=== PATIENT | female | born 1955 | race Caucasian/White ===

== ENCOUNTER → 2016-07-02 | Outpatient (CLI) | payer MEDICARE ==
--- NOTE | 2016-07-02 10:31 | USB ---
Reason for exam: clinical finding. Indicated problem(s): pain in the left breast. Physical Findings: Nurse Summary: left reast tender during exam (nurse vanita). US Breast LT Left breast ultrasound including all four quadrants, the retroareolar region and axilla demonstrates a 0.4 x 0.5 x 0.2cm oval, hypoechoic lesion at 4 o'clock, benign lymph node and a 1.1 x 0.7 x 0.4cm oval, mixed lesion at 7 o'clock, vague tissue versus true lesion. These results were verbally communicated with the patient and result sheet given to the patient on 07/02/16. ASSESSMENT: Probably benign, BI-RAD 3 RECOMMENDATION: Ultrasound of the left breast in 6 months. Manage on a clinical basis with regard to patient symptoms.
== END | disposition home or self-care (01) ==
LOC: RADUSWWP 08:00
PROVIDERS: ATTEND Internal Medicine Geriatric Medicine
DX: N64.9 Disorder of breast, unspecified (principal)

== ENCOUNTER 2016-11-26 12:19 | Emergency (ER) | payer MEDICARE ==
[2016-11-26 12:57] VITALS: RESP 18
[2016-11-26] MEDS ORDERED: DICYCLOMINE 10 MG/ML 2 ML AMP IM STA (13:59)
[2016-11-26] MEDS ORDERED: ONDANSETRON 4 MG/2 ML VIAL IVP STA (13:59)
--- NOTE | 2016-11-26 14:01 | ED ---
Abdominal Pain HPI - General Chief Complaint: Abdominal Pain Stated Complaint: Abd Pain Time Seen by Provider: 11/26/16 13:52 Source: patient, RN notes reviewed Mode of arrival: ambulatory Limitations: no limitations - History of Present Illness Initial Comments: 61-year-old female presents to the emergency department with a chief complaint of crampy abdominal pain. Patient states that this pain started over the last 2 weeks. Patient states every time she eats she becomes very bloated and uncomfortable. Patient states she has nausea without vomiting. Patient states that she did take some Pepto-Bismol to help with her discomfort and now she has black stool. Patient states that she was concerned because her pain does not seem to be improving so she thought that she should be evaluated.Patient denies any recent fever, chills, shortness of breath, chest pain, back pain, numbness or tingling, dysuria or hematuria, constipation or diarrhea, headaches or visual changes, or any other current symptoms. - Related Data Home Medications Medication Instructions Recorded Confirmed Albuterol Nebulized [Ventolin 2.5 mg INHALATION RT-DAILY PRN 02/26/15 11/26/16 Nebulized] Albuterol Sulfate [Proair Hfa] 2 puff INHALATION RT-DAILY PRN 02/26/15 11/26/16 Cholecalciferol [Vitamin D3] 400 unit PO DAILY 02/26/15 11/26/16 Ipratropium/Albuterol Sulfate 2 puff INHALATION RT-QID PRN 02/26/15 11/26/16 [Combivent Respimat Inhaler] Lisinopril-Hctz 10-12.5 mg 1 tab PO DAILY 02/26/15 11/26/16 [Zestoretic 10-12.5] Metoprolol Succinate [Toprol XL] 100 mg PO DAILY 02/26/15 11/26/16 Simvastatin [Zocor] 40 mg PO DAILY 02/26/15 11/26/16 Aspirin [Adult Low Dose Aspirin EC] 81 mg PO DAILY 05/14/16 11/26/16 Gabapentin [Neurontin] 300 mg PO BID 11/26/16 11/26/16 Previous Rx's Medication Instructions Recorded Clopidogrel [Plavix] 75 mg PO DAILY #30 tab 03/01/15 Allergies Allergy/AdvReac Type Severity Reaction Status Date / Time influenza virus vaccine, Allergy hives Verified 11/26/16 15:23 specific [influenza virus vacc,specific] Review of Systems ROS Statement: Those systems with pertinent positive or pertinent negative responses have been documented in the HPI. ROS Other: All systems not noted in ROS Statement are negative. Past Medical History Past Medical History: Asthma, Chest Pain / Angina, COPD, Deep Vein Thrombosis ( DVT), Hyperlipidemia, Hypertension, Vascular Disorder Additional Past Medical History / Comment(s): hx blood clot in left arm, hx migraines, PVD History of Any Multi-Drug Resistant Organisms: None Reported Past Surgical History: Heart Catheterization Additional Past Surgical History / Comment(s): stent to lt external iliac, blood clot removed from left arm, surgery to fix "tear in aorta", surgery for "abdominal adhesions", 06-11-16 LT ILIAC PTBA/STENT Past Anesthesia/Blood Transfusion Reactions: No Reported Reaction Additional Past Anesthesia/Blood Transfusion Reaction / Comment(s): claustrophobia Past Psychological History: No Psychological Hx Reported Smoking Status: Current every day smoker Past Alcohol Use History: Occasional Additional Past Alcohol Use History / Comment(s): started smoking at age 16, states trying to quit, down FROM 1PPD to 1/2 ppd-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 Eye: Pupils are equal, round and reactive to light, extra-ocular movements are intact; there is normal conjunctiva bilaterally. No signs of icterus. Ears, nose, mouth and throat: There are moist mucous membranes. Neck: The neck is supple, there is no tenderness. Cardiovascular: There is a regular rate and rhythm. No murmur, rub or gallop is appreciated. Respiratory: Lungs are clear to auscultation, respirations are non-labored, breath sounds are equal. No wheezes, stridor, rales, or rhonchi. Gastrointestinal: Soft, distended, left-sided tenderness of the abdomen without masses or organomegaly noted. There is no rebound or guarding present. No CVA tenderness. Bowel sounds are unremarkable. Back: There is no tenderness to palpation in the midline. There is no obvious deformity. No rashes noted. Musculoskeletal: Normal ROM, no tenderness, There is no pedal edema. There is no calf tenderness or swelling. Sensation intact. Pulses equal bilaterally 2+. Neurological: CN II-XII intact, There are no obvious motor or sensory deficits. Coordination appears grossly intact. Speech is normal. Skin: Skin is warm and dry and no rashes or lesions are noted. Psychiatric: Cooperative, appropriate mood & affect, normal judgment. Limitations: no limitations Course Vital Signs 11/26/16 12:53 Temperature 98.7 F Pulse Rate 96 Respiratory 18 Rate Blood Pressure 115/77 O2 Sat by Pulse 97 Oximetry Medical Decision Making - Medical Decision Making 61-year-old female presents emergency Department chief complaint of abdominal pain.this patient is feeling much better with the medication. At this time we did inform patient CT results we discussed lab results. This tenderness. Acute finding for the patient's abdominal pain. Patient's tenderness has resolved. This time we did discuss close follow-up with the doctor we discussed return parameters all patient's questions. She states she understood and she is given the plan. She will be discharged. - Lab Data Result diagrams: 11/26/16 14:23 11/26/16 14:23 Lab Results 11/26/16 11/26/16 11/26/16 Range/Units 14:23 14:23 14:23 WBC 6.3 (3.8-10.6) k/uL RBC 4.12 (3.80-5.40) m/uL Hgb 14.7 (11.4-16.0) gm/dL Hct 42.4 (34.0-46.0) % MCV 102.9 H (80.0-100.0) fL MCH 35.6 H (25.0-35.0) pg MCHC 34.6 (31.0-37.0) g/dL RDW 13.7 (11.5-15.5) % Plt Count 228 (150-450) k/uL Neutrophils % 63 % Lymphocytes % 28 % Monocytes % 5 % Eosinophils % 2 % Basophils % 1 % Neutrophils # 3.9 (1.3-7.7) k/uL Lymphocytes # 1.8 (1.0-4.8) k/uL Monocytes # 0.3 (0-1.0) k/uL Eosinophils # 0.1 (0-0.7) k/uL Basophils # 0.0 (0-0.2) k/uL Macrocytosis Slight Sodium 136 L (137-145) mmol/L Potassium 3.6 (3.5-5.1) mmol/L Chloride 103 (98-107) mmol/L Carbon Dioxide 22 (22-30) mmol/L Anion Gap 11 mmol/L BUN 15 (7-17) mg/dL Creatinine 0.78 (0.52-1.04) mg/dL Est GFR (MDRD) Af Amer >60 (>60 ml/min/1.73 sqM) Est GFR (MDRD) Non-Af >60 (>60 ml/min/1.73 sqM) Glucose 109 H (74-99) mg/dL Calcium 9.9 (8.4-10.2) mg/dL Total Bilirubin 0.6 (0.2-1.3) mg/dL AST 32 (14-36) U/L ALT 24 (9-52) U/L Alkaline Phosphatase 85 (38-126) U/L Total Protein 7.4 (6.3-8.2) g/dL Albumin 4.5 (3.5-5.0) g/dL Amylase 46 (30-110) U/L Lipase 136 (23-300) U/L Urine Color Urine Appearance (Clear) Urine pH (5.0-8.0) Urine Protein (Negative) Urine Glucose (UA) (Negative) Urine Ketones (Negative) Urine Blood (Negative) Urine Nitrite (Negative) Urine Bilirubin (Negative) Urine Urobilinogen (<2.0) mg/dL Ur Leukocyte Esterase (Negative) Stool Occult Blood Negative (Negative) 11/26/16 Range/Units 15:51 WBC (3.8-10.6) k/uL RBC (3.80-5.40) m/uL Hgb (11.4-16.0) gm/dL Hct (34.0-46.0) % MCV (80.0-100.0) fL MCH (25.0-35.0) pg MCHC (31.0-37.0) g/dL RDW (11.5-15.5) % Plt Count (150-450) k/uL Neutrophils % % Lymphocytes % % Monocytes % % Eosinophils % % Basophils % % Neutrophils # (1.3-7.7) k/uL Lymphocytes # (1.0-4.8) k/uL Monocytes # (0-1.0) k/uL Eosinophils # (0-0.7) k/uL Basophils # (0-0.2) k/uL Macrocytosis Sodium (137-145) mmol/L Potassium (3.5-5.1) mmol/L Chloride (98-107) mmol/L Carbon Dioxide (22-30) mmol/L Anion Gap mmol/L BUN (7-17) mg/dL Creatinine (0.52-1.04) mg/dL Est GFR (MDRD) Af Amer (>60 ml/min/1.73 sqM) Est GFR (MDRD) Non-Af (>60 ml/min/1.73 sqM) Glucose (74-99) mg/dL Calcium (8.4-10.2) mg/dL Total Bilirubin (0.2-1.3) mg/dL AST (14-36) U/L ALT (9-52) U/L Alkaline Phosphatase (38-126) U/L Total Protein (6.3-8.2) g/dL Albumin (3.5-5.0) g/dL Amylase (30-110) U/L Lipase (23-300) U/L Urine Color Light Yellow Urine Appearance Clear (Clear) Urine pH 6.0 (5.0-8.0) Urine Protein Trace H (Negative) Urine Glucose (UA) Negative (Negative) Urine Ketones Negative (Negative) Urine Blood Negative (Negative) Urine Nitrite Negative (Negative) Urine Bilirubin Negative (Negative) Urine Urobilinogen <2.0 (<2.0) mg/dL Ur Leukocyte Esterase Negative (Negative) Stool Occult Blood (Negative) - Radiology Data Radiology results: report reviewed, image reviewed Disposition Clinical Impression: Abdominal pain Disposition: HOME SELF-CARE Condition: Stable Instructions: Abdominal Pain (ED) Additional Instructions: Please use medication as discussed. Please follow up with family doctor if symptoms have not improved over the next two days. Please return to the emergency room if your symptoms increase or worsen or for any other concerns. Referrals: David Varghese MD [Primary Care Provider] - 1-2 days Time of Disposition: 16:02
[2016-11-26] MEDS ORDERED: RX INFO: IV CONTRAST WAS GIVEN 1 EACH MISC MISCELLANE PRN (14:21)
[2016-11-26 14:48] LABS: Basophils % (A) 1 %; CH 36.2; CHCM 35.4; Eosinophils # (A) 0.1 k/uL (0-0.7); Eosinophils % (A) 2 %; HCT 42.4 % (34.0-46.0); HDW 2.37; HGB 14.7 gm/dL (11.4-16.0); Luc # (Auto) 0.13; Luc % (Auto) 2; Lymphocytes # (A) 1.8 k/uL (1.0-4.8); Lymphocytes % (A) 28 %; MCH 35.6 pg (25.0-35.0); MCHC 34.6 g/dL (31.0-37.0); MCV 102.9 fL (80.0-100.0); Macrocytosis Slight; Mean Platelet Volume 7.1; Monocytes # (A) 0.3 k/uL (0-1.0); Monocytes % (A) 5 %; Neutrophils # (A) 3.9 k/uL (1.3-7.7); Neutrophils % (A) 63 %; RBC 4.12 m/uL (3.80-5.40); RDW 13.7 % (11.5-15.5); WBC 6.3 k/uL (3.8-10.6); WBC (Perox) 6.25
[2016-11-26 14:57] LABS: ALT 24 U/L (9-52); AST 32 U/L (14-36); Alkaline Phosphatase 85 U/L (38-126); Amylase 46 U/L (30-110); Anion Gap 11 mmol/L; Blood Urea Nitrogen 15 mg/dL (7-17); Calcium 9.9 mg/dL (8.4-10.2); Carbon Dioxide 22 mmol/L (22-30); Chloride 103 mmol/L (98-107); Glucose 109 mg/dL (74-99); Non-African American GFR(MDRD) >60 (>60 ml/min/1.73 sqM); Potassium 3.6 mmol/L (3.5-5.1); Sodium 136 mmol/L (137-145); Total Bilirubin 0.6 mg/dL (0.2-1.3); Total Protein 7.4 g/dL (6.3-8.2)
--- NOTE | 2016-11-26 15:17 | CT ---
EXAMINATION TYPE: CT abdomen pelvis w con DATE OF EXAM: 11/26/2016 COMPARISON: NONE INDICATION: Abdominal pain, mainly left lower quadrant DLP: 1363 mGycm, Automated exposure control for dose reduction was used. CONTRAST: 100 mL of Omnipaque 300. Study performed without Oral Contrast TECHNIQUE: Axial images were obtained from above the diaphragm to the pubic rami in the axial plane a t 5 mm thick sections. Reconstructed images are reviewed on the computer in the coronal plane. FINDINGS: Limited CT sections are obtained the lung bases. The lung bases are clear. CT ABDOMEN: Liver: Normal Spleen: Normal Pancreas: Normal Adrenal glands: The adrenal glands are normal. Gallbladder: Normal Kidneys: No masses are evident. No hydronephrosis is present. No cysts are present. Delayed images were obtained through the kidneys, which remain unremarkable. Aorta: Normal Inferior vena cava: Normal. CT PELVIS: Loops of bowel within the abdomen and pelvis are normal. There are loops of bowel which are incom pletely distended or lack oral contrast limiting their evaluation. Appendix: Normal as visualized. Urinary bladder: Normal. Genitourinary structures: Uterus is unremarkable. Adnexal regions are clear. Minimal physiologic flui d is in the left adnexal region. A 1.3 cm cyst may be on the right ovary. Osseous structures: No suspicious lytic or sclerotic lesions. IMPRESSIONS: 1. Right ovarian cyst. 2. Minimal fluid left adnexal region.
[2016-11-26 15:59] LABS: Appearance,Urine Clear (Clear); Bilirubin,Urine Negative (Negative); Glucose,Urine (UA) Negative (Negative); Ketones,Urine Negative (Negative); Leukocyte Esterase,Urine Negative (Negative); Nitrite,Urine Negative (Negative); Protein,Urine Trace (Negative); UA Billing (MACRO vs. MICRO) CHEM; Urobilinogen,Urine <2.0 mg/dL (<2.0)
[2016-11-26 16:13] LABS: Specific Gravity,Urine >1.050 (1.001-1.035)
[2016-11-26 16:17] VITALS: BP 129/71; PULSE 91; TEMP 97.8
== END 2016-11-26 16:16 | disposition home or self-care (01) ==
LOC: EC 12:19
DX: R10.9 Unspecified abdominal pain (principal); R11.0 Nausea; I10 Essential (primary) hypertension; E78.5 Hyperlipidemia, unspecified; F17.200 Nicotine dependence, unspecified, uncomplicated; Z86.718 Personal history of other venous thrombosis and embolism; Z79.82 Long term (current) use of aspirin; Z79.899 Other long term (current) drug therapy; Z88.7 Allergy status to serum and vaccine
CPT/HCPCS: 36415; 80053; 82150; 83690; 85025; 82272; 81003; 87086; 74177; 99284; 96374; 96372; J0500; J2405; Q9967

== ENCOUNTER → 2017-02-05 | Outpatient (CLI) | payer MEDICARE ==
--- NOTE | 2017-02-05 10:05 | CT ---
EXAMINATION TYPE: CT brain wo con DATE OF EXAM: 02/05/2017 COMPARISON: NONE HISTORY: Headache CT DLP: 1036 mGycm. Automated Exposure Control for Dose Reduction was Utilized. TECHNIQUE: CT scan of the head is performed without contrast. FINDINGS: There is no acute intracranial hemorrhage, mass effect, or midline shift identified. The ventricles and sulci are within normal limits in size. The globes are intact and unremarkable. Ther e is tortuosity of the cavernous portions of the carotid arteries with minimal atheromatous changes. Few areas of hypoattenuation are seen within the right frontal and parietal lobes in the subcortical and periventricular white matter. Moderate mucosal thickening is seen of the left sphenoid sinus. Right bryanna bullosa are noted. Mild mucosal thickening is present within the ethmoid sinus and to a lesser degree into the right frontal sinuses through the frontal recess. Only partially visualized maxillary sinuses appear patent. Mastoi d air cells are well aerated. IMPRESSION: 1. No acute intracranial hemorrhage, mass effect, or midline shift is seen. 2. Few scattered subcortical and periventricular white matter changes, likely on the basis of chronic microangiopathy. 3. Moderate paranasal sinus disease.
== END ==
LOC: RADCTMAIN 09:09
PROVIDERS: ATTEND Internal Medicine Geriatric Medicine
DX: R90.89 Other abnormal findings on diagnostic imaging of central nervous system (principal)
CPT/HCPCS: 70450

== ENCOUNTER → 2017-08-26 | Outpatient (CLI) | payer MEDICARE ==
--- NOTE | 2017-08-26 16:44 | BD ---
EXAMINATION TYPE: MG DEXA axial skeleton. DATE OF EXAM: 08/26/2017 COMPARISON: NONE CLINICAL HISTORY: 62 year-old female age related osteoporosis, screening Height: 64 Weight: 179.9 FRAX RISK QUESTIONS: Alcohol (3 or more units per day): no Family History (Parent hip fracture): no Glucocorticoids (More than 3mos): no (Ex: prednisone, prednisolone, methylprednisolone, dexamethasone, and hydrocortisone). History of Fracture in Adulthood: no Secondary Osteoporosis: 1. Type 1 Diabetes: no 2. Hyperthyroidism: no 3. Menopause before 45: yes 4. Malnutrition: no 5. Chronic liver disease: no Rheumatoid Arthritis: no Current Tobacco Use: yes RISK FACTORS HISTORY OF: Surgery to Spine/Hip(right/left)/Wrist (right/left): no Family History of Osteoporosis: no Active: yes Diet low in dairy products/other sources of calcium: low in dairy/ takes calcium Postmenopausal woman: age 43 Lost more than 2 inches in height since high school: no Frequent falls: no Adrenal Insufficiency: no MEDICATIONS: headache meds, blood pressure, vit d Additional History: EXAM MEASUREMENTS: Bone mineral densitometry was performed using the [employer] System. Bone mineral density as measured about the Lumbar spine is: ----- L1-L4(G/cm2): 1.126 T Score Values are as follows: ----- L2: -0.9 ----- L3: -0.3 ----- L4: -0.7 ----- L1-L4: -0.6 Bone mineral density has: baseline Bone mineral density about the R hip (g/cm2): 0.837 Bone mineral density about the L hip (g/cm2): 0.848 T Score values are as follows: -----R Neck: -1.4 -----L Neck: -1.4 -----R Total: -0.8 -----L Total: -0.3 Bone mineral density has: baseline IMPRESSION: Osteopenia (T Score between -2.5 and -1). There is slightly increased risk of fracture and the patient may be considered for treatment. Re-Screen 2-5 years. NOTE: T-SCORE=SD OF THE YOUNG ADULT MEAN.
--- NOTE | 2017-09-03 09:20 | MM ---
Reason for exam: screening (asymptomatic). Last mammogram was performed 1 year and 3 months ago. History: Patient is postmenopausal and is nulliparous. Family history of breast cancer in maternal aunt at age 63 and breast cancer in paternal aunt at age 70. Physical Findings: A clinical breast exam by your physician is recommended on an annual basis and results should be correlated with mammographic findings. MG 3D Screening Mammo W/Cad Bilateral CC and MLO view(s) were taken. Prior study comparison: May 29, 2016, mammogram. February 17, 2013, mammogram. Focal asymmetry in the upper inner right breast and in the upper inner left breast. This finding is changed when compared with previous exams. ASSESSMENT: Incomplete: need additional imaging evaluation, BI-RAD 0 RECOMMENDATION: Special view mammogram of both breasts. If lesion persists on supplemental views, image directed ultrasound is recommended. [facility] will attempt to contact patient to return for supplemental views and ultrasound if indicated.
== END | disposition home or self-care (01) ==
LOC: RADMAMWWP 12:55
PROVIDERS: ATTEND Internal Medicine Geriatric Medicine
DX: Z12.31 Encounter for screening mammogram for malignant neoplasm of breast (principal); Z13.820 Encounter for screening for osteoporosis; M85.80 Other specified disorders of bone density and structure, unspecified site; M81.0 Age-related osteoporosis without current pathological fracture
CPT/HCPCS: 77063; 77067; 77080

== ENCOUNTER → 2017-10-02 | Outpatient (CLI) | payer MEDICARE ==
--- NOTE | 2017-10-02 14:38 | MM ---
Reason for exam: additional evaluation requested from abnormal screening. Last mammogram was performed 1 month ago. History: Patient is postmenopausal and is nulliparous. Family history of breast cancer in maternal aunt at age 63 and breast cancer in paternal aunt at age 70. Physical Findings: Nurse did not find any significant physical abnormalities on exam. MG 3D Work Up W/Cad DORA Bilateral spot compression CC view(s) were taken. LM view(s) were taken of the left breast. Prior study comparison: August 26, 2017, bilateral MG 3d screening mammo w/cad. May 29, 2016, mammogram. The breast tissue is heterogeneously dense. This may lower the sensitivity of mammography. No distinct lesion persists bilateral breasts. These results were verbally communicated with the patient and result sheet given to the patient on 10/02/17. ASSESSMENT: Benign, BI-RAD 2 RECOMMENDATION: Return to routine screening mammogram schedule for both breasts.
== END | disposition home or self-care (01) ==
LOC: RADMAMWWP 13:51
PROVIDERS: ATTEND Internal Medicine Geriatric Medicine
DX: R92.8 Other abnormal and inconclusive findings on diagnostic imaging of breast (principal)
CPT/HCPCS: 77066; G0279

== ENCOUNTER → 2018-03-23 | Outpatient (CLI) | payer MEDICARE ==
--- NOTE | 2018-03-23 10:13 | XR ---
EXAMINATION TYPE: XR Hip Complete LT DATE OF EXAM: 03/23/2018 COMPARISON: NONE HISTORY: Pain TECHNIQUE: 2 views submitted FINDINGS: There is no evidence of erosive change or acute fracture. Mild concentric narrowing the joint space. Vascular stent is seen overlying the upper pelvis on the left. IMPRESSION: 1. Mild arthropathy.
== END | disposition home or self-care (01) ==
LOC: RADXRMAIN 09:49
PROVIDERS: ATTEND Internal Medicine Geriatric Medicine
DX: M12.852 Other specific arthropathies, not elsewhere classified, left hip (principal)
CPT/HCPCS: 73502

== ENCOUNTER → 2018-08-06 | Outpatient (CLI) | payer MEDICARE ==
--- NOTE | 2018-08-06 14:59 | CT ---
EXAMINATION TYPE: CT angio thor/abd pel aorta DATE OF EXAM: 08/06/2018 COMPARISON: 11/26/2016 HISTORY: Dissection of abdominal aorta. CT DLP: 1765.7 mGycm. Automated Exposure Control for Dose Reduction was Utilized. CONTRAST: CT scan of the thorax, abdomen and pelvis is performed with IV Contrast, patient injected with 80 mL of Isovue 370. FINDINGS: LUNGS: There are a few scattered subtle upper lobe geographic groundglass opacities within the lung a pices such as very subtly seen on series 6 image 12 and 13 centrally. Remainder the lungs are clear w ithout evidence of focal consolidation, pleural effusion or pneumothorax minimal centrilobular emphys ematous changes and biapical pleural parenchymal scarring are noted. The tracheobronchial tree is pat ent. MEDIASTINUM: Surgical clips are seen surrounding the left subclavian and carotid above the thoracic i nlet. On the unenhanced images there is an aortic arch and descending thoracic aortic vascular stent. No intramural hematoma is seen. On the enhanced images there is no evidence of dissection. The nativ e subclavian artery is occluded and there is anastomosis with the left common carotid artery. A verte bral artery is diminutive but appears to be patent in its very limited portions. The descending thora cic aorta measures 3.0 x 3.0 cm at the level of the main pulmonary artery and distally measures 2.2 x 2.1 cm. No dissection is noted. There are no greater than 1 cm hilar or mediastinal lymph nodes. N o pericardial effusion is seen. OTHER: No additional significant abnormality is seen. LIVER/GB: Arterial phase of enhancement limits evaluation of the hepatic parenchyma. No suspicious he patic masses are seen.. No cholelithiasis. PANCREAS: No significant abnormality is seen. SPLEEN: No significant abnormality is seen. ADRENALS: There is mild thickening of the adrenal glands although they maintain a normal adreniform s hape, most commonly related to adrenal gland hyperplasia. KIDNEYS: No nephrolithiasis or hydronephrosis. BOWEL: No dilated large or small bowel. GENITAL ORGANS: Small amount of free fluid is seen posterior to the left ovary in the posterior cul-d e-sac. 1.8 cm probable right ovarian cyst is also noted. LYMPH NODES: No greater than 1cm abdominal or pelvic lymph nodes are appreciated. OSSEOUS STRUCTURES: No significant abnormality is seen. OTHER: The abdominal aorta is of normal course and caliber with moderate calcific atheromatous change s. No dissection is seen. IMPRESSION: 1. 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 No evidence of dissection. 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 2. Vague groundglass apical opacities may relate to pneumonitis of infectious or inflammatory etiolog y. Minimal centrilobular emphysematous changes also seen. 3. Small amount of free fluid is left paraovarian and could relate to a recently ruptured cyst howeve r given this patient's age pelvic ultrasound is recommended to evaluate the ovaries. 4. No evidence of abdominal aortic aneurysm or dissection. Moderate calcific atheromatous plaquing th roughout the abdominal aorta.
== END | disposition home or self-care (01) ==
LOC: RADCTMAIN 12:15
PROVIDERS: ATTEND Internal Medicine Interventional Cardiology
DX: I71.2 Thoracic aortic aneurysm, without rupture (principal); J43.2 Centrilobular emphysema; R91.8 Other nonspecific abnormal finding of lung field; I70.0 Atherosclerosis of aorta; Z88.7 Allergy status to serum and vaccine; Z96.89 Presence of other specified functional implants; Z98.890 Other specified postprocedural states
CPT/HCPCS: 82565; 84520; 71275; 36415; 74174; Q9967

== ENCOUNTER 2018-10-18 16:03 | Emergency (ER) | payer MEDICARE ==
[2018-10-18] MEDS ORDERED: SODIUM CHLORIDE 0.9% 1,000 ML IV STA (16:31)
[2018-10-18] MEDS ORDERED: FAMOTIDINE 20 MG/2 ML VIAL IV STA (16:31)
[2018-10-18] MEDS ORDERED: diphenhydrAMINE 50 MG CAP PO STA (16:31)
[2018-10-18] MEDS ORDERED: methylPREDNISolone SOD SUCCI 125 MG/2 ML VIAL IV STA (16:31)
[2018-10-18] MEDS ORDERED: EPINEPHrine 1 MG/ML 1 ML AMP IM STA (16:31)
--- NOTE | 2018-10-18 16:35 | ED ---
Allergic Reaction HPI - General Chief complaint: Allergic Reaction Stated complaint: Tongue Swelling Time Seen by Provider: 10/18/18 16:23 Source: patient Mode of arrival: ambulatory Limitations: no limitations - History of Present Illness Initial Comments: This 63-year-old white female presents with a complaint of an tongue swelling. This is primarily to the right side of her tongue. She denies any difficulty in breathing or rash. She states that it feels weird to swallow. She denies any previous similar incidents. This occurred approximately 45 minutes prior to arrival. She apparently called her primary care physician and they sent her to the emergency department for further treatment. She denies any new medications or new foods. She is unsure of the inciting incident. No other complaints or modifying factors. She does relate that she has been on lisinopril/hydrochlorothiazide for many years. - Related Data Home Medications Medication Instructions Recorded Confirmed Albuterol Nebulized [Ventolin 2.5 mg INHALATION RT-QID PRN 02/26/15 10/18/18 Nebulized] Albuterol Sulfate [Proair Hfa] 2 puff INHALATION RT-QID PRN 02/26/15 10/18/18 Cholecalciferol [Vitamin D3] 400 unit PO DAILY 02/26/15 10/18/18 Ipratropium/Albuterol Sulfate 1 puff INHALATION RT-QID PRN 02/26/15 10/18/18 [Combivent Respimat Inhaler] Metoprolol Succinate [Toprol XL] 100 mg PO DAILY 02/26/15 10/18/18 Simvastatin [Zocor] 40 mg PO DAILY 02/26/15 10/18/18 Aspirin [Adult Low Dose Aspirin EC] 81 mg PO DAILY 05/14/16 10/18/18 Citalopram Hydrobromide [CeleXA] 40 mg PO DAILY 10/18/18 10/18/18 DULoxetine HCL [Cymbalta] 30 mg PO DAILY 10/18/18 10/18/18 Gabapentin 600 mg PO BID 10/18/18 10/18/18 Lisinopril-Hctz 20-12.5 mg 1 tab PO DAILY 10/18/18 10/18/18 [Zestoretic 20-12.5] Multivitamins, Thera [Multivitamin 1 tab PO DAILY 10/18/18 10/18/18 (formulary)] Pantoprazole Sodium [Protonix] 40 mg PO DAILY 10/18/18 10/18/18 Previous Rx's Medication Instructions Recorded Clopidogrel [Plavix] 75 mg PO DAILY #30 tab 03/01/15 Famotidine [Pepcid] 20 mg PO BID #6 tablet 10/18/18 Hydrochlorothiazide 25 mg PO DAILY #30 tablet 10/18/18 diphenhydrAMINE [Benadryl] 50 mg PO QID PRN #15 capsule 10/18/18 predniSONE 20 mg PO BID #6 tab 10/18/18 Allergies Allergy/AdvReac Type Severity Reaction Status Date / Time influenza virus vaccine, Allergy Rash/Hives Verified 10/18/18 16:35 specific [influenza virus vacc,specific] Review of Systems ROS Statement: Those systems with pertinent positive or pertinent negative responses have been documented in the HPI. ROS Other: All systems not noted in ROS Statement are negative. Past Medical History Past Medical History: Asthma, Chest Pain / Angina, COPD, Deep Vein Thrombosis (DVT), Hyperlipidemia, Hypertension, Vascular Disorder Additional Past Medical History / Comment(s): hx blood clot in left arm, hx migraines, PVD History of Any Multi-Drug Resistant Organisms: None Reported Past Surgical History: Heart Catheterization Additional Past Surgical History / Comment(s): stent to lt external iliac, blood clot removed from left arm, surgery to fix "tear in aorta", surgery for "abdominal adhesions", 06-11-16 LT ILIAC PTBA/STENT Past Anesthesia/Blood Transfusion Reactions: No Reported Reaction Additional Past Anesthesia/Blood Transfusion Reaction / Comment(s): claustrophobia Past Psychological History: No Psychological Hx Reported Smoking Status: Current every day smoker Past Alcohol Use History: Occasional Past Drug Use History: None Reported - Past Family History Father Family Medical History: Cancer, Myocardial Infarction (OR) Additional Family Medical History / Comment(s): SKIN CANCER Mother Family Medical History: Cancer, Deep Vein Thrombosis (DVT) Additional Family Medical History / Comment(s): COLON CANCER TWICE, PAD-STENTS IN LEGS General Exam - General Exam Comments Initial Comments: GENERAL: The patient is well nourished and well hydrated. VITAL SIGNS: Heart rate, blood pressure, respiratory rate reviewed as recorded in nurse's notes. EYES: Pupils are round and reactive. Extraocular movements are intact. No conjunctival / lid redness or swelling. ENT: There is swelling to the tongue with the right side being worse than the left. Airway is patent. Throat is clear. There is no swelling noted in the posterior oropharynx. NECK: Nontender. No swelling or evidence of injury. No subcutaneous emphysema. Trachea is midline. No thyroid mass. HEART: Regular rate and rhythm. Good peripheral pulses. LUNGS/CHEST: Breath sounds clear and equal bilaterally. No rales, rhonchi, or wheezes. No ecchymosis, subcutaneous emphysema, or tenderness. ABDOMEN: Abdomen soft without tenderness. No palpable masses or organomegaly. No peritoneal signs. No abdominal wall swelling or ecchymosis. EXTREMITIES: No extremity tenderness. Normal muscle tone and function. No thoracolumbar tenderness. NEUROLOGIC: Sensation is grossly intact. Cranial nerve exam reveals face is symmetrical, tongue is midline, speech is clear. SKIN: No abrasions or ecchymosis is noted. No induration or masses noted. PSYCHIATRIC: Alert and oriented. Appropriate behavior and judgment. Limitations: no limitations Course Vital Signs 10/18/18 16:04 Temperature 98.1 F Pulse Rate 86 Respiratory 18 Rate Blood Pressure 122/60 O2 Sat by Pulse 98 Oximetry Medical Decision Making - Medical Decision Making The patient was seen and examined. All diagnostics were reviewed. An IV is established patient is given some Benadryl, Solu-Medrol, Pepcid intravenously. She also received some epinephrine intramuscularly. On recheck, she is feeling slightly improved. There is still some mild tongue swelling noted primarily on the right side. The laboratory does not show any acute abnormalities. This felt as though she would benefit from admission to the hospital but she refuses. She states that she has an important meeting in the morning. Risks and benefits of not being admitted are discussed in detail and she still refuses. This felt as though her angioedema likely is related to the lisinopril. She is instructed to avoid lisinopril in the future. She relates that her blood pressure is normally fairly well controlled with this medication. Instead of the lisinopril/hydrochlorothiazide 12.5 mg she'll be changed to hydrochlorothiazide only had 25 mg. She'll be kept on Benadryl, prednisone, and Pepcid for the next several days. Return parameters are discussed. - Lab Data Result diagrams: 10/18/18 16:22 10/18/18 16:22 Lab Results 10/18/18 10/18/18 Range/Units 16:22 16:22 WBC 8.2 (3.8-10.6) k/uL RBC 3.79 L (3.80-5.40) m/uL Hgb 13.3 (11.4-16.0) gm/dL Hct 38.9 (34.0-46.0) % MCV 102.7 H (80.0-100.0) fL MCH 35.3 H (25.0-35.0) pg MCHC 34.3 (31.0-37.0) g/dL RDW 13.2 (11.5-15.5) % Plt Count 321 (150-450) k/uL Neutrophils % 62 % Lymphocytes % 28 % Monocytes % 4 % Eosinophils % 3 % Basophils % 1 % Neutrophils # 5.1 (1.3-7.7) k/uL Lymphocytes # 2.3 (1.0-4.8) k/uL Monocytes # 0.3 (0-1.0) k/uL Eosinophils # 0.3 (0-0.7) k/uL Basophils # 0.1 (0-0.2) k/uL Macrocytosis Slight Sodium 137 (137-145) mmol/L Potassium 4.0 (3.5-5.1) mmol/L Chloride 102 (98-107) mmol/L Carbon Dioxide 26 (22-30) mmol/L Anion Gap 9 mmol/L BUN 15 (7-17) mg/dL Creatinine 0.96 (0.52-1.04) mg/dL Est GFR (CKD-EPI)AfAm 73 (>60 ml/min/1.73 sqM) Est GFR (CKD-EPI)NonAf 64 (>60 ml/min/1.73 sqM) Glucose 110 H (74-99) mg/dL Calcium 10.1 (8.4-10.2) mg/dL Disposition Clinical Impression: 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 Prescriptions: diphenhydrAMINE [Benadryl] 50 mg PO QID PRN #15 capsule PRN Reason: tongue swelling Hydrochlorothiazide 25 mg PO DAILY #30 tablet Famotidine [Pepcid] 20 mg PO BID #6 tablet predniSONE 20 mg PO BID #6 tab Is patient prescribed a controlled substance at d/c from ED?: No Referrals: David Varghese MD [Primary Care Provider] - 1-2 days Time of Disposition: 18:17
[2018-10-18] MEDS ORDERED: diphenhydrAMINE 50 MG/ML 1 ML VIAL IVP STA (17:10)
[2018-10-18 17:19] LABS: Basophils # (A) 0.1 k/uL (0-0.2); Basophils % (A) 1 %; Eosinophils # (A) 0.3 k/uL (0-0.7); Eosinophils % (A) 3 %; HCT 38.9 % (34.0-46.0); HGB 13.3 gm/dL (11.4-16.0); Lymphocytes # (A) 2.3 k/uL (1.0-4.8); Lymphocytes % (A) 28 %; MCH 35.3 pg (25.0-35.0); MCHC 34.3 g/dL (31.0-37.0); MCV 102.7 fL (80.0-100.0); Macrocytosis Slight; Mean Platelet Volume 7.2; Monocytes # (A) 0.3 k/uL (0-1.0); Monocytes % (A) 4 %; Neutrophils # (A) 5.1 k/uL (1.3-7.7); Neutrophils % (A) 62 %; Platelet Count 321 k/uL (150-450); RBC 3.79 m/uL (3.80-5.40); RDW 13.2 % (11.5-15.5); WBC 8.2 k/uL (3.8-10.6)
[2018-10-18 17:29] LABS: Calcium 10.1 mg/dL (8.4-10.2)
[2018-10-18 19:33] VITALS: BP 122/72; PULSE 69; RESP 18; TEMP 98.4
== END 2018-10-18 19:33 | disposition home or self-care (01) ==
LOC: EC 16:03
DX: T78.3XXA Angioneurotic edema, initial encounter (principal); T46.4X5A Adverse effect of angiotensin-converting-enzyme inhibitors, initial encounter; J44.9 Chronic obstructive pulmonary disease, unspecified; E78.5 Hyperlipidemia, unspecified; I10 Essential (primary) hypertension; F17.200 Nicotine dependence, unspecified, uncomplicated; Z86.718 Personal history of other venous thrombosis and embolism; Z79.82 Long term (current) use of aspirin; Z79.899 Other long term (current) drug therapy; Z88.7 Allergy status to serum and vaccine; Z95.818 Presence of other cardiac implants and grafts; Z53.29 Procedure and treatment not carried out because of patient's decision for other reasons
CPT/HCPCS: 36415; 80048; 85025; 99284; 96374; 96375 ×2; 96361 ×2; 96372; J0171; J1200; J2930

== ENCOUNTER 2019-07-19 06:05 | Day surgery (SDC) | payer MEDICARE ==
[2019-07-14 15:14] VITALS: BMI 34.0
[2019-07-19] MEDS ORDERED: ALPRAZolam 0.5 MG TAB PO PRN ×2 (06:14)
[2019-07-19] MEDS ORDERED: NITROGLYCERIN SL TABS 0.4 MG TAB SUBLINGUAL PRN (06:14)
[2019-07-19] MEDS ORDERED: SODIUM CHLORIDE 0.9% 1,000 ML in EMPTY BAG 1 BAG IV ONE (06:14)
[2019-07-19] MEDS ORDERED: ALPRAZolam 0.25 MG TAB PO PRN (06:14)
[2019-07-19] MEDS ORDERED: ASPIRIN 325 MG TAB PO STA (06:14)
[2019-07-19] MEDS ORDERED: ASPIRIN 81 MG ONE (06:35)
[2019-07-19] MEDS ORDERED: SODIUM CHLORIDE 0.9% 1,000 ML IV ONE (06:55)
[2019-07-19 06:58] VITALS: RESP 16; TEMP 98.5
[2019-07-19] MEDS ORDERED: ATORVASTATIN 80 MG TAB PO ONE (07:00)
[2019-07-19] MEDS ORDERED: ASPIRIN 325 MG TAB PO ONE (07:00)
[2019-07-19] MEDS ORDERED: MIDAZOLAM 2 MG/2 ML VIAL IV ONE (08:18)
[2019-07-19] MEDS ORDERED: LIDOCAINE 1% INJ 10MG/ML (20 ML MDV) SQ ONE (08:18)
[2019-07-19] MEDS ORDERED: IOPAMIDOL-370 125ML BTL INJ ONE (08:26)
[2019-07-19] MEDS ORDERED: IOPAMIDOL-250 100ML BTL INTRAARTER ONE (08:33)
[2019-07-19] MEDS ORDERED: RX INFO: IV CONTRAST WAS GIVEN 1 EACH MISC MISCELLANE PRN (08:44)
[2019-07-19] MEDS ORDERED: SODIUM CHLORIDE 0.9% 1,000 ML IV SCH (08:45)
--- NOTE | 2019-07-19 09:25 | CC ---
CARDIAC CATHETERIZATION REPORT DATE OF SERVICE: July 19, 2019 PERFORMING PHYSICIAN: Saurabh Mas MD. PROCEDURE PERFORMED: 1. Selective right and left coronary angiogram. 2. Left heart catheterization. INDICATION: This is a 64-year-old female patient with history of peripheral arterial disease and prior stenting of the left external iliac artery as well as history of smoking as well as hypertension and dyslipidemia was experiencing chest discomfort concerning for angina. Because of that, a heart catheterization was advised. She is known to have coronary artery disease based on previous heart catheterization showing intermediate disease involving the mid LAD. APPROACH: Right common femoral artery. COMPLICATION: None. LEVEL OF SEDATION: Moderate with sedation length of 10 minutes. PROCEDURE DESCRIPTION: After obtaining an informed consent, the patient was brought to the cardiac research lab assistant. The right common femoral artery was cannulated using micropuncture technique, the micropuncture wire passed easily then I placed a 5-Cambodian sheath at the right common femoral artery. After that I did selective right and left coronary angiogram using JR4 and JL4 catheters. Left heart catheterization was performed using the JR4 catheter which crossed the aortic valve then I did pullback across the valve. The procedure was completed without any complication. SELECTIVE CORONARY ANGIOGRAM: 1. The right coronary artery is a large caliber vessel and it is a dominant vessel and appeared to be angiographically normal. In the midportion, it gives rise into acute marginal branch which seems to be normal and distally bifurcates into PDA and PLV branches and both appeared to be angiographically normal. 2. The left main is angiographically normal. It bifurcates into LCX and LAD. 3. The LCX is a large caliber vessel. It is a nondominant vessel. The proximal left circumflex is normal and gives rise into first OM branch which appeared to be normal and bifurcates into 2 separate branches. The circumflex continued after that as a moderate caliber vessel in the AV groove. 4. The Left Anterior Descending Artery: The proximal left anterior descending artery appeared to be angiographically normal. The mid LAD has a lesion appeared to be in the range of 40% to 50% seems to be unchanged compared to before. The LAD distally appeared to be angiographically normal. HEMODYNAMICS: The LVEDP was about 10 mmHg without significant gradient across the aortic valve. CONCLUSION: 1. Intermediate disease involving the mid left anterior descending artery with lesion appeared to be in the range of 40% to 50% and seems to be unchanged compared to prior heart catheterization. 2. Normal left ventricular end-diastolic pressure. POSTPROCEDURE MANAGEMENT: 1. Medical treatment. 2. Aggressive cholesterol control. 3. Follow up with the patient. HILL / ARAMIS: [id number] /
--- NOTE | 2019-07-19 09:32 | IR ---
EXAMINATION TYPE: IR angio abdominal w runoff DATE OF EXAM: 07/19/2019 CLINICAL HISTORY: Left leg pain. TECHNIQUE: Fluoroscopy. COMPARISON: None. FINDINGS: Fluoroscopic guidance was provided during coronary angiogram along with abdominal angiogra m with lower extremity runoff procedure performed by Dr. Mas. A total of 3.1 minutes of fluoroscopi c time was utilized during the procedure 10 cine runs are acquired. Images show catheter angiogram o f the 3 great vessels and the subsequent abdominal angiogram with lower extremity runoff through the right groin approach. Please refer to procedure note as I was not present nor performed procedure. IMPRESSION: As Above.
--- NOTE | 2019-07-19 09:46 | LTR ---
July 19, 2019 Re: Radha Cardozo Dear Dr. Varghese: Ms. Radha Cardozo underwent today a heart catheterization as well as an aortogram with runoff. The heart catheterization revealed intermediate disease involving the mid left anterior descending artery, appeared to be in the range of 50% and seems to be unchanged compared to prior heart catheterization in 2015. Having said that, I would advise aggressive cholesterol control and conservative medical approach at this point. Aortogram with runoff revealed occluded left external iliac artery. I will schedule the patient to undergo a EYELET CUTTER of the left external iliac artery to be done in the next few days. Again thank you for allowing us to participate in her care and please do not hesitate to call if you have any question or concern. Sincerely, MD HILL Lamb / ARAMIS: [id number] /
--- NOTE | 2019-07-19 10:46 | PCN ---
PROCEDURE NOTE DATE OF SERVICE: July 19, 2019. PERFORMING PHYSICIAN: Saurabh Mas MD PROCEDURES PERFORMED: 1. Abdominal aortogram. 2. Bilateral lower extremities run off. INDICATIONS: This is a pleasant 64-year-old female patient with history of peripheral arterial disease and prior stenting of the left external iliac artery who continues to have left leg intermittent claudication. On exam, she does have very diminished left femoral pulse. Because of that, she was brought today to undergo an aortogram with runoff. APPROACH: Right common femoral artery. COMPLICATIONS: None. LEVEL OF SEDATION: Moderate with sedation length of 10 minutes. PROCEDURE DESCRIPTION: Please refer to axis description, was done on heart catheterization report earlier today. I did an abdominal aortogram and bilateral lower extremities runoff using 5-Lithuanian pigtail catheter which was initially placed at the level of the renal arteries. Then it was pulled into above the bifurcation of the aorta to right and left common iliac arteries. The procedure was completed without any complication. SELECTIVE PERIPHERAL ANGIOGRAM: 1. The aorta appeared to have mild disease only. 2. Renal Arteries: The right and left renal arteries were not well opacified. 3. Common Iliac Arteries: Both common iliac arteries appeared to be angiographically normal. 4. Internal Iliac Arteries: Both internal iliac arteries are patent. 5. External Iliac Arteries: The right external iliac artery appeared to be normal and the left external iliac artery appeared to be occluded from the proximal portion and reconstitute above the inguinal ligament on the left side. 6. Common Femoral Arteries: Right and left common femoral arteries appear to be angiographically normal. 7. Profunda: Both profundas are patent. 8. SFA: Both SFAs are patent. 9. Popliteal: Both popliteals are patent. 10.Below the knee, there is three vessel runoff below the knee bilaterally. CONCLUSION: Occluded left external iliac artery. POSTPROCEDURE MANAGEMENT: The patient will be scheduled to undergo a DIRECTOR MBA of the left external iliac artery to be done in antegrade or retrograde technique. MMODL / IJN: [id number] /
[2019-07-19 17:49] VITALS: BP 127/68; PULSE 91
== END 2019-07-19 15:45 | disposition home or self-care (01) ==
LOC: CATHCVL 06:05
PROVIDERS: ATTEND Internal Medicine Interventional Cardiology
DX: I25.10 Atherosclerotic heart disease of native coronary artery without angina pectoris (principal); I70.212 Atherosclerosis of native arteries of extremities with intermittent claudication, left leg; I10 Essential (primary) hypertension; E78.5 Hyperlipidemia, unspecified; F17.210 Nicotine dependence, cigarettes, uncomplicated; Z82.49 Family history of ischemic heart disease and other diseases of the circulatory system; Z95.828 Presence of other vascular implants and grafts; Z79.82 Long term (current) use of aspirin; Z79.899 Other long term (current) drug therapy; Z79.02 Long term (current) use of antithrombotics/antiplatelets; Z88.7 Allergy status to serum and vaccine
CPT/HCPCS: 93458; 75625; 75716; 84132; C1769; C1894; J2250; J2001; Q9966; Q9967

== ENCOUNTER → 2019-11-14 | Outpatient (CLI) | payer MEDICARE ==
[2019-11-14 15:07] LABS: Anisocytosis Slight; HCT 39.6 % (34.0-46.0); HGB 13.2 gm/dL (11.4-16.0); Hypochromasia Slight; MCH 30.7 pg (25.0-35.0); MCHC 33.2 g/dL (31.0-37.0); MCV 92.4 fL (80.0-100.0); Mean Platelet Volume 7.1; Platelet Count 309 k/uL (150-450); RBC 4.29 m/uL (3.80-5.40); RDW 16.5 % (11.5-15.5); WBC 8.8 k/uL (3.8-10.6)
[2019-11-14 15:16] LABS: Potassium 3.2 mmol/L (3.5-5.1)
== END | disposition home or self-care (01) ==
LOC: LABWHC1 14:12
PROVIDERS: ATTEND Internal Medicine Interventional Cardiology
DX: Z01.818 Encounter for other preprocedural examination (principal); U07.1 COVID-19; I70.212 Atherosclerosis of native arteries of extremities with intermittent claudication, left leg
CPT/HCPCS: 80051; 82565; 84520; 85027; 36415; U0003

== ENCOUNTER 2019-11-16 06:10 | Inpatient (IN) | payer MEDICARE ==
[2019-11-15 09:48] VITALS: BMI 34.0
[~2019-11-16 06:10] MED LIST: ALPRAZolam 0.25 MG TAB PO PRN; ASPIRIN 325 MG TAB PO STA; SODIUM CHLORIDE 0.9% 1,000 ML in EMPTY BAG 1 BAG IV ONE; ZOLPIDEM 5 MG TAB PO PRN
[2019-11-16] MEDS ORDERED: ALPRAZolam 0.5 MG TAB ONE (06:39)
[2019-11-16] MEDS ORDERED: MIDAZOLAM 2 MG/2 ML VIAL IVP ONE (07:54)
[2019-11-16] MEDS ORDERED: LIDOCAINE 1% INJ 10MG/ML (20 ML MDV) SQ ONE (07:56)
[2019-11-16] MEDS ORDERED: HEPARIN SODIUM 1,000 UN/ML (10ML VL) IV ONE (08:02)
[2019-11-16] MEDS ORDERED: HYDROmorphone 1 MG/ML 1 ML SYRINGE IVP ONE (08:02)
[2019-11-16] MEDS: HEPARIN SODIUM 1,000 UN/ML (10ML VL) IV ONE ×3 (08:02→08:56)
[2019-11-16] MEDS ORDERED: fentaNYL (PF) 50 MCG/ML 2 ML AMP IV ONE (08:44)
[2019-11-16] MEDS: niCARdipine Syringe (1,000 mcg/10 mL) INTRAARTER ONE ×2 (08:56→09:00)
[2019-11-16] MEDS: NITROGLYCERIN 1000MCG/10ML SYRINGE INTRAARTER ONE ×2 (08:56→09:00)
[2019-11-16] MEDS ORDERED: ALTEPLASE BOLUS 1 MG/1 ML SYRINGE IV STA (09:09)
[2019-11-16] MEDS ORDERED: CLOPIDOGREL 75 MG TAB PO ONE (09:18)
[2019-11-16] MEDS ORDERED: IOPAMIDOL-250 100ML BTL INTRAARTER ONE (09:19)
[2019-11-16] MEDS ORDERED: NITROGLYCERIN SL TABS 0.4 MG TAB SUBLINGUAL PRN (09:25)
[2019-11-16] MEDS ORDERED: CLOTRIMAZOLE 1% CREAM 15 GM TUBE TOPICAL PRN (09:25)
[2019-11-16] MEDS ORDERED: ALBUTEROL NEBULIZED 2.5 MG/3 ML INHALATION PRN (09:25)
[2019-11-16] MEDS ORDERED: SODIUM CHLORIDE 0.9% 1,000 ML in EMPTY BAG 1 BAG IV SCH (09:30)
[2019-11-16] MEDS ORDERED: ALTEPLASE 10 MG in SODIUM CHLORIDE 0.9% 100 ML IA ONE (09:30)
[2019-11-16] MEDS: HEPARIN SOD,PORK IN 0.45% NACL 25,000 UNIT in 0.45% NACL 1 250ML.BAG IV SCH ×2 (09:46→14:00)
[2019-11-16 10:18] LABS: Glucose,Whole Blood 160 mg/dL (75-99)
--- NOTE | 2019-11-16 11:16 | IR ---
EXAMINATION TYPE: IR stent intravas non coronary DATE OF EXAM: 11/16/2019 COMPARISON: NONE HISTORY: Fluoroscopy time. Fluoroscopy was provided to the referring clinician.
[2019-11-16] MEDS: ALTEPLASE 10 MG in SODIUM CHLORIDE 0.9% 100 ML IA SCH (15:42)
--- NOTE | 2019-11-16 15:46 | AN ---
ANGIOGRAPHY REPORT PERCUTANEOUS PERIPHERAL INTERVENTION: DATE OF SERVICE: 11/16/2019 PERFORMING PHYSICIAN: Saurabh Mas MD. PROCEDURE PERFORMED: 1. Left lower extremity angiogram. 2. Intravascular ultrasound IVUS of the left external iliac artery. 3. Successful stenting of the proximal left external iliac artery using 9 x 60 mm self expandable stent with an excellent angiographic results. 4. Successful atherectomy of the distal right external/proximal right femoral artery 5. Successful balloon angioplasty of the distal left external iliac artery using 8 x 60 mm drug-coated balloon with an excellent angiographic results. 6. Successful placement of infusion catheter at the level of the left popliteal. INDICATION: This is a 64-year-old female patient with history of peripheral arterial disease and prior angioplasty of the left external iliac artery, who underwent in the past successful percutaneous recanalizing of the left external iliac artery with stents. She was experiencing left lower extremity intermittent claudication again and left buttock claudication. She underwent an angiogram which revealed the occlusion of the left external iliac artery. She was brought today to undergo an intervention. APPROACH: Right common femoral artery. COMPLICATION: Distal embolization to the artery below the knee on the left side. LEVEL OF SEDATION: Moderate with sedation length of 86 minutes. PROCEDURE DESCRIPTION: After obtaining an informed consent, the patient was brought to the cardiac mill labor supervisor. The right common femoral artery was cannulated using micropuncture technique, the micropuncture wire passed easily, then I placed a 6-Persian 55 cm sheath at the level of the right common femoral artery. Subsequently, anticoagulation was initiated using heparin with continuous ACT monitoring throughout the procedure. In the beginning, the patient was given a total of 6000 units of heparin. Subsequently, additional 2000 given. After that, I did select the right SFA using 0.035 Fair[place] Advantage wire with the backup support of 5-Persian Rim catheter. After that, I did advance my 55 cm 6-Persian sheath over the rim catheter and 0.[address] to the left common iliac artery. 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 I did prove that I was in the true lumen by injecting contrast at the level of the left common femoral artery. Subsequently, I did exchange my 0.035 wire into 0.014 wire using 035 CXI catheter. An intravascular ultrasound IVUS was performed and revealed the diameter of the left external iliac artery distally about 8 mm and proximally about 9 mm. Because of that and because of the measurement by IVUS, I did balloon angioplasty using 6 mm balloon and subsequently I deployed in the proximal left external iliac artery, 9 x 60 mm Everflex self-expandable stent where the stent was positioned under fluoroscopy guidance and deployed under fluoroscopy guidance as well. Postdilatation of the stent was performed using 8 mm balloon. For the distal part of the left external iliac artery, I did balloon angioplasty using 8 mm drug-coated balloon. The following angiogram showed excellent angiographic results and the procedure was completed on the left external iliac segment. The completion angiogram was performed and it did reveal there was no flow below the knee on the left side. I proved that by placing a 035 CXI catheter at the level of the left popliteal and injecting contrast. Because of that, I decided to place an infusion catheter. So I did place an infusion catheter at the level of the left popliteal using 0.35 Fairmount Advantage wire. POSTPROCEDURE: After that, I started infusion of tPA and heparin. The procedure was completed at that point, and the plan is to bring the patient back to have a second look tomorrow. POSTPROCEDURE MANAGEMENT: 1. Dual anti-platelet therapy. 2. Risk factor modifications. 3. Bring the patient for a second look tomorrow. MMODL / IJN: [id number] / [id number]
[2019-11-16] MEDS ORDERED: ACETAMINOPHEN TAB 500 MG TAB PO PRN (19:04)
[2019-11-16] MEDS: HYDROmorphone 0.5 MG/0.5 ML SYRINGE IVP PRN (19:23)
[2019-11-16] MEDS: FLUTICASONE 110 MCG INHALER INHALATION SCH (19:41)
--- NOTE | 2019-11-16 22:31 | P.CONS ---
History of Present Illness - Reason for Consult Consult date: 11/16/19 Medical management Requesting physician: Saurabh Mas - Chief Complaint Severe PAD, COPD, CAD, hypertension and hyperlipidemia - History of Present Illness 64-year-old female with the past medical history of COPD, PAD, hypertension and hyperlipidemia who has been having severe claudication of the left lower extremity with severe abnormal circulation found on testing has been seen vascular in Dr. Mas for the last few month. Patient ended up coming for angiogram and balloon angioplasty of the left external iliac artery procedure was done successfully and apparently before she left the laboratory chemical assistant the stented area was clotted shortly after. Patient developed to have discomfort in the area. Patient was admitted to the hospital started on heparin hydration will be going back to the laboratory chemical assistant tomorrow for possible reattempt of angioplasty again. Apparently patient had history of clotting problem in the past had left upper extremity DVT with no pulmonary embolism. Never been diagnosed officially with coagulopathy and no deep venous thrombosis of the lower extremity or pulmonary embolism. Patient will be study furthermore for coagulopathy in the meanwhile if she has her procedure patient will benefit from Mckenzie on antiplatelet agent along with anticoagulation with product like Eliquis 5 mg twice a day from here on and to reevaluate this at some point. Review of Systems CONSTITUTIONAL: Well-developed no acute respiratory distress. EYES: No icterus sclerae, no conjunctivitis. EARS, NOSE, MOUTH, THROAT, and FACE: No sore throat, lymphadenopathy, carotid bruits or deformity. RESPIRATORY: Positive shortness of breath cough wheezes. CARDIOVASCULAR: Positive PND orthopnea and palpitation. GASTROINTESTINAL: No Abd pain, Nausea or vomiting, no Diarrhea or constipation, No GI Bleed, no distention or masses. GENITOURINARY: Negative for Hematuria or UTI, no kidney stones. INTEGUMENT/BREAST: Slight pain and discomfort in the left leg area post angioplasty. HEMATOLOGIC/LYMPHATIC: Negative for bleed or purpura. MUSCULOSKELTAL: Negative for Myalgia or arthralgia. NEURLOGICAL: No LOC, Sz or syncope, blurred vision dizziness or abnormality.. BEHAVIORAL/PSYCH: Negative. ENDOCRINE: Negative. Past Medical History Past Medical History: Asthma, Chest Pain / Angina, COPD, Deep Vein Thrombosis ( DVT), GERD/Reflux, Hyperlipidemia, Hypertension, Vascular Disorder Additional Past Medical History / Comment(s): hx blood clot in left arm, hx migraines, PVD History of Any Multi-Drug Resistant Organisms: None Reported Past Surgical History: Heart Catheterization Additional Past Surgical History / Comment(s): stent to lt external iliac, blood clot removed from left arm, surgery to fix "tear in aorta", surgery for "abdominal adhesions", 06-11-16 LT ILIAC PTBA/STENT Past Anesthesia/Blood Transfusion Reactions: No Reported Reaction Additional Past Anesthesia/Blood Transfusion Reaction / Comm: claustrophobia Past Psychological History: No Psychological Hx Reported Smoking Status: Current every day smoker Past Alcohol Use History: Occasional Additional Past Alcohol Use History / Comment(s): started smoking at age 16, states trying to quit, little over 1/2 ppd Past Drug Use History: None Reported - Past Family History Father Family Medical History: Cancer, Myocardial Infarction (CO) Additional Family Medical History / Comment(s): SKIN CANCER Mother Family Medical History: Cancer, Deep Vein Thrombosis (DVT) Additional Family Medical History / Comment(s): COLON CANCER TWICE, lung ancer Medications and Allergies Home Medications Medication Instructions Recorded Confirmed Type Cholecalciferol [Vitamin D3] 400 unit PO DAILY 02/26/15 11/16/19 History Metoprolol Succinate [Toprol XL] 100 mg PO DAILY 02/26/15 11/16/19 History Clopidogrel [Plavix] 75 mg PO DAILY #30 tab 03/01/15 11/16/19 Rx Aspirin [Adult Low Dose Aspirin EC] 81 mg PO DAILY 05/14/16 11/16/19 History DULoxetine HCL [Cymbalta] 30 mg PO DAILY 10/18/18 11/16/19 History Hydrochlorothiazide 25 mg PO DAILY #30 tablet 10/18/18 11/16/19 Rx Multivitamins, Thera [Multivitamin 1 tab PO DAILY 10/18/18 11/16/19 History (formulary)] amLODIPine [Norvasc] 5 mg PO DAILY 12/07/18 11/16/19 History Albuterol Sulfate [Ventolin HFA] 1 puff INHALATION Q4-6H PRN 07/14/19 11/15/19 History Atorvastatin [Lipitor] 40 mg PO DAILY 07/14/19 11/16/19 History Beclomethasone Dip 80 Mcg/Puff 1 puff INHALATION BID 07/14/19 11/16/19 History [Qvar 80 mcg] Econazole 1% Cream [Spectazole] 1 applic TOPICAL DAILY PRN 07/14/19 11/15/19 History Nitroglycerin Sl Tabs [Nitrostat] 0.4 mg SUBLINGUAL Q5M PRN 07/14/19 11/15/19 History Pantoprazole [Protonix] 40 mg PO DAILY 07/14/19 11/16/19 History Allergies Allergy/AdvReac Type Severity Reaction Status Date / Time influenza virus vaccine, Allergy Rash/Hives Verified 11/15/19 09:30 specific [influenza virus vacc,specific] lisinopril Allergy Swelling Verified 11/15/19 09:30 Physical Exam Vitals: Vital Signs Temp Pulse Pulse Resp BP Pulse Ox 11/16/19 21:00 89 13 137/66 92 L 11/16/19 20:00 98.5 F 92 14 101/65 93 L 11/16/19 19:00 92 49 H 115/72 94 L 11/16/19 18:00 93 19 121/68 92 L 11/16/19 17:00 89 16 140/61 93 L 11/16/19 16:00 98 F 89 15 130/66 93 L 11/16/19 15:00 90 14 128/67 92 L 11/16/19 14:00 86 12 109/87 92 L 11/16/19 13:45 88 19 109/87 92 L 11/16/19 13:30 90 15 109/87 93 L 11/16/19 13:15 93 15 109/87 94 L 11/16/19 13:00 96 13 113/59 93 L 11/16/19 12:45 87 12 123/65 94 L 11/16/19 12:30 89 11 L 126/65 95 11/16/19 12:15 89 16 128/67 95 11/16/19 12:00 98.2 F 88 10 L 118/62 95 11/16/19 11:45 89 10 L 138/64 94 L 11/16/19 11:30 91 10 L 93/63 94 L 11/16/19 11:15 94 12 98/60 94 L 11/16/19 11:00 92 12 113/70 94 L 11/16/19 10:45 100 11 L 118/87 96 11/16/19 10:30 98 F 96 15 124/73 95 11/16/19 06:40 98.5 F 107 H Intake and Output 11/16/19 11/16/19 11/16/19 06:59 14:59 22:59 Intake Total 50 575 510 Balance 50 575 510 Intake: IV 50 575 510 Alteplase 10 mg In Sodium 50 60 Chloride 0.9% 100 ml @ 1 MG/HR 10 mls/hr IA .Q10H ONE Rx#:[id number] Sodium Chloride 0.9% 1, 375 450 000 ml In Empty Bag 1 bag @ 75 mls/hr IV .[id number] [facility] Rx#:[id number] Other: Voiding Method Bedpan # Voids 300 Weight 85.8 kg 85.8 kg General Appearance: Alert, cooperative, no distress, appears stated age. Neck HEENT: Supple, no lymphadenopathy, no thyroid enlargement, no carotid bruits. Lungs: Decreased breath sound bilaterally with rhonchi positive mild expiratory wheezes. Chest Wall: Decrease expansion with deep inspiration no tenderness and no deformity was found on exam, no costochondral pain or discomfort. Heart: Regular rate and rhythm, S1, S2 normal, no murmur, rub or gallop. Back: Symmetric, no curvature, ROM normal, no CVA tenderness. Abdomen: Soft, non-tender, bowel sounds active all four quadrants, no masses, no organomegaly. Extremities: Left leg and groin area still have the puncture site from the angiogram with slight discomfort from the knee down and decreased pulse in the dorsalis pedis and posterior TB on the left side compared to the right. Pulses: Hardly able to feel any pulses in the left side below the knee. Skin: Skin color, texture, tugor normal, no rashes or lesions. Neurologic: Alert oriented x3 cranial nerves II through XII intact, no motor deficit, no abnormal balance or gait. Results Labs: Abnormal Lab Results - Last 24 Hours (Table) 11/16/19 Range/Units 10:15 POC Glucose (mg/dL) 160 H (75-99) mg/dL Assessment and Plan Assessment: 1 severe PAD of the lower extremity post left external iliac artery angioplasty and stent with restenosis and thrombosis: Patient will continue on heparin drip will be going back to the Food Service Director for attempt angioplasty and stent following the procedure will be on secondary prevention with antiplatelet agent and anticoagulation on the long run. 2 hypertension: Remain on metoprolol succinate 100 mg daily along with amlodipine 5 mg a day. 3 hyperlipidemia: Patient is on atorvastatin 40 mg a day. 4 atherosclerotic heart disease: Remain on metoprolol nitro amlodipine and atorvastatin with no chest pain lately. 5 chronic depression: Remain on the Loxitane 50 mg daily. 6 COPD: Patient remain on Ventolin HFA and can benefit from Pulmicort as well. Currently has been doing Qvar inhaler. 7 severe GERD and increase heartburn: Patient remain on pantoprazole 40 mg daily. 8 possible hypercoagulopathy: Following angioplasty and stent patient will be on double antiplatelet agent along with anticoagulation with Eliquis 5 mg twice a day further management and testing for coagulopathy in the next 3 months and to determine on the longer term anticoagulation. 9 DVT prophylaxis: Remain on heparin for now. 10 GI prophylaxis: Patient is still on pantoprazole. 11 nicotine dependency: Patient is willing to try nicotine patch and maybe Chantix as an outpatient. CODE STATUS: Full code. Dr. Mas thank you much for the consult if I can be any further help to please let me know
[2019-11-17] MEDS: HYDROmorphone 0.5 MG/0.5 ML SYRINGE IVP PRN ×3 (00:21→20:36)
[2019-11-17] MEDS: ALTEPLASE 10 MG in SODIUM CHLORIDE 0.9% 100 ML IA SCH ×2 (02:11→18:49)
[2019-11-17 04:58] LABS: Anisocytosis Slight; Basophils % (A) 1 %; Eosinophils # (A) 0.1 k/uL (0-0.7); Eosinophils % (A) 2 %; HCT 34.8 % (34.0-46.0); HGB 11.4 gm/dL (11.4-16.0); Hypochromasia Moderate; Lymphocytes # (A) 1.1 k/uL (1.0-4.8); Lymphocytes % (A) 20 %; MCH 30.3 pg (25.0-35.0); MCHC 32.8 g/dL (31.0-37.0); MCV 92.2 fL (80.0-100.0); Mean Platelet Volume 7.3; Monocytes # (A) 0.3 k/uL (0-1.0); Monocytes % (A) 5 %; Neutrophils # (A) 3.9 k/uL (1.3-7.7); Neutrophils % (A) 70 %; Platelet Count 231 k/uL (150-450); RBC 3.77 m/uL (3.80-5.40); RDW 16.5 % (11.5-15.5); WBC 5.5 k/uL (3.8-10.6)
[2019-11-17 05:07] LABS: African American GFR (CKD) >90 (>60 ml/min/1.73 sqM); Anion Gap 5 mmol/L; Blood Urea Nitrogen 12 mg/dL (7-17); Calcium 8.9 mg/dL (8.4-10.2); Carbon Dioxide 26 mmol/L (22-30); Chloride 101 mmol/L (98-107); Glucose 113 mg/dL (74-99); Non-African American GFR(CKD) 88 (>60 ml/min/1.73 sqM); Potassium 3.1 mmol/L (3.5-5.1); Sodium 132 mmol/L (137-145)
[2019-11-17] MEDS: POTASSIUM BICARBONATE/CIT AC 20 MEQ TABLET.EFF NG-TUBE SCH ×2 (05:55→06:59)
[2019-11-17] MEDS: amLODIPine 5 MG TAB PO SCH (07:00)
[2019-11-17] MEDS: ATORVASTATIN 40 MG TAB PO SCH (07:00)
[2019-11-17] MEDS: MULTIVITAMINS, THERA 1 EACH TAB PO SCH (07:00)
[2019-11-17] MEDS: ASPIRIN 81 MG PO SCH (07:00)
[2019-11-17] MEDS: PANTOPRAZOLE 40 MG TABLET PO SCH (07:00)
[2019-11-17] MEDS: CHOLECALCIFEROL 400 UNIT TAB PO SCH (07:04)
[2019-11-17] MEDS: DULoxetine HCL 30 MG CAPSULE.DR PO SCH (07:04)
[2019-11-17] MEDS: METOPROLOL SUCCINATE (ER) 100 MG TAB.ER.24H PO SCH (07:06)
[2019-11-17] MEDS: FLUTICASONE 110 MCG INHALER INHALATION SCH ×2 (07:49→19:34)
[2019-11-17] MEDS: SODIUM CHLORIDE 0.9% 1,000 ML IV SCH ×3 (08:50→20:47)
[2019-11-17] MEDS ORDERED: CLOPIDOGREL 75 MG TAB PO SCH (09:00)
--- NOTE | 2019-11-17 09:19 | P.PN ---
Subjective Progress Note Date: 11/17/19 Principal diagnosis: Acute limb ischemia This is a very pleasant 64-year-old female patient with peripheral arterial disease and no one stenting of the left iliac was experiencing recently left lower extremities intermittent claudication. She underwent an angiogram which revealed occlusion of the left external iliac artery. 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 The left lower extremity run off or the completion angiogram was performed after the procedure and that revealed distal embolization to the arteries below the knee on the left side including the anterior tibial, posterior tibial, and peroneal. Subsequently I placed an infusion catheter at the level of the left popliteal and TPA infusion was started throughout the night. The patient was seen today, November 162019. I was able to feel very faint left dorsalis pedis pulse with an excellent Doppler signal in both the dorsalis pedis as well as posterior tibial artery. The foot isn't as warm as the right foot. The patient is completely asymptomatic and denies any foot pain. The color is the same as the right foot as well. The patient is going to undergo a follow-up angiogram later on today. Meanwhile I will keep her on dual antiplatelet therapy. Objective - Vital Signs Vital signs: Vital Signs Temp 98.5 F 11/17/19 04:00 Pulse 94 11/17/19 08:00 Resp 19 11/17/19 08:00 BP 131/67 11/17/19 08:00 Pulse Ox 92 L 11/17/19 08:00 Intake & Output 11/16/19 11/17/19 11/17/19 18:59 06:59 18:59 Intake Total 830 1120 85 Output Total 400 Balance 830 720 85 Weight 85.8 kg 89.1 kg Intake: IV 830 1020 85 Alteplase 10 mg In Sodium 80 120 10 Chloride 0.9% 100 ml @ 1 MG/HR 10 mls/hr IA .Q10H ONE Rx#:[id number] Sodium Chloride 0.9% 1, 600 900 75 000 ml In Empty Bag 1 bag @ 75 mls/hr IV .[id number] [facility] Rx#:[id number] Intake, IV Titration 100 Amount Alteplase 10 mg In Sodium 100 Chloride 0.9% 100 ml @ 1 MG/HR 10 mls/hr IA .Q10H [facility] Rx#:[id number] Output: Urine 400 Other: Voiding Method Bedpan # Voids 300 - Constitutional General appearance: Present: no acute distress - Respiratory Respiratory: bilateral: CTA - Cardiovascular Rhythm: regular Heart sounds: normal: S1, S2 - Labs CBC & Chem 7: 11/17/19 04:19 11/17/19 04:19 Labs: Abnormal Lab Results - Last 24 Hours (Table) 11/16/19 11/17/19 11/17/19 Range/Units 10:15 04:19 04:19 RBC 3.77 L (3.80-5.40) m/uL RDW 16.5 H (11.5-15.5) % Sodium 132 L (137-145) mmol/L Potassium 3.1 L (3.5-5.1) mmol/L Glucose 113 H (74-99) mg/dL POC Glucose (mg/dL) 160 H (75-99) mg/dL Assessment and Plan Assessment: Assessment #1 acute limp ischemia #2 peripheral arterial disease #3 status post a stenting of the left external iliac artery #4 significant history of smoking Plan #1 continue the current medical regimen #2 the patient is going for an angiogram later on today #3 further recommendation to follow that
[2019-11-17] MEDS: MIDAZOLAM 2 MG/2 ML VIAL IV ONE ×2 (09:45→09:52)
[2019-11-17] MEDS ORDERED: IV FLUID CONTINUATION 1,000 ML IV ONE (09:48)
[2019-11-17] MEDS ORDERED: LIDOCAINE 1% INJ 10MG/ML (10 ML MDV) SQ ONE (09:49)
[2019-11-17] MEDS: NITROGLYCERIN 1000MCG/10ML SYRINGE IV ONE ×2 (09:53→10:28)
[2019-11-17] MEDS ORDERED: niCARdipine Syringe (1,000 mcg/10 mL) IV ONE (09:54)
[2019-11-17] MEDS ORDERED: HYDROmorphone 1 MG/ML 1 ML SYRINGE IVP ONE ×2 (09:59→10:41)
[2019-11-17] MEDS: HEPARIN SOD,PORK IN 0.45% NACL 25,000 UNIT in 0.45% NACL 1 250ML.BAG IV SCH (10:31)
[2019-11-17] MEDS: NITROGLYCERIN 1000MCG/10ML SYRINGE INTRAARTER ONE ×3 (10:49→11:13)
[2019-11-17] MEDS: niCARdipine Syringe (1,000 mcg/10 mL) INTRAARTER ONE ×2 (10:49→11:13)
[2019-11-17] MEDS ORDERED: IOPAMIDOL-250 100ML BTL INTRAARTER ONE (11:18)
[2019-11-17] MEDS ORDERED: SODIUM CHLORIDE 0.9% 1,000 ML in EMPTY BAG 1 BAG IV SCH (12:00)
--- NOTE | 2019-11-17 12:10 | PTCA ---
PERCUTANEOUSTRANS CORORONARY ANGIOGRAPHY DATE OF SERVICE: 11/17/2019 PERFORMING PHYSICIAN: Saurabh Mas MD. PROCEDURE PERFORMED: 1. Aspiration thrombectomy from the left posterior tibial and left anterior tibial artery using the Angora catheter with extraction of thrombus. 2. Successful balloon angioplasty of the left posterior tibial and left anterior tibial artery. 3. Selective angiogram of the left posterior tibial and left anterior tibial artery. 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 She was placed on tPA infusion overnight and she was brought today for angiogram and second-look. APPROACH: Right common femoral artery. COMPLICATION: None. LEVEL OF SEDATION: Moderate with sedation length of 89 minutes. PROCEDURE DESCRIPTION: After obtaining an informed consent, the patient was brought to the cardiac medical lab specialist. The long 6-Syrian 70 cm sheath was in the right groin. Initially, I did remove the infusion catheter over a 0.035 stiff Glidewire. After that, I placed a 0.035 CXI catheter over the 0.[address] to the left popliteal. I did selective left [id number] angiogram which revealed occluded anterior tibial artery distally, occluded posterior tibial artery at the proximal portion. Aspiration thrombectomy was performed on both arteries after I wired both of them using 0.014 wire. Subsequently, I did balloon angioplasty. Balloon angioplasty of the left posterior tibial artery was performed using 3.0 mm balloon. The following angiogram showed excellent angiographic results. Balloon angioplasty of the distal left anterior tibial artery was performed initially using 2.5 and then 3.0 mm balloon. The final angiogram showed also excellent angiographic results. The peroneal was subtotally occluded with flow in it and I left it alone. After that, I did exchange my long sheath into short sheath using 0.035 wire. After that, I did selective right common femoral artery angiogram. The procedure was completed without any complication. POSTPROCEDURE MANAGEMENT: 1. Start the patient on anticoagulation with Eliquis. 2. Continue aspirin and stop Plavix. 3. Follow up with the patient. MMODL / IJN: [id number] /
--- NOTE | 2019-11-17 12:46 | P.PN ---
Subjective Progress Note Date: 11/17/19 64-year-old female with the past medical history of COPD, PAD, hypertension and hyperlipidemia who has been having severe claudication of the left lower extremity with severe abnormal circulation found on testing has been seen vascular in Dr. Mas for the last few month. Patient ended up coming for angio gram and balloon angioplasty of the left external iliac artery procedure was done successfully and apparently before she left the director of cath lab the stented area was clotted shortly after. Patient developed to have discomfort in the area. Patient was admitted to the hospital started on heparin hydration will be going back to the director of cath lab tomorrow for possible reattempt of angioplasty again. Apparently patient had history of clotting problem in the past had left upper extremity DVT with no pulmonary embolism. Never been diagnosed officially with coagulopathy and no deep venous thrombosis of the lower extremity or pulmonary embolism. Patient will be study furthermore for coagulopathy in the meanwhile if she has her procedure patient will benefit from Mckenzie on antiplatelet agent along with anticoagulation with product like Eliquis 5 mg twice a day from here on and to reevaluate this at some point. 11/16: Patient is seen today in the intensive care unit. Patient does have a faint left dorsalis pedis pulse. Left foot is slightly cooler than the right. Patient denies having any pain in her foot. No leg pain. She denies having any chest pain or shortness of breath. She is currently on alteplase and heparin drip. Discussed in detail patient's need to stop smoking nicotine patch and Chantix. Patient has been afebrile, heart rate 94, blood pressure 131/67 and pulse ox 92% on 4 L nasal cannula. Repeat blood work reveals WBC 5.5, hemoglobin 11.4, platelet count 231. Fibrinogen level CCCLXX. Sodium 132, potassium 4.1 replaced with repeat level III.8, BUN 12 and creatinine 0.73. Blood sugar 113. Coumadin 19 testing is uncorrected. Objective - Vital Signs Vital signs: Vital Signs Temp 98.5 F 11/17/19 04:00 Pulse 105 H 11/17/19 06:00 Resp 20 11/17/19 06:00 BP 91/65 11/17/19 06:00 Pulse Ox 92 L 11/17/19 06:00 Intake & Output 11/16/19 11/17/19 11/17/19 18:59 06:59 18:59 Intake Total 830 1120 Output Total 400 Balance 830 720 Weight 85.8 kg 89.1 kg Intake: IV 830 1020 Alteplase 10 mg In Sodium 80 120 Chloride 0.9% 100 ml @ 1 MG/HR 10 mls/hr IA .Q10H ONE Rx#:[id number] Sodium Chloride 0.9% 1, 600 900 000 ml In Empty Bag 1 bag @ 75 mls/hr IV [id number] Rx#:[id number] Intake, IV Titration 100 Amount Alteplase 10 mg In Sodium 100 Chloride 0.9% 100 ml @ 1 MG/HR 10 mls/hr IA .Q10H [facility] Rx#:[id number] Output: Urine 400 Other: Voiding Method Bedpan # Voids 300 - Exam Review of Systems CONSTITUTIONAL: Well-developed no acute respiratory distress. Denies fever, denies chills. EYES: No icterus sclerae, no conjunctivitis. EARS, NOSE, MOUTH, THROAT, and FACE: No sore throat, lymphadenopathy, carotid bruits or deformity. RESPIRATORY: Positive shortness of breath cough wheezes. CARDIOVASCULAR: Positive PND orthopnea and palpitation. GASTROINTESTINAL: No Abd pain, Nausea or vomiting, no Diarrhea or constipation, No GI Bleed, no distention or masses. GENITOURINARY: Negative for Hematuria or UTI, no kidney stones. INTEGUMENT/BREAST: Slight pain and discomfort in the left leg area post angioplasty. HEMATOLOGIC/LYMPHATIC: Negative for bleed or purpura. MUSCULOSKELTAL: Negative for Myalgia or arthralgia. NEURLOGICAL: No LOC, Sz or syncope, blurred vision dizziness or abnormality.. BEHAVIORAL/PSYCH: Negative. ENDOCRINE: Negative Physical Examination General Appearance: Alert, cooperative, no distress, appears stated age. Neck HEENT: Supple, no lymphadenopathy, no thyroid enlargement, no carotid bruits. Lungs: Decreased breath sound bilaterally with rhonchi positive mild expiratory wheezes. Chest Wall: Decrease expansion with deep inspiration no tenderness and no deformity was found on exam, no costochondral pain or discomfort. Heart: Regular rate and rhythm, S1, S2 normal, no murmur, rub or gallop. Back: Symmetric, no curvature, ROM normal, no CVA tenderness. Abdomen: Soft, non-tender, bowel sounds active all four quadrants, no masses, no organomegaly. Extremities: Left leg and groin area still have the puncture site from the angiogram with slight discomfort from the knee down and decreased pulse in the dorsalis pedis and posterior tibial on the left side compared to the right. Pulses: Hardly able to feel any pulses in the left side below the knee. Skin: Skin color, texture, tugor normal, no rashes or lesions. Neurologic: Alert oriented x3 cranial nerves II through XII intact, no motor deficit, no abnormal balance or gait. - Labs CBC & Chem 7: 11/17/19 04:19 11/17/19 09:13 Labs: Abnormal Lab Results - Last 24 Hours (Table) 11/16/19 11/17/19 11/17/19 Range/Units 10:15 04:19 04:19 RBC 3.77 L (3.80-5.40) m/uL RDW 16.5 H (11.5-15.5) % Sodium 132 L (137-145) mmol/L Potassium 3.1 L (3.5-5.1) mmol/L Glucose 113 H (74-99) mg/dL POC Glucose (mg/dL) 160 H (75-99) mg/dL Assessment and Plan Plan: 1 severe PAD and acute limb ischemia of the lower extremity post left external iliac artery angioplasty and stent with restenosis and thrombosis: Patient will continue on heparin drip will be going back to the Prop Maker for attempt angioplasty and stent following the procedure will be on secondary prevention with antiplatelet agent and anticoagulation on the long run. She is currently on TPA and heparin drip. Patient to have angiogram later today. 2 hypertension: Remain on metoprolol succinate 100 mg daily along with a mlodipine 5 mg a day. 3 hyperlipidemia: Patient is on atorvastatin 40 mg a day. 4 atherosclerotic heart disease: Remain on metoprolol nitro amlodipine and atorvastatin with no chest pain lately. 5 chronic depression: Remain on the Loxitane 50 mg daily. 6 COPD: Patient remain on Ventolin HFA and can benefit from Pulmicort as well. Currently has been doing Qvar inhaler. 7 severe GERD and increase heartburn: Patient remain on pantoprazole 40 mg daily. 8 possible hypercoagulopathy: Following angioplasty and stent patient will be on double antiplatelet agent along with anticoagulation with Eliquis 5 mg twice a day further management and testing for coagulopathy in the next 3 months and to determine on the longer term anticoagulation. 9 DVT prophylaxis: Remain on heparin for now. 10 GI prophylaxis: Patient is still on pantoprazole. 11 nicotine dependency: Patient is willing to try nicotine patch and maybe Chantix as an outpatient. CODE STATUS: Full code. Dr. Mas thank you much for the consult if I can be any further help to please let me know Discharge plan: Impression and plan of care have been directed as dictated by the signing physician. Rebecca Heart nurse practitioner acting as scribe for signing physician.
[2019-11-17] MEDS: HYDROCHLOROTHIAZIDE 25 MG TAB PO SCH (18:47)
[2019-11-17] MEDS: APIXABAN 2.5 MG TABLET PO SCH (20:35)
[2019-11-18] MEDS: ALTEPLASE 10 MG in SODIUM CHLORIDE 0.9% 100 ML IA SCH (00:37)
[2019-11-18 06:48] LABS: Anisocytosis Slight; Basophils % (A) 0 %; Eosinophils # (A) 0.1 k/uL (0-0.7); Eosinophils % (A) 2 %; HCT 31.9 % (34.0-46.0); HGB 10.1 gm/dL (11.4-16.0); Hypochromasia Slight; Lymphocytes # (A) 1.4 k/uL (1.0-4.8); Lymphocytes % (A) 22 %; MCH 29.4 pg (25.0-35.0); MCHC 31.7 g/dL (31.0-37.0); MCV 92.7 fL (80.0-100.0); Mean Platelet Volume 7.3; Monocytes # (A) 0.4 k/uL (0-1.0); Monocytes % (A) 6 %; Neutrophils # (A) 4.2 k/uL (1.3-7.7); Neutrophils % (A) 67 %; Platelet Count 216 k/uL (150-450); RBC 3.44 m/uL (3.80-5.40); RDW 16.7 % (11.5-15.5); WBC 6.3 k/uL (3.8-10.6)
[2019-11-18] MEDS: PANTOPRAZOLE 40 MG TABLET PO SCH (06:57)
[2019-11-18 07:20] LABS: African American GFR (CKD) >90 (>60 ml/min/1.73 sqM); Anion Gap 3 mmol/L; Blood Urea Nitrogen 9 mg/dL (7-17); Calcium 8.2 mg/dL (8.4-10.2); Carbon Dioxide 26 mmol/L (22-30); Chloride 105 mmol/L (98-107); Glucose 101 mg/dL (74-99); Non-African American GFR(CKD) 82 (>60 ml/min/1.73 sqM); Potassium 3.4 mmol/L (3.5-5.1); Sodium 134 mmol/L (137-145)
[2019-11-18] MEDS: FLUTICASONE 110 MCG INHALER INHALATION SCH (08:14)
[2019-11-18] MEDS: ASPIRIN 81 MG PO SCH (08:22)
[2019-11-18] MEDS: MULTIVITAMINS, THERA 1 EACH TAB PO SCH (08:23)
[2019-11-18] MEDS: APIXABAN 2.5 MG TABLET PO SCH (08:23)
[2019-11-18] MEDS: HYDROCHLOROTHIAZIDE 25 MG TAB PO SCH (08:23)
[2019-11-18] MEDS: amLODIPine 5 MG TAB PO SCH (08:23)
[2019-11-18] MEDS: ATORVASTATIN 40 MG TAB PO SCH (08:23)
[2019-11-18] MEDS: METOPROLOL SUCCINATE (ER) 100 MG TAB.ER.24H PO SCH (08:23)
[2019-11-18] MEDS: DULoxetine HCL 30 MG CAPSULE.DR PO SCH (08:23)
[2019-11-18] MEDS: SODIUM CHLORIDE 0.9% 1,000 ML IV SCH (08:28)
[2019-11-18 08:29] VITALS: RESP 16; TEMP 98.7
--- NOTE | 2019-11-18 09:53 | IR ---
EXAMINATION TYPE: IR captain/airline pilot tibioperoneal branchs DATE OF EXAM: 11/17/2019 CLINICAL HISTORY: Peripheral vascular disease. TECHNIQUE: Fluoroscopy. COMPARISON: None. FINDINGS: Fluoroscopic guidance was provided during left lower extremity angiogram with intravascula r TPA use procedure performed by Dr. Mas. A total of 24.4 minutes of fluoroscopic time was utilized during the procedure and multiple cine runs are acquired. Please refer to procedure note for further details as I was not present nor performed procedure. IMPRESSION: As Above.
[2019-11-18] MEDS ORDERED: POTASSIUM CHLORIDE ER 20 MEQ TAB.ER PO STA (12:05)
--- NOTE | 2019-11-18 12:06 | P.PN ---
Subjective Progress Note Date: 11/18/19 64-year-old female with the past medical history of COPD, PAD, hypertension and hyperlipidemia who has been having severe claudication of the left lower extremity with severe abnormal circulation found on testing has been seen vascular in Dr. Mas for the last few month. Patient ended up coming for angio gram and balloon angioplasty of the left external iliac artery procedure was done successfully and apparently before she left the landscape laborer the stented area was clotted shortly after. Patient developed to have discomfort in the area. Patient was admitted to the hospital started on heparin hydration will be going back to the landscape laborer tomorrow for possible reattempt of angioplasty again. Apparently patient had history of clotting problem in the past had left upper extremity DVT with no pulmonary embolism. Never been diagnosed officially with coagulopathy and no deep venous thrombosis of the lower extremity or pulmonary embolism. Patient will be study furthermore for coagulopathy in the meanwhile if she has her procedure patient will benefit from Mckenzie on antiplatelet agent along with anticoagulation with product like Eliquis 5 mg twice a day from here on and to reevaluate this at some point. 11/16: Patient is seen today in the intensive care unit. Patient does have a faint left dorsalis pedis pulse. Left foot is slightly cooler than the right. Patient denies having any pain in her foot. No leg pain. She denies having any chest pain or shortness of breath. She is currently on alteplase and heparin drip. Discussed in detail patient's need to stop smoking nicotine patch and Chantix. Patient has been afebrile, heart rate 94, blood pressure 131/67 and pulse ox 92% on 4 L nasal cannula. Repeat blood work reveals WBC 5.5, hemoglobin 11.4, platelet count 231. Fibrinogen level CCCLXX. Sodium 132, potassium 4.1 replaced with repeat level III.8, BUN 12 and creatinine 0.73. Blood sugar 113. Coumadin 19 testing is uncorrected. 11/17: Yesterday, patient underwent PTCA with aspiration thrombectomy from the left posterior tibial and left anterior tibial artery, successful balloon angioplasty of the left posterior tibial and left anterior tibial artery. Patient denies any new complaints today. Patient has been afebrile, heart rate 91, blood pressure 115/59, pulse ox 95% on 3 L nasal cannula. Repeat blood work reveals hemoglobin is 10.1, WBC 6.3, potassium 3. form will be replaced, sodium 134, BUN 9 and creatinine 0.77. Blood sugar 101. Objective - Vital Signs Vital signs: Vital Signs Temp 98.7 F 11/18/19 08:00 Pulse 91 11/18/19 08:00 Resp 16 11/18/19 08:00 BP 115/59 11/18/19 08:00 Pulse Ox 95 11/18/19 08:00 Intake & Output 11/17/19 11/18/19 11/18/19 18:59 06:59 18:59 Intake Total 935 Output Total 400 700 Balance 535 -700 Weight 90.1 kg Intake: IV 455 Alteplase 10 mg In Sodium 30 Chloride 0.9% 100 ml @ 1 MG/HR 10 mls/hr IA .Q10H ONE Rx#:[id number] Sodium Chloride 0.9% 1, 225 000 ml In Empty Bag 1 bag @ 75 mls/hr IV .[id number] RENEE Rx#:[id number] Oral 480 Output: Urine 400 700 Other: Voiding Method Bedpan # Voids 1 1 - Exam Review of Systems CONSTITUTIONAL: Well-developed no acute respiratory distress. Denies fever, denies chills. EYES: No icterus sclerae, no conjunctivitis. EARS, NOSE, MOUTH, THROAT, and FACE: No sore throat, lymphadenopathy, carotid bruits or deformity. RESPIRATORY: Positive shortness of breath cough wheezes. CARDIOVASCULAR: Positive PND orthopnea and palpitation. GASTROINTESTINAL: No Abd pain, Nausea or vomiting, no Diarrhea or constipation, No GI Bleed, no distention or masses. GENITOURINARY: Negative for Hematuria or UTI, no kidney stones. INTEGUMENT/BREAST: Slight pain and discomfort in the left leg area post angioplasty. HEMATOLOGIC/LYMPHATIC: Negative for bleed or purpura. MUSCULOSKELTAL: Negative for Myalgia or arthralgia. NEURLOGICAL: No LOC, Sz or syncope, blurred vision dizziness or abnormality.. BEHAVIORAL/PSYCH: Negative. ENDOCRINE: Negative Physical Examination General Appearance: Alert, cooperative, no distress, appears stated age. Neck HEENT: Supple, no lymphadenopathy, no thyroid enlargement, no carotid bruits. Lungs: Decreased breath sound bilaterally with rhonchi positive mild expiratory wheezes. Chest Wall: Decrease expansion with deep inspiration no tenderness and no deformity was found on exam, no costochondral pain or discomfort. Heart: Regular rate and rhythm, S1, S2 normal, no murmur, rub or gallop. Back: Symmetric, no curvature, ROM normal, no CVA tenderness. Abdomen: Soft, non-tender, bowel sounds active all four quadrants, no masses, no organomegaly. Extremities: Left leg and groin area still have the puncture site from the angiogram with slight discomfort from the knee down and decreased pulse in the dorsalis pedis and posterior tibial on the left side compared to the right. Pulses: Hardly able to feel any pulses in the left side below the knee. Skin: Skin color, texture, tugor normal, no rashes or lesions. Neurologic: Alert oriented x3 cranial nerves II through XII intact, no motor deficit, no abnormal balance or gait. - Labs CBC & Chem 7: 11/18/19 05:59 11/18/19 05:59 Labs: Abnormal Lab Results - Last 24 Hours (Table) 11/18/19 11/18/19 Range/Units 05:59 05:59 RBC 3.44 L (3.80-5.40) m/uL Hgb 10.1 L (11.4-16.0) gm/dL Hct 31.9 L (34.0-46.0) % RDW 16.7 H (11.5-15.5) % Sodium 134 L (137-145) mmol/L Potassium 3.4 L (3.5-5.1) mmol/L Glucose 101 H (74-99) mg/dL Calcium 8.2 L (8.4-10.2) mg/dL Assessment and Plan Plan: 1 severe PAD status post stenting of the left iliac artery with procedure complicated by acute limb ischemia secondary to distal embolization, status post aspiration thrombectomy from the left posterior tibial and left anterior tibial artery and successful balloon angioplasty of the left posterior tibial and left anterior tibial artery. Patient is now on eliquis and aspirin, Plavix was discontinued. Patient is off TPN. 2 hypertension: Remain on metoprolol succinate 100 mg daily along with amlodipine 5 mg a day. 3 hyperlipidemia: Patient is on atorvastatin 40 mg a day. 4 atherosclerotic heart disease: Remain on metoprolol nitro amlodipine and atorvastatin with no chest pain lately. 5 recurrent depression: Remain on the Loxitane 50 mg daily. 6 COPD, stable: Patient remain on Ventolin HFA and can benefit from Pulmicort as well. Currently has been doing Qvar inhaler. 7 severe GERD and increase heartburn: Patient remain on pantoprazole 40 mg daily. 8 possible hypercoagulopathy: Following angioplasty and stent patient will be on double antiplatelet agent along with anticoagulation with Eliquis 5 mg twice a day further management and testing for coagulopathy in the next 3 months and to determine on the longer term anticoagulation. 9 DVT prophylaxis: Remain on heparin for now. 10 GI prophylaxis: Patient is still on pantoprazole. 11 nicotine dependency: Patient is willing to try nicotine patch and maybe Chantix as an outpatient. CODE STATUS: Full code. Discharge plan: Home without home care Impression and plan of care have been directed as dictated by the signing physician. Rebecca Heart nurse practitioner acting as scribe for signing physician.
[2019-11-18 12:35] VITALS: BP 125/61; PULSE 72
--- NOTE | 2019-11-18 12:45 | P.PN ---
Subjective Progress Note Date: 11/18/19 Acute limb ischemia This is a very pleasant 64-year-old female patient with peripheral arterial disease and stenting of left iliac who was experiencing left lower extremity intermittent claudication. She underwent an angiogram which revealed occlusion of the left external iliac artery. 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 The left lower extremity runoff angiogram was performed after the procedure and that revealed distal embolization to the arteries below the knee and on the left side including the anterior tibial, posterior tibial, and peroneal. Dr. Sahni placed and infusion catheter at the level of the left popliteal and TPA infusion was initiated and ran throughout the night. Yesterday patient had a faint left dorsalis pedis pulse with an excellent Doppler in both the dorsalis pedis and posterior tibial artery. Both feet were warm. Patient was asymptomatic and denied any foot pain. Patient un derwent a follow-up angiogram yesterday. She also underwent an aspiration thrombectomy from the left posterior tibial and left anterior tibial artery using the next catheter with extraction of this. Successful balloon angioplasty of the left posterior tibial and left anterior tibial artery. Selective angiogram of the left posterior tibial and left anterior tibial. The patient was seen and examined this morning, doing well, she's been up ambulating in her room this morning without any difficulty. Blood pressure 124/60, heart rate in the 70s, 95% on room air. White blood cell count 6.3, hemoglobin 10.1, platelet count 216. Sodium 134, potassium 3.4, BUN 9, creatinine 0.7. Objective - Vital Signs Vital signs: Vital Signs Temp 98.7 F 11/18/19 08:00 Pulse 91 11/18/19 08:00 Resp 16 11/18/19 12:00 BP 115/59 11/18/19 08:00 Pulse Ox 95 11/18/19 08:00 Intake & Output 11/17/19 11/18/19 11/18/19 18:59 06:59 18:59 Intake Total 935 Output Total 400 700 Balance 535 -700 Weight 90.1 kg Intake: IV 455 Alteplase 10 mg In Sodium 30 Chloride 0.9% 100 ml @ 1 MG/HR 10 mls/hr IA .Q10H ONE Rx#:[id number] Sodium Chloride 0.9% 1, 225 000 ml In Empty Bag 1 bag @ 75 mls/hr IV .[id number] RENEE Rx#:[id number] Oral 480 Output: Urine 400 700 Other: Voiding Method Bedpan Bedpan # Voids 1 1 - Exam PHYSICAL EXAMINATION: GENERAL: 64-year-old female in no acute distress at the time of my examination HEENT: Head is atraumatic, normocephalic. Pupils equal, round. Sclera anicteric. Conjunctiva are clear. Mucous membranes of the mouth are moist. Neck is supple. There is no elevated jugular venous pressure. No carotid bruit is heard. HEART EXAMINATION: Heart S1, S2 normal. No murmur or gallop heard. CHEST EXAMINATION: Lungs are clear to auscultation and precussion. No chest wall tenderness is noted on palpation or with deep breathing. ABDOMEN: Soft, nontender. Bowel sounds are heard. No organomegaly noted. EXTREMITIES:[1+ peripheral pulses with no evidence of peripheral edema both feet are warm. NEUROLOGIC [patient is awake, alert and oriented 3 . - Labs CBC & Chem 7: 11/18/19 05:59 11/18/19 05:59 Labs: Abnormal Lab Results - Last 24 Hours (Table) 11/18/19 11/18/19 Range/Units 05:59 05:59 RBC 3.44 L (3.80-5.40) m/uL Hgb 10.1 L (11.4-16.0) gm/dL Hct 31.9 L (34.0-46.0) % RDW 16.7 H (11.5-15.5) % Sodium 134 L (137-145) mmol/L Potassium 3.4 L (3.5-5.1) mmol/L Glucose 101 H (74-99) mg/dL Calcium 8.2 L (8.4-10.2) mg/dL Assessment and Plan Plan: Assessment and Plan: 1 severe PAD status post stenting of the left iliac artery with procedure complicated by acute limb ischemia secondary to distal embolization, status post aspiration thrombectomy from the left posterior tibial and left anterior tibial artery and successful balloon angioplasty of the left posterior tibial and left anterior tibial artery. Patient is now on eliquis and aspirin, Plavix was discontinued. Patient is off TPN. 2 hypertension: 3 hyperlipidemia: 4 atherosclerotic heart disease: 5 recurrent depression: 6 COPD, stable 7 severe GERD 8 possible hypercoagulopathy 9 nicotine dependence Plan From cardiology's perspective patient may be discharged home today. She will be discharged home on 2-1/2 mg of Eliquis one tablet by mouth twice a day along with a baby aspirin, Lipitor 40, no Plavix at this time. Metoprolol 100 mg daily. Follow-up appointment in the office post discharge. DNP note has been reviewed, I agree with a documented findings and plan of care. Patient was seen and examined.
== END 2019-11-18 15:45 | disposition home or self-care (01) | DRG 271 ==
LOC: CATHCVL 06:10 → 2SICU 10:07 → CATHCVL 11:42 → 3SCARD 11-17 11:46
PROVIDERS: ADMIT Internal Medicine Interventional Cardiology; ATTEND Internal Medicine Interventional Cardiology
PROC: B41G1ZZ Fluoroscopy of Left Lower Extremity Arteries using Low Osmolar Contrast (ICD-10-PCS; 2019-11-16 07:30)
PROC: 3E05317 Introduction of Other Thrombolytic into Peripheral Artery, Percutaneous Approach (ICD-10-PCS; 2019-11-16 07:30)
PROC: B44GZZ3 Ultrasonography of Left Lower Extremity Arteries, Intravascular (ICD-10-PCS; 2019-11-16 07:30)
PROC: 047J341 Dilation of Left External Iliac Artery with Drug-eluting Intraluminal Device, using Drug-Coated Balloon, Percutaneous Approach (ICD-10-PCS; 2019-11-16 07:30)
PROC: 04HN33Z Insertion of Infusion Device into Left Popliteal Artery, Percutaneous Approach (ICD-10-PCS; 2019-11-16 07:30)
PROC: 04CS3ZZ Extirpation of Matter from Left Posterior Tibial Artery, Percutaneous Approach (ICD-10-PCS; principal; 2019-11-17 09:30)
PROC: 047Q3ZZ Dilation of Left Anterior Tibial Artery, Percutaneous Approach (ICD-10-PCS; principal; 2019-11-17 09:30)
PROC: 04CQ3ZZ Extirpation of Matter from Left Anterior Tibial Artery, Percutaneous Approach (ICD-10-PCS; principal; 2019-11-17 09:30)
PROC: 047S3ZZ Dilation of Left Posterior Tibial Artery, Percutaneous Approach (ICD-10-PCS; principal; 2019-11-17 09:30)
PROC: B41G1ZZ Fluoroscopy of Left Lower Extremity Arteries using Low Osmolar Contrast (ICD-10-PCS; principal; 2019-11-17 09:30)
DX: I70.212 Atherosclerosis of native arteries of extremities with intermittent claudication, left leg (principal); I70.92 Chronic total occlusion of artery of the extremities; F33.9 Major depressive disorder, recurrent, unspecified; I74.3 Embolism and thrombosis of arteries of the lower extremities; T82.856A Stenosis of peripheral vascular stent, initial encounter; D68.9 Coagulation defect, unspecified; J44.9 Chronic obstructive pulmonary disease, unspecified; E78.5 Hyperlipidemia, unspecified; F17.210 Nicotine dependence, cigarettes, uncomplicated; F40.240 Claustrophobia; I10 Essential (primary) hypertension; I25.10 Atherosclerotic heart disease of native coronary artery without angina pectoris; I99.8 Other disorder of circulatory system; K21.9 Gastro-esophageal reflux disease without esophagitis; G43.909 Migraine, unspecified, not intractable, without status migrainosus; Z79.02 Long term (current) use of antithrombotics/antiplatelets; Z79.82 Long term (current) use of aspirin; Z79.899 Other long term (current) drug therapy; Z88.7 Allergy status to serum and vaccine; Z86.718 Personal history of other venous thrombosis and embolism; Z80.0 Family history of malignant neoplasm of digestive organs; Z80.8 Family history of malignant neoplasm of other organs or systems; Z80.1 Family history of malignant neoplasm of trachea, bronchus and lung; Z82.49 Family history of ischemic heart disease and other diseases of the circulatory system; Y83.8 Other surgical procedures as the cause of abnormal reaction of the patient, or of later complication, without mention of misadventure at the time of the procedure
CPT/HCPCS: 36415; 37211; 37214; 37221; 37228; 37232; 37252; 80048; 80051; 82565; 84132; 84520; 85025; 85027; 85347; 85384; 94640

== ENCOUNTER → 2020-09-21 | Outpatient (CLI) | payer MEDICARE ==
--- NOTE | 2020-09-23 22:29 | CT ---
EXAMINATION TYPE: CT angio abd aorta w/Runoff DATE OF EXAM: 09/21/2020 COMPARISON: 08/06/2018 INDICATION: Lt leg pain, history of stent in Lt leg DLP: 2120 mGycm, Automated exposure control for dose reduction was used. CONTRAST: 125 mL of Isovue 370. Study performed TECHNIQUE: Axial images were obtained from above the diaphragm to the pubic rami in the axial plane a t 5 mm thick sections. Reconstructed images are reviewed on the computer in the coronal plane. FINDINGS: Limited CT sections are obtained the lung bases. The lung bases are clear. CT ABDOMEN: Liver: There is moderate fatty infiltration of the liver. Spleen: Normal Pancreas: Normal Adrenal glands: The adrenal glands are normal. Gallbladder: Normal Kidneys: No masses are evident. No hydronephrosis is present. No cysts are present. Aorta: Vascular calcification is within the aorta. Celiac axis and superior mesenteric arteries appear normal. 2 renal arteries are identified. The righ t renal artery is retrocaval. No aneurysmal dilatation or dissection within the abdominal aorta is ev ident. Common iliac arteries are normal. Internal and external arteries are identified. Stents are p resent on the left. The left external iliac vessel with stenting does not appear to have contrast wit hin it. Retrograde collateral flow into the distal left external iliac vessels may be present. The pr ofunda femoris and common femoral arteries are patent. Caliber on the left is smaller than on the rig ht. Right superficial femoral artery is patent to the popliteal artery. The popliteal artery is patent to the trifurcation vessels. Trifurcation vessels on the right are identified. The peroneal artery appe ars to be occluded near its origin. Anterior and posterior tibial arteries extend to the level of the ankle on the right. Left superficial femoral artery is patent to the popliteal artery. The popliteal artery is patent. The proximal peroneal artery on the left appears occluded. The anterior tibial art mallory on the left extends to the mid leg level. The posterior tibial artery is patent to the level of t he ankle. Inferior vena cava: Normal. CT PELVIS: Loops of bowel within the abdomen and pelvis are normal. The study is performed without oral cont rast. Appendix: Normal as visualized. Urinary bladder: Normal. Genitourinary structures: A 1.7 cm 8 ovarian cyst is likely present. A 2.7 cm left ovarian cyst is pr esent. Uterus is unremarkable. Osseous structures: No suspicious lytic or sclerotic lesions. IMPRESSIONS: 1. External iliac vessels on the left have stenting but appear to be occluded with no contrast flow from the proximal stent to the distal external iliac vessel. Some retrograde flow may be present from collateral flow, not identified during the exam, to a patent common femoral artery. 2. Peroneal arteries are not well-visualized beyond their origins. 3. Left anterior tibial artery is not visualized beyond the mid calf region. 4. Probable bilateral ovarian cysts.
== END | disposition home or self-care (01) ==
LOC: RADCTMAIN 09:56
PROVIDERS: ATTEND Internal Medicine Interventional Cardiology
DX: M79.605 Pain in left leg (principal); Z95.820 Peripheral vascular angioplasty status with implants and grafts; N83.202 Unspecified ovarian cyst, left side
CPT/HCPCS: 75635; Q9967

== ENCOUNTER 2020-10-03 11:48 | Day surgery (SDC) | payer MEDICARE ==
[2020-10-01 11:46] VITALS: BMI 35.5
[~2020-10-03 11:48] MED LIST changes: +ASPIRIN 325 MG TAB PO PRN; -ASPIRIN 325 MG TAB PO STA; -ZOLPIDEM 5 MG TAB PO PRN
[2020-10-03] MEDS ORDERED: SODIUM CHLORIDE 0.9% 1,000 ML IV ONE (12:03)
[2020-10-03 12:24] LABS: Anisocytosis Moderate; Basophils % (A) 1 %; Eosinophils # (A) 0.1 k/uL (0-0.7); Eosinophils % (A) 2 %; HCT 34.9 % (34.0-46.0); HGB 11.1 gm/dL (11.4-16.0); Hypochromasia Marked; Lymphocytes # (A) 1.3 k/uL (1.0-4.8); Lymphocytes % (A) 21 %; MCH 26.1 pg (25.0-35.0); MCHC 31.9 g/dL (31.0-37.0); Mean Platelet Volume 7.2; Microcytosis Slight; Monocytes # (A) 0.3 k/uL (0-1.0); Monocytes % (A) 5 %; Neutrophils # (A) 4.5 k/uL (1.3-7.7); Neutrophils % (A) 70 %; Platelet Count 335 k/uL (150-450); RBC 4.25 m/uL (3.80-5.40); RDW 23.1 % (11.5-15.5); WBC 6.4 k/uL (3.8-10.6)
[2020-10-03 12:37] LABS: Calcium 9.3 mg/dL (8.4-10.2)
[2020-10-03 12:53] LABS: Potassium 4.5 mmol/L (3.5-5.1)
[2020-10-03] MEDS ORDERED: LIDOCAINE 1% INJ 10MG/ML (20 ML MDV) SQ ONE (14:39)
[2020-10-03] MEDS ORDERED: MIDAZOLAM 2 MG/2 ML VIAL IVP ONE (14:40)
[2020-10-03] MEDS: HEPARIN SODIUM 1,000 UN/ML (10ML VL) IV ONE ×2 (14:44→15:06)
[2020-10-03] MEDS ORDERED: fentaNYL (PF) 50 MCG/ML 2 ML AMP IVP ONE (15:10)
[2020-10-03] MEDS ORDERED: HYDROmorphone 1 MG/ML 1 ML SYRINGE IVP ONE (15:20)
[2020-10-03] MEDS ORDERED: IOPAMIDOL-250 100ML BTL INTRAARTER ONE (15:33)
[2020-10-03] MEDS ORDERED: ALBUTEROL NEBULIZED 2.5 MG/3 ML INHALATION PRN (15:43)
[2020-10-03] MEDS ORDERED: SODIUM CHLORIDE 0.9% 1,000 ML in EMPTY BAG 1 BAG IV SCH (15:45)
--- NOTE | 2020-10-03 15:55 | IR ---
EXAMINATION TYPE: IR stent intravas non coronary DATE OF EXAM: 10/03/2020 CLINICAL HISTORY: Peripheral vascular disease. TECHNIQUE: Fluoroscopy. COMPARISON: None. FINDINGS: Fluoroscopic guidance was provided during angiogram with stent angioplasty procedure perfo rmed by Dr. Mas. A total of 9.7 minutes of fluoroscopic time was utilized during the procedure and 65 spot images was acquired. Images acquired show left iliac arterial stent graft. Please refer to pr ocedure note for further details as I was not present nor performed procedure. IMPRESSION: As Above.
[2020-10-03] MEDS ORDERED: HYDROmorphone 0.5 MG/0.5 ML SYRINGE IVP PRN (18:09)
[2020-10-03] MEDS: FLUTICASONE 110 MCG INHALER INHALATION SCH (19:59)
--- NOTE | 2020-10-04 06:11 | AN ---
ANGIOGRAPHY REPORT DATE OF SERVICE: 10/03/2020 PERFORMING PHYSICIAN: Saurabh Mas MD. PROCEDURE PERFORMED: 1. Successful stenting of the left external iliac artery using 8.0 x 56 mm balloon expandable stent and 9 x 6 mm self-expandable stent with an excellent angiographic result and reduction of stenosis from 100% to 0%. 2. Intravascular ultrasound (IVUS) of the left external iliac artery. 3. Balloon angioplasty of the left external iliac artery. 4. Selective left external iliac artery angiogram and right common femoral artery angiogram. INDICATION: Critical limb ischemia in this 65-year-old female patient who is known to have peripheral arterial disease and prior stenting of the left iliac, who underwent recently a CTA which showed occluded left external iliac artery. COMPLICATION: None. LEVEL OF SEDATION: Moderate with sedation length of 46 minutes. PROCEDURE DESCRIPTION: After obtaining informed consent, the patient was brought to the cardiac labor relations analyst. The right common femoral artery was cannulated using micropuncture technique and a micropuncture wire passed easily. Then I placed a 55 cm 6-Portuguese sheath at the right common femoral artery. Anticoagulation was initiated using heparin and the patient was given initially 6000 units of heparin IV and subsequently additional 2000 units of heparin given. After that I did select the left common iliac artery using an 0.035 stiff Glidewire with the backup support of 5-Portuguese RIM catheter. After that I did advance the 6-Portuguese Raabe sheath over the 0.035 stiff Glidewire and RIM catheter to the left common iliac artery. Selective left common iliac artery angiogram was performed and confirmed the occlusion of the left external iliac artery. After that, I crossed the BAND INSTRUMENT MAKER using 0.035 stiff Glidewire. After that I advanced the wire all the way to the left common femoral artery and then after that I advanced the catheter over the wire to the left common iliac artery. I injected contrast through the catheter to prove that I was in the true lumen. After that I changed my 0.035 wire into 14 wire, where I did intravascular ultrasound which revealed a diameter about 9 mm and no evidence of fresh thrombus. Balloon angioplasty was performed using 6 mm balloon. After that I deployed in the distal left external iliac artery, 9 x 60 mm self-expandable stent and in the proximal left external iliac artery an 8 x 59 balloon expandable stent. Both stents were post- dilated using 8 mm balloon with the following angiogram showing excellent angiographic results. After that I did exchange my long sheath into short sheath using 0.035 stiff Glidewire before I did selective right common femoral artery angiogram. The procedure was completed without any complication. POSTPROCEDURE MANAGEMENT: 1. Dual anti-platelet therapy. 2. Risk factor modifications and follow up with the patient. HILL / RASN: [id number] /
[2020-10-04] MEDS ORDERED: ACETAMINOPHEN TAB 325 MG TAB PO PRN (06:35)
[2020-10-04 08:39] LABS: Calcium 8.7 mg/dL (8.4-10.2); Potassium 4.2 mmol/L (3.5-5.1)
[2020-10-04] MEDS: FLUTICASONE 110 MCG INHALER INHALATION SCH (08:59)
[2020-10-04] MEDS ORDERED: hydroCHLOROthiazide 25 MG TAB PO SCH (09:00)
[2020-10-04] MEDS ORDERED: ATORVASTATIN 40 MG TAB PO SCH (09:00)
[2020-10-04] MEDS ORDERED: METOPROLOL SUCCINATE (ER) 100 MG TAB.ER.24H PO SCH (09:00)
[2020-10-04] MEDS ORDERED: DULoxetine HCL 60 MG CAPSULE.DR PO SCH (09:00)
[2020-10-04] MEDS ORDERED: ASPIRIN 81 MG PO SCH (09:00)
[2020-10-04] MEDS ORDERED: FERROUS SULFATE 325 MG TAB PO SCH (09:00)
[2020-10-04] MEDS ORDERED: CHOLECALCIFEROL 10 MCG (400 IU) TABLET PO SCH (09:00)
[2020-10-04] MEDS ORDERED: FUROSEMIDE 20 MG TAB PO SCH (09:00)
[2020-10-04 09:29] LABS: Anisocytosis Moderate; Basophils # (A) 0.1 k/uL (0-0.2); Basophils % (A) 1 %; Eosinophils # (A) 0.1 k/uL (0-0.7); Eosinophils % (A) 1 %; HCT 32.7 % (34.0-46.0); HGB 9.8 gm/dL (11.4-16.0); Hypochromasia Marked; Lymphocytes # (A) 0.9 k/uL (1.0-4.8); Lymphocytes % (A) 15 %; MCH 25.1 pg (25.0-35.0); MCHC 29.9 g/dL (31.0-37.0); MCV 83.9 fL (80.0-100.0); Mean Platelet Volume 7.4; Microcytosis Slight; Monocytes # (A) 0.4 k/uL (0-1.0); Monocytes % (A) 6 %; Neutrophils # (A) 4.5 k/uL (1.3-7.7); Neutrophils % (A) 75 %; Platelet Count 278 k/uL (150-450)
[2020-10-04 11:58] VITALS: BP 149/65; PULSE 91; RESP 18; TEMP 99
--- NOTE | 2020-10-04 13:12 | XR ---
EXAMINATION TYPE: XR chest 2V DATE OF EXAM: 10/04/2020 COMPARISON: 10/13/2014 HISTORY: Shortness of breath TECHNIQUE: Frontal and lateral views of the chest are obtained. FINDINGS: Scattered senescent parenchymal changes noted. Hyperinflation compatible with COPD. No evidence for infiltrate. No evidence for atelectasis. Heart size is stable. Mediastinal structures are stable and grossly unremarkable. Aortic stent noted to be in place. No evidence for hilar prominence. Degenerative changes dorsal spine. IMPRESSION: 1. No evidence for acute pulmonary disease.
--- NOTE | 2020-10-04 13:26 | P.CONS ---
History of Present Illness - Reason for Consult Consult date: 10/04/20 - Chief Complaint Critical limb ischemia right lower extremity - History of Present Illness 65 years old female patient of Dr. Varghese with past medical history of aortic dissection, peripheral artery disease status post left iliac stenting, coronary artery disease, history of smoking, hypertension, hyperlipidemia comes in for angiographically. Patient underwent successful stenting of the left external Iliac artery in the proximal and distal left external iliac artery by Dr. Sahni. Patient drinks around 5 beers a days since the of her in July. She is trying to quit smoking and has come down from 2 packs a day to half a pack a days she has been smoking for 50 years now. Patient did have a temperature of 100.8 with a pulse rate of 104. On evaluation today patient denies any cough, mild shortness of breath, chest pain, diarrhea or change in bowel habits. Patient did have COVID testing done prior to admission was negative. Patient states that she had 4 blankets on her before her temp was checked. Labs are reviewed since as a hemoglobin of 11.1 on decreased to 9.8 on 10/04. Sodium 132 bicarb 21 BUN 11 creatinine 0.8glucose of 114. Review of Systems Constitutional: Denies chills, Denies fever, Denies lethargy, Denies malaise, Denies poor appetite, Denies weakness, Denies weight loss Eyes: denies decreased vision, denies diplopia, denies discharge, denies pain Ears: deny: decreased hearing Ears, nose, mouth and throat: Denies dental pain, Denies headache, Denies nasal discharge, Denies nose pain Cardiovascular: Denies chest pain, Denies decreased exercise tolerance, Denies edema, Denies high blood pressure, Denies irregular heart beat, Denies palpitations, Denies paroxysmal nocturnal dyspnea, Denies rapid heart beat, Denies shortness of breath pain in the side of insertion of catheter Respiratory: Denies congestion, Denies cough, Denies cough with sputum, Denies dyspnea, Denies home oxygen, Denies wheezing Gastrointestinal: Denies abdominal pain, Denies change in bowel habits, Denies coffee ground emesis, Denies early satiety, Denies excessive gas, Denies heartburn, Denies hematemesis, Denies hematochezia, Denies loss of appetite, Denies nausea, Denies vomiting Genitourinary: Denies dysuria, Denies flank pain, Denies kidney stones, Denies menorrhagia, Denies urgency, Denies urinary frequency Musculoskeletal: Denies gait dysfunction, Denies limitation of motion, Denies morning stiffness, Denies muscle cramps Integumentary: Denies rash, Denies wounds, Denies brittle nails, Denies change in hair/nails, Denies darkening of skin Neurological: Denies balance difficulties, Denies change in speech, Denies double vision, Denies gait dysfunction, Denies loss of vision, Denies motor disturbance, Denies numbness, Denies paralysis, Denies paresthesias, Denies seizures Psychiatric: Denies anxiety, Denies depression Endocrine: Denies excessive sweating, Denies excessive thirst, Denies high blood sugars, Denies palpitations Hematologic/Lymphatic: Denies easy bruising, Denies lymphadenopathy Past Medical History Past Medical History: Asthma, Chest Pain / Angina, COPD, Deep Vein Thrombosis (DVT), GERD/Reflux, Hyperlipidemia, Hypertension, Osteoarthritis (OA), Vascular Disorder Additional Past Medical History / Comment(s): hx blood clot in left arm and left hand, hx migraines, PVD, left leg pain History of Any Multi-Drug Resistant Organisms: None Reported Past Surgical History: Heart Catheterization Additional Past Surgical History / Comment(s): stent to lt external iliac, blood clot removed from left arm, surgery to fix "tear in aorta", surgery for "abdominal adhesions", 06-11-16 LT ILIAC PTBA/STENT, PTBA 10/03/2020-Stent x2 Illiac (L). Past Anesthesia/Blood Transfusion Reactions: No Reported Reaction Additional Past Anesthesia/Blood Transfusion Reaction / Comm: claustrophobia Past Psychological History: No Psychological Hx Reported Smoking Status: Current every day smoker Past Alcohol Use History: Daily, Heavy Additional Past Alcohol Use History / Comment(s): started smoking at age 16, states trying to quit, little over 1/2 ppd, drinks 6 beers daily Past Drug Use History: None Reported - Past Family History Father Family Medical History: Cancer, Myocardial Infarction ([place]) Additional Family Medical History / Comment(s): SKIN CANCER Mother Family Medical History: Cancer, Deep Vein Thrombosis (DVT) Additional Family Medical History / Comment(s): COLON CANCER TWICE, lung ancer Medications and Allergies Home Medications Medication Instructions Recorded Confirmed Type Cholecalciferol [Vitamin D3 (10 400 unit PO DAILY 02/26/15 10/03/20 History Mcg = 400 Iu)] Metoprolol Succinate [Toprol XL] 100 mg PO DAILY 02/26/15 10/03/20 History DULoxetine HCL [Cymbalta] 60 mg PO DAILY 10/18/18 10/03/20 History hydroCHLOROthiazide 25 mg PO DAILY #30 tablet 10/18/18 10/03/20 Rx Albuterol Sulfate [Ventolin HFA] 1 puff INHALATION Q4-6H PRN 07/14/19 10/03/20 History Atorvastatin [Lipitor] 40 mg PO DAILY 07/14/19 10/03/20 History Beclomethasone Dip 80 Mcg/Puff 1 puff INHALATION BID 07/14/19 10/03/20 History [Qvar 80 mcg] Pantoprazole [Protonix] 40 mg PO DAILY 07/14/19 10/03/20 History Ferrous Sulfate [Iron (65 MG 325 mg PO DAILY 10/01/20 10/03/20 History Elemental)] Furosemide [Lasix] 20 mg PO DAILY 10/01/20 10/03/20 History Apixaban [Eliquis] 5 mg PO BID #180 tablet 10/04/20 10/03/20 Rx Allergies Allergy/AdvReac Type Severity Reaction Status Date / Time influenza virus vaccine, Allergy Rash/Hives Verified 10/03/20 12:10 specific [influenza virus vacc,specific] lisinopril Allergy Swelling Verified 10/03/20 12:10 Physical Exam Vitals: Vital Signs Temp Pulse Pulse Resp BP BP BP 10/04/20 05:00 100.8 F H 104 H 20 165/77 10/04/20 00:12 98.3 F 95 26 H 154/76 10/03/20 22:00 97.4 F L 92 20 151/77 10/03/20 19:29 91 19 139/72 10/03/20 18:13 76 16 156/62 10/03/20 18:00 81 16 151/69 10/03/20 17:55 83 16 156/71 10/03/20 17:50 84 16 167/65 10/03/20 17:45 86 16 165/77 10/03/20 17:29 76 16 136/63 144/48 10/03/20 16:59 76 16 128/58 140/48 10/03/20 16:29 81 16 136/62 141/49 10/03/20 16:14 83 16 157/78 154/59 10/03/20 15:59 80 16 160/75 158/58 10/03/20 15:44 85 16 161/72 161/57 10/03/20 12:34 99 F 92 16 135/66 Pulse Ox 10/04/20 05:00 93 L 10/04/20 00:12 93 L 10/03/20 22:00 93 L 10/03/20 19:29 92 L 10/03/20 18:13 92 L 10/03/20 18:00 92 L 10/03/20 17:55 93 L 10/03/20 17:50 93 L 10/03/20 17:45 95 10/03/20 17:29 96 10/03/20 16:59 97 10/03/20 16:29 95 10/03/20 16:14 95 10/03/20 15:59 93 L 10/03/20 15:44 95 10/03/20 12:34 94 L Intake and Output 10/03/20 10/04/20 10/04/20 22:59 06:59 14:59 Intake Total 210 Output Total 450 Balance 210 -450 Intake: Oral 210 Output: Urine 450 Other: Voiding Method Bedpan Bedpan Weight 99.5 kg - Constitutional General appearance: cooperative, no acute distress, obese - EENT Eyes: anicteric sclerae, PERRLA, normal appearance ENT: hearing grossly normal - Neck Neck: no lymphadenopathy, normal ROM, no other, no rigidity, no stridor, no thyromegaly - Respiratory Respiratory: bilateral: CTA, negative: diminished, dullness, rales, rhonchi - Cardiovascular Rhythm: regular Heart sounds: normal: S1, S2 Abnormal Heart Sounds: no systolic murmur, no diastolic murmur, no rub, no S3 Gallop, no S4 Gallop, no click, no other - Gastrointestinal General gastrointestinal: normal bowel sounds, soft - Integumentary Integumentary: no rash slight bruising noted at the site of catheter insertion, no hematoma - Neurologic Neurologic: CNII-XII intact - Musculoskeletal Musculoskeletal: gait normal, strength equal bilaterally - Psychiatric Psychiatric: A&O x's 3, appropriate affect Results CBC & Chem 7: 10/04/20 07:19 10/04/20 07:19 Labs: Abnormal Lab Results - Last 24 Hours (Table) 10/03/20 10/03/20 10/04/20 Range/Units 12:10 12:10 07:19 Hgb 11.1 L 9.8 L (11.4-16.0) gm/dL Hct 32.7 L (34.0-46.0) % MCHC 29.9 L (31.0-37.0) g/dL RDW 23.1 H 23.0 H (11.5-15.5) % Lymphocytes # 0.9 L (1.0-4.8) k/uL Sodium 134 L (137-145) mmol/L Carbon Dioxide 21 L (22-30) mmol/L Glucose 128 H (74-99) mg/dL 10/04/20 Range/Units 07:19 Hgb (11.4-16.0) gm/dL Hct (34.0-46.0) % MCHC (31.0-37.0) g/dL RDW (11.5-15.5) % Lymphocytes # (1.0-4.8) k/uL Sodium 132 L (137-145) mmol/L Carbon Dioxide 21 L (22-30) mmol/L Glucose 114 H (74-99) mg/dL Assessment and Plan Plan: #1 peripheral artery disease status post stenting of the left ileocolic artery. Dual antiplatelet recommended. Patient discharged on elliquis #2 Fever likely secondary to atelectasis. No sepsis Chest x-ray negative for any acute pulmonary process. Findings suggestive of COPD. Physical examination was benign #3 coronary artery disease no history of stent placement. Continue metoprolol XL 100 mg by mouth daily #4 hyperlipidemia continue Lipitor at 40 mg daily #5 history of depression continue duloxetine 60 mg daily #6 COPD not in acute exacerbation continue Bactrim at 1 Puff Inhalation Twice a Day #7 Alcohol Abuse Patient Drinks 5 Beers a Day. No Withdrawal Noted. #8 tobacco abuse smokes half pack a day. Is trying to wean off herself. Patient counseled on smoking cessation #9 CODE STATUS full code #10 DVT prophylaxis encourage ambulation ,on elliquis Thank you for the consult. I'll be happy to assist in patient's medical need palpation in the hospital.
--- NOTE | 2020-10-04 20:45 | DS ---
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 She was seen this morning. The right groin is soft and nontender and without any bruises. She does have excellent pulse in the left posterior tibial artery. She is going to be discharged home on a high dose of Eliquis at 5 mg p.o. b.i.d. I will follow up with the patient next week in the office. MMODL / IJN: [id number] /
[2020-10-05] MEDS ORDERED: PANTOPRAZOLE 40 MG TABLET PO SCH (07:30)
== END 2020-10-04 13:37 | disposition home or self-care (01) ==
LOC: CATHCVL 11:48 → 3SCARD 15:23 → CATHCVL 10-04 13:37
PROVIDERS: ATTEND Internal Medicine Interventional Cardiology
DX: I70.222 Atherosclerosis of native arteries of extremities with rest pain, left leg (principal); I10 Essential (primary) hypertension; F17.210 Nicotine dependence, cigarettes, uncomplicated; E78.5 Hyperlipidemia, unspecified; R50.9 Fever, unspecified; I25.10 Atherosclerotic heart disease of native coronary artery without angina pectoris; F10.10 Alcohol abuse, uncomplicated; J44.9 Chronic obstructive pulmonary disease, unspecified; Z95.820 Peripheral vascular angioplasty status with implants and grafts; Z86.718 Personal history of other venous thrombosis and embolism; F32.9 Major depressive disorder, single episode, unspecified; K21.9 Gastro-esophageal reflux disease without esophagitis; M19.90 Unspecified osteoarthritis, unspecified site; Z98.890 Other specified postprocedural states; F40.240 Claustrophobia; Z82.49 Family history of ischemic heart disease and other diseases of the circulatory system; Z80.0 Family history of malignant neoplasm of digestive organs; Z79.01 Long term (current) use of anticoagulants; Z79.899 Other long term (current) drug therapy; Z79.82 Long term (current) use of aspirin; Z88.7 Allergy status to serum and vaccine; Z79.51 Long term (current) use of inhaled steroids; Z88.8 Allergy status to other drugs, medicaments and biological substances
CPT/HCPCS: 94640 ×2; 37221; 85347; 37252; 80048 ×2; 85025 ×2; 87635; 71046; C1769 ×6; C1894 ×3; C1725; C1876 ×2; C1753; J2250; J2001; J3010; J1644; J1170 ×2; Q9966

== ENCOUNTER 2020-11-02 14:38 | Observation (INO) | payer MEDICARE ==
[2020-11-02] MEDS ORDERED: SODIUM CHLORIDE 0.9% 1,000 ML IV STA (16:01)
[2020-11-02] MEDS ORDERED: SODIUM CHLORIDE 0.9% 500 ML 500 ML IV STA (16:01)
--- NOTE | 2020-11-02 16:04 | ED ---
General Adult HPI - General Chief complaint: Weakness Stated complaint: Sent from Time Seen by Provider: 11/02/20 15:53 Source: patient Mode of arrival: ambulatory Limitations: no limitations - History of Present Illness Initial comments: This 65-year-old female presents with a complaint of syncopal episodes. She states that she has had approximately 6 episodes in the last 2 months. She relates that she will be in her recliner when she passes out. She complains of some dizziness and weakness. She has some dizziness with position changes but i t is more exacerbated by standing. She denies any injuries. She states that she was vomiting 4 days ago and now has had some pain in her midepigastric region and left lower chest. She was seen by her primary care physician today and sent to the hospital for admission. She apparently was tachycardic and hypoxic in the office. She relates a recent negative covid test. She denies any leg pain or swelling. No other complaints or modifying factors. - Related Data Home Medications Medication Instructions Recorded Confirmed Cholecalciferol [Vitamin D3 (10 400 unit PO DAILY 02/26/15 11/02/20 Mcg = 400 Iu)] Metoprolol Succinate [Toprol XL] 100 mg PO DAILY 02/26/15 11/02/20 DULoxetine HCL [Cymbalta] 60 mg PO DAILY 10/18/18 11/02/20 Albuterol Sulfate [Ventolin HFA] 2 puff INHALATION RT-Q4H PRN 07/14/19 11/02/20 Pantoprazole [Protonix] 40 mg PO DAILY 07/14/19 11/02/20 Ferrous Sulfate [Iron (65 MG 325 mg PO DAILY 10/01/20 11/02/20 Elemental)] Acetaminophen [Tylenol Extra 1,000 mg PO Q46H PRN 11/02/20 11/02/20 Strength] Aspirin EC [Ecotrin Low Dose] 81 mg PO DAILY 11/02/20 11/02/20 Budesonide/Formoterol Fumarate 2 puff INHALATION RT-BID 11/02/20 11/02/20 [Symbicort 160-4.5 Mcg Inhaler] Nitroglycerin Sl Tabs [Nitrostat] 0.4 mg SUBLINGUAL Q5M PRN 11/02/20 11/02/20 Nystatin 100,000 Unit/ml Susp 5 ml PO QID 11/02/20 11/02/20 [Mycostatin Oral Susp] Rosuvastatin Calcium [Crestor] 40 mg PO DAILY 11/02/20 11/02/20 amLODIPine [Norvasc] 5 mg PO DAILY 11/02/20 11/02/20 buPROPion XL [Wellbutrin Xl] 150 mg PO BID 11/02/20 11/02/20 Previous Rx's Medication Instructions Recorded hydroCHLOROthiazide 25 mg PO DAILY #30 tablet 10/18/18 Apixaban [Eliquis] 5 mg PO BID #180 tablet 10/04/20 Allergies Allergy/AdvReac Type Severity Reaction Status Date / Time influenza virus vaccine, Allergy Rash/Hives Verified 11/02/20 19:07 specific [influenza virus vacc,specific] lisinopril Allergy Swelling Verified 11/02/20 19:07 Review of Systems ROS Statement: Those systems with pertinent positive or pertinent negative responses have been documented in the HPI. ROS Other: All systems not noted in ROS Statement are negative. Past Medical History Past Medical History: Asthma, Chest Pain / Angina, COPD, Deep Vein Thrombosis (DVT), GERD/Reflux, Hyperlipidemia, Hypertension, Osteoarthritis (OA), Vascular Disorder Additional Past Medical History / Comment(s): hx blood clot in left arm and left hand, hx migraines, PVD, left leg pain History of Any Multi-Drug Resistant Organisms: None Reported Past Surgical History: Heart Catheterization Additional Past Surgical History / Comment(s): stent to lt external iliac, bloo d clot removed from left arm, surgery to fix "tear in aorta", surgery for "abdominal adhesions", 06-11-16 LT ILIAC PTBA/STENT, PTBA 10/03/2020-Stent x2 Illiac (L). Past Anesthesia/Blood Transfusion Reactions: No Reported Reaction Additional Past Anesthesia/Blood Transfusion Reaction / Comment(s): claustrophobia Past Psychological History: No Psychological Hx Reported Smoking Status: Current every day smoker Past Alcohol Use History: Daily, Heavy Past Drug Use History: None Reported - Past Family History Father Family Medical History: Cancer, Myocardial Infarction ([place]) Additional Family Medical History / Comment(s): SKIN CANCER Mother Family Medical History: Cancer, Deep Vein Thrombosis (DVT) Additional Family Medical History / Comment(s): COLON CANCER TWICE, lung ancer General Exam - General Exam Comments Initial Comments: GENERAL: The patient is well nourished and well hydrated. VITAL SIGNS: Heart rate, blood pressure, respiratory rate reviewed as recorded in nurse's notes. EYES: Pupils are round and reactive. Extraocular movements are intact. No conjunctival / lid redness or swelling. ENT: No external evidence of injury, swelling, or ecchymosis. Airway is patent. Throat is clear. NECK: Nontender. No swelling or evidence of injury. No subcutaneous emphysema. Trachea is midline. No thyroid mass. HEART: Regular rate and rhythm. Good peripheral pulses. LUNGS/CHEST: Breath sounds clear and equal bilaterally. No rales, rhonchi, or wheezes. Mild tenderness noted to the left lower chest. ABDOMEN: Mild tenderness noted in the midepigastric region. No palpable masses or organomegaly. No peritoneal signs. No abdominal wall swelling or ecchymosis. EXTREMITIES: No extremity tenderness. Normal muscle tone and function. No thoracolumbar tenderness. NEUROLOGIC: Sensation is grossly intact. Cranial nerve exam reveals face is symmetrical, tongue is midline, speech is clear. SKIN: No abrasions or ecchymosis is noted. No induration or masses noted. PSYCHIATRIC: Alert and oriented. Appropriate behavior and judgment. Limitations: no limitations Course Vital Signs 11/02/20 11/02/20 11/02/20 15:38 16:34 19:38 Temperature 98.3 F Pulse Rate 105 H 97 Respiratory 20 18 Rate Blood Pressure 112/61 135/71 Blood Pressure 138/80 [Right Arm Sitting] Blood Pressure 127/74 [Right Arm Standing] Blood Pressure 157/78 [Right Arm Supine] O2 Sat by Pulse 95 88 L Oximetry Medical Decision Making - Medical Decision Making The patient was seen and examined. All diagnostics are reviewed. An EKG was done and this shows a sinus tachycardia at a rate of 109. There is some nonspecific ST-T wave changes noted primarily in the inferolateral leads. The WA intervals 160, QRS duration is 88, and the QTC intervals 503. An IV is established and patient is hydrated. She does receive some pantoprazole, morphine, and Zofran. The laboratory came back showing a low potassium at 2.7. Remainder of labs are essentially unremarkable. The chest x-ray did not show any acute processes. The computed tomography scan of the brain is negative for any acute process. Of note, there was a delay in patient's care through the emergency department 22 her labs are not resulting expeditiously. Case is discussed with Dr. Varghese and he would like patient to be admitted to the hospital. He relates that she was hypoxic and tachycardic in the office. I do not notice any degree of tachycardia in the emergency department but she has been a proximally 94-95% on 2 L per nasal cannula while in the ER. He would like patient to have serial troponins and a neurology and cardiology consult. Patient is agreeable with this plan and is admitted. - Lab Data Result diagrams: 11/02/20 16:12 11/02/20 16:12 Lab Results 11/02/20 11/02/20 11/02/20 Range/Units 16:12 16:12 16:12 WBC 9.6 (3.8-10.6) k/uL RBC 4.53 (3.80-5.40) m/uL Hgb 13.2 D (11.4-16.0) gm/dL Hct 40.1 (34.0-46.0) % MCV 88.5 (80.0-100.0) fL MCH 29.1 (25.0-35.0) pg MCHC 32.9 (31.0-37.0) g/dL RDW 22.4 H (11.5-15.5) % Plt Count 308 (150-450) k/uL MPV 7.3 Neutrophils % 74 % Lymphocytes % 17 % Monocytes % 6 % Eosinophils % 1 % Basophils % 1 % Neutrophils # 7.1 (1.3-7.7) k/uL Lymphocytes # 1.7 (1.0-4.8) k/uL Monocytes # 0.6 (0-1.0) k/uL Eosinophils # 0.1 (0-0.7) k/uL Basophils # 0.1 (0-0.2) k/uL Anisocytosis Moderate Microcytosis Slight PT 10.6 (9.0-12.0) sec INR 1.0 (<1.2) APTT 22.1 (22.0-30.0) sec Sodium (137-145) mmol/L Potassium (3.5-5.1) mmol/L Chloride (98-107) mmol/L Carbon Dioxide (22-30) mmol/L Anion Gap mmol/L BUN (7-17) mg/dL Creatinine (0.52-1.04) mg/dL Est GFR (CKD-EPI)AfAm (>60 ml/min/1.73 sqM) Est GFR (CKD-EPI)NonAf (>60 ml/min/1.73 sqM) Glucose (74-99) mg/dL Calcium (8.4-10.2) mg/dL Phosphorus (2.5-4.5) mg/dL Magnesium (1.6-2.3) mg/dL Total Bilirubin (0.2-1.3) mg/dL AST (14-36) U/L ALT (4-34) U/L Alkaline Phosphatase (38-126) U/L Troponin I (0.000-0.034) ng/mL NT-Pro-B Natriuret Pep pg/mL Total Protein (6.3-8.2) g/dL Albumin (3.5-5.0) g/dL Lipase (23-300) U/L Urine Color Yellow Urine Appearance Cloudy H (Clear) Urine pH 6.5 (5.0-8.0) Ur Specific Hard[place] 1.028 (1.001-1.035) Urine Protein 1+ H (Negative) Urine Glucose (UA) Negative (Negative) Urine Ketones Trace H (Negative) Urine Blood Negative (Negative) Urine Nitrite Negative (Negative) Urine Bilirubin 1+ H (Negative) Urine Urobilinogen 3.0 (<2.0) mg/dL Ur Leukocyte Esterase Negative (Negative) Urine RBC <1 (0-5) /hpf Urine WBC 1 (0-5) /hpf Ur Squamous Epith Cells 15 H (0-4) /hpf Urine Bacteria Few H (None) /hpf Urine Mucus Moderate H (None) /hpf 11/02/20 11/02/20 11/02/20 Range/Units 16:12 16:12 16:12 WBC (3.8-10.6) k/uL RBC (3.80-5.40) m/uL Hgb (11.4-16.0) gm/dL Hct (34.0-46.0) % MCV (80.0-100.0) fL MCH (25.0-35.0) pg MCHC (31.0-37.0) g/dL RDW (11.5-15.5) % Plt Count (150-450) k/uL MPV Neutrophils % % Lymphocytes % % Monocytes % % Eosinophils % % Basophils % % Neutrophils # (1.3-7.7) k/uL Lymphocytes # (1.0-4.8) k/uL Monocytes # (0-1.0) k/uL Eosinophils # (0-0.7) k/uL Basophils # (0-0.2) k/uL Anisocytosis Microcytosis PT (9.0-12.0) sec INR (<1.2) APTT (22.0-30.0) sec Sodium 133 L (137-145) mmol/L Potassium 2.7 L* (3.5-5.1) mmol/L Chloride 90 L (98-107) mmol/L Carbon Dioxide 33 H (22-30) mmol/L Anion Gap 10 mmol/L BUN 17 (7-17) mg/dL Creatinine 0.91 (0.52-1.04) mg/dL Est GFR (CKD-EPI)AfAm 77 (>60 ml/min/1.73 sqM) Est GFR (CKD-EPI)NonAf 67 (>60 ml/min/1.73 sqM) Glucose 140 H (74-99) mg/dL Calcium 10.0 (8.4-10.2) mg/dL Phosphorus 2.6 (2.5-4.5) mg/dL Magnesium 2.1 (1.6-2.3) mg/dL Total Bilirubin 0.6 (0.2-1.3) mg/dL AST 32 (14-36) U/L ALT 14 (4-34) U/L Alkaline Phosphatase 122 (38-126) U/L Troponin I <0.012 (0.000-0.034) ng/mL NT-Pro-B Natriuret Pep 103 pg/mL Total Protein 7.2 (6.3-8.2) g/dL Albumin 4.2 (3.5-5.0) g/dL Lipase (23-300) U/L Urine Color Urine Appearance (Clear) Urine pH (5.0-8.0) Ur Specific [place] (1.001-1.035) Urine Protein (Negative) Urine Glucose (UA) (Negative) Urine Ketones (Negative) Urine Blood (Negative) Urine Nitrite (Negative) Urine Bilirubin (Negative) Urine Urobilinogen (<2.0) mg/dL Ur Leukocyte Esterase (Negative) Urine RBC (0-5) /hpf Urine WBC (0-5) /hpf Ur Squamous Epith Cells (0-4) /hpf Urine Bacteria (None) /hpf Urine Mucus (None) /hpf 11/02/20 Range/Units 16:12 WBC (3.8-10.6) k/uL RBC (3.80-5.40) m/uL Hgb (11.4-16.0) gm/dL Hct (34.0-46.0) % MCV (80.0-100.0) fL MCH (25.0-35.0) pg MCHC (31.0-37.0) g/dL RDW (11.5-15.5) % Plt Count (150-450) k/uL MPV Neutrophils % % Lymphocytes % % Monocytes % % Eosinophils % % Basophils % % Neutrophils # (1.3-7.7) k/uL Lymphocytes # (1.0-4.8) k/uL Monocytes # (0-1.0) k/uL Eosinophils # (0-0.7) k/uL Basophils # (0-0.2) k/uL Anisocytosis Microcytosis PT (9.0-12.0) sec INR (<1.2) APTT (22.0-30.0) sec Sodium (137-145) mmol/L Potassium (3.5-5.1) mmol/L Chloride (98-107) mmol/L Carbon Dioxide (22-30) mmol/L Anion Gap mmol/L BUN (7-17) mg/dL Creatinine (0.52-1.04) mg/dL Est GFR (CKD-EPI)AfAm (>60 ml/min/1.73 sqM) Est GFR (CKD-EPI)NonAf (>60 ml/min/1.73 sqM) Glucose (74-99) mg/dL Calcium (8.4-10.2) mg/dL Phosphorus (2.5-4.5) mg/dL Magnesium (1.6-2.3) mg/dL Total Bilirubin (0.2-1.3) mg/dL AST 29 (14-36) U/L ALT 14 (4-34) U/L Alkaline Phosphatase (38-126) U/L Troponin I (0.000-0.034) ng/mL NT-Pro-B Natriuret Pep pg/mL Total Protein (6.3-8.2) g/dL Albumin (3.5-5.0) g/dL Lipase 148 (23-300) U/L Urine Color Urine Appearance (Clear) Urine pH (5.0-8.0) Ur Specific [place] (1.001-1.035) Urine Protein (Negative) Urine Glucose (UA) (Negative) Urine Ketones (Negative) Urine Blood (Negative) Urine Nitrite (Negative) Urine Bilirubin (Negative) Urine Urobilinogen (<2.0) mg/dL Ur Leukocyte Esterase (Negative) Urine RBC (0-5) /hpf Urine WBC (0-5) /hpf Ur Squamous Epith Cells (0-4) /hpf Urine Bacteria (None) /hpf Urine Mucus (None) /hpf Disposition Clinical Impression: Syncope, Weakness, Dizziness, Nausea and vomiting, Abdominal pain, Chest wall pain, Prolonged QT interval, Hypochloremia, Tachycardia, Hypokalemia, Hypoxia Disposition: [facility] Condition: Fair Is patient prescribed a controlled substance at d/c from ED?: No Referrals: David Varghese MD [Primary Care Provider] - 1-2 days Time of Disposition: 21:32 Decision Date: 11/02/20 Decision Time: 21:32
[2020-11-02] MEDS ORDERED: ONDANSETRON 4 MG/2 ML VIAL IVP STA (16:05)
[2020-11-02] MEDS ORDERED: MORPHINE SULFATE 2 MG/ML SYRINGE IVP STA (16:05)
[2020-11-02] MEDS ORDERED: PANTOPRAZOLE 40 MG/10 ML VIAL IVP STA (16:05)
--- NOTE | 2020-11-02 16:21 | XR ---
EXAMINATION TYPE: XR chest 2V DATE OF EXAM: 11/02/2020 COMPARISON: 10/04/2020 HISTORY: Shortness of breath TECHNIQUE: Frontal and lateral views of the chest are obtained. FINDINGS: Scattered senescent parenchymal changes noted. Hyperinflation compatible with COPD. No evidence for infiltrate. No evidence for atelectasis. Heart size is stable. Mediastinal structures are stable and grossly unremarkable. No evidence for hilar prominence. Degenerative changes dorsal spine. IMPRESSION: 1. No evidence for acute pulmonary disease.
[2020-11-02 16:23] LABS: Anisocytosis Moderate; Basophils # (A) 0.1 k/uL (0-0.2); Basophils % (A) 1 %; Eosinophils # (A) 0.1 k/uL (0-0.7); Eosinophils % (A) 1 %; HCT 40.1 % (34.0-46.0); Lymphocytes # (A) 1.7 k/uL (1.0-4.8); Lymphocytes % (A) 17 %; MCH 29.1 pg (25.0-35.0); MCHC 32.9 g/dL (31.0-37.0); MCV 88.5 fL (80.0-100.0); Mean Platelet Volume 7.3; Microcytosis Slight; Monocytes # (A) 0.6 k/uL (0-1.0); Monocytes % (A) 6 %; Neutrophils # (A) 7.1 k/uL (1.3-7.7); Neutrophils % (A) 74 %; Platelet Count 308 k/uL (150-450); RBC 4.53 m/uL (3.80-5.40); RDW 22.4 % (11.5-15.5); WBC 9.6 k/uL (3.8-10.6)
--- NOTE | 2020-11-02 16:23 | XR ---
EXAMINATION TYPE: XR abdomen 2V DATE OF EXAM: 11/02/2020 COMPARISON: NONE HISTORY: Pain TECHNIQUE: Single supine KUB image of the abdomen is obtained FINDINGS: Small bowel demonstrates no evidence for dilatation or air fluid levels. Gas and fecal material is seen in non-distended colon. No convincing evidence for pneumoperitoneum. No unusual calcifications. The lung bases are clear. The osseous structures are intact. Left common iliac stent noted. IMPRESSION: 1. Overall nonobstructive bowel gas pattern.
--- NOTE | 2020-11-02 16:29 | CT ---
EXAMINATION TYPE: CT brain wo con DATE OF EXAM: 11/02/2020 COMPARISON: 12/07/2018 HISTORY: Weakness and episodes of syncope. CT DLP: 1068.[address] of the brain was performed. The ventricles, basal cisterns and sulci overlying the cerebral convexities demonstrate mild enlargem ent. There is no evidence for intracranial hemorrhage or sulcal effacement. There is decreased attenuation about the periventricular white matter and deep white matter of both c erebral hemispheres, compatible with chronic small vessel ischemia. Differential diagnosis does inclu de demyelination. No mass effects are seen.No midline shift. Osseous calvarium is intact. If symptoms persist consider MRI. IMPRESSION: 1. Age related atrophic and chronic small vessel ischemic change without acute intracranial process s een at this time.
[2020-11-02 16:31] LABS: ALT 14 U/L (4-34); AST 29 U/L (14-36); Lipase 148 U/L (23-300)
[2020-11-02 16:33] LABS: HGB 13.2 gm/dL (11.4-16.0)
[2020-11-02 16:42] LABS: Partial Thromboplastin Time 22.1 sec (22.0-30.0); Prothrombin Time 10.6 sec (9.0-12.0)
[2020-11-02 17:48] LABS: Appearance,Urine Cloudy (Clear); Bacteria,Urine Few /hpf; Bilirubin,Urine 1+ (Negative); Blood,Urine Negative (Negative); Color,Urine Yellow; Glucose,Urine (UA) Negative (Negative); Ketones,Urine Trace (Negative); Leukocyte Esterase,Urine Negative (Negative); Mucus,Urine Moderate /hpf; Nitrite,Urine Negative (Negative); PH, Urine 6.5 (5.0-8.0); Protein,Urine 1+ (Negative); RBC,Urine <1 /hpf (0-5); Specific Gravity,Urine 1.028 (1.001-1.035); Squamous Epithelial Cell,Urine 15 /hpf (0-4); WBC,Urine 1 /hpf (0-5)
[2020-11-02 20:52] LABS: Albumin 4.2 g/dL (3.5-5.0); Magnesium 2.1 mg/dL (1.6-2.3); Phosphorus 2.6 mg/dL (2.5-4.5); Total Bilirubin 0.6 mg/dL (0.2-1.3); Total Protein 7.2 g/dL (6.3-8.2)
[2020-11-02 20:55] LABS: Potassium 2.7 mmol/L (3.5-5.1)
[2020-11-02] MEDS ORDERED: POTASSIUM CHLORIDE 20 MEQ in WATER FOR INJECTION 1 100ML.BAG IVPB STA (21:14)
[2020-11-02] MEDS ORDERED: POTASSIUM CHLORIDE ER 20 MEQ TAB.ER PO STA (21:14)
[2020-11-02] MEDS ORDERED: ACETAMINOPHEN TAB 325 MG TAB PO PRN (21:34)
[2020-11-02] MEDS ORDERED: MORPHINE SULFATE 2 MG/ML SYRINGE IVP PRN (21:34)
[2020-11-02] MEDS ORDERED: ALBUTEROL HFA INHALER INHALATION PRN (21:39)
[2020-11-02] MEDS ORDERED: NITROGLYCERIN SL TABS 0.4 MG TAB SUBLINGUAL PRN (21:39)
[2020-11-02] MEDS ORDERED: ONDANSETRON 4 MG/2 ML VIAL IVP PRN (21:42)
[2020-11-02] MEDS: NYSTATIN 100,000 UNIT/ML SUSP 500,000 UNIT/5 ML CUP PO SCH (23:22)
[2020-11-03] MEDS: NITROGLYCERIN OINT 1 INCH/GM PACKET TOPICAL SCH ×3 (00:16→11:14)
[2020-11-03] MEDS: SYMBICORT 160-4.5 MCG INHALER INHALATION SCH ×2 (07:27→21:07)
[2020-11-03] MEDS: ENOXAPARIN 40 MG/0.4 ML SYRINGE SQ SCH (08:57)
[2020-11-03] MEDS: ATORVASTATIN 80 MG TAB PO SCH (08:57)
[2020-11-03] MEDS: ASPIRIN 325 MG TAB PO SCH (08:57)
[2020-11-03] MEDS: DULoxetine HCL 30 MG CAPSULE.DR PO SCH (08:58)
[2020-11-03] MEDS: NYSTATIN 100,000 UNIT/ML SUSP 500,000 UNIT/5 ML CUP PO SCH ×4 (08:58→19:08)
[2020-11-03] MEDS: hydroCHLOROthiazide 25 MG TAB PO SCH (08:58)
[2020-11-03] MEDS: FERROUS SULFATE 325 MG TAB PO SCH (08:58)
[2020-11-03] MEDS: amLODIPine 5 MG TAB PO SCH (08:58)
[2020-11-03] MEDS: buPROPion XL 150 MG TAB.ER.24H PO SCH ×2 (08:58→19:08)
[2020-11-03] MEDS: PANTOPRAZOLE 40 MG TABLET PO SCH (08:58)
[2020-11-03] MEDS: METOPROLOL SUCCINATE (ER) 100 MG TAB.ER.24H PO SCH (08:59)
[2020-11-03] MEDS: CHOLECALCIFEROL 10 MCG (400 IU) TABLET PO SCH (08:59)
[2020-11-03 10:52] LABS: African American GFR (CKD) 68.9 (60.0-200.0); Anion Gap 9.7 mmol/L (4.00-12.00); Calcium 8.7 mg/dL (8.7-10.3); Carbon Dioxide 29.3 mmol/L (21.6-31.8); Non-African American GFR(CKD) 59.5 (60.0-200.0)
[2020-11-03 10:55] LABS: Chol/HDL Ratio 3.1
[2020-11-03] MEDS ORDERED: IPRATROPIUM-ALBUTEROL 3 ML NEB INHALATION PRN (11:21)
--- NOTE | 2020-11-03 11:31 | P.HPIM ---
History of Present Illness H&P Date: 11/03/20 HISTORY OF PRESENT ILLNESS This is a 65-year-old female patient of Dr. Varghese with past medical history of COPD, PAD, hypertension, hyperlipidemia. Patient has history of severe claudication of the left lower extremity and followed by Dr. Mas status post angiogram and angioplasty of the left external iliac artery followed by clot and on long-term eliquis. Patient gives history of syncopal episodes 4. Yesterday she had a syncopal episode and came into the office. She was tachycardic and hypoxic. She does not follow with the pulmonary doctor. She does have history of smoking and alcohol abuse and trying to cut back on both. Patient presented to [facility] emergency [facility] and found to be afebrile, heart rate 105, blood pressure 112/61, pulse ox 99% followed by 88% on room air. CBC was unremarkable. Sodium 133 and potassium 2.7, chloride 90, CO2 33, BUN 17 and creatinine 0.9. Blood sugar 140. Troponins negative 3 draws. Triglycerides 110, cholesterol 121, VLDL 22, HDL 39. TSH 1.890. Lipase 148. Urinalysis was cloudy, ketones trace, bilirubin 1+, few bacteria. COVID-19 not detected. CAT scan of the brain revealed age-related atrophy and chronic small vessel ischemic change without acute intracranial process. Chest x-ray reveals no acute pulmonary disease. Echocardiogram reveals EF of 55-60% with moderate concentric left hypertrophy, mild tricuspid regurgitation. Patient admitted to the observation unit and consult in place with neurology, cardiology and pulmonary medicine. REVIEW OF SYSTEMS Constitutional: No fever, no chills, no night sweats. No weight change. No weakness, fatigue or lethargy. No daytime sleepiness. EENT: No headache. No blurred vision or double vision, no loss of vision. No loss of Hearing, no ringing in the ears, no dizziness. No nasal drainage or congestion. No epistaxis. No sore throat. Lungs: Reports shortness of breath, cough, no sputum production. No wheezing. Cardiovascular: No chest pain, no lower extremity edema. Reports palpitations. No paroxysmal nocturnal dyspnea. No orthopnea. No lightheadedness or dizziness. Reports 4 syncopal episodes. Abdominal: No abdominal pain. No nausea, vomiting. No diarrhea. No constipation. No bloody or tarry stools.. No loss of appetite. Genitourinary: No dysuria, increased frequency, urgency. No urinary retention. Musculoskeletal: No myalgias. No muscle weakness, no gait dysfunction, no frequent falls. No back pain. No neck pain. Integumentary: No wounds, no lesions. No rash or pruritus. No unusual brui sing. No change in hair or nails. Neurologic: No aphasia. No facial droop. No change in mentation. No head injury. No headache. No paralysis. No paresthesia. Psychiatric: No depression. No anxiety. No mood swings. Endocrine: No abnormal blood sugars. No weight change. No excessive sweating or thirst. No cold intolerance. SOCIAL HISTORY Patient is a smoker of 2 packs per day for 45 years and is cutting back to one half pack per day. She usually drinks 6 beers per day and has cut back to 3 per day. She's been drinking heavy alcohol for 30-40 years. She states she has had no alcohol intake since last week. No marijuana or illicit drug use. Patient is and lives alone. FAMILY HISTORY Mother at age 83 from lung cancer. Father at age 65 from myocardial infarction. Patient has a total of 5 siblings. One has history of heart disease and another with cancer. She does not have contact with her siblings. Patient does not have any children. PHYSICAL EXAMINATION Gen: This is a 65-year-old female. She is resting in bed and appears to be comfortable at rest. No acute distress. HEENT: Head is atraumatic, normocephalic. Pupils equal, round. Sclerae is anicteric. NECK: Supple. No JVD. No lymphadenopathy. No thyromegaly. LUNGS: Decreased breath sounds bilaterally with scattered rhonchi. No intercostal retractions. HEART: Regular rate and rhythm. No murmur. ABDOMEN: Soft. Bowel sounds are present. No masses. No tenderness. EXTREMITIES: No pedal edema. No calf tenderness. Decreased pulses posterior tibial bilaterally more so to the left. NEUROLOGICAL: Patient is awake, alert and oriented x3. Cranial nerves 2 through 12 are grossly intact. ASSESSMENT AND PLAN 1. Syncopal episodes 4 of unclear etiology. Consults with cardiology and nilam rology, orthostatic vital signs, continue cardiac monitoring to rule out arrhythmia. 2. COPD. Continue DuoNeb treatments 4 times daily and as needed, Symbicort twice daily, pulmonary consult. Patient will need OP follow up with pulmonary 3. Severe peripheral vascular disease status post left external iliac artery angioplasty and stent with restenosis and thrombosis, on long-term eliquis, aspi rin 81 mg daily and followed by Dr. Mas. 4. Hypertension. Continue metoprolol 100 mg daily, amlodipine 5 mg daily, hydrochlorothiazide 25 mg daily. 5. Hyperlipidemia. Continue atorvastatin 40 mg daily. 6. Tobacco use and dependence. Nicotine patch. 7. Alcohol abuse. Patient states her last intake was 1 week ago but monitor for DTs. 8. Recurrent depression and generalized anxiety disorder. Continue Wellbutrin 150 mg twice daily, Cymbalta 60 mg daily. 9. Gastroesophageal reflux disease and GI prophylaxis. Continue Protonix. 10. DVT prophylaxis. Eliquis. 11. COVID-19 testing negative. Patient has been hospitalized during a pandemic. Patient will be admitted to the hospital for a minimum of 2 night stay. DISCHARGE PLAN Home. Impression and plan of care have been directed as dictated by the signing physician. Rebecca Heart nurse practitioner acting as scribe for signing physician. Past Medical History Past Medical History: Asthma, Chest Pain / Angina, COPD, Deep Vein Thrombosis (DVT), GERD/Reflux, Hyperlipidemia, Hypertension, Osteoarthritis (OA), Vascular Disorder Additional Past Medical History / Comment(s): hx blood clot in left arm and left hand, hx migraines, PVD, left leg pain History of Any Multi-Drug Resistant Organisms: None Reported Past Surgical History: Heart Catheterization Additional Past Surgical History / Comment(s): stent to lt external iliac, blood clot removed from left arm, surgery to fix "tear in aorta", surgery for "abdominal adhesions", 06-11-16 LT ILIAC PTBA/STENT, PTBA 10/03/2020-Stent x2 Illiac (L). Past Anesthesia/Blood Transfusion Reactions: No Reported Reaction Additional Past Anesthesia/Blood Transfusion Reaction / Comment(s): claustrophobia Past Psychological History: No Psychological Hx Reported Smoking Status: Current every day smoker Past Alcohol Use History: Daily, Heavy Additional Past Alcohol Use History / Comment(s): started smoking at age 16, states trying to quit, little over 1/2 ppd, drinks 6 beers daily Past Drug Use History: None Reported - Past Family History Father Family Medical History: Cancer, Myocardial Infarction ([place]) Additional Family Medical History / Comment(s): SKIN CANCER Mother Family Medical History: Cancer, Deep Vein Thrombosis (DVT) Additional Family Medical History / Comment(s): COLON CANCER TWICE, lung ancer Medications and Allergies Home Medications Medication Instructions Recorded Confirmed Type Cholecalciferol [Vitamin D3 (10 400 unit PO DAILY 02/26/15 11/02/20 History Mcg = 400 Iu)] Metoprolol Succinate [Toprol XL] 100 mg PO DAILY 02/26/15 11/02/20 History DULoxetine HCL [Cymbalta] 60 mg PO DAILY 10/18/18 11/02/20 History hydroCHLOROthiazide 25 mg PO DAILY #30 tablet 10/18/18 11/02/20 Rx Albuterol Sulfate [Ventolin HFA] 2 puff INHALATION RT-Q4H PRN 07/14/19 11/02/20 History Pantoprazole [Protonix] 40 mg PO DAILY 07/14/19 11/02/20 History Ferrous Sulfate [Iron (65 MG 325 mg PO DAILY 10/01/20 11/02/20 History Elemental)] Apixaban [Eliquis] 5 mg PO BID #180 tablet 10/04/20 11/02/20 Rx Acetaminophen [Tylenol Extra 1,000 mg PO Q46H PRN 11/02/20 11/02/20 History Strength] Aspirin EC [Ecotrin Low Dose] 81 mg PO DAILY 11/02/20 11/02/20 History Budesonide/Formoterol Fumarate 2 puff INHALATION RT-BID 11/02/20 11/02/20 History [Symbicort 160-4.5 Mcg Inhaler] Nitroglycerin Sl Tabs [Nitrostat] 0.4 mg SUBLINGUAL Q5M PRN 11/02/20 11/02/20 History Nystatin 100,000 Unit/ml Susp 5 ml PO QID 11/02/20 11/02/20 History [Mycostatin Oral Susp] Rosuvastatin Calcium [Crestor] 40 mg PO DAILY 11/02/20 11/02/20 History amLODIPine [Norvasc] 5 mg PO DAILY 11/02/20 11/02/20 History buPROPion XL [Wellbutrin Xl] 150 mg PO BID 11/02/20 11/02/20 History Allergies Allergy/AdvReac Type Severity Reaction Status Date / Time influenza virus vaccine, Allergy Rash/Hives Verified 11/02/20 19:07 specific [influenza virus vacc,specific] lisinopril Allergy Swelling Verified 11/02/20 19:07 Physical Exam Vitals: Vital Signs Temp Pulse Pulse Resp BP BP BP 11/03/20 07:34 98.2 F 87 18 11/03/20 02:00 18 11/03/20 01:54 98.7 F 94 18 11/02/20 21:55 98.0 F 98 18 127/70 11/02/20 19:38 97 18 135/71 11/02/20 16:34 138/80 127/74 11/02/20 15:38 98.3 F 105 H 20 112/61 BP Pulse Ox 11/03/20 07:34 117/70 92 L 11/03/20 02:00 11/03/20 01:54 133/71 96 11/02/20 21:55 95 11/02/20 19:38 88 L 11/02/20 16:34 157/78 11/02/20 15:38 95 Intake and Output 11/02/20 11/03/20 11/03/20 22:59 06:59 14:59 Other: Voiding Method Toilet # Voids 1 Weight 95.708 kg Results CBC & Chem 7: 11/02/20 16:12 11/03/20 05:00 Labs: Abnormal Lab Results - Last 24 Hours (Table) 11/02/20 11/02/20 11/02/20 Range/Units 16:12 16:12 16:12 RDW 22.4 H (11.5-15.5) % Sodium 133 L (137-145) mmol/L Potassium 2.7 L* (3.5-5.1) mmol/L Chloride 90 L (98-107) mmol/L Carbon Dioxide 33 H (22-30) mmol/L Glucose 140 H (74-99) mg/dL Urine Appearance Cloudy H (Clear) Urine Protein 1+ H (Negative) Urine Ketones Trace H (Negative) Urine Bilirubin 1+ H (Negative) Ur Squamous Epith Cells 15 H (0-4) /hpf Urine Bacteria Few H (None) /hpf Urine Mucus Moderate H (None) /hpf Thrombosis Risk Factor Assmnt - Choose All That Apply Any of the Below Risk Factors Present?: No Other Risk Factors: No Other congenital or acquired thrombophilia - If yes, enter type in comment: No Thrombosis Risk Factor Assessment Level: Very Low Risk
--- NOTE | 2020-11-03 11:51 | P.CNPUL ---
History of Present Illness Consult date: 11/03/20 Requesting physician: David Varghese Reason for consult: dyspnea, COPD, hypoxemia, abnormal CXR/CT Chief complaint: Shortness of breath/COPD. History of present illness: Pulmonary consult dated 11/03/2020. 65-year-old female, who was evaluated for syncopal episodes, passing out, and weakness. This has happened maybe 6 times in the last couple months. She complained of weakness and dizziness. It seems to occur more when she is in certain positions such as standing especially standing suddenly. She denies any trauma to the head. She also has complaints of some vomiting, as noted in the H&P by the primary service. She apparently was seen by the primary care physician and sent to the hospital for further evaluation. We were asked to see the patient because is clear the patient has underlying COPD from 50 years of tobacco use. She currently still smokes. She takes albuterol inhaler, and Symbicort inhaler. She doesn't see a lung doctor at this time. She does have a chronic cough, shortness of breath on exertion, and occasional wheezing. She needs a thorough outpatient evaluation for her COPD, including a 6 minute walk distance, pulmonary function test. CBC is normal. PT INR and PTT are normal. Sodium 138, potassium 3, chlorides 99, CO2 29, anion gap 10, BUN and creatinine were 15 and 1.0. Troponins were negative 3. Chest x-rays consistent with COPD. No active disease. Review of Systems REVIEW OF SYSTEMS: CONSTITUTIONAL: Weakness. NEUROLOGIC: Syncope/near syncope. Dizziness. HEENT: [ Negative.] CARDIAC: [Negative.] PULMONARY: Chronic shortness of breath on exertion. GI: [Negative.] : [Negative.] RHEUMATOLOGIC: [ Negative.] IMMUNOLOGIC: [ Negative.] ENDOCRINE: [Negative. ] DERMATOLOGIC: [Negative.] Past Medical History Past Medical History: Asthma, Chest Pain / Angina, COPD, Deep Vein Thrombosis (DVT), GERD/Reflux, Hyperlipidemia, Hypertension, Osteoarthritis (OA), Vascular Disorder Additional Past Medical History / Comment(s): hx blood clot in left arm and left hand, hx migraines, PVD, left leg pain History of Any Multi-Drug Resistant Organisms: None Reported Past Surgical History: Heart Catheterization Additional Past Surgical History / Comment(s): stent to lt external iliac, blood clot removed from left arm, surgery to fix "tear in aorta", surgery for "abdominal adhesions", 06-11-16 LT ILIAC PTBA/STENT, PTBA 10/03/2020-Stent x2 Illiac (L). Past Anesthesia/Blood Transfusion Reactions: No Reported Reaction Additional Past Anesthesia/Blood Transfusion Reaction / Comment(s): claustrophobia Past Psychological History: No Psychological Hx Reported Smoking Status: Current every day smoker Past Alcohol Use History: Daily, Heavy Additional Past Alcohol Use History / Comment(s): started smoking at age 16, states trying to quit, little over 1/2 ppd, drinks 6 beers daily Past Drug Use History: None Reported - Past Family History Father Family Medical History: Cancer, Myocardial Infarction ([place]) Additional Family Medical History / Comment(s): SKIN CANCER Mother Family Medical History: Cancer, Deep Vein Thrombosis (DVT) Additional Family Medical History / Comment(s): COLON CANCER TWICE, lung ancer Medications and Allergies Home Medications Medication Instructions Recorded Confirmed Type Cholecalciferol [Vitamin D3 (10 400 unit PO DAILY 02/26/15 11/02/20 History Mcg = 400 Iu)] Metoprolol Succinate [Toprol XL] 100 mg PO DAILY 02/26/15 11/02/20 History DULoxetine HCL [Cymbalta] 60 mg PO DAILY 10/18/18 11/02/20 History hydroCHLOROthiazide 25 mg PO DAILY #30 tablet 10/18/18 11/02/20 Rx Albuterol Sulfate [Ventolin HFA] 2 puff INHALATION RT-Q4H PRN 07/14/19 11/02/20 History Pantoprazole [Protonix] 40 mg PO DAILY 07/14/19 11/02/20 History Ferrous Sulfate [Iron (65 MG 325 mg PO DAILY 10/01/20 11/02/20 History Elemental)] Apixaban [Eliquis] 5 mg PO BID #180 tablet 10/04/20 11/02/20 Rx Acetaminophen [Tylenol Extra 1,000 mg PO Q46H PRN 11/02/20 11/02/20 History Strength] Aspirin EC [Ecotrin Low Dose] 81 mg PO DAILY 11/02/20 11/02/20 History Budesonide/Formoterol Fumarate 2 puff INHALATION RT-BID 11/02/20 11/02/20 History [Symbicort 160-4.5 Mcg Inhaler] Nitroglycerin Sl Tabs [Nitrostat] 0.4 mg SUBLINGUAL Q5M PRN 11/02/20 11/02/20 History Nystatin 100,000 Unit/ml Susp 5 ml PO QID 11/02/20 11/02/20 History [Mycostatin Oral Susp] Rosuvastatin Calcium [Crestor] 40 mg PO DAILY 11/02/20 11/02/20 History amLODIPine [Norvasc] 5 mg PO DAILY 11/02/20 11/02/20 History buPROPion XL [Wellbutrin Xl] 150 mg PO BID 11/02/20 11/02/20 History Allergies Allergy/AdvReac Type Severity Reaction Status Date / Time influenza virus vaccine, Allergy Rash/Hives Verified 11/02/20 19:07 specific [influenza virus vacc,specific] lisinopril Allergy Swelling Verified 11/02/20 19:07 Physical Exam Osteopathic Statement: *. No significant issues noted on an osteopathic structural exam other than those noted in the History and Physical/Consult. Vitals: Vital Signs Temp Pulse Pulse Resp BP BP BP 11/03/20 08:00 87 18 11/03/20 07:34 98.2 F 87 18 11/03/20 02:00 18 11/03/20 01:54 98.7 F 94 18 11/02/20 21:55 98.0 F 98 18 127/70 11/02/20 19:38 97 18 135/71 11/02/20 16:34 138/80 127/74 11/02/20 15:38 98.3 F 105 H 20 112/61 BP Pulse Ox 11/03/20 08:00 11/03/20 07:34 117/70 92 L 11/03/20 02:00 11/03/20 01:54 133/71 96 11/02/20 21:55 95 11/02/20 19:38 88 L 11/02/20 16:34 157/78 11/02/20 15:38 95 Intake and Output 11/02/20 11/03/20 11/03/20 22:59 06:59 14:59 Other: Voiding Method Toilet Toilet # Voids 1 Weight 95.708 kg No acute distress, oriented 3. No conversational dyspnea or use of accessory muscles. 2 L saturation 96%. HEENT examination is grossly unremarkable. Neck supple. Full range of motion. No adenopathy thyromegaly or neck vein distention. Cardiovascular examination reveals regular rhythm rate. S1-S2 normal. No S3 or S4. No discernible murmur noted. Heart rate 87 bpm. Lungs reveal mild to moderate bilateral rhonchi and expiratory wheezes. No crackles. Breath sounds equal bilaterally. Abdomen soft bowel sounds are heard. No masses or tenderness. Extremities are intact. No cyanosis clubbing or edema. Skin is without rash or lesion. Neurologic examination is brief but nonfocal. Results - Laboratory Findings CBC and BMP: 11/02/20 16:12 11/03/20 05:00 PT/INR, D-dimer PT 10.6 sec (9.0-12.0) 11/02/20 16:12 INR 1.0 (<1.2) 11/02/20 16:12 Abnormal lab findings: Abnormal Labs 11/02/20 11/02/20 11/02/20 16:12 16:12 16:12 RDW 22.4 H Sodium 133 L Potassium 2.7 L* Chloride 90 L Carbon Dioxide 33 H Est GFR (CKD-EPI)NonAf Glucose 140 H HDL Cholesterol Urine Appearance Cloudy H Urine Protein 1+ H Urine Ketones Trace H Urine Bilirubin 1+ H Ur Squamous Epith Cells 15 H Urine Bacteria Few H Urine Mucus Moderate H 11/03/20 11/03/20 05:00 05:00 RDW Sodium Potassium 3.0 L Chloride Carbon Dioxide Est GFR (CKD-EPI)NonAf 59.5 L Glucose 136 H HDL Cholesterol 39.0 L Urine Appearance Urine Protein Urine Ketones Urine Bilirubin Ur Squamous Epith Cells Urine Bacteria Urine Mucus - Diagnostic Findings Chest x-ray: image reviewed Assessment and Plan Assessment: Probable COPD, based on 50 years of tobacco use, and classic symptoms of COPD such as shortness of breath, chronic cough, and wheezing. The patient will need an outpatient workup including a 6 minute walk distance, and a PFT. Syncope, and dizziness, currently being evaluated by the primary service. History of 50 years of tobacco use with ongoing nicotine addiction. History of peripheral vascular occlusive disease. History of angina. History of DVT. History of gastroesophageal reflux disease. History of hyperlipidemia. History of hypertension. Plan: Plan dated 11/03/2020. The patient's spiritual counselor about the importance of smoking cessation. We change her to albuterol sulfate and ipratropium bromide, 4 times a day and when necessary. He remained on the Symbicort for now. She will need a thorough outpatient evaluation including a complete pulmonary function test, in 6 minute walk distance. She would also probably benefit from a nicotine patch. Additional recommendations and suggestions are forthcoming. Time with Patient: Greater than 30
[2020-11-03] MEDS: POTASSIUM CHLORIDE ER 20 MEQ TAB.ER PO SCH ×2 (12:10→13:28)
[2020-11-03] MEDS: IPRATROPIUM-ALBUTEROL 3 ML NEB INHALATION SCH ×3 (12:23→21:07)
--- NOTE | 2020-11-03 13:20 | P.CRDCN ---
History of Present Illness Consult date: 11/03/20 Requesting physician: David Varghese Reason for Consult (text): syncope, chest pain Chief complaint: syncope History of present illness: This is a pleasant 65-year-old female patient who follows with Dr. Sahni in the office. She has a history of multiple peripheral interventions, COPD, smoking, prior heart catheterization in July 2019 which showed a 40-50% lesion in the mid LAD, she somewhat of a poor historian. She was at her primary care physician's office and was noted to be tachycardic and hypoxic and was recommended to go to the emergency department. She apparently been having sy ncopal episodes at home it sounds like she is been passing out while in her chair. Apparently over the records it sounds like the patient's recently and she has been using alcohol to help cope with this. Over the last couple of months she's had for 6 episodes of loss of consciousness while in her chair. She is unsure how long she is out for she has no symptoms prior to passing out. She's had no loss of bowel or bladder control. Earlier this week she did have some nausea and vomiting where she was retching quite a bit and subsequently developed some tenderness in her abdomen and left lower chest. It is unclear whether or not she's been eating and drinking enough. Laboratory values on admission showed potassium of 2.7 which has been replaced and subsequent draw shows a potassium of 3.0. Troponins have been negative 3. EKG shows sinus tachycardia with nonspecific ST-T wave abnormalities with artifact. Vital signs of been stable she's been afebrile. Past Medical History Past Medical History: Asthma, Chest Pain / Angina, COPD, Deep Vein Thrombosis (DVT), GERD/Reflux, Hyperlipidemia, Hypertension, Osteoarthritis (OA), Vascular Disorder Additional Past Medical History / Comment(s): hx blood clot in left arm and left hand, hx migraines, PVD, left leg pain History of Any Multi-Drug Resistant Organisms: None Reported Past Surgical History: Heart Catheterization Additional Past Surgical History / Comment(s): stent to lt external iliac, blood clot removed from left arm, surgery to fix "tear in aorta", surgery for "abdominal adhesions", 06-11-16 LT ILIAC PTBA/STENT, PTBA 10/03/2020-Stent x2 Illiac (L). Past Anesthesia/Blood Transfusion Reactions: No Reported Reaction Additional Past Anesthesia/Blood Transfusion Reaction / Comment(s): claustrophobia Past Psychological History: No Psychological Hx Reported Smoking Status: Current every day smoker Past Alcohol Use History: Daily, Heavy Additional Past Alcohol Use History / Comment(s): started smoking at age 16, states trying to quit, little over 1/2 ppd, drinks 6 beers daily Past Drug Use History: None Reported - Past Family History Father Family Medical History: Cancer, Myocardial Infarction ([place]) Additional Family Medical History / Comment(s): SKIN CANCER Mother Family Medical History: Cancer, Deep Vein Thrombosis (DVT) Additional Family Medical History / Comment(s): COLON CANCER TWICE, lung ancer Medications and Allergies Home Medications Medication Instructions Recorded Confirmed Type Cholecalciferol [Vitamin D3 (10 400 unit PO DAILY 02/26/15 11/02/20 History Mcg = 400 Iu)] Metoprolol Succinate [Toprol XL] 100 mg PO DAILY 02/26/15 11/02/20 History DULoxetine HCL [Cymbalta] 60 mg PO DAILY 10/18/18 11/02/20 History hydroCHLOROthiazide 25 mg PO DAILY #30 tablet 10/18/18 11/02/20 Rx Albuterol Sulfate [Ventolin HFA] 2 puff INHALATION RT-Q4H PRN 07/14/19 11/02/20 History Pantoprazole [Protonix] 40 mg PO DAILY 07/14/19 11/02/20 History Ferrous Sulfate [Iron (65 MG 325 mg PO DAILY 10/01/20 11/02/20 History Elemental)] Apixaban [Eliquis] 5 mg PO BID #180 tablet 10/04/20 11/02/20 Rx Acetaminophen [Tylenol Extra 1,000 mg PO Q46H PRN 11/02/20 11/02/20 History Strength] Aspirin EC [Ecotrin Low Dose] 81 mg PO DAILY 11/02/20 11/02/20 History Budesonide/Formoterol Fumarate 2 puff INHALATION RT-BID 11/02/20 11/02/20 History [Symbicort 160-4.5 Mcg Inhaler] Nitroglycerin Sl Tabs [Nitrostat] 0.4 mg SUBLINGUAL Q5M PRN 11/02/20 11/02/20 History Nystatin 100,000 Unit/ml Susp 5 ml PO QID 11/02/20 11/02/20 History [Mycostatin Oral Susp] Rosuvastatin Calcium [Crestor] 40 mg PO DAILY 11/02/20 11/02/20 History amLODIPine [Norvasc] 5 mg PO DAILY 11/02/20 11/02/20 History buPROPion XL [Wellbutrin Xl] 150 mg PO BID 11/02/20 11/02/20 History Allergies Allergy/AdvReac Type Severity Reaction Status Date / Time influenza virus vaccine, Allergy Rash/Hives Verified 11/02/20 19:07 specific [influenza virus vacc,specific] lisinopril Allergy Swelling Verified 11/02/20 19:07 Physical Exam Vitals: Vital Signs Temp Pulse Pulse Resp BP BP BP 11/03/20 08:00 87 18 11/03/20 07:34 98.2 F 87 18 11/03/20 02:00 18 11/03/20 01:54 98.7 F 94 18 11/02/20 21:55 98.0 F 98 18 127/70 11/02/20 19:38 97 18 135/71 11/02/20 16:34 138/80 127/74 11/02/20 15:38 98.3 F 105 H 20 112/61 BP Pulse Ox 11/03/20 08:00 11/03/20 07:34 117/70 92 L 11/03/20 02:00 11/03/20 01:54 133/71 96 11/02/20 21:55 95 11/02/20 19:38 88 L 11/02/20 16:34 157/78 11/02/20 15:38 95 Intake and Output 11/02/20 11/03/20 11/03/20 22:59 06:59 14:59 Other: Voiding Method Toilet Toilet # Voids 1 Weight 95.708 kg PHYSICAL EXAMINATION: This is a 65-year-old female in no apparent distress at the time of my examination. VITAL SIGNS: Blood pressure 117/70, heart rate 87, respirations 18, temp 98.2F. Patient is 92 % on 2 L via nasal cannula. HEENT: Head is atraumatic, normocephalic. Pupils are equal, round. Sclerae anicteric. Conjunctivae are clear. Mucous membranes of the mouth are moist. Neck is supple. There is no elevated jugular venous pressure. No carotid bruit is heard. CHEST EXAMINATION: Lung sounds reveal expiratory wheezing throughout No rales or rhonchi. Respirations even and nonlabored. HEART EXAMINATION: Heart regular, positive S1 and S2. No S3. No S4. No clicks, rubs or murmurs. ABDOMEN: Soft, left upper quadrant tenderness. Bowel sounds are heard. No organomegaly noted. EXTREMITIES: Diminished peripheral pulses with no evidence of peripheral edema and no calf tenderness noted. NEUROLOGIC EXAMINATION: Patient is awake, alert and oriented x3. Results 11/02/20 16:12 11/03/20 05:00 Cardiac Enzymes 11/02/20 11/02/20 11/02/20 Range/Units 16:12 16:12 16:12 AST 32 29 (14-36) U/L Troponin I <0.012 (0.000-0.034) ng/mL 11/02/20 11/03/20 Range/Units 22:17 01:23 AST (14-36) U/L Troponin I <0.012 <0.012 (0.000-0.034) ng/mL Coagulation 11/02/20 Range/Units 16:12 PT 10.6 (9.0-12.0) sec APTT 22.1 (22.0-30.0) sec Lipids 11/03/20 Range/Units 05:00 Triglycerides 110.0 (0.0-149.0) mg/dL Cholesterol 121 (0-200) mg/dL HDL Cholesterol 39.0 L (40.0-60.0) mg/dL Cholesterol/HDL Ratio 3.10 CBC 11/02/20 Range/Units 16:12 WBC 9.6 (3.8-10.6) k/uL RBC 4.53 (3.80-5.40) m/uL Hgb 13.2 D (11.4-16.0) gm/dL Hct 40.1 (34.0-46.0) % Plt Count 308 (150-450) k/uL Comprehensive Metabolic Panel 11/02/20 11/02/20 11/03/20 Range/Units 16:12 16:12 05:00 Sodium 133 L 138 (137-145) mmol/L Potassium 2.7 L* 3.0 L (3.5-5.1) mmol/L Chloride 90 L 99 (98-107) mmol/L Carbon Dioxide 33 H 29.3 (22-30) mmol/L BUN 17 15.0 (7-17) mg/dL Creatinine 0.91 1.0 (0.52-1.04) mg/dL Glucose 140 H 136 H (74-99) mg/dL Calcium 10.0 8.7 (8.4-10.2) mg/dL AST 32 29 (14-36) U/L ALT 14 14 (4-34) U/L Alkaline Phosphatase 122 (38-126) U/L Total Protein 7.2 (6.3-8.2) g/dL Albumin 4.2 (3.5-5.0) g/dL Current Medications Generic Name Dose Route Start Last Admin Trade Name Freq PRN Reason Stop Dose Admin Acetaminophen 650 mg 11/02/20 21:34 Acetaminophen Tab 325 Mg Tab PO Q4HR PRN Pain Albuterol/Ipratropium 3 ml 11/03/20 12:00 11/03/20 12:23 Ipratropium-Albuterol 3 Ml Neb INHALATION Not Given RT-QID RENEE Albuterol/Ipratropium 3 ml 11/03/20 11:21 Ipratropium-Albuterol 3 Ml Neb INHALATION RT-Q2H PRN Shortness Of Breath Or Wheezing Amlodipine Besylate 5 mg 11/03/20 09:00 11/03/20 08:58 Amlodipine 5 Mg Tab PO 5 mg DAILY RENEE Administration Aspirin 325 mg 11/03/20 09:00 11/03/20 08:57 Aspirin 325 Mg Tab PO 325 mg DAILY RENEE Administration Atorvastatin Calcium 80 mg 11/03/20 09:00 11/03/20 08:57 Atorvastatin 80 Mg Tab PO 80 mg DAILY RENEE Administration Budesonide/Formoterol Fumarate 2 puff 11/03/20 08:00 11/03/20 07:27 Symbicort 160-4.5 Mcg Inhaler INHALATION 2 puff RT-BID RENEE Administration Bupropion HCl 150 mg 11/03/20 09:00 11/03/20 08:58 Bupropion Xl 150 Mg Tab.Er.24h PO 150 mg BID RENEE Administration Cholecalciferol 10 mcg 11/03/20 09:00 11/03/20 08:59 Cholecalciferol 10 Mcg (400 Iu) Tablet PO 10 mcg DAILY RENEE Administration Duloxetine HCl 60 mg 11/03/20 09:00 11/03/20 08:58 Duloxetine Hcl 30 Mg Capsule.Dr PO 60 mg DAILY RENEE Administration Enoxaparin Sodium 40 mg 11/03/20 09:00 11/03/20 08:57 Enoxaparin 40 Mg/0.4 Ml Syringe SQ 40 mg DAILY RENEE Administration Ferrous Sulfate 325 mg 11/03/20 09:00 11/03/20 08:58 Ferrous Sulfate 325 Mg Tab PO 325 mg DAILY RENEE Administration Hydrochlorothiazide 25 mg 11/03/20 09:00 11/03/20 08:58 Hydrochlorothiazide 25 Mg Tab PO 25 mg DAILY RENEE Administration Metoprolol Succinate 100 mg 11/03/20 09:00 11/03/20 08:59 Metoprolol Succinate (Er) 100 Mg Tab.Er.24h PO 100 mg DAILY [facility] Administration Morphine Sulfate 2 mg 11/02/20 21:34 11/02/20 23:21 Morphine Sulfate 2 Mg/Ml Syringe IVP 2 mg Q3H PRN Administration Chest Pain Nitroglycerin 1 inch 11/03/20 00:00 11/03/20 11:14 Nitroglycerin Oint 1 Inch/Gm Packet TOPICAL Not Given Q6HR [facility] Nitroglycerin 0.4 mg 11/02/20 21:39 Nitroglycerin Sl Tabs 0.4 Mg Tab SUBLINGUAL Q5M PRN Chest Pain Nystatin 100,000 unit 11/02/20 22:00 11/03/20 12:10 Nystatin 100,000 Unit/Ml Susp 500,000 Unit/5 Ml Cup PO 100,000 unit QID RENEE Administration Ondansetron HCl 4 mg 11/02/20 21:42 Ondansetron 4 Mg/2 Ml Vial IVP Q4H PRN Nausea Pantoprazole Sodium 40 mg 11/03/20 07:30 11/03/20 08:58 Pantoprazole 40 Mg Tablet PO 40 mg DAILY@0730 [facility] Administration Potassium Chloride 40 meq 11/03/20 12:00 11/03/20 12:10 Potassium Chloride Er 20 Meq Tab.Er PO 11/03/20 14:01 40 meq Q2HR RENEE Administration Intake and Output 11/02/20 11/03/20 11/03/20 22:59 06:59 14:59 Other: Voiding Method Toilet Toilet # Voids 1 Weight 95.708 kg 11/02/20 16:12 11/03/20 05:00 Assessment and Plan Assessment: #1 recurrent syncope #2 PAD, status post multiple peripheral interventions #3 CAD with 40-50% lesion in the mid LAD noted on cardiac catheterization from July 2019 #4 hypertension #5 hyperlipidemia #6 smoking #7 alcohol abuse Plan: From cardiology's perspective we will obtain a 2-D echo with Doppler study to assess cardiac structure and function. We will check a d-dimer. We agree with continuing to replace potassium per protocol. Discussed importance of smoking cessation with the patient. We will continue to follow the patient provide further recommendations accordingly. The above dictated assessment and findings were discussed with signing physician. The impression and plan of care have been directed as dictated. Yaneth Pereyra, Nurse Practitioner, acting as scribe for signing physician.
--- NOTE | 2020-11-03 13:47 | ECHOF ---
Referral Reason:syncope, chest pain MEASUREMENTS -------- HEIGHT: 167.6 cm WEIGHT: 95.7 kg BP: 133/71 IVSd: 1.6 cm (0.6 - 1.1) LVIDd: 3.5 cm (3.9 - 5.3) LVPWd: 1.4 cm (0.6 - 1.1) IVSs: 2.2 cm LVIDs: 1.6 cm LVPWs: 2.0 cm LAESV Index (A-L): 26.24 ml/m Ao Diam: 2.9 cm (2.0 - 3.7) AV Cusp: 2.1 cm (1.5 - 2.6) LA Diam: 3.9 cm (2.7 - 3.8) MV E Richard: 0.52 m/s MV DecT: 188 ms MV A Richard: 0.71 m/s MV E/A Ratio: 0.73 RAP: 5.00 mmHg RVSP: 12.76 mmHg FINDINGS -------- Sinus rhythm. This was a technically adequate study. The left ventricular size is normal. There is moderate concentric left ventricular hypertrophy. O verall left ventricular systolic function is normal with, an EF between 55 - 60 %. The diastolic fi lling pattern is normal for the age of the patient 10.37. The right ventricle is normal in size. Normal LA size by volume 22+/-6 ml/m2. The right atrial size is normal. Interatrial and interventricular septum intact. The aortic valve is trileaflet and appears structurally normal. There is no evidence of aortic regu rgitation. There is no evidence of aortic stenosis. No mitral regurgitation. Mild tricuspid regurgitation present. There is no evidence of pulmonary hypertension. The right v entricular systolic pressure, as measured by Doppler, is 12.76mmHg. There is no pulmonic regurgitation present. The aortic root size is normal. IVC Not well visulized. There is no pericardial effusion. CONCLUSIONS -------- 1. The left ventricular size is normal. 2. There is moderate concentric left ventricular hypertrophy. 3. Overall left ventricular systolic function is normal with, an EF between 55 - 60 %. 4. The diastolic filling pattern is normal for the age of the patient 10.37 5. Mild tricuspid regurgitation present. ENDOSCOPY REGISTERED NURSE: Yuki John [facility]
--- NOTE | 2020-11-04 00:09 | P.CNNES ---
History of Present Illness Consult date: 11/03/20 Requesting physician: Andi Hui Reason for Consult: Weakness, syncope History of Present Illness: This is a tele-neurology consultation performed today on 11/03/2020. Patient is a 65-year-old female came to the hospital yesterday at 3:38 PM came to the hospital for syncopal spells. Patient states she has passed out about 4 times in the last couple months. All of them have occurred while she was sitting in the chair. The first 3 of them occurred after she had a bout of cough. On the fourth time, which was day before yesterday on , she was sitting in chair, watching TV and tried to clear her throat when she passed out. The one prior occurred 2 days prior on Thursday. Each time she has passed out for a few seconds. When she wakes up after syncope, she does not know what happened. There is no postictal confusion, loss of control of urine or any tongue bite. No convulsive activity. She denies any cough or fever or chills. Patient states that she has only passed out one time and she was a teenager otherwise never until these last couple months as mentioned. Patient denies any numbness tingling. She feels she has no energy and feels tired. Vital signs on arrival blood pressure 112/61, pulse rate 105 and temperature 98.3. Patient's orthostatics supine blood pressure 157/78, sitting 138/70 and standing was 127/74. Patient's blood test shows normal CBC PT/PTT, sodium 133 potassium 2.7, normal renal functions. Normal hepatic panel. Troponins negative, TSH normal, UA with cloudy appearing urine. Negative nitrite. Kern virus PCR negative. CT head showed age-related atrophic and chronic small vessel ischemic changes, without acute intracranial process. EKG with sinus tachycardia. Abdominal x-ray negative. Non-obstructive bowel gas pattern. Chest x-ray normal. Patient has history of hypertension denies diabetes. Patient has smoked more than one pack per day since age 16. Cutback to less than half pack per day in the last 1 year. Patient also used to drink 12 pack a day of alcohol for 20 years. She started cutting back on alcohol intake in the last 2 months and drinking sixpack a week. In the last 7-8 days she has not drank any alcohol. She drinks 1 cup of coffee per day. No excessive soda pops. Usually walks with a cane. She has 2 walkers at home if needed, but she usually uses a cane at home. Review of Systems As per HPI. All other review of systems unremarkable. She does feel dizzy lightheaded sometimes. Denies any stroke symptoms. Denies any chest pain at all. Nausea vomiting diarrhea. She did have some dry heaves few days prior. No vomiting at this time. All other review of systems unremarkable. Past Medical History Past Medical History: Asthma, Chest Pain / Angina, COPD, Deep Vein Thrombosis (DVT), GERD/Reflux, Hyperlipidemia, Hypertension, Osteoarthritis (OA), Vascular Disorder Additional Past Medical History / Comment(s): hx blood clot in left arm and left hand, hx migraines, PVD, left leg pain History of Any Multi-Drug Resistant Organisms: None Reported Past Surgical History: Heart Catheterization Additional Past Surgical History / Comment(s): stent to lt external iliac, blood clot removed from left arm, surgery to fix "tear in aorta", surgery for "abdominal adhesions", 06-11-16 LT ILIAC PTBA/STENT, PTBA 10/03/2020-Stent x2 Illiac (L). Past Anesthesia/Blood Transfusion Reactions: No Reported Reaction Additional Past Anesthesia/Blood Transfusion Reaction / Comment(s): claustrophobia Past Psychological History: No Psychological Hx Reported Smoking Status: Current every day smoker Past Alcohol Use History: Daily, Heavy Additional Past Alcohol Use History / Comment(s): started smoking at age 16, states trying to quit, little over 1/2 ppd, drinks 6 beers daily Past Drug Use History: None Reported - Past Family History Father Family Medical History: Cancer, Myocardial Infarction ([place]) Additional Family Medical History / Comment(s): SKIN CANCER Mother Family Medical History: Cancer, Deep Vein Thrombosis (DVT) Additional Family Medical History / Comment(s): COLON CANCER TWICE, lung ancer Medications and Allergies Home Medications Medication Instructions Recorded Confirmed Type Cholecalciferol [Vitamin D3 (10 400 unit PO DAILY 02/26/15 11/02/20 History Mcg = 400 Iu)] Metoprolol Succinate [Toprol XL] 100 mg PO DAILY 02/26/15 11/02/20 History DULoxetine HCL [Cymbalta] 60 mg PO DAILY 10/18/18 11/02/20 History hydroCHLOROthiazide 25 mg PO DAILY #30 tablet 10/18/18 11/02/20 Rx Albuterol Sulfate [Ventolin HFA] 2 puff INHALATION RT-Q4H PRN 07/14/19 11/02/20 History Pantoprazole [Protonix] 40 mg PO DAILY 07/14/19 11/02/20 History Ferrous Sulfate [Iron (65 MG 325 mg PO DAILY 10/01/20 11/02/20 History Elemental)] Apixaban [Eliquis] 5 mg PO BID #180 tablet 10/04/20 11/02/20 Rx Acetaminophen [Tylenol Extra 1,000 mg PO Q46H PRN 11/02/20 11/02/20 History Strength] Aspirin EC [Ecotrin Low Dose] 81 mg PO DAILY 11/02/20 11/02/20 History Budesonide/Formoterol Fumarate 2 puff INHALATION RT-BID 11/02/20 11/02/20 History [Symbicort 160-4.5 Mcg Inhaler] Nitroglycerin Sl Tabs [Nitrostat] 0.4 mg SUBLINGUAL Q5M PRN 11/02/20 11/02/20 History Nystatin 100,000 Unit/ml Susp 5 ml PO QID 11/02/20 11/02/20 History [Mycostatin Oral Susp] Rosuvastatin Calcium [Crestor] 40 mg PO DAILY 11/02/20 11/02/20 History amLODIPine [Norvasc] 5 mg PO DAILY 11/02/20 11/02/20 History buPROPion XL [Wellbutrin Xl] 150 mg PO BID 11/02/20 11/02/20 History Allergies Allergy/AdvReac Type Severity Reaction Status Date / Time influenza virus vaccine, Allergy Rash/Hives Verified 11/02/20 19:07 specific [influenza virus vacc,specific] lisinopril Allergy Swelling Verified 11/02/20 19:07 Physical Examination - Vital Signs Vital Signs: Vital Signs Temp Pulse Pulse Resp BP BP BP 11/03/20 07:34 98.2 F 87 18 11/03/20 02:00 18 11/03/20 01:54 98.7 F 94 18 11/02/20 21:55 98.0 F 98 18 127/70 11/02/20 19:38 97 18 135/71 11/02/20 16:34 138/80 127/74 11/02/20 15:38 98.3 F 105 H 20 112/61 BP Pulse Ox 11/03/20 07:34 117/70 92 L 11/03/20 02:00 11/03/20 01:54 133/71 96 11/02/20 21:55 95 11/02/20 19:38 88 L 11/02/20 16:34 157/78 11/02/20 15:38 95 Intake and Output 11/02/20 11/03/20 11/03/20 22:59 06:59 14:59 Other: Voiding Method Toilet # Voids 1 Weight 95.708 kg Patient is an elderly female, in no acute distress. Patient is alert awake oriented to time place and person. She knows it is October 2020 and that she is in [facility] and name of the current president. Speech and language functions are normal. Attention, concentration and fund of knowledge is adequate. On cranial examination, pupils are equal, round and reacting to light, visual holcomb are full on confrontation with no neglect, extraocular muscles are intact with mild nonsustained lateral gaze nystagmus. Face is symmetric, tongue protrudes to the midline. Palatal elevation and sensation normal, hearing and shoulder shrug normal, facial sensation normal. Shoulder shrug normal. On muscle strength testing, there is no pronator drift and the strength is normal in arms and legs distally and proximally. Deep tendon reflexes are 2 in the upper extremities, 1 in the lower extremities and plantars are possibly up. Sensory to touch is equal with no neglect. Cerebellar function showed no ataxia for [id number] testing. No dysdiadochokinesia. Tone and bulk of muscles normal. Gait patient walks with slight unsteadiness. Often hangs onto objects. On general examination, there is no carotid bruit or murmur, S1-S2 audible. Abdomen is soft nontender. Chest is clear. Peripheral pulses are present. No edema. Results - Laboratory Findings CBC and BMP: 11/02/20 16:12 11/03/20 05:00 Abnormal Lab Findings: Abnormal Labs 11/02/20 11/02/20 11/02/20 16:12 16:12 16:12 RDW 22.4 H Sodium 133 L Potassium 2.7 L* Chloride 90 L Carbon Dioxide 33 H Glucose 140 H Urine Appearance Cloudy H Urine Protein 1+ H Urine Ketones Trace H Urine Bilirubin 1+ H Ur Squamous Epith Cells 15 H Urine Bacteria Few H Urine Mucus Moderate H Assessment and Plan Assessment: * Syncopal spells, likely tussive syncope. Each time it started with a bout of cough, although the last time she was only clearing her throat when she passed out. She blacked out for just a few seconds. No postictal state. All these blackouts have happened since she cut back on her alcoholism. She used to drink 12 pack a day for 20 years, cutback to 6 pack a week in the last couple months and has stopped drinking in the last 1 week. * Hypertension * COPD * Tobacco use * PVD * History of alcoholism Plan: * Agree with checking 2-D echo. * Carotid Doppler to rule out stenosis * Telemetry monitoring rule out arrhythmia. * Recommended tobacco cessation. * We will check B12, folate. * Patient was recommended to abstain from alcoholism as she has stopped drinking for the last 1 week.
[2020-11-04] MEDS: NITROGLYCERIN OINT 1 INCH/GM PACKET TOPICAL SCH ×3 (00:45→08:17)
[2020-11-04] MEDS: NYSTATIN 100,000 UNIT/ML SUSP 500,000 UNIT/5 ML CUP PO SCH ×5 (07:48→21:36)
[2020-11-04] MEDS: IPRATROPIUM-ALBUTEROL 3 ML NEB INHALATION SCH ×4 (08:00→19:11)
[2020-11-04] MEDS: SYMBICORT 160-4.5 MCG INHALER INHALATION SCH ×2 (08:00→19:11)
[2020-11-04] MEDS: ATORVASTATIN 80 MG TAB PO SCH (08:02)
[2020-11-04] MEDS: ASPIRIN 325 MG TAB PO SCH (08:02)
[2020-11-04] MEDS: METOPROLOL SUCCINATE (ER) 100 MG TAB.ER.24H PO SCH (08:02)
[2020-11-04] MEDS: DULoxetine HCL 30 MG CAPSULE.DR PO SCH (08:02)
[2020-11-04] MEDS: PANTOPRAZOLE 40 MG TABLET PO SCH (08:02)
[2020-11-04] MEDS: amLODIPine 5 MG TAB PO SCH (08:02)
[2020-11-04] MEDS: buPROPion XL 150 MG TAB.ER.24H PO SCH ×2 (08:02→19:58)
[2020-11-04] MEDS: CHOLECALCIFEROL 10 MCG (400 IU) TABLET PO SCH (08:02)
[2020-11-04] MEDS: FERROUS SULFATE 325 MG TAB PO SCH (08:02)
[2020-11-04] MEDS: ENOXAPARIN 40 MG/0.4 ML SYRINGE SQ SCH (08:02)
[2020-11-04] MEDS: hydroCHLOROthiazide 25 MG TAB PO SCH (08:08)
[2020-11-04] MEDS ORDERED: FLUCONAZOLE 150 MG TAB PO STA (08:49)
--- NOTE | 2020-11-04 08:52 | US ---
EXAMINATION TYPE: US carotid duplex BILAT DATE OF EXAM: 11/04/2020 COMPARISON: NONE CLINICAL HISTORY: syncope. Syncopal episodes; smoker since age 16. EXAM MEASUREMENTS: RIGHT: Peak Systolic Velocity (PSV) cm/sec ----- Right CCA: 46.8 ----- Right ICA: 225.5 mid and rechecked ----- Right ECA: 101.6 ICA/CCA ratio: 4.8 RIGHT: End Diastole cm/sec ----- Right CCA: 14.2 ----- Right ICA: 95.6 ----- Right ECA: 10.3 LEFT: Peak Systolic Velocity (PSV) cm/sec ----- Left CCA: 77.4 ----- Left ICA: 148.9 ----- Left ECA: 58.6 ICA/CCA ratio: 1.9 LEFT: End Diastole cm/sec ----- Left CCA: 24.1 ----- Left ICA: 48.5 ----- Left ECA: 7.6 VERTEBRALS (direction of flow): Right Vertebral: Antegrade Left Vertebral: Antegrade Rhythm: Normal Moderate plaque is noted in Right ICA and Right ECA with abnormally elevated PSV in mid and distal Ri ght ICA, especially at tortuous mid and distal Right ICA. Moderate plaque seen Left ICA Bulb and at Mid Left ICA (elevated PSV noted mid Left ICA at/distal to wall changes). Grayscale images show fairly moderate to severe plaque bilaterally. Tortuous course on the right is n oted. Increased peak systolic and end diastolic velocities bilateral internal carotid arteries. Abnor mal right-sided ratio. IMPRESSION: [id number] atherosclerotic changes bilaterally, hemodynamically significant sten osis 50-69% is suspected bilaterally, further investigation with CTA or MRA of the neck is advised to better evaluate and characterize. Criteria for Assigning % of Stenosis / Diameter reduction (Estimation based on the indirect measurements of the internal carotid artery velocities (ICA PSV). 1. Normal (no stenosis)=ICA PSV < 125 cm/s: ratio < 2.0: ICA EDV<40 cm/s. 2. Less than 50% stenosis=ICA PSV < 125 cm/s: ratio < 2.0: ICA EDV<40 cm/s. 3. 50 to 69% stenosis=ICA PSV of 125 to 230 cm/s: ration 2.0 ? 4.0: ICA EDV 40-100 cm/s. 4. Greater than 70% stenosis to near occlusion= ICA PSV > 230 cm/s: ratio > 4.0: ICA EDV > 100 cm/s. 5. Near occlusion= ICA PSV velocities may be low or undetectable: variable ratio and ICA EDV. 6. Total occlusion=unable to detect flow.
[2020-11-04] MEDS ORDERED: NICOTINE 14MG/24HR PATCH TRANSDERM SCH (09:00)
[2020-11-04 09:15] LABS: Appearance,Urine Clear (Clear); Bilirubin,Urine Negative (Negative); Blood,Urine Negative (Negative); Color,Urine Yellow; Glucose,Urine (UA) Negative (Negative); Ketones,Urine Negative (Negative); Leukocyte Esterase,Urine Negative (Negative); Nitrite,Urine Negative (Negative); Protein,Urine Trace (Negative); Specific Gravity,Urine 1.024 (1.001-1.035)
[2020-11-04 09:58] LABS: African American GFR (CKD) 68.9 (60.0-200.0); Calcium 8.9 mg/dL (8.7-10.3); Non-African American GFR(CKD) 59.5 (60.0-200.0); Potassium 3.8 mmol/L (3.5-5.5)
[2020-11-04 10:13] LABS: Folate, Serum 6.8 ng/mL
--- NOTE | 2020-11-04 10:41 | CT ---
EXAMINATION TYPE: CT angio chest DATE OF EXAM: 11/04/2020 10:16 AM COMPARISON: Chest x-ray 2 days ago HISTORY: Elevated d-dimer, r/o PE, patient on Nexess CT DLP: 559 mGycm Automated exposure control for dose reduction was used. CONTRAST: CTA scan of the thorax is performed without and with IV Contrast, patient injected with 80 ml mL of I sovue 370, pulmonary embolism protocol. MIP images are created and reviewed. FINDINGS: LUNGS: Mild mosaic attenuation. Mild to moderate linear scarring and/or atelectasis in the bilateral lower lungs. No suspicious focal consolidation. There is no pleural effusion or pneumothorax seen. The tracheobronchial tree is patent. No concerning masses. MEDIASTINUM: There is satisfactory enhancement of the pulmonary artery and its branches, there is no CT evidence for pulmonary embolism. Satisfactory enhancement of the thoracic aorta. There is a patent stent graft through descending thoracic aortic aneurysm. There is clearly visualize suspected occlud ed small caliber left subclavian artery with additional left supraclavicular surgical clips from aort ic arch. There are no greater than 1 cm hilar or mediastinal lymph nodes. No cardiomegaly or peric ardial effusion is seen. OTHER: No additional significant abnormality is seen. IMPRESSION: No CT evidence for acute pulmonary embolism. Mild central alveolar edema. No suspicious f ocal consolidation. Patent stent graft beginning aortic arch level extending into descending thoracic aorta noted. 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
--- NOTE | 2020-11-04 11:41 | P.PN ---
Subjective Progress Note Date: 11/04/20 HISTORY OF PRESENT ILLNESS This is a 65-year-old female patient of Dr. Varghese with past medical history of COPD, PAD, hypertension, hyperlipidemia. Patient has history of severe claudication of the left lower extremity and followed by Dr. Mas status post angiogram and angioplasty of the left external iliac artery followed by clot and on long-term eliquis. Patient gives history of syncopal episodes 4. Yesterday she had a syncopal episode and came into the office. She was tachycardic and hypoxic. She does not follow with the pulmonary doctor. She does have history of smoking and alcohol abuse and trying to cut back on both. Patient presented to [facility] emergency center and found to be afebrile, heart rate 105, blood pressure 112/61, pulse ox 99% followed by 88% on room air. CBC was unremarkable. Sodium 133 and potassium 2.7, chloride 90, CO2 33, BUN 17 and creatinine 0.9. Blood sugar 140. Troponins negative 3 draws. Triglycerides 110, cholesterol 121, VLDL 22, HDL 39. TSH 1.890. Lipase 148. Urinalysis was cloudy, ketones trace, bilirubin 1+, few bacteria. COVID-19 not detected. CAT scan of the brain revealed age-related atrophy and chronic small vessel ischemic change without acute intracranial process. Chest x-ray reveals no acute pulmonary disease. Echocardiogram reveals EF of 55-60% with moderate concentric left hypertrophy, mild tricuspid regurgitation. Patient admitted to the observation unit and consult in place with neurology, c ardiology and pulmonary medicine. 11/04: Patient has been seen by cardiology and order d-dimer, replace potassium. D-dimer came by elevated at 0.81 and CTA of the chest revealed no PE. Mild central alveolar edema. No focal consolidation. Patent stent graft beginning aortic arch level extending into descending thoracic aorta. 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 Patient has been seen by neurology and ordered carotid Doppler to rule out stenosis. Carotid Doppler study revealed moderate to severe atherosclerotic changes bilaterally, hemodynamically significant stenosis of 50-69% bilaterally. Neurology also ordered B12 and folate levels. Patient has also been seen by pulmonary medicine and medication changes have been made and plan for outpatient pulmonary function test. Patient has been afebrile, heart rate 71, blood pressure 93/54, pulse ox 94% on 2 L nasal cannula. Patient has refused nicotine patch. She is complaining of burning with urination and vaginal burning. Urinalysis and culture ordered and Diflucan. REVIEW OF SYSTEMS Constitutional: No fever, no chills, no night sweats. No weight change. No weakness, fatigue or lethargy. No daytime sleepiness. EENT: No headache. No blurred vision or double vision, no loss of vision. No loss of Hearing, no ringing in the ears, no dizziness. No nasal drainage or congestion. No epistaxis. No sore throat. Lungs: Reports shortness of breath, cough, no sputum production. No wheezing. Cardiovascular: No chest pain, no lower extremity edema. Reports palpitations. No paroxysmal nocturnal dyspnea. No orthopnea. No lightheadedness or dizziness. Reports 4 syncopal episodes. Abdominal: No abdominal pain. No nausea, vomiting. No diarrhea. No constipation. No bloody or tarry stools.. No loss of appetite. Genitourinary: No dysuria, increased frequency, urgency. No urinary retention. Musculoskeletal: No myalgias. No muscle weakness, no gait dysfunction, no frequent falls. No back pain. No neck pain. Integumentary: No wounds, no lesions. No rash or pruritus. No unusual bruising. No change in hair or nails. Neurologic: No aphasia. No facial droop. No change in mentation. No head injury. No headache. No paralysis. No paresthesia. Psychiatric: No depression. No anxiety. No mood swings. Endocrine: No abnormal blood sugars. No weight change. No excessive sweating or thirst. No cold intolerance. PHYSICAL EXAMINATION Gen: This is a 65-year-old female. She is resting in bed and appears to be comfortable at rest. No acute distress. HEENT: Head is atraumatic, normocephalic. Pupils equal, round. Sclerae is anicteric. NECK: Supple. No JVD. No lymphadenopathy. No thyromegaly. LUNGS: Decreased breath sounds bilaterally with scattered rhonchi. No intercostal retractions. HEART: Regular rate and rhythm. No murmur. ABDOMEN: Soft. Bowel sounds are present. No masses. No tenderness. EXTREMITIES: No pedal edema. No calf tenderness. Decreased pulses posterior tibial bilaterally more so to the left. NEUROLOGICAL: Patient is awake, alert and oriented x3. Cranial nerves 2 through 12 are grossly intact. ASSESSMENT AND PLAN 1. Syncopal episodes 4 of unclear etiology. Consults with cardiology and neurology, orthostatic vital signs, continue cardiac monitoring to rule out arrhythmia. 2. COPD. Continue DuoNeb treatments 4 times daily and as needed, Symbicort twice daily, pulmonary consult. Patient will need OP follow up with pulmonary, outpatient primary function test. 3. Severe peripheral vascular disease status post left external iliac artery angioplasty and stent with restenosis and thrombosis, on long-term eliquis, asp irin 81 mg daily and followed by Dr. Mas. 4. Carotid artery disease. Vascular surgery consult will be added. 5. Hypertension. Continue metoprolol 100 mg daily, amlodipine 5 mg daily, hydrochlorothiazide 25 mg daily. 6. Hyperlipidemia. Continue atorvastatin 40 mg daily. 7. Coronary artery disease with 40-50. Lesion in the mid LAD on heart catheterization from July 2019. Cardiology consult appreciated. 8. Tobacco use and dependence. Nicotine patch. 9. Alcohol abuse. Patient states her last intake was 1 week ago but monitor for DTs. 10. Recurrent depression and generalized anxiety disorder. Continue Wellbutrin 150 mg twice daily, Cymbalta 60 mg daily. 11. Gastroesophageal reflux disease and GI prophylaxis. Continue Protonix. 12. DVT prophylaxis. Eliquis. 13. COVID-19 testing negative. Patient has been hospitalized during a pandemic. DISCHARGE PLAN Home. Impression and plan of care have been directed as dictated by the signing p hysicikristine. Rebecca Heart nurse practitioner acting as scribe for signing physician. Objective - Vital Signs Vital signs: Vital Signs Temp 97.7 F 11/04/20 07:00 Pulse 71 11/04/20 07:00 Resp 18 11/04/20 07:00 BP 93/54 11/04/20 07:00 Pulse Ox 94 L 11/04/20 07:00 Intake & Output 11/03/20 11/04/20 11/04/20 18:59 06:59 18:59 Intake Total 150 Balance 150 Intake: IV 150 Sodium Chloride 0.9% 1, 150 000 ml @ 75 mls/hr IV . [id number] STA Rx#:[id number] Other: Voiding Method Toilet Toilet # Voids 1 - Labs CBC & Chem 7: 11/02/20 16:12 11/04/20 05:28 Labs: Abnormal Lab Results - Last 24 Hours (Table) 11/03/20 11/03/20 11/03/20 Range/Units 05:00 05:00 13:13 D-Dimer 0.81 H (<0.60) mg/L FEU Potassium 3.0 L (3.5-5.5) mmol/L Est GFR (CKD-EPI)NonAf 59.5 L (60.0-200.0) Glucose 136 H (70-110) mg/dL HDL Cholesterol 39.0 L (40.0-60.0) mg/dL
--- NOTE | 2020-11-04 12:38 | PN ---
PROGRESS NOTE Radha is a 65-year-old lady with COPD exacerbation that presented to hospital with syncope. This morning she is much better, shortness of breath has improved and did not have further episodes of syncope. On exam, heart rate is 71 beats per minute. Blood pressure is 93/54, respiratory rate 18. Chest exam reveals diminished air entry with occasional rhonchi, but much improved. Heart exam reveals first and second heart sounds and a systolic murmur at the apex. Abdomen is soft. Exam of extremities did not reveal any edema. Peripheral pulses are felt. A D-dimer that we performed was only 0.8 yesterday and her shortness of breath seems to be related to COPD exacerbation. ASSESSMENT: 1. Syncope so far the workup had been negative. 2. Hypotension. 3. Chronic obstructive pulmonary disease exacerbation. PLAN: I am going to stop the nitro paste. Continue rest of her medications. If she remains hypotensive, I will stop the Norvasc. MMODL / IJN: [id number] /
--- NOTE | 2020-11-04 13:04 | P.PN ---
Subjective Progress Note Date: 11/04/20 Principal diagnosis: COPD exacerbation. Pulmonary consult dated 11/03/2020. 65-year-old female, who was evaluated for syncopal episodes, passing out, and weakness. This has happened maybe 6 times in the last couple months. She complained of weakness and dizziness. It seems to occur more when she is in certain positions such as standing especially standing suddenly. She denies any trauma to the head. She also has complaints of some vomiting, as noted in the H&P by the primary service. She apparently was seen by the primary care physician and sent to the hospital for further evaluation. We were asked to see the patient because is clear the patient has underlying COPD from 50 years of tobacco use. She currently still smokes. She takes albuterol inhaler, and Symb icort inhaler. She doesn't see a lung doctor at this time. She does have a chronic cough, shortness of breath on exertion, and occasional wheezing. She needs a thorough outpatient evaluation for her COPD, including a 6 minute walk distance, pulmonary function test. CBC is normal. PT INR and PTT are normal. Sodium 138, potassium 3, chlorides 99, CO2 29, anion gap 10, BUN and creatinine were 15 and 1.0. Troponins were negative 3. Chest x-rays consistent with COPD. No active disease. Progress note dated 11/04/2020. 65-year-old female, evaluated for syncopal episodes, passing out, and weakness. The patient also has a history of underlying COPD. She's been smoking for 50 years. She was on albuterol inhaler, and Symbicort. She does not see a lung doctor at this time. Currently feeling much better. We placed her on albuterol sulfate and ipratropium bromide along with her Symbicort. Her breathing is improved. Chest x-ray was consistent with COPD. No active disease. Sodium 138, potassium 3.8, chlorides 101, CO2 32, anion gap 5, BUN 14, creatinine 1. Urine was negative. A CT angiogram, which in my opinion was not necessary, was negative for pulmonary embolism. Objective - Vital Signs Vital signs: Vital Signs Temp 97.7 F 11/04/20 07:00 Pulse 71 11/04/20 08:00 Resp 18 11/04/20 08:00 BP 93/54 11/04/20 07:00 Pulse Ox 94 L 11/04/20 07:00 Intake & Output 11/03/20 11/04/20 11/04/20 18:59 06:59 18:59 Intake Total 150 Balance 150 Intake: IV 150 Sodium Chloride 0.9% 1, 150 000 ml @ 75 mls/hr IV . [id number] STA Rx#:[id number] Other: Voiding Method Toilet Toilet Toilet # Voids 1 - Exam No acute distress, oriented 3. No conversational dyspnea or use of accessory muscles. 2 L saturation 95%. HEENT examination is grossly unremarkable. Neck supple. Full range of motion. No adenopathy thyromegaly or neck vein distention. Cardiovascular examination reveals regular rhythm rate. S1-S2 normal. No S3 or S4. No discernible murmur noted. Heart rate 71 bpm. Lungs reveal mild to moderate bilateral rhonchi and expiratory wheezes. No crackles. Breath sounds equal bilaterally. Abdomen soft bowel sounds are heard. No masses or tenderness. Extremities are intact. No cyanosis clubbing or edema. Skin is without rash or lesion. Neurologic examination is brief but nonfocal. - Labs CBC & Chem 7: 11/02/20 16:12 11/04/20 05:28 Labs: Abnormal Lab Results - Last 24 Hours (Table) 11/03/20 11/04/20 11/04/20 Range/Units 13:13 05:28 08:55 D-Dimer 0.81 H (<0.60) mg/L FEU Carbon Dioxide 32.0 H (21.6-31.8) mmol/L Est GFR (CKD-EPI)NonAf 59.5 L (60.0-200.0) Glucose 122 H (70-110) mg/dL Urine Protein Trace H (Negative) Assessment and Plan Assessment: Probable COPD, based on 50 years of tobacco use, and classic symptoms of COPD such as shortness of breath, chronic cough, and wheezing. The patient will need an outpatient workup including a 6 minute walk distance, and a PFT. No evidence of pulmonary embolism on CT angiogram. Syncope, and dizziness, currently being evaluated by the primary service. History of 50 years of tobacco use with ongoing nicotine addiction. History of peripheral vascular occlusive disease. History of angina. History of DVT. History of gastroesophageal reflux disease. History of hyperlipidemia. History of hypertension. Plan: Plan dated 11/03/2020. The patient's addictions counselor assistant about the importance of smoking cessation. We change her to albuterol sulfate and ipratropium bromide, 4 times a day and when necessary. He remained on the Symbicort for now. She will need a thorough outpatient e valuation including a complete pulmonary function test, in 6 minute walk distance. She would also probably benefit from a nicotine patch. Additional recommendations and suggestions are forthcoming. Plan dated 11/04/2020. The patient's shortness of breath related to her underlying COPD. She smoked 50 years at a pack a day. She was smoking up until the time she came into the hospital. We changed her from plain albuterol sulfate inhaler, albuterol sulfate and ipratropium bromide updrafts, 4 times a day. The patient was maintained on Symbicort. In our opinion, the patient did not need a CT angiogram. The patient was already on a factor X a inhibitor. Her shortness of breath was clearly explained by underlying COPD. We did recommend a nicotine patch. Time with Patient: Less than 30
--- NOTE | 2020-11-04 17:44 | P.GSCN ---
History of Present Illness Consult date: 11/04/20 History of present illness: The patient is a 65-year-old female with significant vascular past medical history including an aortic dissection repair approximately 10 years ago, which sounds like an open thrombectomy of her left upper extremity with stenting, iliac stenting along with hypertension, tobacco abuse, alcohol use. She presented to the hospital for issues with the syncopal type spells typically after a bout of coughing. She passes out and then is uncertain what is happening in that period of time although there is no post ictal type state. She states she has followed with Dr. Mas regarding her carotid arteries in the past and he recently did an ultrasound of them. She is feeling better at this time without any significant complaints. She denies any fevers, chills, nausea, vomiting or issues arise Review of Systems 14 point review of systems performed. Pertinent positives and negatives per the HPI Past Medical History Past Medical History: Asthma, Chest Pain / Angina, COPD, Deep Vein Thrombosis (DVT), GERD/Reflux, Hyperlipidemia, Hypertension, Osteoarthritis (OA), Vascular Disorder Additional Past Medical History / Comment(s): hx blood clot in left arm and left hand, hx migraines, PVD, left leg pain History of Any Multi-Drug Resistant Organisms: None Reported Past Surgical History: Heart Catheterization Additional Past Surgical History / Comment(s): stent to lt external iliac, blood clot removed from left arm, surgery to fix "tear in aorta", surgery for "abdominal adhesions", 06-11-16 LT ILIAC PTBA/STENT, PTBA 10/03/2020-Stent x2 Illiac (L). Past Anesthesia/Blood Transfusion Reactions: No Reported Reaction Additional Past Anesthesia/Blood Transfusion Reaction / Comm: claustrophobia Past Psychological History: No Psychological Hx Reported Smoking Status: Current every day smoker Past Alcohol Use History: Daily, Heavy Additional Past Alcohol Use History / Comment(s): started smoking at age 16, states trying to quit, little over 1/2 ppd, drinks 6 beers daily Past Drug Use History: None Reported - Past Family History Father Family Medical History: Cancer, Myocardial Infarction (CO) Additional Family Medical History / Comment(s): SKIN CANCER Mother Family Medical History: Cancer, Deep Vein Thrombosis (DVT) Additional Family Medical History / Comment(s): COLON CANCER TWICE, lung ancer Medications and Allergies Home Medications Medication Instructions Recorded Confirmed Type Cholecalciferol [Vitamin D3 (10 400 unit PO DAILY 02/26/15 11/02/20 History Mcg = 400 Iu)] Metoprolol Succinate [Toprol XL] 100 mg PO DAILY 02/26/15 11/02/20 History DULoxetine HCL [Cymbalta] 60 mg PO DAILY 10/18/18 11/02/20 History hydroCHLOROthiazide 25 mg PO DAILY #30 tablet 10/18/18 11/02/20 Rx Albuterol Sulfate [Ventolin HFA] 2 puff INHALATION RT-Q4H PRN 07/14/19 11/02/20 History Pantoprazole [Protonix] 40 mg PO DAILY 07/14/19 11/02/20 History Ferrous Sulfate [Iron (65 MG 325 mg PO DAILY 10/01/20 11/02/20 History Elemental)] Apixaban [Eliquis] 5 mg PO BID #180 tablet 10/04/20 11/02/20 Rx Acetaminophen [Tylenol Extra 1,000 mg PO Q46H PRN 11/02/20 11/02/20 History Strength] Aspirin EC [Ecotrin Low Dose] 81 mg PO DAILY 11/02/20 11/02/20 History Budesonide/Formoterol Fumarate 2 puff INHALATION RT-BID 11/02/20 11/02/20 History [Symbicort 160-4.5 Mcg Inhaler] Nitroglycerin Sl Tabs [Nitrostat] 0.4 mg SUBLINGUAL Q5M PRN 11/02/20 11/02/20 History Nystatin 100,000 Unit/ml Susp 5 ml PO QID 11/02/20 11/02/20 History [Mycostatin Oral Susp] Rosuvastatin Calcium [Crestor] 40 mg PO DAILY 11/02/20 11/02/20 History amLODIPine [Norvasc] 5 mg PO DAILY 11/02/20 11/02/20 History buPROPion XL [Wellbutrin Xl] 150 mg PO BID 11/02/20 11/02/20 History Allergies Allergy/AdvReac Type Severity Reaction Status Date / Time influenza virus vaccine, Allergy Rash/Hives Verified 11/02/20 19:07 specific [influenza virus vacc,specific] lisinopril Allergy Swelling Verified 11/02/20 19:07 Surgical - Exam Vital Signs Temp Pulse Resp BP Pulse Ox 98.3 F 105 H 20 112/61 95 11/02/20 15:38 11/02/20 15:38 11/02/20 15:38 11/02/20 15:38 11/02/20 15:38 Gen. is a pleasant and cooperative female in no acute distress. HEENT is normocephalic, atraumatic, extraocular motion intact. Heart is regular at this time. Lungs are clear bilaterally. Abdomen is soft, nontender nondistended. Weakly palpable radial pulses bilaterally. No obvious easily palpable pedal pulses. Bilateral lower extremities are warm and dry. Normal mood and affect. Cranial nerves II through XII grossly intact Results Carotid ultrasound is reviewed. The peak systolic velocity on the right is 225 with a ratio 4.8, likely around 70% stenosis or greater. Left peak systolic velocity of 148 with a ratio of 1.9. 50-69% stenosis - Labs 11/02/20 16:12 11/04/20 05:28 Abnormal Lab Results - Last 24 Hours (Table) 11/04/20 11/04/20 Range/Units 05:28 08:55 Carbon Dioxide 32.0 H (21.6-31.8) mmol/L Est GFR (CKD-EPI)NonAf 59.5 L (60.0-200.0) Glucose 122 H (70-110) mg/dL Urine Protein Trace H (Negative) Diabetes panel 11/04/20 Range/Units 05:28 Sodium 138 (135-145) mmol/L Potassium 3.8 (3.5-5.5) mmol/L Chloride 101 (96-109) mmol/L Carbon Dioxide 32.0 H (21.6-31.8) mmol/L BUN 14.0 (9.0-27.0) mg/dL Creatinine 1.0 (0.6-1.5) mg/dL Glucose 122 H (70-110) mg/dL Calcium 8.9 (8.7-10.3) mg/dL Calcium panel 11/04/20 Range/Units 05:28 Calcium 8.9 (8.7-10.3) mg/dL Pituitary panel 11/04/20 Range/Units 05:28 Sodium 138 (135-145) mmol/L Potassium 3.8 (3.5-5.5) mmol/L Chloride 101 (96-109) mmol/L Carbon Dioxide 32.0 H (21.6-31.8) mmol/L BUN 14.0 (9.0-27.0) mg/dL Creatinine 1.0 (0.6-1.5) mg/dL Glucose 122 H (70-110) mg/dL Calcium 8.9 (8.7-10.3) mg/dL Adrenal panel 11/04/20 Range/Units 05:28 Sodium 138 (135-145) mmol/L Potassium 3.8 (3.5-5.5) mmol/L Chloride 101 (96-109) mmol/L Carbon Dioxide 32.0 H (21.6-31.8) mmol/L BUN 14.0 (9.0-27.0) mg/dL Creatinine 1.0 (0.6-1.5) mg/dL Glucose 122 H (70-110) mg/dL Calcium 8.9 (8.7-10.3) mg/dL Assessment and Plan Assessment: Carotid artery stenosis bilaterally, right greater than left History of aortic dissection with stent graft repair Peripheral arterial disease status post iliac stenting Tobacco abuse Alcohol abuse Dizziness/syncope Plan: This point he does not seem that the carotid arteries are likely causal in the patient's issues at hand. I do believe that the right carotid artery is around 70% if not greater given the velocities as well as the ICA to CCA ratio. She has been followed in the office by Dr. Mas with recent ultrasounds at this time would continue to do the same. If she has any worsening in her velocities and recommended a CT angiogram for possible surgical planning. This is all discussed with the patient is seemingly understands and is willing to proceed as such.
--- NOTE | 2020-11-05 01:00 | P.PN ---
Subjective Progress Note Date: 11/04/20 Patient was seen in follow-up via Teleneurology. Patient is doing better. No further syncopal spells. Patient states that she was seen by pulmonary, and patient is recommended to start using oxygen all the time. She has COPD. Patient also has been seen by vascular surgery for bilateral carotid disease. No new concerns. Objective - Vital Signs Vital signs: Vital Signs Temp 97.7 F 11/04/20 07:00 Pulse 71 11/04/20 08:00 Resp 18 11/04/20 08:00 BP 93/54 11/04/20 07:00 Pulse Ox 94 L 11/04/20 07:00 Intake & Output 11/03/20 11/04/20 11/04/20 18:59 06:59 18:59 Intake Total 150 Balance 150 Intake: IV 150 Sodium Chloride 0.9% 1, 150 000 ml @ 75 mls/hr IV . [id number] STA Rx#:[id number] Other: Voiding Method Toilet Toilet Toilet # Voids 1 - Exam Patient's mental status, speech and language functions are normal. Muscle strength is normal. No ataxia for - Labs CBC & Chem 7: 11/02/20 16:12 11/04/20 05:28 Labs: Abnormal Lab Results - Last 24 Hours (Table) 11/03/20 11/04/20 11/04/20 Range/Units 13:13 05:28 08:55 D-Dimer 0.81 H (<0.60) mg/L FEU Carbon Dioxide 32.0 H (21.6-31.8) mmol/L Est GFR (CKD-EPI)NonAf 59.5 L (60.0-200.0) Glucose 122 H (70-110) mg/dL Urine Protein Trace H (Negative) Assessment and Plan Assessment: * Syncopal spells, likely tussive syncope. Each time it started with a bout of cough, although the last time she was only clearing her throat when she passed out. She blacked out for just a few seconds. No postictal state. All these blackouts have happened since she cut back on her alcoholism. She used to drink 12 pack a day for 20 years, cutback to 6 pack a week in the last couple months and has stopped drinking in the last 1 week. * Bilateral ICA stenosis, moderate degree * Hypertension * COPD * Tobacco use * PVD * History of alcoholism Plan: * 2-D echo showed normal left-ventricular size. Moderate concentric LVH. EF is 55-60%. Mild TR.. * Carotid Doppler revealed moderate to severe atherosclerotic changes bilaterally, hemodynamically significant stenosis 50-69% is suspected bilaterally, further investigation with CTA or MRA recommended. * Patient seen by vascular surgery, recommending no surgery at this time. Patient follows up with Dr. Sahni. Patient will follow up with her cardio logist for carotid stenosis. CTA not recommended at this time by the vascular surgeon. * Patient has been seen by pulmonary for COPD. * Telemetry monitoring rule out arrhythmia. * Recommended tobacco cessation. * B12 489, folate borderline 6.8. We will start replacement. * Patient was recommended to abstain from alcoholism as she has stopped drinking for the last 1 week. * Neurologically clear. Neurology will sign off. Please reconsult if any other concerns.
[2020-11-05 07:26] VITALS: BP 108/71; RESP 16; TEMP 97.9
[2020-11-05] MEDS: IPRATROPIUM-ALBUTEROL 3 ML NEB INHALATION SCH (07:46)
[2020-11-05] MEDS: SYMBICORT 160-4.5 MCG INHALER INHALATION SCH (07:46)
[2020-11-05] MEDS: NYSTATIN 100,000 UNIT/ML SUSP 500,000 UNIT/5 ML CUP PO SCH (07:58)
[2020-11-05] MEDS: ENOXAPARIN 40 MG/0.4 ML SYRINGE SQ SCH (07:58)
[2020-11-05] MEDS: buPROPion XL 150 MG TAB.ER.24H PO SCH (07:59)
[2020-11-05] MEDS: ATORVASTATIN 80 MG TAB PO SCH (07:59)
[2020-11-05] MEDS: ASPIRIN 325 MG TAB PO SCH (07:59)
[2020-11-05] MEDS: amLODIPine 5 MG TAB PO SCH (07:59)
[2020-11-05] MEDS: METOPROLOL SUCCINATE (ER) 100 MG TAB.ER.24H PO SCH (07:59)
[2020-11-05] MEDS: FERROUS SULFATE 325 MG TAB PO SCH (07:59)
[2020-11-05] MEDS: DULoxetine HCL 30 MG CAPSULE.DR PO SCH (07:59)
[2020-11-05] MEDS: PANTOPRAZOLE 40 MG TABLET PO SCH (07:59)
[2020-11-05] MEDS: CHOLECALCIFEROL 10 MCG (400 IU) TABLET PO SCH (07:59)
[2020-11-05] MEDS: hydroCHLOROthiazide 25 MG TAB PO SCH (07:59)
[2020-11-05 08:35] VITALS: PULSE 70
--- NOTE | 2020-11-05 10:20 | P.DS ---
Providers Date of admission: 11/02/20 21:44 Expected date of discharge: 11/05/20 Attending physician: David Varghese Consults: 11/02/20 21:34 Consult Physician Routine Consulting Provider: Elo Sanchez Consult Reason/Comments: weakness, syncope Do you want consulting provider notified?: Yes Consult Physician Urgent Consulting Provider: Mikhail Potter Consult Reason/Comments: syncope, cp Do you want consulting provider notified?: Yes 11/03/20 08:51 Consult Physician Routine Consulting Provider: Andi Dyson Consult Reason/Comments: copd Do you want consulting provider notified?: Yes 11/04/20 11:39 Consult Physician Routine Consulting Provider: Gillian Pearson Consult Reason/Comments: Carotid artery disease Do you want consulting provider notified?: Yes Primary care physician: [facility] Course: HISTORY OF PRESENT ILLNESS This is a 65-year-old female patient of Dr. Varghese with past medical history of COPD, PAD, hypertension, hyperlipidemia. Patient has history of severe claudication of the left lower extremity and followed by Dr. Mas status post angiogram and angioplasty of the left external iliac artery followed by clot and on long-term eliquis. Patient gives history of syncopal episodes 4. Yesterday she had a syncopal episode and came into the office. She was tachycardic and hypoxic. She does not follow with the pulmonary doctor. She does have history of smoking and alcohol abuse and trying to cut back on both. Patient presented to [facility] emergency center and found to be afebrile, heart rate 105, blood pressure 112/61, pulse ox 99% followed by 88% on room air. CBC was unremarkable. Sodium 133 and potassium 2.7, chloride 90, CO2 33, BUN 17 and creatinine 0.9. Blood sugar 140. Troponins negative 3 draws. Triglycerides 110, cholesterol 121, VLDL 22, HDL 39. TSH 1.890. Lipase 148. Urinalysis was cloudy, ketones trace, bilirubin 1+, few bacteria. COVID-19 not detected. CAT scan of the brain revealed age-related atrophy and chronic small vessel ischemic change without acute intracranial process. Chest x-ray reveals no acute pulmonary disease. Echocardiogram reveals EF of 55-60% with moderate concentric left hypertrophy, mild tricuspid regurgitation. Patient admitted to the observation unit and consult in place with neurology, cardiology and pulmonary medicine. 11/04: Patient has been seen by cardiology and order d-dimer, replace potassium. D-dimer came by elevated at 0.81 and CTA of the chest revealed no PE. Mild central alveolar edema. No focal consolidation. Patent stent graft beginning aortic arch level extending into descending thoracic aorta. 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 Patient has been seen by neurology and ordered carotid Doppler to rule out stenosis. Carotid Doppler study revealed moderate to severe atherosclerotic changes bilaterally, hemodynamically significant stenosis of 50-69% bilaterally. Neurology also ordered B12 and folate levels. Patient has also been seen by pulmonary medicine and medication changes have been made and plan for outpatient pulmonary function test. Patient has been afebrile, heart rate 71, blood pressure 93/54, pulse ox 94% on 2 L na guerita cannula. Patient has refused nicotine patch. She is complaining of burning with urination and vaginal burning. Urinalysis and culture ordered and Diflucan. 11/05: Patient has been seen by cardiology and Norvasc changed to 2.5 mg daily with plan for 30 day event monitor to be obtained from the office. Home oxygen assessment done but patient does not qualify his pulse ox is 89% with activity. She was 94% on 2 L. She's been afebrile, heart rate 70, blood pressure 108/71. Patient will have follow-up with Dr. Mas is he can address and monitor the carotid stenosis. Patient was seen yesterday by Dr. Pearson. Patient will be discharged home today in stable condition. ASSESSMENT AND PLAN 1. Syncopal episodes 4 of unclear etiology. 2. COPD. 3. Severe peripheral vascular disease status post left external iliac artery angioplasty and stent with restenosis and thrombosis. 4. Carotid artery disease. 5. Hypertension. 6. Hyperlipidemia. 7. Coronary artery disease with 40-50. Lesion in the mid LAD on heart catheterization from July 2019. 8. Tobacco use and dependence. 9. Alcohol abuse. 10. Recurrent depression and generalized anxiety disorder. 11. Gastroesophageal reflux disease. 12. COVID-19 testing negative. Patient has been hospitalized during a pandemic. DISCHARGE PLAN Home. Impression and plan of care have been directed as dictated by the signing physician. Rebecca Heart nurse practitioner acting as scribe for signing physician. Patient Condition at Discharge: Good Plan - Discharge Summary New Discharge Prescriptions: Continue Cholecalciferol [Vitamin D3 (10 Mcg = 400 Iu)] 400 unit PO DAILY Metoprolol Succinate [Toprol XL] 100 mg PO DAILY DULoxetine HCL [Cymbalta] 60 mg PO DAILY hydroCHLOROthiazide 25 mg PO DAILY #30 tablet Albuterol Sulfate [Ventolin HFA] 2 puff INHALATION RT-Q4H PRN PRN Reason: Shortness Of Breath Pantoprazole [Protonix] 40 mg PO DAILY Apixaban [Eliquis] 5 mg PO BID #180 tablet Aspirin EC [Ecotrin Low Dose] 81 mg PO DAILY Rosuvastatin Calcium [Crestor] 40 mg PO DAILY buPROPion XL [Wellbutrin XL] 150 mg PO BID Nitroglycerin Sl Tabs [Nitrostat] 0.4 mg SUBLINGUAL Q5M PRN PRN Reason: Chest Pain Ferrous Sulfate [Iron (65 MG Elemental)] 325 mg PO DAILY Acetaminophen [Tylenol Extra Strength] 1,000 mg PO Q46H PRN PRN Reason: Fever And/ Or Pain Budesonide/Formoterol Fumarate [Symbicort 160-4.5 Mcg Inhaler] 2 puff INHALATION RT-BID Nystatin 100,000 Unit/ml Susp [Mycostatin Oral Susp] 5 ml PO QID Changed amLODIPine [Norvasc] 2.5 mg PO DAILY #0 Discharge Medication List Cholecalciferol [Vitamin D3 (10 Mcg = 400 Iu)] 400 unit PO DAILY 02/26/15 [History] Metoprolol Succinate [Toprol XL] 100 mg PO DAILY 02/26/15 [History] DULoxetine HCL [Cymbalta] 60 mg PO DAILY 10/18/18 [History] hydroCHLOROthiazide 25 mg PO DAILY #30 tablet 10/18/18 [Rx] Albuterol Sulfate [Ventolin HFA] 2 puff INHALATION RT-Q4H PRN 07/14/19 [History] Pantoprazole [Protonix] 40 mg PO DAILY 07/14/19 [History] Ferrous Sulfate [Iron (65 MG Elemental)] 325 mg PO DAILY 10/01/20 [History] Apixaban [Eliquis] 5 mg PO BID #180 tablet 10/04/20 [Rx] Acetaminophen [Tylenol Extra Strength] 1,000 mg PO Q46H PRN 11/02/20 [History] Aspirin EC [Ecotrin Low Dose] 81 mg PO DAILY 11/02/20 [History] Budesonide/Formoterol Fumarate [Symbicort 160-4.5 Mcg Inhaler] 2 puff INHALATION RT-BID 11/02/20 [History] Nitroglycerin Sl Tabs [Nitrostat] 0.4 mg SUBLINGUAL Q5M PRN 11/02/20 [History] Nystatin 100,000 Unit/ml Susp [Mycostatin Oral Susp] 5 ml PO QID 11/02/20 [History] Rosuvastatin Calcium [Crestor] 40 mg PO DAILY 11/02/20 [History] buPROPion XL [Wellbutrin XL] 150 mg PO BID 11/02/20 [History] amLODIPine [Norvasc] 2.5 mg PO DAILY #0 11/05/20 [Rx] Follow up Appointment(s)/Referral(s): Saurabh Mas MD [STAFF PHYSICIAN] - 1 Week David Varghese MD [Primary Care Provider] - 3 Days Andi Dyson DO [Doctor of Osteopathic Medicine] - 1 Week Patient Instructions/Handouts: How to Stop Smoking (DC), Syncope (DC), Alcohol Intoxication (DC) Activity/Diet/Wound Care/Special Instructions: 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 Discharge Disposition: HOME SELF-CARE Plan of Treatment: Please go to [facility] after you're discharged to have your 30 day heart monitor placed.
--- NOTE | 2020-11-05 12:12 | P.PN ---
Subjective This is a pleasant 65-year-old female patient who follows with Dr. Sahni in the office. She has a history of multiple peripheral interventions, COPD, smoking, prior heart catheterization in July 2019 which showed a 40-50% lesion in the mid LAD, she somewhat of a poor historian. She was at her primary care physician's office and was noted to be tachycardic and hypoxic and was recommended to go to the emergency department. She apparently been having syncopal episodes at home it sounds like she is been passing out while in her chair. Apparently over the records it sounds like the patient's recently and she has been using alcohol to help cope with this. Over the last couple of months she's had for 6 episodes of loss of consciousness while in her chair. She is unsure how long she is out for she has no symptoms prior to passing out. She's had no loss of bowel or bladder control. Earlier this week she did have some nausea and vomiting where she was retching quite a bit and subsequently developed some tenderness in her abdomen and left lower chest. It is unclear whether or not she's been eating and drinking enough. Laboratory values on admission showed potassium of 2.7 which has been replaced and subsequ ent draw shows a potassium of 3.0. Troponins have been negative 3. EKG shows sinus tachycardia with nonspecific ST-T wave abnormalities with artifact. 11/05/2020: Patient seen and examined at bedside, no acute distress. Patient's blood pressure 108/71, heart rate 70, requiring 4 L nasal cannula to maintain oxygen saturations above 90%. Patient denies any chest pain, shortness of breath, lig htheadedness, dizziness, syncope. GENERAL: Well-appearing, well-nourished and in no acute distress. NECK: Supple without JVD or thyromegaly. LUNGS: Breath sounds clear to auscultation bilaterally. Respiration equal and unlabored. No wheezes, rales or rhonchi. HEART: Regular rate and rhythm without murmurs, rubs or gallops. S1 and S2 heard. EXTREMITIES: Normal range of motion, no edema. No clubbing or cyanosis. Peripheral pulses intact. ASSESSMENT Syncope, unclear etiology Hypoxia COPD Peripheral Vascular Disease Carotid Artery DIsease Hypertension Hyperlipidemia Coronary artery disease Nicotine depdence GERD PLAN We will set up for 30 day event monitor to be placed in the office. Patient should go to [facility] after discharge to get monitor placed. Follow up with Dr Mas after for these results Decrease amlodipine to 2.5 mg daily Continue aspirin, Toprol-XL, hydrochlorothiazide, statin Patient to follow up with Dr. Mas Nurse Practitioner note has been reviewed, I agree with a documented findings and plan of care. Patient was seen and examined. Objective - Vital Signs Vital signs: Vital Signs Temp 97.9 F 11/05/20 07:00 Pulse 70 11/05/20 08:34 Resp 16 11/05/20 08:00 BP 108/71 11/05/20 07:00 Pulse Ox 91 L 11/05/20 08:34 Intake & Output 11/04/20 11/05/20 11/05/20 18:59 06:59 18:59 Intake Total 240 Balance 240 Intake: Oral 240 Other: Voiding Method Toilet Toilet Toilet # Voids 2 2 - Labs CBC & Chem 7: 11/02/20 16:12 11/04/20 05:28
[2020-11-06] MEDS ORDERED: amLODIPine 2.5 MG TAB PO SCH (09:00)
== END 2020-11-05 09:45 | disposition home or self-care (01) ==
LOC: EC 14:38 → 6NMEDSUR 21:44
PROVIDERS: ADMIT Internal Medicine Geriatric Medicine; ATTEND Internal Medicine Geriatric Medicine
DX: J44.1 Chronic obstructive pulmonary disease with (acute) exacerbation (principal); I73.9 Peripheral vascular disease, unspecified; I65.23 Occlusion and stenosis of bilateral carotid arteries; R55 Syncope and collapse; Z20.822 Contact with and (suspected) exposure to COVID-19; I10 Essential (primary) hypertension; E78.5 Hyperlipidemia, unspecified; K21.9 Gastro-esophageal reflux disease without esophagitis; E87.6 Hypokalemia; M79.605 Pain in left leg; I25.10 Atherosclerotic heart disease of native coronary artery without angina pectoris; R00.0 Tachycardia, unspecified; M19.90 Unspecified osteoarthritis, unspecified site; R30.9 Painful micturition, unspecified; E87.8 Other disorders of electrolyte and fluid balance, not elsewhere classified; R09.02 Hypoxemia; F17.210 Nicotine dependence, cigarettes, uncomplicated; F10.10 Alcohol abuse, uncomplicated; F41.1 Generalized anxiety disorder; F33.9 Major depressive disorder, recurrent, unspecified; F40.240 Claustrophobia; Z79.51 Long term (current) use of inhaled steroids; Z79.82 Long term (current) use of aspirin; Z79.01 Long term (current) use of anticoagulants; Z79.899 Other long term (current) drug therapy; Z88.8 Allergy status to other drugs, medicaments and biological substances; Z88.7 Allergy status to serum and vaccine; Z86.718 Personal history of other venous thrombosis and embolism; Z86.79 Personal history of other diseases of the circulatory system; Z86.69 Personal history of other diseases of the nervous system and sense organs; Z80.0 Family history of malignant neoplasm of digestive organs; Z82.49 Family history of ischemic heart disease and other diseases of the circulatory system; Z80.8 Family history of malignant neoplasm of other organs or systems; Z80.1 Family history of malignant neoplasm of trachea, bronchus and lung
CPT/HCPCS: 96361 ×2; 96372 ×3; 96376; 96365; 96366; 96375; 99285; 36415; 94640 ×5; 93005; 93306; 85379; 83880; 80061; 80053; 80048 ×2; 82607; 82746; 83690; 83735 ×2; 84100; 84443; 84450; 84460; 84484 ×2; 85025; 85610; 85730; 81003; 81001; 87635; 71046; 74019; 93880; 70450; 71275; G0378 ×4; J3480; J2405; J1650 ×2; J2270; C9113; Q9967

== ENCOUNTER 2020-12-20 10:52 | Inpatient (IN) | payer MEDICARE ==
[2020-12-20] MEDS ORDERED: SODIUM CHLORIDE 0.9% 500 ML 500 ML IV STA (10:53)
--- NOTE | 2020-12-20 10:56 | ED ---
General Adult HPI - General Stated complaint: Stroke Time Seen by Provider: 12/20/20 10:52 Source: patient, RN notes reviewed, old records reviewed - History of Present Illness Initial comments: This is a 65-year-old female with a past medical history significant for COPD high blood pressure high cholesterol and angina patient also has had DVTs and is on eliquis. Patient was feeling like she was weak in her left side just went saw Dr. Varghese [facility] and to the emergency department to be evaluated. Currently patient states that her left side still feels a little tingly. Patient seems to have full range of motion at this time. Patient denies any visual disturbance. Patient denies any headache patient denies any recent fever chills or cough. Patient denies any chest pain patient denies any difficulty breathing shortness of breath. Patient states earlier she felt like her left arm felt different and was weaker than her right. Patient states it started about an hour and a half ago but now symptoms have almost completely resolved. - Related Data Home Medications Medication Instructions Recorded Confirmed Cholecalciferol [Vitamin D3 (10 400 unit PO DAILY 02/26/15 12/20/20 Mcg = 400 Iu)] Metoprolol Succinate [Toprol XL] 100 mg PO DAILY 02/26/15 12/20/20 Albuterol Sulfate [Ventolin HFA] 2 puff INHALATION RT-Q4H PRN 07/14/19 12/20/20 Pantoprazole [Protonix] 40 mg PO DAILY 07/14/19 12/20/20 Ferrous Sulfate [Iron (65 MG 325 mg PO DAILY 10/01/20 12/20/20 Elemental)] Acetaminophen [Tylenol Extra 1,000 mg PO Q46H PRN 11/02/20 12/20/20 Strength] Aspirin EC [Ecotrin Low Dose] 81 mg PO DAILY 11/02/20 12/20/20 Budesonide/Formoterol Fumarate 2 puff INHALATION RT-BID 11/02/20 12/20/20 [Symbicort 160-4.5 Mcg Inhaler] Nitroglycerin Sl Tabs [Nitrostat] 0.4 mg SUBLINGUAL Q5M PRN 11/02/20 12/20/20 Rosuvastatin Calcium [Crestor] 40 mg PO DAILY 11/02/20 12/20/20 buPROPion XL [Wellbutrin XL] 150 mg PO BID 11/02/20 12/20/20 Apixaban [Eliquis] 5 mg PO BID 12/20/20 12/20/20 DULoxetine HCL [Cymbalta] 60 mg PO DAILY 12/20/20 12/20/20 Furosemide [Lasix] 20 mg PO DAILY 12/20/20 12/20/20 Potassium Chloride 10 meq PO DAILY 12/20/20 12/20/20 metFORMIN HCL [Glucophage] 500 mg PO BID 12/20/20 12/20/20 Previous Rx's Medication Instructions Recorded hydroCHLOROthiazide 25 mg PO DAILY #30 tablet 10/18/18 amLODIPine [Norvasc] 2.5 mg PO DAILY #0 11/05/20 Allergies Allergy/AdvReac Type Severity Reaction Status Date / Time influenza virus vaccine, Allergy Rash/Hives Verified 12/20/20 12:19 specific [influenza virus vacc,specific] lisinopril Allergy Swelling Verified 12/20/20 12:19 Review of Systems ROS Statement: Those systems with pertinent positive or pertinent negative responses have been documented in the HPI. ROS Other: All systems not noted in ROS Statement are negative. Past Medical History Past Medical History: Asthma, Chest Pain / Angina, COPD, Deep Vein Thrombosis (DVT), GERD/Reflux, Hyperlipidemia, Hypertension, Osteoarthritis (OA), Vascular Disorder Additional Past Medical History / Comment(s): hx blood clot in left arm and left hand, hx migraines, PVD, left leg pain History of Any Multi-Drug Resistant Organisms: None Reported Past Surgical History: Heart Catheterization Additional Past Surgical History / Comment(s): stent to lt external iliac, blood clot removed from left arm, surgery to fix "tear in aorta", surgery for "abdominal adhesions", 06-11-16 LT ILIAC PTBA/STENT, PTBA 10/03/2020-Stent x2 Illiac (L). Past Anesthesia/Blood Transfusion Reactions: No Reported Reaction Additional Past Anesthesia/Blood Transfusion Reaction / Comment(s): claustrophobia Past Psychological History: No Psychological Hx Reported Smoking Status: Current every day smoker Past Alcohol Use History: Daily, Heavy Additional Past Alcohol Use History / Comment(s): started smoking at age 16, states trying to quit, little over 1/2 ppd, drinks 6 beers daily Past Drug Use History: None Reported - Past Family History Father Family Medical History: Cancer, Myocardial Infarction ([place]) Additional Family Medical History / Comment(s): SKIN CANCER Mother Family Medical History: Cancer, Deep Vein Thrombosis (DVT) Additional Family Medical History / Comment(s): COLON CANCER TWICE, lung ancer General Exam - General Exam Comments Initial Comments: GENERAL: Patient is well-developed and well-nourished. Patient is nontoxic and well- hydrated and is in no acute distress. ENT: Neck is soft and supple. No significant lymphadenopathy is noted. Oropharynx is clear. Moist mucous membranes. Neck has full range of motion without eliciting any pain EYES: The sclera were anicteric and conjunctiva were pink and moist. Extraocular movements were intact and pupils were equal round and reactive to light. Eyelids were unremarkable. PULMONARY: Unlabored respirations. Good breath sounds bilaterally. No audible rales rhonchi or wheezing was noted. CARDIOVASCULAR: There is a regular rate and rhythm without any murmurs gallops or rubs. ABDOMEN: Soft and nontender with normal bowel sounds. No palpable organomegaly was noted. There is no palpable pulsatile mass. SKIN: Skin is clear with no lesions or rashes and otherwise unremarkable. NEUROLOGIC: Patient is alert and oriented x3. Cranial nerves II through XII are grossly intact. Motor and sensory are also intact. Patient's speech is slightly blurred difficult to assess whether it's her normal speech and there is no family in the room. Finger to nose testing is normal bilaterally MUSCULOSKELETAL: Normal extremities with adequate strength and full range of motion. No lower extremity swelling or edema. No calf tenderness. LYMPHATICS: No significant lymphadenopathy is noted PSYCHIATRIC: Normal psychiatric evaluation. Course Vital Signs 12/20/20 12/20/20 10:56 12:07 Temperature 98.3 F Pulse Rate 110 H 100 Respiratory 24 20 Rate Blood Pressure 147/76 114/52 O2 Sat by Pulse 94 L 96 Oximetry Medical Decision Making - Medical Decision Making EKG shows sinus tachycardia at 108 bpm KS interval 236 dresses 88 QT interval 360 QTC is 482. Patient's EKG shows no ST segment elevation. CT of the brain shows no acute abnormality. All of the patient's symptoms have resolved. I spoke with Dr. Wright she agreed to admit the patient admitted the patient w rote admitting orders. I spoke with Dr. Delacruz the neurointerventionalist and he agreed that the patient should be admitted and get an MRI and have neurology see the patient. - Lab Data Result diagrams: 12/20/20 10:59 12/20/20 10:59 Lab Results 12/20/20 12/20/20 12/20/20 Range/Units 10:58 10:59 10:59 WBC 8.3 (3.8-10.6) k/uL RBC 4.22 (3.80-5.40) m/uL Hgb 11.8 (11.4-16.0) gm/dL Hct 36.6 (34.0-46.0) % MCV 86.7 (80.0-100.0) fL MCH 27.9 (25.0-35.0) pg MCHC 32.2 (31.0-37.0) g/dL RDW 17.7 H (11.5-15.5) % Plt Count 413 (150-450) k/uL MPV 7.2 Neutrophils % 71 % Lymphocytes % 20 % Monocytes % 6 % Eosinophils % 1 % Basophils % 1 % Neutrophils # 5.9 (1.3-7.7) k/uL Lymphocytes # 1.6 (1.0-4.8) k/uL Monocytes # 0.5 (0-1.0) k/uL Eosinophils # 0.1 (0-0.7) k/uL Basophils # 0.0 (0-0.2) k/uL Hypochromasia Moderate Poikilocytosis Slight Anisocytosis Slight PT 10.0 (9.0-12.0) sec INR 0.9 (<1.2) APTT 22.0 (22.0-30.0) sec Sodium (137-145) mmol/L Potassium (3.5-5.1) mmol/L Chloride (98-107) mmol/L Carbon Dioxide (22-30) mmol/L Anion Gap mmol/L BUN (7-17) mg/dL Creatinine (0.52-1.04) mg/dL Est GFR (CKD-EPI)AfAm (>60 ml/min/1.73 sqM) Est GFR (CKD-EPI)NonAf (>60 ml/min/1.73 sqM) Glucose (74-99) mg/dL POC Glucose (mg/dL) 149 H (75-99) mg/dL POC Glu Dry Chain Worker ID Ehsan, Susan Calcium (8.4-10.2) mg/dL Total Bilirubin (0.2-1.3) mg/dL AST (14-36) U/L ALT (4-34) U/L Alkaline Phosphatase (38-126) U/L Troponin I (0.000-0.034) ng/mL Total Protein (6.3-8.2) g/dL Albumin (3.5-5.0) g/dL 12/20/20 12/20/20 Range/Units 10:59 10:59 WBC (3.8-10.6) k/uL RBC (3.80-5.40) m/uL Hgb (11.4-16.0) gm/dL Hct (34.0-46.0) % MCV (80.0-100.0) fL MCH (25.0-35.0) pg MCHC (31.0-37.0) g/dL RDW (11.5-15.5) % Plt Count (150-450) k/uL MPV Neutrophils % % Lymphocytes % % Monocytes % % Eosinophils % % Basophils % % Neutrophils # (1.3-7.7) k/uL Lymphocytes # (1.0-4.8) k/uL Monocytes # (0-1.0) k/uL Eosinophils # (0-0.7) k/uL Basophils # (0-0.2) k/uL Hypochromasia Poikilocytosis Anisocytosis PT (9.0-12.0) sec INR (<1.2) APTT (22.0-30.0) sec Sodium 135 L (137-145) mmol/L Potassium 3.5 (3.5-5.1) mmol/L Chloride 96 L (98-107) mmol/L Carbon Dioxide 32 H (22-30) mmol/L Anion Gap 7 mmol/L BUN 9 (7-17) mg/dL Creatinine 0.62 (0.52-1.04) mg/dL Est GFR (CKD-EPI)AfAm >90 (>60 ml/min/1.73 sqM) Est GFR (CKD-EPI)NonAf >90 (>60 ml/min/1.73 sqM) Glucose 150 H (74-99) mg/dL POC Glucose (mg/dL) (75-99) mg/dL POC Glu Dry Chain Worker ID Calcium 9.7 (8.4-10.2) mg/dL Total Bilirubin 0.5 (0.2-1.3) mg/dL AST 30 (14-36) U/L ALT 11 (4-34) U/L Alkaline Phosphatase 106 (38-126) U/L Troponin I <0.012 (0.000-0.034) ng/mL Total Protein 7.1 (6.3-8.2) g/dL Albumin 4.2 (3.5-5.0) g/dL Disposition Clinical Impression: TIA (transient ischemic attack) Disposition: ADMITTED IP TO THIS HOSP Referrals: David Varghese MD [Primary Care Provider] - 1-2 days Time of Disposition: 12:57
[2020-12-20 11:00] LABS: Glucose,Whole Blood 149 mg/dL (75-99)
[2020-12-20 11:09] LABS: Anisocytosis Slight; Basophils % (A) 1 %; Eosinophils # (A) 0.1 k/uL (0-0.7); Eosinophils % (A) 1 %; HCT 36.6 % (34.0-46.0); HGB 11.8 gm/dL (11.4-16.0); Hypochromasia Moderate; Lymphocytes # (A) 1.6 k/uL (1.0-4.8); Lymphocytes % (A) 20 %; MCH 27.9 pg (25.0-35.0); MCHC 32.2 g/dL (31.0-37.0); MCV 86.7 fL (80.0-100.0); Mean Platelet Volume 7.2; Monocytes # (A) 0.5 k/uL (0-1.0); Monocytes % (A) 6 %; Neutrophils # (A) 5.9 k/uL (1.3-7.7); Neutrophils % (A) 71 %; Platelet Count 413 k/uL (150-450); Poikilocytosis Slight; RBC 4.22 m/uL (3.80-5.40); RDW 17.7 % (11.5-15.5); WBC 8.3 k/uL (3.8-10.6)
--- NOTE | 2020-12-20 11:23 | CT ---
EXAMINATION TYPE: CT brain wo con for TPA DATE OF EXAM: 12/20/2020 COMPARISON: 11/02/2020 HISTORY: 65-year-old female slurred speech TECHNIQUE: Examination was done in axial plane without intravenous contrast. Coronal and sagittal r econstructions performed. CT DLP: 1099.4 mGycm Automated exposure control for dose reduction was used. FINDINGS: There is no evidence of acute intracranial hemorrhage, acute ischemic changes, mass, mass-effect, or extra-axial fluid collection. There is no effacement of cerebral sulci or basal subarachnoid cister ns. There is no hydrocephalus. There is no midline shift. Hayes-white matter distinction is preserv ed. Mild age-related cerebral cortical volume loss. Mild patchy white matter hypodensities in both cerebr al hemispheres, unchanged from prior. Trace mucosal thickening ethmoid air cells. Mastoid air cells are well pneumatized. Visualized orbits and globes are intact. IMPRESSION: No acute intracranial abnormality seen. Similar mild age-related cortical atrophy and mild patchy bur den of chronic small vessel ischemic disease. If symptoms persist, follow-up CT or MRI.
[2020-12-20 11:30] LABS: ALT 11 U/L (4-34); AST 30 U/L (14-36); African American GFR (CKD) >90 (>60 ml/min/1.73 sqM); Albumin 4.2 g/dL (3.5-5.0); Alkaline Phosphatase 106 U/L (38-126); Anion Gap 7 mmol/L; Blood Urea Nitrogen 9 mg/dL (7-17); Calcium 9.7 mg/dL (8.4-10.2); Carbon Dioxide 32 mmol/L (22-30); Chloride 96 mmol/L (98-107); Glucose 150 mg/dL (74-99); INR 0.9 (<1.2); Non-African American GFR(CKD) >90 (>60 ml/min/1.73 sqM); Potassium 3.5 mmol/L (3.5-5.1); Sodium 135 mmol/L (137-145); Total Bilirubin 0.5 mg/dL (0.2-1.3); Total Protein 7.1 g/dL (6.3-8.2)
--- NOTE | 2020-12-20 11:50 | XR ---
EXAMINATION TYPE: XR chest 2V DATE OF EXAM: 12/20/2020 COMPARISON: 11/02/2020 HISTORY: 65-year-old female confusion, altered mental status, left-sided numbness and slurred speech today. TECHNIQUE: AP and lateral views FINDINGS: Heart normal size. Some surgical clips at the left thoracic inlet. Previous endovascular aortic stent graft repair of the mid to distal arch and upper descending thoracic aorta. Mild hyperinflation. No consolidation or pleural effusion. IMPRESSION: Previous endovascular aortic graft repair at the distal arch. Suspect mild underlying emphysema. No a cute cardiopulmonary process.
[2020-12-20] MEDS ORDERED: ACETAMINOPHEN TAB 500 MG TAB PO PRN (21:42)
[2020-12-20] MEDS ORDERED: ALBUTEROL NEBULIZED 2.5 MG/3 ML INHALATION PRN (21:42)
[2020-12-20] MEDS: buPROPion XL 150 MG TAB.ER.24H PO SCH (23:06)
[2020-12-20] MEDS: APIXABAN 5 MG TAB PO SCH (23:06)
[2020-12-20] MEDS: metFORMIN 500 MG TAB PO SCH (23:06)
[2020-12-21] MEDS: buPROPion XL 150 MG TAB.ER.24H PO SCH ×2 (07:57→20:35)
[2020-12-21] MEDS: ATORVASTATIN 80 MG TAB PO SCH (07:57)
[2020-12-21] MEDS: APIXABAN 5 MG TAB PO SCH ×2 (07:57→20:35)
[2020-12-21] MEDS: DULoxetine HCL 60 MG CAPSULE.DR PO SCH (07:58)
[2020-12-21] MEDS: FUROSEMIDE 20 MG TAB PO SCH (07:59)
[2020-12-21] MEDS: metFORMIN 500 MG TAB PO SCH ×2 (07:59→20:35)
[2020-12-21] MEDS: FERROUS SULFATE 325 MG TAB PO SCH (07:59)
[2020-12-21] MEDS: METOPROLOL SUCCINATE (ER) 100 MG TAB.ER.24H PO SCH (07:59)
[2020-12-21] MEDS: PANTOPRAZOLE 40 MG TABLET PO SCH (07:59)
[2020-12-21] MEDS: POTASSIUM CHLORIDE ER 10 MEQ TAB.ER.PRT PO SCH (08:00)
[2020-12-21] MEDS ORDERED: ASPIRIN 81 MG PO SCH (09:00)
[2020-12-21 10:18] LABS: Chol/HDL Ratio 2.76
[2020-12-21] MEDS: SYMBICORT 160-4.5 MCG INHALER INHALATION SCH ×2 (10:57→19:55)
[2020-12-21] MEDS: AZITHROMYCIN 500 MG TAB PO SCH (11:12)
[2020-12-21] MEDS: NICOTINE 14MG/24HR PATCH TRANSDERM SCH (11:12)
--- NOTE | 2020-12-21 11:20 | P.CNNES ---
History of Present Illness Consult date: 12/21/20 Requesting physician: Jose Rafael Cartwright Reason for Consult: TIA History of Present Illness: This is a 65-year-old woman with medical history of bilateral ICA stenosis of moderate degree (50-69%), syncopal spells likely tussive syncope, hypertension, peripheral vascular disease, DVT on Eliquis, COPD who presented to the emergency department on the 12/20/2020 for the weakness over the left side. She stated that the she noticed that she is having left-sided arm weakness, leg weakness numbness over the left side and that difficulty getting her words out that started around 9:00 in the morning. She stated that her symptoms are coming and going. The lasting very brief. Denies any visual disturbance associated with t his, difficulty swallowing. She denies of any history of strokes or TIAs in the past. She said that she continues to smoke. She has not missed her aspirin 81 mg or Eliquis. Some of the patient's home medication consist of Wellbutrin 150 mg with him twice a day, Crestor 40 mg daily, Eliquis 5mg with tablet twice a day, aspirin 81 milligrams daily, Lasix, metoprolol, hydrochlorothiazide, metformin. Of note in 10/2020, Dr. Sanchez (Neuro-Hospitalist) evaluate the patient for syncope and he felt was likely due to tussive syncope. Please refer to his note for further details and history. Some of the workup in the hospital consisted of: Initial vital signs: Blood pressure of 147/76, heart rate of 110, respiratory of 24, temperature of 98.3 Fahrenheit oral, pulse ox of 94% at room air. CBC with differential seems unremarkable. Chemistry panel as the POC glucose is 149 which is slightly elevated but not very remarkable. Otherwise the sodium is 135 which is minimally low and the rest is unremarkable The AST of 30 ALT of 11, calcium is 9.7. Which is all within normal limits. Lipid panel is triglyceride of 120, cholesterol 149, LDL 71, HDL 54. CT of the head is reported as no acute intracranial abnormality seen. Similar mild age-related cortical atrophy and mild patchy burden of chronic small vessel ischemic disease. Symptoms persist, follow-up CT or MRI. I attempted to review the CT of the head but unable because of the problem with the system. Stroke code was activated and the per the ED note the they spoke with Dr. Larson who is stroke/Neurontinterventionalist and because the patient's symptoms resolve no IV TPA. And that recommended MRI and neurology consult. Review of Systems Review of system: The 12 point system was reviewed and apparent positive and negative per HPI. Past Medical History Past Medical History: Asthma, Chest Pain / Angina, COPD, Diabetes Mellitus, Deep Vein Thrombosis (DVT), GERD/Reflux, Hyperlipidemia, Hypertension, Osteoarthritis (OA), Vascular Disorder Additional Past Medical History / Comment(s): hx blood clot in left arm and left hand, hx migraines, PVD, left leg pain History of Any Multi-Drug Resistant Organisms: None Reported Past Surgical History: Heart Catheterization Additional Past Surgical History / Comment(s): stent to lt external iliac, b lood clot removed from left arm, surgery to fix "tear in aorta", surgery for "abdominal adhesions", 06-11-16 LT ILIAC PTBA/STENT, PTBA 10/03/2020-Stent x2 Illiac (L). Past Anesthesia/Blood Transfusion Reactions: No Reported Reaction Additional Past Anesthesia/Blood Transfusion Reaction / Comment(s): claustrophobia Past Psychological History: No Psychological Hx Reported Smoking Status: Current every day smoker Past Alcohol Use History: Daily Additional Past Alcohol Use History / Comment(s): started smoking at age 16, states trying to quit, little over 1/2 ppd, drinks 3-4 beers daily Past Drug Use History: None Reported - Past Family History Father Family Medical History: Cancer, Myocardial Infarction ([place]) Additional Family Medical History / Comment(s): SKIN CANCER Mother Family Medical History: Cancer, Deep Vein Thrombosis (DVT) Additional Family Medical History / Comment(s): COLON CANCER TWICE, lung ancer Medications and Allergies Home Medications Medication Instructions Recorded Confirmed Type Cholecalciferol [Vitamin D3 (10 400 unit PO DAILY 02/26/15 12/20/20 History Mcg = 400 Iu)] Metoprolol Succinate [Toprol XL] 100 mg PO DAILY 02/26/15 12/20/20 History hydroCHLOROthiazide 25 mg PO DAILY #30 tablet 10/18/18 12/20/20 Rx Albuterol Sulfate [Ventolin HFA] 2 puff INHALATION RT-Q4H PRN 07/14/19 12/20/20 History Pantoprazole [Protonix] 40 mg PO DAILY 07/14/19 12/20/20 History Ferrous Sulfate [Iron (65 MG 325 mg PO DAILY 10/01/20 12/20/20 History Elemental)] Acetaminophen [Tylenol Extra 1,000 mg PO Q46H PRN 11/02/20 12/20/20 History Strength] Aspirin EC [Ecotrin Low Dose] 81 mg PO DAILY 11/02/20 12/20/20 History Budesonide/Formoterol Fumarate 2 puff INHALATION RT-BID 11/02/20 12/20/20 History [Symbicort 160-4.5 Mcg Inhaler] Nitroglycerin Sl Tabs [Nitrostat] 0.4 mg SUBLINGUAL Q5M PRN 11/02/20 12/20/20 History Rosuvastatin Calcium [Crestor] 40 mg PO DAILY 11/02/20 12/20/20 History buPROPion XL [Wellbutrin XL] 150 mg PO BID 11/02/20 12/20/20 History amLODIPine [Norvasc] 2.5 mg PO DAILY #0 11/05/20 12/20/20 Rx Apixaban [Eliquis] 5 mg PO BID 12/20/20 12/20/20 History DULoxetine HCL [Cymbalta] 60 mg PO DAILY 12/20/20 12/20/20 History Furosemide [Lasix] 20 mg PO DAILY 12/20/20 12/20/20 History Potassium Chloride 10 meq PO DAILY 12/20/20 12/20/20 History metFORMIN HCL [Glucophage] 500 mg PO BID 12/20/20 12/20/20 History Allergies Allergy/AdvReac Type Severity Reaction Status Date / Time influenza virus vaccine, Allergy Rash/Hives Verified 12/20/20 12:19 specific [influenza virus vacc,specific] lisinopril Allergy Swelling Verified 12/20/20 12:19 Physical Examination - Vital Signs Vital Signs: Vital Signs Temp Pulse Pulse Resp BP BP Pulse Ox 12/21/20 07:00 98.0 F 82 17 106/61 97 12/21/20 01:42 98.3 F 85 18 117/70 94 L 12/21/20 01:22 18 12/20/20 21:49 98.8 F 83 18 122/72 96 12/20/20 18:21 101 H 22 119/58 97 07/08/21 16:59 102 H 20 127/75 97 12/20/20 15:05 98.3 F 96 20 105/55 96 12/20/20 13:36 106 H 22 144/86 97 12/20/20 13:00 98.7 F 100 22 146/63 96 12/20/20 12:07 100 20 114/52 96 12/20/20 10:56 98.3 F 110 H 24 147/76 94 L Intake and Output 12/20/20 12/21/20 12/21/20 22:59 06:59 14:59 Other: Voiding Method Toilet Toilet Urinal # Voids 2 2 GENERAL: The patient is lying in bed and is not in acute distress. CHEST: The heart rate is regular rate rhythm. No murmurs to auscultation. No carotid bruit bilaterally. LUNG: Clear to auscultation bilaterally no wheezing noted throughout. Not labored breathing. ABDOMEN/GI: Bowel sounds present in all 4 quadrants. No tenderness to palpation throughout. NEUROLOGICAL: Higher mental function: The patient is awake, alert, oriented to self, place and time. Patient is following commands. No aphasia and no neglect. Cranial nerves: The pupils are round, equal and reactive to light and accommodation. Visual holcomb are full to confrontation throughout. Extraocular movement is intact no nystagmus is noted. Facial sensation is normal to touch throughout. The facial strength is normal throughout. Hearing is normal bilaterally to hand rub. Tongue is midline and moved [id number] without any difficulty. No dysarthria is noted. Shoulder shrug is normal bilaterally. Motor: Gait is deferred. The strength is 5- left upper while left knee extension is 5-. Otherwise 5/5 throughout. Normal tone and bulk. Cerebellum: Normal finger to nose heel to meredith bilaterally. Sensation: Sensation is normal to touch throughout. Reflexes (right/left): 2+ throughout. Plantars are downgoing bilaterally. Results Of note the patient had a 2-D echo on 11/03/2020 and it's reported as moderate concentric left ventricular hypertrophy. Ejection fraction of 55-60%. - Laboratory Findings CBC and BMP: 12/20/20 10:59 12/20/20 10:59 Abnormal Lab Findings: Abnormal Labs 12/20/20 12/20/20 12/20/20 10:58 10:59 10:59 RDW 17.7 H Sodium 135 L Chloride 96 L Carbon Dioxide 32 H Glucose 150 H POC Glucose (mg/dL) 149 H Assessment and Plan Assessment: Transient left-sided weakness and numbness and difficulty getting her words out. Seems likely due to transient ischemic attack. No IV tpa since per ED her sypmtoms resolved. Moderate bilateral internal carotid artery stenosis (50-69%) (on last admission 10/2020 vascular stated no intervention) History of syncopal spells likely tussive syncope, History of hypertension Peripheral vascular disease DVT on Eliquis History of COPD Plan: Recommend MRI of the brain since patient stated she has few episodes of this to rule out stroke but refused and stated she is Claustrophobic. I notified her we will provide some medications to help her relax but she refuse. Then later after 1 hour of seeing her she stated she wants to pursue with MRI. I will get a repeat carotid duplex and will get a limited 2-D echo (since had a recent one on 11/02). Patient's was restarted on the home medication of Eliquis 5 mg 1 tablet twice a day and aspirin 81 mg daily (both are home medication). I'll stop the aspirin and start the patient on Plavix 75 mg daily instead. Continue Lipitor 80 mg daily at bedtime. Hemoglobin A1c is ordered and is pending. I ordered TSH level. PT, OT and OIL FILTERS INSPECTOR are consulted Every 4 hours neuro checks On continuous cardiac monitoring. We'll defer the rest of the medical management to primary team The plan is discussed with the patient's nurse. Thank you for the consultation. Scooby Dyson M.D. Neuro-hospitalist Time with Patient: Greater than 30
[2020-12-21 11:41] LABS: Glucose,Whole Blood 122 mg/dL (75-99)
[2020-12-21] MEDS: INSULIN ASPART (NovoLOG) 100 UNIT/ML VIAL SQ SCH ×3 (12:08→20:36)
[2020-12-21] MEDS: CLOPIDOGREL 75 MG TAB PO SCH (12:10)
[2020-12-21] MEDS: methylPREDNISolone SOD SUCCI 125 MG/2 ML VIAL IV SCH ×2 (12:10→18:11)
--- NOTE | 2020-12-21 13:01 | ECHOF ---
Referral Reason:Limited (had one recently). Stroke. MEASUREMENTS -------- HEIGHT: 165.1 cm WEIGHT: 89.8 kg BP: FINDINGS -------- Sinus rhythm. BBB Echo done 11/03/20: Limited study Tia: Bubble study no crossing noted. LV size, wall thickness and systolic function are normal, with an EF greater than 55%. The left rylie tricular size is normal. Echo free space represents a pericardial fat pad. CONCLUSIONS -------- 1. BBB 2. LV size, wall thickness and systolic function are normal, with an EF greater than 55%. 3. The left ventricular size is normal. 4. Echo free space represents a pericardial fat pad. DIALYSIS PATIENT CARE TECHNICIAN: Irma Tolbert RDCS
[2020-12-21] MEDS ORDERED: LORazepam 2 MG/ML INJ IV STA (13:44)
--- NOTE | 2020-12-21 14:58 | P.HPIM ---
History of Present Illness H&P Date: 12/21/20 HISTORY OF PRESENT ILLNESS This is a 65-year-old female patient of Dr. Varghese with past medical history of COPD, PAD as well as stents by Dr. Mas, hypertension, hype rlipidemia. Patient has history of severe claudication of the left lower extremity and followed by Dr. Mas status post angiogram and angioplasty of the left external iliac artery followed by clot and on long-term eliquis, alcohol abuse. She had a hospitalization in October which time she presented for syncopal episode 4 of unclear etiology. Patient states that she was recently diagnosed with diabetes but does not recall the hemoglobin A1c. CAT scan of the brain revealed age-related atrophy and chronic small vessel ischemic change without acute intracranial process. Echocardiogram reveals EF of 55-60% with moderate concentric left hypertrophy, mild tricuspid regurgitation. CTA of the chest revealed no PE. Mild central alveolar edema. No focal consolidation. Patent stent graft beginning aortic arch level extending into descending thoracic aorta. 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 Carotid Doppler study revealed moderate to severe atherosclerotic changes bilate rally, hemodynamically significant stenosis of 50-69% bilaterally. Patient was seen by vascular surgery with recommendations to follow up with Dr. Mas. Patient was also seen by neurology thought to be tussive syncope and recommended no alcohol use. Patient states that she was sitting and taking her medications and talking to her [id number] on the phone and her left arm became weak and her speech was slurred. This occurred about 9:30 in the morning yesterday. She then went to Dr. Varghese's office as a walk-in and was then directed to [facility] for further evaluation. She was found to be afebrile, heart rate 110, blood pressure 147/76, pulse ox 94% on room air. EKG was sinus tachycardia with no acute ST changes. CAT scan of the brain showed no acute abnormality. CBC was unremarkable. Sodium 135, potassium 3.5, chloride 96, CO2 32, BUN 9 and creatinine 0.62. Blood sugar 150. Liver function tests were normal. Troponin negative. Albumin 4.2. Patient admitted to the [facility] floor and patient seen by neurology with recommendations for stopping aspirin and start Plavix along with patient's chronic eliquis 5 mg twice daily, continue Lipitor 80 mg daily. MRI of the brain which patient initially refused due to claustrophobia. Limited echocardiogram reveals EF of 55%. REVIEW OF SYSTEMS Constitutional: No fever, no chills, no night sweats. No weight change. No weakness, fatigue or lethargy. No daytime sleepiness. EENT: No headache. No blurred vision or double vision, no loss of vision. No loss of Hearing, no ringing in the ears, no dizziness. No nasal drainage or congestion. No epistaxis. No sore throat. Lungs: Reports shortness of breath, cough, no sputum production. No wheezing. Cardiovascular: No chest pain, no lower extremity edema. Reports palpitations. No paroxysmal nocturnal dyspnea. No orthopnea. No lightheadedness or dizziness. Reports 4 syncopal episodes. Abdominal: No abdominal pain. No nausea, vomiting. No diarrhea. No constipation. No bloody or tarry stools.. No loss of appetite. Genitourinary: No dysuria, increased frequency, urgency. No urinary retention. Musculoskeletal: No myalgias. No muscle weakness, no gait dysfunction, no frequent falls. No back pain. No neck pain. Integumentary: No wounds, no lesions. No rash or pruritus. No unusual bruising. No change in hair or nails. Neurologic: No aphasia. No facial droop. No change in mentation. No head injury. No headache. No paralysis. No paresthesia. Psychiatric: No depression. No anxiety. No mood swings. Endocrine: No abnormal blood sugars. No weight change. No excessive sweating or thirst. No cold intolerance. SOCIAL HISTORY Patient is a smoker of 2 packs per day for 45 years and is cutting back to one half pack per day. Patient was drinking 12 pack a day for 20 years and recently cut back to drinks 6 beers per day and and then 3 per day. She's been drinking heavy alcohol for 30-40 years. No marijuana or illicit drug use. Patient is and lives alone. FAMILY HISTORY Mother at age 83 from lung cancer. Father at age 65 from myocardial infarction. Patient has a total of 5 siblings. One has history of heart disease and another with cancer. She does not have contact with her siblings. Patient does not have any children. PHYSICAL EXAMINATION Gen: This is a 65-year-old female. She is resting in bed and appears to be comfortable at rest. No acute distress. HEENT: Head is atraumatic, normocephalic. Pupils equal, round. Sclerae is anicteric. NECK: Supple. No JVD. No lymphadenopathy. No thyromegaly. LUNGS: Decreased breath sounds bilaterally with scattered rhonchi. No intercostal retractions. HEART: Regular rate and rhythm. No murmur. ABDOMEN: Soft. Bowel sounds are present. No masses. No tenderness. EXTREMITIES: No pedal edema. No calf tenderness. NEUROLOGICAL: Patient is awake, alert and oriented x3. Cranial nerves 2 through 12 are grossly intact. ASSESSMENT AND PLAN 1. CVA versus TIA with left-sided weakness. MRI of the brain, carotid ult rasound, TSH, A1c, consult with neurology appreciated. Patient to continue eliquis 5 mg twice daily, Plavix 75 mg daily has been started, discontinued aspirin, continue Lipitor 80 mg at bedtime. 2. COPD exacerbation and acute tracheobronchitis. Patient started on azithromycin 500 mg daily, continue Symbicort 2 puffs twice daily, Solu-Medrol 60 mg IV every 6 hours, albuterol nebulizer every 4 hours as needed. 3. Severe peripheral vascular disease status post left external iliac artery angioplasty and stent with restenosis and thrombosis, on long-term eliquis, aspirin discontinued and followed by Dr. Mas. 4. Hypertension. Continue metoprolol 100 mg daily, hold amlodipine 5 mg daily and hydrochlorothiazide 25 mg daily for hypertension. 5. Hyperlipidemia. Continue atorvastatin 80 mg daily. 6. History of tobacco use and dependence. 7. History of Alcohol abuse. 8. Recurrent depression and generalized anxiety disorder. Continue Wellbutrin 150 mg twice daily, Cymbalta 60 mg daily. 9. Gastroesophageal reflux disease and GI prophylaxis. Continue Protonix. 10. DVT prophylaxis. Eliquis. Patient will be admitted to the hospital for a minimum of 2 night stay. DISCHARGE PLAN Home. Impression and plan of care have been directed as dictated by the signing physician. Rebecca Heart nurse practitioner acting as scribe for signing physician. Past Medical History Past Medical History: Asthma, Chest Pain / Angina, COPD, Diabetes Mellitus, Deep Vein Thrombosis (DVT), GERD/Reflux, Hyperlipidemia, Hypertension, Osteoarthritis (OA), Vascular Disorder Additional Past Medical History / Comment(s): hx blood clot in left arm and left hand, hx migraines, PVD, left leg pain History of Any Multi-Drug Resistant Organisms: None Reported Past Surgical History: Heart Catheterization Additional Past Surgical History / Comment(s): stent to lt external iliac, blood clot removed from left arm, surgery to fix "tear in aorta", surgery for "abdominal adhesions", 06-11-16 LT ILIAC PTBA/STENT, PTBA 10/03/2020-Stent x2 Illiac (L). Past Anesthesia/Blood Transfusion Reactions: No Reported Reaction Additional Past Anesthesia/Blood Transfusion Reaction / Comment(s): claustrophobia Past Psychological History: No Psychological Hx Reported Smoking Status: Current every day smoker Past Alcohol Use History: Daily Additional Past Alcohol Use History / Comment(s): started smoking at age 16, states trying to quit, little over 1/2 ppd, drinks 3-4 beers daily Past Drug Use History: None Reported - Past Family History Father Family Medical History: Cancer, Myocardial Infarction ([place]) Additional Family Medical History / Comment(s): SKIN CANCER Mother Family Medical History: Cancer, Deep Vein Thrombosis (DVT) Additional Family Medical History / Comment(s): COLON CANCER TWICE, lung ancer Medications and Allergies Home Medications Medication Instructions Recorded Confirmed Type Cholecalciferol [Vitamin D3 (10 400 unit PO DAILY 02/26/15 12/20/20 History Mcg = 400 Iu)] Metoprolol Succinate [Toprol XL] 100 mg PO DAILY 02/26/15 12/20/20 History hydroCHLOROthiazide 25 mg PO DAILY #30 tablet 10/18/18 12/20/20 Rx Albuterol Sulfate [Ventolin HFA] 2 puff INHALATION RT-Q4H PRN 07/14/19 12/20/20 History Pantoprazole [Protonix] 40 mg PO DAILY 07/14/19 12/20/20 History Ferrous Sulfate [Iron (65 MG 325 mg PO DAILY 10/01/20 12/20/20 History Elemental)] Acetaminophen [Tylenol Extra 1,000 mg PO Q46H PRN 11/02/20 12/20/20 History Strength] Aspirin EC [Ecotrin Low Dose] 81 mg PO DAILY 11/02/20 12/20/20 History Budesonide/Formoterol Fumarate 2 puff INHALATION RT-BID 11/02/20 12/20/20 History [Symbicort 160-4.5 Mcg Inhaler] Nitroglycerin Sl Tabs [Nitrostat] 0.4 mg SUBLINGUAL Q5M PRN 11/02/20 12/20/20 History Rosuvastatin Calcium [Crestor] 40 mg PO DAILY 11/02/20 12/20/20 History buPROPion XL [Wellbutrin XL] 150 mg PO BID 11/02/20 12/20/20 History amLODIPine [Norvasc] 2.5 mg PO DAILY #0 11/05/20 12/20/20 Rx Apixaban [Eliquis] 5 mg PO BID 12/20/20 12/20/20 History DULoxetine HCL [Cymbalta] 60 mg PO DAILY 12/20/20 12/20/20 History Furosemide [Lasix] 20 mg PO DAILY 12/20/20 12/20/20 History Potassium Chloride 10 meq PO DAILY 12/20/20 12/20/20 History metFORMIN HCL [Glucophage] 500 mg PO BID 12/20/20 12/20/20 History Allergies Allergy/AdvReac Type Severity Reaction Status Date / Time influenza virus vaccine, Allergy Rash/Hives Verified 12/20/20 12:19 specific [influenza virus vacc,specific] lisinopril Allergy Swelling Verified 12/20/20 12:19 Physical Exam Vitals: Vital Signs Temp Pulse Pulse Resp BP BP Pulse Ox 12/21/20 07:00 98.0 F 82 17 106/61 97 12/21/20 01:42 98.3 F 85 18 117/70 94 L 12/21/20 01:22 18 12/20/20 21:49 98.8 F 83 18 122/72 96 12/20/20 18:21 101 H 22 119/58 97 12/20/20 16:59 102 H 20 127/75 97 12/20/20 15:05 98.3 F 96 20 105/55 96 12/20/20 13:36 106 H 22 144/86 97 12/20/20 13:00 98.7 F 100 22 146/63 96 12/20/20 12:07 100 20 114/52 96 12/20/20 10:56 98.3 F 110 H 24 147/76 94 L Intake and Output 12/20/20 12/21/20 12/21/20 22:59 06:59 14:59 Other: Voiding Method Toilet Urinal # Voids 2 2 Results CBC & Chem 7: 12/20/20 10:59 12/20/20 10:59 Labs: Abnormal Lab Results - Last 24 Hours (Table) 12/20/20 12/20/20 12/20/20 Range/Units 10:58 10:59 10:59 RDW 17.7 H (11.5-15.5) % Sodium 135 L (137-145) mmol/L Chloride 96 L (98-107) mmol/L Carbon Dioxide 32 H (22-30) mmol/L Glucose 150 H (74-99) mg/dL POC Glucose (mg/dL) 149 H (75-99) mg/dL Thrombosis Risk Factor Assmnt - Choose All That Apply Any of the Below Risk Factors Present?: Yes Each Factor Represents 1 point: Abnormal pulmonary function (COPD), Obesity (BMI >25) Other Risk Factors: Yes Each Risk Factor Represents 2 Points: Age 61-74 years Each Risk Factor Represents 3 Points: Family history of DVT/PE, History of DVT/PE Thrombosis Risk Factor Assessment Total Risk Factor Score: 10 Thrombosis Risk Factor Assessment Level: High Risk
--- NOTE | 2020-12-21 16:05 | US ---
EXAMINATION TYPE: US carotid duplex BILAT DATE OF EXAM: 12/21/2020 COMPARISON: 11/04/2020 CLINICAL HISTORY: stroke. Left arm pain and weakness EXAM MEASUREMENTS: RIGHT: Peak Systolic Velocity (PSV) cm/sec ----- Right CCA: 87.1 ----- Right ICA: 237 ----- Right ECA: 153 ICA/CCA ratio: 2.7 RIGHT: End Diastole cm/sec ----- Right CCA: 13.0 ----- Right ICA: 54.7 ----- Right ECA: 17.2 LEFT: Peak Systolic Velocity (PSV) cm/sec ----- Left CCA: 95.1 ----- Left ICA: 227 ----- Left ECA: 49.9 ICA/CCA ratio: 2.3 LEFT: End Diastole cm/sec ----- Left CCA: 21.3 ----- Left ICA: 40.5 ----- Left ECA: 0.0 VERTEBRALS (direction of flow): Right Vertebral: Antegrade Left Vertebral: Antegrade Rhythm: Normal Extremely difficult to image due to pulsatile vessels, patient's inability to hold still and tortuous vessels. Increased velocities noted bilaterally that may relate to stenosis, right ICA very tortuous IMPRESSION: 1. There are bilateral increased velocity suggestive of hemodynamically significant stenosis. This is likely in the range of 50-69% stenosis of the bilateral internal carotid arteries. There is however tortuosity. A CT angiogram of the neck is recommended for further evaluation. There severe atheroscl erotic plaque at the common carotid artery bifurcations. Findings are stable on the right and increas ed on the left since prior ultrasound dated 11/04/2020. Criteria for Assigning % of Stenosis / Diameter reduction (Estimation based on the indirect measurements of the internal carotid artery velocities (ICA PSV). 1. Normal (no stenosis)=ICA PSV < 125 cm/s: ratio < 2.0: ICA EDV<40 cm/s. 2. Less than 50% stenosis=ICA PSV < 125 cm/s: ratio < 2.0: ICA EDV<40 cm/s. 3. 50 to 69% stenosis=ICA PSV of 125 to 230 cm/s: ration 2.0 ? 4.0: ICA EDV 40-100 cm/s. 4. Greater than 70% stenosis to near occlusion= ICA PSV > 230 cm/s: ratio > 4.0: ICA EDV > 100 cm/s. 5. Near occlusion= ICA PSV velocities may be low or undetectable: variable ratio and ICA EDV. 6. Total occlusion=unable to detect flow.
[2020-12-21 18:04] LABS: Glucose,Whole Blood 192 mg/dL (75-99)
--- NOTE | 2020-12-21 18:50 | MR ---
EXAMINATION TYPE: MR brain wo/w con DATE OF EXAM: 12/21/2020 COMPARISON: None HISTORY: Left sided weakness/numbness. CONTRAST: Standard multiplanar, multisequence MRI departmental protocol utilizing 9 mL intravenous Gadavist cassy olinium contrast. Ventricles have normal size. There is no mass effect nor midline shift. There is no sign of intracran ial hemorrhage. There are scattered white matter high signal foci in both cerebral hemispheres on the T2 and FLAIR images. These measure up to 8 mm and total number is approximately 20. These are seen i n the frontal temporal and parietal lobes. There is small area of gyriform increased signal in the ri ght lateral temporal lobe cortex. This is seen on the diffusion and FLAIR images. The carpus callosum is intact. There are tiny white matter high signal foci in the deidre that measure 4 mm and 2 mm. Sella turcica appears normal. There is no evidence of orbital mass. The contrast images show no pathologic enhancement. There is normal enhancement of the venous sinuses . Arterial flow is seen in the anterior middle and posterior cerebral arteries. IMPRESSION: Scattered white matter signal changes could relate to chronic small vessel ischemia or demyelinating disease. Possible small gyriform cortical infarct in the lateral right temporal lobe.
[2020-12-21 20:16] LABS: Glucose,Whole Blood 248 mg/dL (75-99)
[2020-12-21 23:36] LABS: Hemoglobin A1C 6.9 % (4.0-6.0)
[2020-12-22] MEDS: methylPREDNISolone SOD SUCCI 125 MG/2 ML VIAL IV SCH ×5 (00:22→23:33)
[2020-12-22 07:07] LABS: Glucose,Whole Blood 262 mg/dL (75-99)
[2020-12-22] MEDS: SYMBICORT 160-4.5 MCG INHALER INHALATION SCH ×2 (07:42→20:21)
[2020-12-22] MEDS: INSULIN ASPART (NovoLOG) 100 UNIT/ML VIAL SQ SCH ×4 (08:37→20:02)
[2020-12-22] MEDS: PANTOPRAZOLE 40 MG TABLET PO SCH (08:38)
[2020-12-22] MEDS: AZITHROMYCIN 500 MG TAB PO SCH (08:38)
[2020-12-22] MEDS: METOPROLOL SUCCINATE (ER) 100 MG TAB.ER.24H PO SCH (08:38)
[2020-12-22] MEDS: DULoxetine HCL 60 MG CAPSULE.DR PO SCH (08:38)
[2020-12-22] MEDS: ATORVASTATIN 80 MG TAB PO SCH (08:38)
[2020-12-22] MEDS: CLOPIDOGREL 75 MG TAB PO SCH (08:38)
[2020-12-22] MEDS: metFORMIN 500 MG TAB PO SCH ×2 (08:38→20:03)
[2020-12-22] MEDS: POTASSIUM CHLORIDE ER 10 MEQ TAB.ER.PRT PO SCH (08:38)
[2020-12-22] MEDS: FUROSEMIDE 20 MG TAB PO SCH (08:38)
[2020-12-22] MEDS: FERROUS SULFATE 325 MG TAB PO SCH (08:38)
[2020-12-22] MEDS: buPROPion XL 150 MG TAB.ER.24H PO SCH ×2 (08:38→20:02)
[2020-12-22] MEDS: APIXABAN 5 MG TAB PO SCH ×2 (08:38→20:02)
[2020-12-22] MEDS: NICOTINE 14MG/24HR PATCH TRANSDERM SCH (08:51)
--- NOTE | 2020-12-22 10:29 | P.PN ---
Subjective Progress Note Date: 12/22/20 The patient was seen at bedside and she stated that the she is feeling about the same as yesterday that that she continues to have intermittent the numbness over the left hand upper extremity as well as sometimes left lower extremity with weakness and difficulty getting her words out these episodes last 5-6 seconds and she had the a few of these episodes since she's been in the hospital. Otherwise denies any new neurological complaints. Objective - Vital Signs Vital signs: Vital Signs Temp 98.1 F 12/22/20 07:51 Pulse 76 12/22/20 07:51 Resp 16 12/22/20 07:51 BP 124/69 12/22/20 07:51 Pulse Ox 93 L 12/22/20 07:51 Intake & Output 12/21/20 12/22/20 12/22/20 18:59 06:59 18:59 Intake Total 472 Balance 472 Intake: Oral 472 Other: Voiding Method Toilet Toilet # Voids 4 1 # Bowel Movements 0 0 - Exam GENERAL: The patient is lying in bed and is not in acute distress. NEUROLOGICAL: Higher mental function: The patient is awake, alert, oriented to self, place and time. Patient is following commands. No aphasia and no neglect. Cranial nerves: The pupils are round, equal and reactive to light and accommodation. Visual holcomb are full to confrontation throughout. Extraocular movement is intact no nystagmus is noted. Facial sensation is normal to touch throughout. The facial strength is normal throughout. Hearing is normal bilaterally to hand rub. Tongue is midline and moved [id number] without any difficulty. No dysarthria is noted. Shoulder shrug is normal bilaterally. Motor: Gait is deferred. The strength is 5- left upper extremity elbow extension/flexion and hand scrap crusher. Otherwise 5/5 throughout. Normal tone and bulk. Cerebellum: Normal finger to nose heel to meredith bilaterally. Sensation: Sensation is normal to touch throughout. Reflexes (right/left): 2+ throughout. Plantars are downgoing bilaterally. Lipid panel is triglyceride of 120, cholesterol 149, LDL 71, HDL 54. TSH is 2.130 which is considered within normal limits. Hemoglobin A1c is 6.9 which is considered elevated and that's suggestive of newly diagnosed diabetes in my opinoin. MRI of the brain on 12/21/2020 is reported as scattered white matter signal change could relate to chronic small vessel ischemia or demyelinating disease. Possible small gyriform cortical infarct in the lateral right temporal lobe. I personally reviewed the MRI of the brain and I'll I did not feel was the right temporal my opinion I felt was more right frontal. Carotid duplex is reported as there are bilateral increased velocity suggestive of hemodynamically significant stenosis at. This is likely in the range of 50-69% stenosis of the bilateral internal carotid arteries. There is however tortuosity. A CT angiogram of the neck is recommended for further evaluation. There is severe after scarlet plaque at the common carotid artery bifurcation. Finding are stable on the right and increased on the left since prior ultrasound dated 11/04/2020. Limited 2-D echo is reported as "BBB" I believe referring to bundle branch block. Left ventricular size, wall thickness and systolic function are normal with ejection fraction greater than 55%. Bubble study and noted. - Labs CBC & Chem 7: 12/20/20 10:59 12/20/20 10:59 Labs: Abnormal Lab Results - Last 24 Hours (Table) 12/21/20 12/21/20 12/21/20 Range/Units 05:46 11:39 18:03 POC Glucose (mg/dL) 122 H 192 H (75-99) mg/dL Hemoglobin A1c 6.9 H (4.0-6.0) % 12/21/20 12/22/20 Range/Units 20:15 07:06 POC Glucose (mg/dL) 248 H 262 H (75-99) mg/dL Hemoglobin A1c (4.0-6.0) % Assessment and Plan Assessment: * Acute ischemic stroke over the right frontal (with recurrent left-sided weakness and numbness and difficulty getting her words out). No IV tpa since per ED her sypmtoms resolved on presentation and her NIH is low when she has them. Seems embolic (possibly artery to artery. Cannot rule out cardioembo lic). * Possibly her symptoms are stroke are causing cortical irritability (seizure) causing her to have recurrence episodes (lasting 5 seconds) * Moderate bilateral internal carotid artery stenosis (50-69%) * Newly diagnosed diabetes mellitus (HbA1c 6.9) * History of syncopal spells likely tussive syncope that is reported in the past * History of hypertension * Peripheral vascular disease * DVT on Eliquis * History of COPD * Nicotine use Plan: Ordered CT angiography of the head and neck. Patient is on her home medication of Eliquis 5 mg 1 tablet twice a day (for DVT) and started Plavix 75mg daily (stopped her home dose ASA). To continue Plavix 75mg daily indefinetly. Continue Lipitor 80 mg daily at bedtime. I placed the patient Keppra 500mg 1 tab bid (since having recurrence episodes, likely from cortical irritability from stroke). I ordered 2 1/2 hours EEG as outpatient to capture these episodes. Consulted vascular surgery team. PT, OT and TRADE MANAGER are consulted Every 4 hours neuro checks On continuous cardiac monitoring. Placed an order for event monitor (for 30 d ays). We'll defer the rest of the medical management to primary team If vascular surgery team feels no intervention, then patient is clear from neurological standpoint and needs to follow-up with a neurologist as outpatient within 1-2 weeks. The plan is discussed with the patient's nurse. Scooby Dyson M.D. Neuro-hospitalist Time with Patient: Less than 30
[2020-12-22] MEDS: levETIRAcetam 500 MG TAB PO SCH ×2 (11:03→20:03)
[2020-12-22 11:47] LABS: Glucose,Whole Blood 163 mg/dL (75-99)
--- NOTE | 2020-12-22 13:11 | P.PN ---
Subjective Progress Note Date: 12/22/20 ISTORY OF PRESENT ILLNESS This is a 65-year-old female patient of Dr. Varghese with past medical history of COPD, PAD as well as stents by Dr. Mas, hypertension, hyperlipide rebecca. Patient has history of severe claudication of the left lower extremity and followed by Dr. Mas status post angiogram and angioplasty of the left external iliac artery followed by clot and on long-term eliquis, alcohol abuse. She had a hospitalization in October which time she presented for syncopal episode 4 of unclear etiology. Patient states that she was recently diagnosed with diabetes but does not recall the hemoglobin A1c. CAT scan of the brain revealed age-related atrophy and chronic small vessel ischemic change without acute intracranial process. Echocardiogram reveals EF of 55-60% with moderate concentric left hypertrophy, mild tricuspid regurgitation. CTA of the chest revealed no PE. Mild central alveolar edema. No focal consolidation. Patent stent graft beginning aortic arch level extending into descending thoracic aorta. 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 Carotid Doppler study revealed moderate to severe atherosclerotic changes bilaterally, hemodynamically significant stenosis of 50-69% bilaterally. Patient was seen by vascular surgery with recommendations to follow up with Dr. Mas. Patient was also seen by neurology thought to be tussive syncope and recommended no alcohol use. Patient states that she was sitting and taking her medications and talking to her [id number] on the phone and her left arm became weak and her speech was slurred. This occurred about 9:30 in the morning yesterday. She then went to Dr. Varghese's office as a walk-in and was then directed to [facility] for further evaluation. She was found to be afebrile, heart rate 110, blood pressure 147/76, pulse ox 94% on room air. EKG was sinus tachycardia with no acute ST changes. CAT scan of the brain showed no acute abnormality. CBC was unremarkable. Sodium 135, potassium 3.5, chloride 96, CO2 32, BUN 9 and creatinine 0.62. Blood sugar 150. Liver function tests were normal. Troponin negative. Albumin 4.2. Patient admitted to the [facility] floor and patient seen by neurology with recommendations for stopping aspirin and start Plavix along with patient's chronic eliquis 5 mg twice daily, continue Lipitor 80 mg daily. MRI of the brain which patient initially refused due to claustrophobia. Limited echocardiogram reveals EF of 55%. 12/22: Patient is found sitting up in bed resting comfortably in no acute distress. Per neurology's recommendations patient will be started on Keppra and Plavix. We will continue with PT and OT and review for possible subacute rehab. Patient is currently utilizing a nicotine patch. Discussed with patient's adding Wellbutrin and outpatient setting to help with smoking cessation. Tee cleaning is agreeable at this time. Consult for Dr. Pearson. Patient will go for CTA today. REVIEW OF SYSTEMS Constitutional: No fever, no chills, no night sweats. No weight change. No weakness, fatigue or lethargy. No daytime sleepiness. EENT: No headache. No blurred vision or double vision, no loss of vision. No loss of Hearing, no ringing in the ears, no dizziness. No nasal drainage or congestion. No epistaxis. No sore throat. Lungs: Reports shortness of breath, cough, no sputum production. No wheezing. Cardiovascular: No chest pain, no lower extremity edema. Reports palpitations. No paroxysmal nocturnal dyspnea. No orthopnea. No lightheadedness or dizzines s. Reports 4 syncopal episodes. Abdominal: No abdominal pain. No nausea, vomiting. No diarrhea. No constipation. No bloody or tarry stools.. No loss of appetite. Genitourinary: No dysuria, increased frequency, urgency. No urinary retention. Musculoskeletal: No myalgias. No muscle weakness, no gait dysfunction, no frequent falls. No back pain. No neck pain. Integumentary: No wounds, no lesions. No rash or pruritus. No unusual bruising. No change in hair or nails. Neurologic: No aphasia. No facial droop. No change in mentation. No head injury. No headache. No paralysis. No paresthesia. Psychiatric: No depression. No anxiety. No mood swings. Endocrine: No abnormal blood sugars. No weight change. No excessive sweating or thirst. No cold intolerance. PHYSICAL EXAMINATION Gen: This is a 65-year-old female. She is resting in bed and appears to be comfortable at rest. No acute distress. HEENT: Head is atraumatic, normocephalic. Pupils equal, round. Sclerae is anicteric. NECK: Supple. No JVD. No lymphadenopathy. No thyromegaly. LUNGS: Decreased breath sounds bilaterally with scattered rhonchi. No intercostal retractions. HEART: Regular rate and rhythm. No murmur. ABDOMEN: Soft. Bowel sounds are present. No masses. No tenderness. EXTREMITIES: No pedal edema. No calf tenderness. NEUROLOGICAL: Patient is awake, alert and oriented x3. Cranial nerves 2 through 12 are grossly intact. ASSESSMENT AND PLAN 1. CVA versus TIA with left-sided weakness. MRI of the brain, carotid ultrasound, TSH, A1c, consult with neurology appreciated. Patient to continue eliquis 5 mg twice daily, Plavix 75 mg daily has been started, discontinued aspirin, continue Lipitor 80 mg at bedtime. 2. COPD exacerbation and acute tracheobronchitis. Patient started on azithromycin 500 mg daily, continue Symbicort 2 puffs twice daily, Solu-Medrol 60 mg IV every 6 hours, albuterol nebulizer every 4 hours as needed. 3. Severe peripheral vascular disease status post left external iliac artery angioplasty and stent with restenosis and thrombosis, on long-term eliquis, aspirin discontinued and followed by Dr. Mas. 4. Hypertension. Continue metoprolol 100 mg daily, hold amlodipine 5 mg daily and hydrochlorothiazide 25 mg daily for hypertension. 5. Hyperlipidemia. Continue atorvastatin 80 mg daily. 6. History of tobacco use and dependence. 7. History of Alcohol abuse. 8. Recurrent depression and generalized anxiety disorder. Continue Wellbutrin 150 mg twice daily, Cymbalta 60 mg daily. 9. Gastroesophageal reflux disease and GI prophylaxis. Continue Protonix. 10. DVT prophylaxis. Eliquis. Patient will be admitted to the hospital for a minimum of 2 night stay. DISCHARGE PLAN Home. Impression and plan of care have been directed as dictated by the signing phys adolph. Nel Pop nurse practitioner acting as scribe for signing physician. Objective - Vital Signs Vital signs: Vital Signs Temp 98.1 F 12/22/20 07:51 Pulse 76 12/22/20 07:51 Resp 16 12/22/20 07:51 BP 124/69 12/22/20 07:51 Pulse Ox 93 L 12/22/20 07:51 Intake & Output 12/21/20 12/22/20 12/22/20 18:59 06:59 18:59 Intake Total 472 Balance 472 Intake: Oral 472 Other: Voiding Method Toilet Toilet # Voids 4 1 # Bowel Movements 0 0 - Labs CBC & Chem 7: 12/20/20 10:59 12/20/20 10:59 Labs: Abnormal Lab Results - Last 24 Hours (Table) 12/21/20 12/21/20 12/21/20 Range/Units 05:46 18:03 20:15 POC Glucose (mg/dL) 192 H 248 H (75-99) mg/dL Hemoglobin A1c 6.9 H (4.0-6.0) % 12/22/20 12/22/20 Range/Units 07:06 11:46 POC Glucose (mg/dL) 262 H 163 H (75-99) mg/dL Hemoglobin A1c (4.0-6.0) %
--- NOTE | 2020-12-22 14:44 | CT ---
EXAMINATION TYPE: CT angio head neck DATE OF EXAM: 12/22/2020 HISTORY: Stroke, Carotid stenosis COMPARISON: None CT DLP: 733 mGycm. Automated Exposure Control for Dose Reduction was Utilized. TECHNIQUE: CTA scan of the neck is performed without and with IV Contrast, patient injected with 130 ml mL of Isovue 370, axial images are obtained, coronal and sagittal reformatted images are reviewed . Three-D reconstructed images are created on an independent workstation and reviewed. FINDINGS: Carotid/Vascular Structures: Suboptimal evaluation due to bolus timing and suboptimal opacification of the arteries. A stent is demonstrated in the aortic arch. Atherosclerotic calcifications are seen in the aortic arc h at the origin of the right brachiocephalic and left common carotid. It appears that the left subcla vian and left common carotid artery share a common origin. Mild to moderate narrowing at the left common carotid artery bifurcation is seen. Atherosclerotic calcifications are seen in the proximal right brachiocephalic artery at the bifurcati on. Soft and calcific plaques are noted at the right common carotid bifurcation causing mild stenosis . A bilateral retropharyngeal course of the common carotid arteries is noted. The vertebral arteries are grossly patent the right vertebral artery appears to be dominant. Atherosclerotic calcifications are seen in the cavernous segments of the internal carotid arteries bi laterally with no hemodynamically significant stenosis. Internal carotid arteries in the neck are pat ent. Tiny focal dilatation is noted at the right internal carotid terminus. The proximal anterior cerebral arteries and proximal middle cerebral arteries are patent. Basilar artery and posterior cerebral art eries are also patent. The deep venous sinuses are grossly patent. Calcifications are noted in the left external jugular. Other findings: Within the limits of the CT there is no evidence of acute intracranial hemorrhage midline shift or ma ss effect. No air-fluid levels are seen in the paranasal sinuses or mastoid air cells. No acute intraorbital abnormalities. No cervical lymphadenopathy noted. Prominent bilateral cervical lymph nodes are seen. The thyroid gland is not enlarged. Included airways are patent. Included upper lungs are unremarkable. Included upper mediastinum is unremarkable. No acute osseous abnormality identified. Moderate to severe degenerative changes are seen in the cerv ical spine. IMPRESSION: 1. Suboptimal evaluation due to bolus timing. 2. Moderate left and mild right common carotid artery stenosis secondary to soft and calcific plaques . 3. It appears that the left subclavian and left common carotid artery showed a common origin. 4. Bilateral retropharyngeal course of the common carotid arteries noted. 5. Questionable fusiform aneurysm at the right internal carotid terminus.
--- NOTE | 2020-12-22 16:10 | P.GSCN ---
History of Present Illness Consult date: 12/22/20 Reason for Consult: TIA, carotid stenosis Requesting physician: Scooby Dyson History of present illness: 65-year-old female with significant vascular history of carotid stenosis with recent hospitalization for syncopal episodes as well as history of aortic dissection which was repaired proximally 10 years prior, left upper extremity revascularization with stenting and iliac stenting. She presented to the emergency department on 12/20/2020 for weakness of the left side which she describes as left arm weakness and leg numbness. She was also having difficulty with speech and getting words out. She states that her symptoms do coming go. She denies any vision issues, difficulty swallowing, previous strokes, fevers, chills, chest pain or shortness of breath. She states she is followed by Dr. Mas for her carotid stenosis and has had ultrasounds in the past which demonstrated stenosis up to 70%. Upon her previous evaluations in the hospital her carotid Doppler demonstrates 50-69% stenosis. She does admit to continuing smoking. She is currently taking aspirin as well as oral anticoagulation. She states her symptoms have resolved since being in the hospital. Review of Systems All systems: negative (What is mentioned in the HPI and past medical history) Past Medical History Past Medical History: Asthma, Chest Pain / Angina, COPD, Diabetes Mellitus, Deep Vein Thrombosis (DVT), GERD/Reflux, Hyperlipidemia, Hypertension, Osteoarthritis (OA), Vascular Disorder Additional Past Medical History / Comment(s): hx blood clot in left arm and left hand, hx migraines, PVD, left leg pain History of Any Multi-Drug Resistant Organisms: None Reported Past Surgical History: Heart Catheterization Additional Past Surgical History / Comment(s): stent to lt external iliac, blood clot removed from left arm, surgery to fix "tear in aorta", surgery for "abdominal adhesions", 06-11-16 LT ILIAC PTBA/STENT, PTBA 10/03/2020-Stent x2 Il liac (L). Past Anesthesia/Blood Transfusion Reactions: No Reported Reaction Additional Past Anesthesia/Blood Transfusion Reaction / Comm: claustrophobia Past Psychological History: No Psychological Hx Reported Smoking Status: Current every day smoker Past Alcohol Use History: Daily Additional Past Alcohol Use History / Comment(s): started smoking at age 16, states trying to quit, little over 1/2 ppd, drinks 3-4 beers daily Past Drug Use History: None Reported - Past Family History Father Family Medical History: Cancer, Myocardial Infarction ([place]) Additional Family Medical History / Comment(s): SKIN CANCER Mother Family Medical History: Cancer, Deep Vein Thrombosis (DVT) Additional Family Medical History / Comment(s): COLON CANCER TWICE, lung ancer Medications and Allergies Home Medications Medication Instructions Recorded Confirmed Type Cholecalciferol [Vitamin D3 (10 400 unit PO DAILY 02/26/15 12/20/20 History Mcg = 400 Iu)] Metoprolol Succinate [Toprol XL] 100 mg PO DAILY 02/26/15 12/20/20 History hydroCHLOROthiazide 25 mg PO DAILY #30 tablet 10/18/18 12/20/20 Rx Albuterol Sulfate [Ventolin HFA] 2 puff INHALATION RT-Q4H PRN 07/14/19 12/20/20 History Pantoprazole [Protonix] 40 mg PO DAILY 07/14/19 12/20/20 History Ferrous Sulfate [Iron (65 MG 325 mg PO DAILY 10/01/20 12/20/20 History Elemental)] Acetaminophen [Tylenol Extra 1,000 mg PO Q46H PRN 11/02/20 12/20/20 History Strength] Aspirin EC [Ecotrin Low Dose] 81 mg PO DAILY 11/02/20 12/20/20 History Budesonide/Formoterol Fumarate 2 puff INHALATION RT-BID 11/02/20 12/20/20 History [Symbicort 160-4.5 Mcg Inhaler] Nitroglycerin Sl Tabs [Nitrostat] 0.4 mg SUBLINGUAL Q5M PRN 11/02/20 12/20/20 History Rosuvastatin Calcium [Crestor] 40 mg PO DAILY 11/02/20 12/20/20 History buPROPion XL [Wellbutrin XL] 150 mg PO BID 11/02/20 12/20/20 History amLODIPine [Norvasc] 2.5 mg PO DAILY #0 11/05/20 12/20/20 Rx Apixaban [Eliquis] 5 mg PO BID 12/20/20 12/20/20 History DULoxetine HCL [Cymbalta] 60 mg PO DAILY 12/20/20 12/20/20 History Furosemide [Lasix] 20 mg PO DAILY 12/20/20 12/20/20 History Potassium Chloride 10 meq PO DAILY 12/20/20 12/20/20 History metFORMIN HCL [Glucophage] 500 mg PO BID 12/20/20 12/20/20 History Allergies Allergy/AdvReac Type Severity Reaction Status Date / Time influenza virus vaccine, Allergy Rash/Hives Verified 12/20/20 12:19 specific [influenza virus vacc,specific] lisinopril Allergy Swelling Verified 12/20/20 12:19 Surgical - Exam Vital Signs Temp Pulse Resp BP Pulse Ox 98.3 F 110 H 24 147/76 94 L 12/20/20 10:56 12/20/20 10:56 12/20/20 10:56 12/20/20 10:56 12/20/20 10:56 Tongue is midline, normal strength upper and lower extremities 5 out of 5. Sensation is grossly intact. Bilateral lower extremities are warm and dry. Nonpalpable DP and PT pulses. P alpable radial pulses bilaterally. - General well developed, well nourished, no distress - Eyes PERRL, normal ocular movement - ENT normal pinna, normal nares - Neck no masses, no bruits - Respiratory normal expansion - Cardiovascular Rhythm: regular - Abdomen Obese Abdomen: soft, non tender - Integumentary no rash, no growths - Neurologic normal coordination, normal sensation - Psychiatric oriented to time, oriented to person, oriented to place, speech is normal Results - Labs 12/20/20 10:59 12/20/20 10:59 Abnormal Lab Results - Last 24 Hours (Table) 12/21/20 12/21/20 12/21/20 Range/Units 05:46 18:03 20:15 POC Glucose (mg/dL) 192 H 248 H (75-99) mg/dL Hemoglobin A1c 6.9 H (4.0-6.0) % 12/22/20 12/22/20 Range/Units 07:06 11:46 POC Glucose (mg/dL) 262 H 163 H (75-99) mg/dL Hemoglobin A1c (4.0-6.0) % Diabetes panel 12/21/20 Range/Units 05:46 Hemoglobin A1c 6.9 H (4.0-6.0) % - Imaging Comments: CTA of the neck was reviewed and no significant stenosis is noted in bilateral carotid arteries. There is some mild calcification noted throughout. Assessment and Plan Assessment: #1 TIA with left-sided weakness and numbness #2 history of bilateral internal carotid artery stenosis 50-69% on Doppler #3 peripheral arterial disease with history of iliac stenting #4 tobacco abuse #5 history of syncope #6 history of aortic dissection with stent graft repair Plan: CTA of the neck was reviewed and demonstrates mild stenosis of bilateral internal carotid arteries less than 50%. Increased velocities noted on the c arotid Doppler may be due to tortuosity and further studies including catheter directed angiogram may be beneficial for determining stenosis due to discordance between the 2 studies. She can undergo follow up as an outpatient and scheduled this procedure at a later date. I would recommend continuing Lipitor, Plavix and Eliquis as described per neurology. Patient will follow-up in one week with Dr. Pearson for further discussion and planning of catheter directed angiogram versus intervention. Thank you for allowing us to participate in your patient's care.
[2020-12-22 17:03] LABS: Glucose,Whole Blood 229 mg/dL (75-99)
[2020-12-22 19:41] LABS: Glucose,Whole Blood 220 mg/dL (75-99)
[2020-12-23] MEDS: methylPREDNISolone SOD SUCCI 125 MG/2 ML VIAL IV SCH (05:33)
[2020-12-23 07:02] LABS: Glucose,Whole Blood 241 mg/dL (75-99)
[2020-12-23] MEDS: SYMBICORT 160-4.5 MCG INHALER INHALATION SCH ×2 (07:30→20:50)
[2020-12-23] MEDS: INSULIN ASPART (NovoLOG) 100 UNIT/ML VIAL SQ SCH ×4 (08:10→21:11)
[2020-12-23] MEDS: DULoxetine HCL 60 MG CAPSULE.DR PO SCH (08:11)
[2020-12-23] MEDS: METOPROLOL SUCCINATE (ER) 100 MG TAB.ER.24H PO SCH (08:11)
[2020-12-23] MEDS: buPROPion XL 150 MG TAB.ER.24H PO SCH ×2 (08:11→21:11)
[2020-12-23] MEDS: metFORMIN 500 MG TAB PO SCH ×2 (08:11→21:11)
[2020-12-23] MEDS: levETIRAcetam 500 MG TAB PO SCH ×2 (08:11→21:11)
[2020-12-23] MEDS: FUROSEMIDE 20 MG TAB PO SCH (08:11)
[2020-12-23] MEDS: APIXABAN 5 MG TAB PO SCH ×2 (08:11→21:10)
[2020-12-23] MEDS: FERROUS SULFATE 325 MG TAB PO SCH (08:12)
[2020-12-23] MEDS: AZITHROMYCIN 500 MG TAB PO SCH (08:12)
[2020-12-23] MEDS: CLOPIDOGREL 75 MG TAB PO SCH (08:12)
[2020-12-23] MEDS: ATORVASTATIN 80 MG TAB PO SCH (08:12)
[2020-12-23] MEDS: PANTOPRAZOLE 40 MG TABLET PO SCH (08:16)
[2020-12-23] MEDS: POTASSIUM CHLORIDE ER 10 MEQ TAB.ER.PRT PO SCH (08:17)
[2020-12-23] MEDS: NICOTINE 14MG/24HR PATCH TRANSDERM SCH (08:24)
[2020-12-23] MEDS: predniSONE 20 MG TAB PO SCH (08:51)
--- NOTE | 2020-12-23 10:43 | P.PN ---
Subjective Progress Note Date: 12/23/20 She was seen at bedside and she stated that she feels back to normal life. She denies of any further episodes. CT angiography of the head and neck was reported as suboptimal evaluation due to bolus timing. Moderate left and mild right common carotid artery stenosis secondary to soft and calcified plaque. It appears that the left subclavian and left common carotid artery showed a common origin. Bilateral retropharyngeal course of the common carotid artery noted. Questionable fusiform aneurysm at t he right internal carotid terminus. Vascular surgery team evaluated the patient and they felt mild stenosis of bilateral internal carotid artery less than 50% upon looking at the CT angiography of the neck. Objective - Vital Signs Vital signs: Vital Signs Temp 98.1 F 12/23/20 07:46 Pulse 77 12/23/20 07:46 Resp 16 12/23/20 07:46 BP 130/73 12/23/20 07:46 Pulse Ox 95 12/23/20 07:46 Intake & Output 12/22/20 12/23/20 12/23/20 18:59 06:59 18:59 Other: Voiding Method Toilet # Voids 2 2 # Bowel Movements 0 0 - Exam GENERAL: The patient is lying in bed and is not in acute distress. NEUROLOGICAL: Higher mental function: The patient is awake, alert, oriented to self, place and time. Patient is following commands. No aphasia and no neglect. Cranial nerves: The pupils are round, equal and reactive to light and accommodation. Visual holcomb are full to confrontation throughout. Extraocular movement is intact no nystagmus is noted. Facial sensation is normal to touch throughout. The facial strength is normal throughout. Hearing is normal bilaterally to hand rub. Tongue is midline and moved [id number] without any difficulty. No dysarthria is noted. Shoulder shrug is normal bilaterally. Motor: Gait is deferred. 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 Otherwise 5/5 throughout. Normal tone and bulk. Cerebellum: Normal finger to nose heel to meredith bilaterally. Sensation: Sensation is normal to touch throughout. Reflexes (right/left): 2+ throughout. Plantars are downgoing bilaterally. Lipid panel is triglyceride of 120, cholesterol 149, LDL 71, HDL 54. TSH is 2.130 which is considered within normal limits. Hemoglobin A1c is 6.9 which is considered elevated and that's suggestive of newly diagnosed diabetes in my opinoin. MRI of the brain on 12/21/2020 is reported as scattered white matter signal change could relate to chronic small vessel ischemia or demyelinating disease. Possible small gyriform cortical infarct in the lateral right temporal lobe. I personally reviewed the MRI of the brain and I'll I did not feel was the right temporal my opinion I felt was more right frontal. Carotid duplex is reported as there are bilateral increased velocity suggestive of hemodynamically significant stenosis at. This is likely in the range of 50-69% stenosis of the bilateral internal carotid arteries. There is however tortuosity. A CT angiogram of the neck is recommended for further evaluation. There is severe after scarlet plaque at the common carotid artery bifurcation. Finding are stable on the right and increased on the left since prior ultrasound dated 11/04/2020. Limited 2-D echo is reported as "BBB" I believe referring to bundle branch block. Left ventricular size, wall thickness and systolic function are normal with ejection fraction greater than 55%. Bubble study and noted. CT angiography of the head and neck was reported as suboptimal evaluation due to bolus timing. Moderate left and mild right common carotid artery stenosis secondary to soft and calcified plaque. It appears that the left subclavian and left common carotid artery showed a common origin. Bilateral retropharyngeal course of the common carotid artery noted. Questionable fusiform aneurysm at the right internal carotid terminus. Vascular surgery team evaluated the patient and they felt mild stenosis of bilateral internal carotid artery less than 50% upon looking at the CT angiography of the neck. - Labs CBC & Chem 7: 12/20/20 10:59 12/20/20 10:59 Labs: Abnormal Lab Results - Last 24 Hours (Table) 12/22/20 12/22/20 12/22/20 Range/Units 11:46 17:01 19:39 POC Glucose (mg/dL) 163 H 229 H 220 H (75-99) mg/dL 12/23/20 Range/Units 07:00 POC Glucose (mg/dL) 241 H (75-99) mg/dL Assessment and Plan Assessment: * Acute ischemic stroke over the right frontal (with recurrent left-sided weakness and numbness and difficulty getting her words out). No IV tpa since per ED her sypmtoms resolved on presentation and her NIH is low when she has them. Seems embolic (possibly artery to artery. Cannot rule out cardioembolic). * Possibly her symptoms are stroke are causing cortical irritability (seizure) causing her to have recurrence episodes (lasting 5 seconds) * Moderate bilateral internal carotid artery stenosis (50-69% per carotid duplex) On CTA reported as Moderate left and mild right common carotid artery stenosis. But per vascular they documentented mild stenosis bilaterally (<50%). * Newly diagnosed diabetes mellitus (HbA1c 6.9) * History of syncopal spells likely tussive syncope that is reported in the past * History of hypertension * Peripheral vascular disease * DVT on Eliquis * History of COPD * Nicotine use Plan: Patient is on her home medication of Eliquis 5 mg 1 tablet twice a day (for DVT) and continue Plavix 75mg daily (stopped her home dose ASA). To continue Plavix 75mg daily indefinetly. Continue Lipitor 80 mg daily at bedtime. Continue Keppra 500mg 1 tab bid (since having recurrence episodes, likely from cortical irritability from stroke). I ordered 2 1/2 hours EEG as outpatient to capture these episodes. Vascular surgery team is on board and no intervention is no patient and patient to follow up as an outpatient. PT, OT and APPRAISER AUDITOR are consulted Every 4 hours neuro checks On continuous cardiac monitoring. Placed an order for event monitor (for 30 days) but patient refused (since was on it in the past). We'll defer the rest of the medical management to primary team The patient is clear from neurological standpoint and needs to follow-up with a neurologist as outpatient within 1-2 weeks. The plan is discussed with the patient's nurse. Neurology will sign off. Please reconsult if needed. Scooby Dyson M.D. Neuro-hospitalist Time with Patient: Less than 30
[2020-12-23 11:34] LABS: Glucose,Whole Blood 155 mg/dL (75-99)
--- NOTE | 2020-12-23 12:36 | P.PN ---
Subjective Progress Note Date: 12/23/20 ISTORY OF PRESENT ILLNESS This is a 65-year-old female patient of Dr. Varghese with past medical history of COPD, PAD as well as stents by Dr. Mas, hypertension, hyperlipide rebecca. Patient has history of severe claudication of the left lower extremity and followed by Dr. Mas status post angiogram and angioplasty of the left external iliac artery followed by clot and on long-term eliquis, alcohol abuse. She had a hospitalization in October which time she presented for syncopal episode 4 of unclear etiology. Patient states that she was recently diagnosed with diabetes but does not recall the hemoglobin A1c. CAT scan of the brain revealed age-related atrophy and chronic small vessel ischemic change without acute intracranial process. Echocardiogram reveals EF of 55-60% with moderate concentric left hypertrophy, mild tricuspid regurgitation. CTA of the chest revealed no PE. Mild central alveolar edema. No focal consolidation. Patent stent graft beginning aortic arch level extending into descending thoracic aorta. 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 Carotid Doppler study revealed moderate to severe atherosclerotic changes bilaterally, hemodynamically significant stenosis of 50-69% bilaterally. Patient was seen by vascular surgery with recommendations to follow up with Dr. Mas. Patient was also seen by neurology thought to be tussive syncope and recommended no alcohol use. Patient states that she was sitting and taking her medications and talking to her [id number] on the phone and her left arm became weak and her speech was slurred. This occurred about 9:30 in the morning yesterday. She then went to Dr. Varghese's office as a walk-in and was then directed to [facility] for further evaluation. She was found to be afebrile, heart rate 110, blood pressure 147/76, pulse ox 94% on room air. EKG was sinus tachycardia with no acute ST changes. CAT scan of the brain showed no acute abnormality. CBC was unremarkable. Sodium 135, potassium 3.5, chloride 96, CO2 32, BUN 9 and creatinine 0.62. Blood sugar 150. Liver function tests were normal. Troponin negative. Albumin 4.2. Patient admitted to the [facility] floor and patient seen by neurology with recommendations for stopping aspirin and start Plavix along with patient's chronic eliquis 5 mg twice daily, continue Lipitor 80 mg daily. MRI of the brain which patient initially refused due to claustrophobia. Limited echocardiogram reveals EF of 55%. 12/22: Patient is found sitting up in bed resting comfortably in no acute distress. Per neurology's recommendations patient will be started on Keppra and Plavix. We will continue with PT and OT and review for possible subacute rehab. Patient is currently utilizing a nicotine patch. Discussed with patient's adding Wellbutrin and outpatient setting to help with smoking cessation. Tee cleaning is agreeable at this time. Consult for Dr. Pearson. Patient will go for CTA today. 12/23: Patient is found sitting at the side of the bed. Patient states that she was unable to sleep last night. She denies any increased shortness of breath or chest pain. Patient is concerned about returning to smoking when she leaves. She will continue with the nicotine patch. Patient is scheduled to follow-up with Dr. Pearson and outpatient basis. Her Solu-Medrol will be changed to oral prednisone today. REVIEW OF SYSTEMS Constitutional: No fever, no chills, no night sweats. No weight change. No weakness, fatigue or lethargy. No daytime sleepiness. Reports difficulty slee ping EENT: No headache. No blurred vision or double vision, no loss of vision. No loss of Hearing, no ringing in the ears, no dizziness. No nasal drainage or congestion. No epistaxis. No sore throat. Lungs: Reports shortness of breath, cough, no sputum production. No wheezing. Cardiovascular: No chest pain, no lower extremity edema. Reports palpitations. No paroxysmal nocturnal dyspnea. No orthopnea. No lightheadedness or dizziness. Reports 4 syncopal episodes. Abdominal: No abdominal pain. No nausea, vomiting. No diarrhea. No constipation. No bloody or tarry stools.. No loss of appetite. Genitourinary: No dysuria, increased frequency, urgency. No urinary retention. Musculoskeletal: No myalgias. No muscle weakness, no gait dysfunction, no frequent falls. No back pain. No neck pain. Integumentary: No wounds, no lesions. No rash or pruritus. No unusual bruising. No change in hair or nails. Neurologic: No aphasia. No facial droop. No change in mentation. No head injury. No headache. No paralysis. No paresthesia. Psychiatric: No depression. No anxiety. No mood swings. Endocrine: No abnormal blood sugars. No weight change. No excessive sweating or thirst. No cold intolerance. PHYSICAL EXAMINATION Gen: This is a 65-year-old female. She is resting in bed and appears to be comfortable at rest. No acute distress. HEENT: Head is atraumatic, normocephalic. Pupils equal, round. Sclerae is anicteric. NECK: Supple. No JVD. No lymphadenopathy. No thyromegaly. LUNGS: Decreased breath sounds bilaterally with scattered rhonchi. No intercostal retractions. HEART: Regular rate and rhythm. No murmur. ABDOMEN: Soft. Bowel sounds are present. No masses. No tenderness. EXTREMITIES: No pedal edema. No calf tenderness. NEUROLOGICAL: Patient is awake, alert and oriented x3. Cranial nerves 2 through 12 are grossly intact. ASSESSMENT AND PLAN 1. CVA versus TIA with left-sided weakness. MRI of the brain, carotid ultrasound, TSH, A1c, consult with neurology appreciated. Patient to continue eliquis 5 mg twice daily, Plavix 75 mg daily has been started, discontinued aspirin, continue Lipitor 80 mg at bedtime. Follow up with Dr. Pearson and outpatient basis. She was started on Keppra per neurology recommendation. 2. COPD exacerbation and acute tracheobronchitis. Patient started on naya thromycin 500 mg daily, continue Symbicort 2 puffs twice daily, Solu-Medrol discontinued and changed to prednisone 20 mg albuterol nebulizer every 4 hours as needed. 3. Severe peripheral vascular disease status post left external iliac artery angioplasty and stent with restenosis and thrombosis, on long-term eliquis, aspirin discontinued and followed by Dr. Mas. 4. Hypertension. Continue metoprolol 100 mg daily, hold amlodipine 5 mg daily and hydrochlorothiazide 25 mg daily for hypertension. 5. Hyperlipidemia. Continue atorvastatin 80 mg daily. 6. History of tobacco use and dependence. Nicotine patch 7. History of Alcohol abuse. 8. Recurrent depression and generalized anxiety disorder. Continue Wellbutrin 150 mg twice daily, Cymbalta 60 mg daily. 9. Gastroesophageal reflux disease and GI prophylaxis. Continue Protonix. 10. DVT prophylaxis. Eliquis. Patient will be admitted to the hospital for a minimum of 2 night stay. DISCHARGE PLAN Home. Impression and plan of care have been directed as dictated by the signing physician. Nel Kamendat nurse practitioner acting as scribe for signing physician. Objective - Vital Signs Vital signs: Vital Signs Temp 98.1 F 12/23/20 07:46 Pulse 77 12/23/20 07:46 Resp 16 12/23/20 07:46 BP 130/73 12/23/20 07:46 Pulse Ox 95 12/23/20 07:46 Intake & Output 12/22/20 12/23/20 12/23/20 18:59 06:59 18:59 Other: Voiding Method Toilet # Voids 2 2 # Bowel Movements 0 0 - Labs CBC & Chem 7: 12/20/20 10:59 12/20/20 10:59 Labs: Abnormal Lab Results - Last 24 Hours (Table) 12/22/20 12/22/20 12/23/20 Range/Units 17:01 19:39 07:00 POC Glucose (mg/dL) 229 H 220 H 241 H (75-99) mg/dL 12/23/20 Range/Units 11:33 POC Glucose (mg/dL) 155 H (75-99) mg/dL
[2020-12-23 17:06] LABS: Glucose,Whole Blood 241 mg/dL (75-99)
[2020-12-23 20:17] LABS: Glucose,Whole Blood 220 mg/dL (75-99)
[2020-12-24 07:30] LABS: Glucose,Whole Blood 138 mg/dL (75-99)
[2020-12-24] MEDS: SYMBICORT 160-4.5 MCG INHALER INHALATION SCH (07:44)
[2020-12-24 07:46] VITALS: BP 124/71; PULSE 74; RESP 16; TEMP 97.9
[2020-12-24] MEDS: levETIRAcetam 500 MG TAB PO SCH (08:08)
[2020-12-24] MEDS: NICOTINE 14MG/24HR PATCH TRANSDERM SCH (08:08)
[2020-12-24] MEDS: INSULIN ASPART (NovoLOG) 100 UNIT/ML VIAL SQ SCH (08:08)
[2020-12-24] MEDS: buPROPion XL 150 MG TAB.ER.24H PO SCH (08:08)
[2020-12-24] MEDS: FUROSEMIDE 20 MG TAB PO SCH (08:09)
[2020-12-24] MEDS: ATORVASTATIN 80 MG TAB PO SCH (08:09)
[2020-12-24] MEDS: APIXABAN 5 MG TAB PO SCH (08:09)
[2020-12-24] MEDS: DULoxetine HCL 60 MG CAPSULE.DR PO SCH (08:09)
[2020-12-24] MEDS: PANTOPRAZOLE 40 MG TABLET PO SCH (08:09)
[2020-12-24] MEDS: METOPROLOL SUCCINATE (ER) 100 MG TAB.ER.24H PO SCH (08:09)
[2020-12-24] MEDS: FERROUS SULFATE 325 MG TAB PO SCH (08:09)
[2020-12-24] MEDS: AZITHROMYCIN 500 MG TAB PO SCH (08:09)
[2020-12-24] MEDS: predniSONE 20 MG TAB PO SCH (08:09)
[2020-12-24] MEDS: POTASSIUM CHLORIDE ER 10 MEQ TAB.ER.PRT PO SCH (08:09)
[2020-12-24] MEDS: metFORMIN 500 MG TAB PO SCH (08:09)
[2020-12-24] MEDS: CLOPIDOGREL 75 MG TAB PO SCH (08:09)
--- NOTE | 2020-12-25 12:35 | P.DS ---
Providers Date of admission: 12/21/20 09:32 Expected date of discharge: 12/24/20 Attending physician: Sarai Wright Consults: 12/20/20 12:58 Consult Physician Routine Consulting Provider: Scooby Dyson Consult Reason/Comments: TIA Do you want consulting provider notified?: Yes 12/22/20 08:43 Consult Physician Routine Consulting Provider: Gillian Pearson Consult Reason/Comments: cartoid stenosis Do you want consulting provider notified?: Yes Primary care physician: David Varghese [place] [facility] Course: ISTORY OF PRESENT ILLNESS This is a 65-year-old female patient of Dr. Varghese with past medical history of COPD, PAD as well as stents by Dr. Mas, hypertension, hyperlipidemia. Patient has history of severe claudication of the left lower extremity and followed by Dr. Mas status post angiogram and angioplasty of the left external iliac artery followed by clot and on long-term eliquis, alcohol abuse. She had a hospitalization in October which time she presented for syncopal episode 4 of unclear etiology. Patient states that she was recently diagnosed with diabetes but does not recall the hemoglobin A1c. CAT scan of the brain revealed age-related atrophy and chronic small vessel ischemic change without acute intracranial process. Echocardiogram reveals EF of 55-60% with moderate concentric left hypertrophy, mild tricuspid regurgitation. CTA of the chest revealed no PE. Mild central alveolar edema. No focal consolidation. Patent stent graft beginning aortic arch level extending into descending thoracic aorta. 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 Carotid Doppler study revealed moderate to severe atherosclerotic changes bilaterally, hemodynamically significant stenosis of 50-69% bilaterally. Patient was seen by vascular surgery with recommendations to follow up with Dr. Mas. Patient was also seen by neurology thought to be tussive syncope and recommended no alcohol use. Patient states that she was sitting and taking her medications and talking to her [id number] on the phone and her left arm became weak and her speech was slurred. This occurred about 9:30 in the morning yesterday. She then went to Dr. Varghese's office as a walk-in and was then directed to [facility] for further evaluation. She was found to be afebrile, heart rate 110, blood pressure 147/76, pulse ox 94% on room air. EKG was sinus tachycardia with no acute ST changes. CAT scan of the brain showed no acute abnormality. CBC was unremarkable. Sodium 135, potassium 3.5, chloride 96, CO2 32, BUN 9 and creatinine 0.62. Blood sugar 150. Liver function tests were normal. Troponin negative. Albumin 4.2. [facility] and patient seen by neurology with recommendations for stopping aspirin and start Plavix along with patient's chronic eliquis 5 mg twice daily, continue Lipitor 80 mg daily. MRI of the brain which patient initially refused due to claustrophobia. Limited echocardiogram reveals EF of 55%. 12/22: Patient is found sitting up in bed resting comfortably in no acute distress. Per neurology's recommendations patient will be started on Keppra and Plavix. We will continue with PT and OT and review for possible subacute rehab. Patient is currently utilizing a nicotine patch. Discussed with patient's adding Wellbutrin and outpatient setting to help with smoking cessation. Patient is agreeable at this time. Consult for Dr. Pearson. Patient will go for CTA today. 12/23: Patient is found sitting at the side of the bed. Patient states that she was unable to sleep last night. She denies any increased shortness of breath or chest pain. Patient is concerned about returning to smoking when she leaves. She will continue with the nicotine patch. Patient is scheduled to follow-up with Dr. Pearson and outpatient basis. Her Solu-Medrol will be changed to oral prednisone today. 12/24: CT angiography of the head and neck was reported as suboptimal evaluation due to bolus timing. Moderate left and mild right common carotid artery stenosis secondary to soft and calcified plaque. It appears that the left subclavian and left common carotid artery showed a common origin. Bilateral retropharyngeal course of the common carotid artery noted. Questionable fusiform aneurysm at the right internal carotid terminus. Patient has been seen by Dr. Silverio and felt mild stenosis of bilateral internal carotid artery less than 50% upon looking at the CT angiography of the neck. Lipid panel is triglyceride of 120, cholesterol 149, LDL 71, HDL 54. TSH is 2.130 which is considered within normal limits. Hemoglobin A1c is 6.9 Neurology has recommended eliquis 5 mg twice daily which is been chronic for DVT, continue Plavix 75 mg daily which is new and stop baby aspirin. Patient is to be on Plavix indefinitely. Patient's continue on Lipitor 80 mg at bedtime as well as Keppra 500 mg twice daily. Patient is to have a 2-1/2 hour EEG as an outpatient. Patient was cleared for discharge by neurology. Patient will be discharged home today in stable condition. ASSESSMENT AND PLAN 1. Acute ischemic stroke over the right frontal region with recurrent left- sided weakness and numbness and difficulty getting words out. 2. Seizure activity secondary to CVA causing cortical irritability. 3. Moderate bilateral internal carotid artery stenosis. 4. New diagnosis of diabetes mellitus with hemoglobin A1c of 6.9 5. COPD exacerbation and acute tracheobronchitis. 6. Severe peripheral vascular disease status post left external iliac artery angioplasty and stent with restenosis and thrombosis, on long-term eliquis. 7. Hypertension. 8. Hyperlipidemia. 9. History of tobacco use and dependence. 10. History of Alcohol abuse. 11. Recurrent depression and generalized anxiety disorder. 12. Gastroesophageal reflux disease. DISCHARGE PLAN Home. Impression and plan of care have been directed as dictated by the signing physician. Rebecca Heart nurse practitioner acting as scribe for signing physician. Plan - Discharge Summary New Discharge Prescriptions: New Azithromycin [Zithromax] 500 mg PO DAILY #3 tab predniSONE [Deltasone] 20 mg PO DAILY #3 tab Nicotine 14Mg/24Hr Patch [Habitrol] 1 patch TRANSDERM DAILY #30 patch levETIRAcetam [Keppra] 500 mg PO Q12HR #60 tab Atorvastatin [Lipitor] 80 mg PO DAILY #30 tab Clopidogrel [Plavix] 75 mg PO DAILY #30 tab Continue Cholecalciferol [Vitamin D3 (10 Mcg = 400 Iu)] 400 unit PO DAILY Metoprolol Succinate [Toprol XL] 100 mg PO DAILY Albuterol Sulfate [Ventolin HFA] 2 puff INHALATION RT-Q4H PRN PRN Reason: Shortness Of Breath Pantoprazole [Protonix] 40 mg PO DAILY buPROPion XL [Wellbutrin XL] 150 mg PO BID Nitroglycerin Sl Tabs [Nitrostat] 0.4 mg SUBLINGUAL Q5M PRN PRN Reason: Chest Pain Apixaban [Eliquis] 5 mg PO BID Furosemide [Lasix] 20 mg PO DAILY Potassium Chloride 10 meq PO DAILY Ferrous Sulfate [Iron (65 MG Elemental)] 325 mg PO DAILY Acetaminophen [Tylenol Extra Strength] 1,000 mg PO Q46H PRN PRN Reason: Fever And/ Or Pain Budesonide/Formoterol Fumarate [Symbicort 160-4.5 Mcg Inhaler] 2 puff INHALATION RT-BID amLODIPine [Norvasc] 2.5 mg PO DAILY #0 DULoxetine HCL [Cymbalta] 60 mg PO DAILY Changed metFORMIN HCL [Glucophage] 1,000 mg PO BID #120 tab Discontinued hydroCHLOROthiazide 25 mg PO DAILY #30 tablet Aspirin EC [Ecotrin Low Dose] 81 mg PO DAILY Rosuvastatin Calcium [Crestor] 40 mg PO DAILY Discharge Medication List Cholecalciferol [Vitamin D3 (10 Mcg = 400 Iu)] 400 unit PO DAILY 02/26/15 [History] Metoprolol Succinate [Toprol XL] 100 mg PO DAILY 02/26/15 [History] Albuterol Sulfate [Ventolin HFA] 2 puff INHALATION RT-Q4H PRN 07/14/19 [History] Pantoprazole [Protonix] 40 mg PO DAILY 07/14/19 [History] Ferrous Sulfate [Iron (65 MG Elemental)] 325 mg PO DAILY 10/01/20 [History] Acetaminophen [Tylenol Extra Strength] 1,000 mg PO Q46H PRN 11/02/20 [History] Budesonide/Formoterol Fumarate [Symbicort 160-4.5 Mcg Inhaler] 2 puff INHALATION RT-BID 11/02/20 [History] Nitroglycerin Sl Tabs [Nitrostat] 0.4 mg SUBLINGUAL Q5M PRN 11/02/20 [History] buPROPion XL [Wellbutrin XL] 150 mg PO BID 11/02/20 [History] amLODIPine [Norvasc] 2.5 mg PO DAILY #0 11/05/20 [Rx] Apixaban [Eliquis] 5 mg PO BID 12/20/20 [History] DULoxetine HCL [Cymbalta] 60 mg PO DAILY 12/20/20 [History] Furosemide [Lasix] 20 mg PO DAILY 12/20/20 [History] Potassium Chloride 10 meq PO DAILY 12/20/20 [History] Atorvastatin [Lipitor] 80 mg PO DAILY #30 tab 12/24/20 [Rx] Azithromycin [Zithromax] 500 mg PO DAILY #3 tab 12/24/20 [Rx] Clopidogrel [Plavix] 75 mg PO DAILY #30 tab 12/24/20 [Rx] Nicotine 14Mg/24Hr Patch [Habitrol] 1 patch TRANSDERM DAILY #30 patch 12/24/20 [Rx] levETIRAcetam [Keppra] 500 mg PO Q12HR #60 tab 12/24/20 [Rx] metFORMIN HCL [Glucophage] 1,000 mg PO BID #120 tab 12/24/20 [Rx] predniSONE [Deltasone] 20 mg PO DAILY #3 tab 12/24/20 [Rx] Follow up Appointment(s)/Referral(s): David Varghese MD [Primary Care Provider] - 1-2 days (Please call for appointment. Office unable to answer phone at this time.) Gillian Pearson DO [STAFF PHYSICIAN] - 01/02/21 9:45 am Patient Instructions/Handouts: Stroke (DC) Activity/Diet/Wound Care/Special Instructions: outpatient EEG follow up with Neurologist Discharge Disposition: HOME SELF-CARE
== END 2020-12-24 12:05 | disposition home or self-care (01) | DRG 65 ==
LOC: EC 10:52 → 6NMEDSUR 13:04 → OBSVTOIN 12-21 09:32
PROVIDERS: ADMIT Family Medicine; ATTEND Family Medicine
DX: I63.9 Cerebral infarction, unspecified (principal); G81.94 Hemiplegia, unspecified affecting left nondominant side; J44.1 Chronic obstructive pulmonary disease with (acute) exacerbation; F33.9 Major depressive disorder, recurrent, unspecified; J44.0 Chronic obstructive pulmonary disease with (acute) lower respiratory infection; E78.00 Pure hypercholesterolemia, unspecified; Z79.82 Long term (current) use of aspirin; Z79.51 Long term (current) use of inhaled steroids; Z79.01 Long term (current) use of anticoagulants; Z82.49 Family history of ischemic heart disease and other diseases of the circulatory system; Z80.8 Family history of malignant neoplasm of other organs or systems; E11.51 Type 2 diabetes mellitus with diabetic peripheral angiopathy without gangrene; J20.9 Acute bronchitis, unspecified; K21.9 Gastro-esophageal reflux disease without esophagitis; F41.1 Generalized anxiety disorder; I10 Essential (primary) hypertension; E78.5 Hyperlipidemia, unspecified; R55 Syncope and collapse; Z79.02 Long term (current) use of antithrombotics/antiplatelets; I65.23 Occlusion and stenosis of bilateral carotid arteries; R56.9 Unspecified convulsions; F17.210 Nicotine dependence, cigarettes, uncomplicated; F40.240 Claustrophobia; Z80.1 Family history of malignant neoplasm of trachea, bronchus and lung; Z80.0 Family history of malignant neoplasm of digestive organs; Z79.899 Other long term (current) drug therapy; Z79.84 Long term (current) use of oral hypoglycemic drugs; R29.701 NIHSS score 1; F10.10 Alcohol abuse, uncomplicated
CPT/HCPCS: 36415; 70450; 70496; 70498; 70553; 71046; 80053; 80061; 83036; 84443; 84484; 85025; 85610; 85730; 93005; 93308; 93880; 94640; 94760; 96360; 99285

== ENCOUNTER → 2021-01-07 | Outpatient (CLI) | payer MEDICARE | LOC: NEUROMAIN 06:45 | PROVIDERS: ATTEND Student in an Organized Health Care Education/Training Program | DX: G40.909 Epilepsy, unspecified, not intractable, without status epilepticus (principal); F17.200 Nicotine dependence, unspecified, uncomplicated; Z88.7 Allergy status to serum and vaccine; Z88.8 Allergy status to other drugs, medicaments and biological substances | CPT/HCPCS: 95713 ==

== ENCOUNTER 2021-03-21 10:43 | Day surgery (SDC) | payer MEDICARE ==
[2021-03-19 14:25] VITALS: BMI 34.3
[2021-03-21 11:20] LABS: Glucose,Whole Blood 123 mg/dL (75-99)
[2021-03-21] MEDS ORDERED: SODIUM CHLORIDE 0.9% 1,000 ML IV ONE (11:40)
[2021-03-21] MEDS ORDERED: LIDOCAINE 1% INJ 10MG/ML (20 ML MDV) ONE (12:18)
[2021-03-21] MEDS ORDERED: MIDAZOLAM 2 MG/2 ML VIAL IVP ONE (12:49)
[2021-03-21] MEDS ORDERED: LIDOCAINE 1% INJ 10MG/ML (20 ML MDV) SQ ONE (12:50)
[2021-03-21] MEDS ORDERED: IOPAMIDOL-250 100ML BTL INTRAARTER ONE (13:00)
[2021-03-21] MEDS ORDERED: ALBUTEROL NEBULIZED 2.5 MG/3 ML INHALATION PRN (13:07)
[2021-03-21] MEDS ORDERED: ACETAMINOPHEN TAB 500 MG TAB PO PRN (13:07)
[2021-03-21] MEDS ORDERED: MIDAZOLAM 2 MG/2 ML VIAL IV ONE (13:13)
--- NOTE | 2021-03-21 13:28 | IR ---
EXAMINATION TYPE: IR angio abdominal w runoff DATE OF EXAM: 03/21/2021 COMPARISON: NONE HISTORY: Fluoroscopy time. Fluoroscopy was provided to the referring clinician.
--- NOTE | 2021-03-21 13:55 | AN ---
ANGIOGRAPHY REPORT DATE OF SERVICE: March 21, 2021. PERFORMING PHYSICIAN: Saurabh Mas MD. PROCEDURE PERFORMED: 1. Abdominal aortogram. 2. Bilateral lower extremities runoff. INDICATION: Left foot history left foot pain consistent with critical limb ischemia. COMPLICATION: None. LEVEL OF SEDATION: Moderate with sedation length of 15 minutes. APPROACH: Right common femoral artery. PROCEDURE DESCRIPTION: After obtaining informed consent, the patient was brought to the cardiac ship laborer. The right common femoral artery was cannulated using micropuncture technique under ultrasound guidance, the micropuncture wire passed easily. Then I placed 5-Mozambican sheath at the right common femoral. An abdominal aortogram and bilateral lower extremities runoff were performed using 5- Mozambican pigtail catheter. After that, an abdominal aortogram and bilateral lower extremities runoff was performed using 5-Mozambican pigtail catheter which was initially placed at the level of the renal arteries. Then it was pulled into the both aorta and to right and left common iliac arteries. The procedure was completed without any complication. FINDINGS: 1. The aorta appeared to be angiographically normal. 2. The iliac arteries: The right common iliac artery has mild disease only and the left common iliac artery is occluded, which is in-stent occlusion. 3. Common femoral arteries: Both appeared to be angiographically normal. 4. Profunda: Both are patent. 5. SFA: Both are patent. 6. Popliteal: Both are patent. 7. Below the knee: There are 3 vessels runoff below the knee on the right side and 2 vessel runoff below the knee on the left side. CONCLUSION: Occluded left external iliac stent. POSTPROCEDURE MANAGEMENT: 1. Continue anticoagulation. 2. Follow up with the patient to discuss the option of revascularization. MMODL / IJN: [id number] /
[2021-03-21] MEDS ORDERED: SODIUM CHLORIDE 0.9% 1,000 ML IV SCH (14:45)
[2021-03-21 15:01] VITALS: TEMP 98.3
[2021-03-21 16:55] VITALS: BP 128/68; PULSE 93
[2021-03-21] MEDS ORDERED: SYMBICORT 160-4.5 MCG INHALER INHALATION SCH (20:00)
[2021-03-21] MEDS ORDERED: buPROPion XL 150 MG TAB.ER.24H PO SCH (21:00)
[2021-03-21] MEDS ORDERED: levETIRAcetam 500 MG TAB PO SCH (21:00)
[2021-03-21 23:25] VITALS: RESP 17
[2021-03-22] MEDS ORDERED: PANTOPRAZOLE 40 MG TABLET PO SCH (07:30)
[2021-03-22] MEDS ORDERED: amLODIPine 2.5 MG TAB PO SCH (09:00)
[2021-03-22] MEDS ORDERED: CLOPIDOGREL 75 MG TAB PO SCH (09:00)
[2021-03-22] MEDS ORDERED: CHOLECALCIFEROL 10 MCG (400 IU) TABLET PO SCH (09:00)
[2021-03-22] MEDS ORDERED: ATORVASTATIN 80 MG TAB PO SCH (09:00)
[2021-03-22] MEDS ORDERED: DULoxetine HCL 60 MG CAPSULE.DR PO SCH (09:00)
[2021-03-22] MEDS ORDERED: NICOTINE 14MG/24HR PATCH TRANSDERM SCH (09:00)
[2021-03-22] MEDS ORDERED: METOPROLOL SUCCINATE (ER) 100 MG TAB.ER.24H PO SCH (09:00)
[2021-03-22] MEDS ORDERED: FERROUS SULFATE 325 MG TAB PO SCH (09:00)
[2021-03-22] MEDS ORDERED: FUROSEMIDE 20 MG TAB PO SCH (09:00)
== END 2021-03-21 19:30 | disposition home or self-care (01) ==
LOC: CATHCVL 10:43 → 6NMEDSUR 13:04 → CATHCVL 19:30
PROVIDERS: ATTEND Internal Medicine Interventional Cardiology
DX: T82.856A Stenosis of peripheral vascular stent, initial encounter (principal); I10 Essential (primary) hypertension; E78.5 Hyperlipidemia, unspecified; I65.23 Occlusion and stenosis of bilateral carotid arteries; Z20.822 Contact with and (suspected) exposure to COVID-19; I25.10 Atherosclerotic heart disease of native coronary artery without angina pectoris; Z82.49 Family history of ischemic heart disease and other diseases of the circulatory system; Z87.891 Personal history of nicotine dependence; Z79.01 Long term (current) use of anticoagulants; Z79.84 Long term (current) use of oral hypoglycemic drugs; Z79.899 Other long term (current) drug therapy; Z88.7 Allergy status to serum and vaccine
CPT/HCPCS: 36200; 75625; 75716; 76937; 87635; C1769 ×3; C1894; J2250; J2001; Q9966

== ENCOUNTER 2021-03-28 05:57 | Day surgery (SDC) | payer MEDICARE ==
[2021-03-26 15:16] VITALS: BMI 35.3
[2021-03-28] MEDS ORDERED: ALPRAZolam 0.25 MG TAB PO PRN (06:07)
[2021-03-28] MEDS ORDERED: ASPIRIN 325 MG TAB PO PRN (06:07)
[2021-03-28] MEDS ORDERED: SODIUM CHLORIDE 0.9% 1,000 ML in EMPTY BAG 1 BAG IV ONE (06:07)
[2021-03-28 06:33] LABS: Glucose,Whole Blood 121 mg/dL (75-99)
[2021-03-28 06:36] LABS: Anisocytosis Moderate; Basophils # (A) 0.1 k/uL (0-0.2); Basophils % (A) 1 %; Eosinophils # (A) 0.2 k/uL (0-0.7); Eosinophils % (A) 2 %; HCT 37.7 % (34.0-46.0); HGB 11.6 gm/dL (11.4-16.0); Hypochromasia Slight; Lymphocytes % (A) 25 %; MCH 28.1 pg (25.0-35.0); MCHC 30.7 g/dL (31.0-37.0); MCV 91.7 fL (80.0-100.0); Macrocytosis Slight; Mean Platelet Volume 7.2; Monocytes # (A) 0.5 k/uL (0-1.0); Monocytes % (A) 6 %; Neutrophils % (A) 63 %; Platelet Count 363 k/uL (150-450); RBC 4.11 m/uL (3.80-5.40); RDW 21.6 % (11.5-15.5); WBC 7.9 k/uL (3.8-10.6)
[2021-03-28 07:01] LABS: Calcium 9.3 mg/dL (8.4-10.2); Potassium 4.1 mmol/L (3.5-5.1)
[2021-03-28] MEDS: fentaNYL (PF) 50 MCG/ML 2 ML AMP IV ONE ×2 (07:40→08:51)
[2021-03-28] MEDS ORDERED: LIDOCAINE 1% INJ 10MG/ML (20 ML MDV) SQ ONE (07:42)
[2021-03-28] MEDS ORDERED: MIDAZOLAM 2 MG/2 ML VIAL IV ONE (07:43)
[2021-03-28] MEDS: HEPARIN SODIUM 1,000 UN/ML (10ML VL) IV ONE ×2 (07:53→08:11)
[2021-03-28] MEDS ORDERED: CLOPIDOGREL 75 MG TAB PO ONE (08:57)
[2021-03-28] MEDS ORDERED: IOPAMIDOL-250 100ML BTL INTRAARTER ONE (08:57)
[2021-03-28] MEDS ORDERED: NITROGLYCERIN SL TABS 0.4 MG TAB SUBLINGUAL PRN (09:00)
[2021-03-28] MEDS ORDERED: ACETAMINOPHEN TAB 500 MG TAB PO PRN (09:00)
[2021-03-28] MEDS ORDERED: ALBUTEROL NEBULIZED 2.5 MG/3 ML INHALATION PRN (09:00)
[2021-03-28] MEDS ORDERED: IPRATROPIUM 0.5 MG/2.5 ML NEBU INHALATION PRN (09:00)
[2021-03-28] MEDS ORDERED: MAG HYDROX/AL HYDROX/SIMETH 30 ML CUP PO PRN (09:20)
--- NOTE | 2021-03-28 10:04 | IR ---
EXAMINATION TYPE: IR web content executive iliac DATE OF EXAM: 03/28/2021 CLINICAL HISTORY: Peripheral vascular disease. Iliac artery stenosis. Left foot pain. TECHNIQUE: Fluoroscopy. COMPARISON: None. FINDINGS: Fluoroscopic guidance was provided during iliac artery angiogram and angioplasty procedure performed by Dr. Mas. A total of 16.6 minutes of fluoroscopic time was utilized during the procedu re and 254 spot images was acquired. Please refer to procedure note for further details as I was not present nor performed procedure. IMPRESSION: As Above.
[2021-03-28] MEDS: DULoxetine HCL 60 MG CAPSULE.DR PO SCH (10:15)
[2021-03-28] MEDS: FERROUS SULFATE 325 MG TAB PO SCH (10:15)
[2021-03-28] MEDS: buPROPion XL 150 MG TAB.ER.24H PO SCH ×2 (10:15→19:34)
[2021-03-28] MEDS: CHOLECALCIFEROL 10 MCG (400 IU) TABLET PO SCH (10:15)
[2021-03-28] MEDS: ATORVASTATIN 40 MG TAB PO SCH (10:15)
[2021-03-28] MEDS: POTASSIUM CHLORIDE ER 10 MEQ TAB.ER.PRT PO SCH (10:16)
[2021-03-28] MEDS: levETIRAcetam 500 MG TAB PO SCH ×2 (10:16→19:34)
[2021-03-28] MEDS: PANTOPRAZOLE 40 MG TABLET PO SCH (10:16)
[2021-03-28] MEDS: METOPROLOL SUCCINATE (ER) 100 MG TAB.ER.24H PO SCH (10:16)
[2021-03-28] MEDS: amLODIPine 5 MG TAB PO SCH (10:18)
[2021-03-28] MEDS ORDERED: ONDANSETRON 4 MG/2 ML VIAL IVP PRN (10:24)
[2021-03-28] MEDS: SYMBICORT 160-4.5 MCG INHALER INHALATION SCH ×2 (11:55→20:39)
[2021-03-28 13:42] VITALS: RESP 18
[2021-03-28] MEDS: FUROSEMIDE 20 MG TAB PO SCH (15:33)
--- NOTE | 2021-03-28 17:11 | PCN ---
PROCEDURE NOTE PERCUTANEOUS PERIPHERAL INTERVENTION: DATE OF SERVICE: 03/28/2021 PERFORMING PHYSICIAN: Saurabh Mas M.D. PROCEDURE PERFORMED: 1. Successful mechanical aspiration thrombectomy from the left external iliac artery. 2. Intravascular ultrasound (IVUS) of the left external iliac artery and left common femoral artery. 3. Successful balloon angioplasty of the left external iliac artery and left common femoral artery. 4. Left lower extremity angiogram. 5. Ultrasound-guided access of the right common femoral artery. 6. Right common femoral artery angiogram. INDICATION: This is a 66-year-old female patient who is known to have peripheral arterial disease and prior angioplasty of the left iliac artery who was experiencing symptoms of severe pain in the right foot. She underwent a lower extremity arterial duplex study that showed occluded left iliac. She had multiple layers of stent in the left external iliac artery and the plan today was to try to do aspiration thrombectomy mechanically along with balloon angioplasty with a goal not to add any more layers of stents. APPROACH: Right common femoral artery. COMPLICATIONS: None. LEVEL OF SEDATION: Moderate, with sedation length of 72 minutes. PROCEDURE DESCRIPTION: After obtaining informed consent, the patient was brought to the cardiac laborer powerhouse. The right common femoral artery was cannulated using micropuncture technique under ultrasound guidance. The micropuncture wire passed easily. Then I placed a 7-Sammarinese sheath 55 cm at the right common femoral artery after the femoral artery was dilated using 6 and then 7 mm dilators. Subsequently, I did select the left common femoral artery using an 0.035 stiff Glidewire with the backup support of 5-Sammarinese RIM catheter. After that, I did advance the long sheath over the wire and the RIM catheter to the left common iliac artery. Left lower extremity angiogram was performed. After that I crossed the acute total occlusion of the left external iliac artery using an 0.035 stiff Glidewire. I did exchange my wire for an 0.014 wire. Then I did intravascular ultrasound which showed what seemed to be possible fresh thrombus and possible chronic thrombus. I did after that mechanical aspiration thrombectomy using the device. The following angiogram showed good flow with a tight lesion proximally and distally seems to be hard lesions. I decided to do balloon angioplasty which initiated to 6 and then 7 mm balloon. The following angiogram showed great flow with residual stenosis about 50% to 60% which I decided to treat medically. After that I did exchange my long sheath for a short sheath before I did selective right common femoral artery angiogram. The procedure was completed without any complication. POSTPROCEDURE MANAGEMENT: 1. Triple therapy consisting of aspirin as well as clopidogrel as well as rivaroxaban. 2. Rule out hypercoagulopathy, which can be difficult at this point because the patient is on anticoagulation. 3. Smoking cessation was discussed with her multiple times. HILL / RASN: [id number] /
[2021-03-28] MEDS ORDERED: RIVAROXABAN 15 MG TAB PO SCH (17:30)
--- NOTE | 2021-03-29 06:08 | P.CONS ---
History of Present Illness - Reason for Consult Consult date: 03/28/21 Medical management Requesting physician: Saurabh Mas - Chief Complaint Severe PAD with left leg pain and discomfort, history of COPD, chronic pain - History of Present Illness HISTORY OF PRESENT ILLNESS 66-year-old female one of my office patient is known to have history of CAD, history of PAD with history of aortic dissection post intervention of the lower extremity with peripheral arterial disease with the preauricular iliac stenting on the left side. Patient had long-standing history of smoking, hypertension, hyperlipidemia and chronic pain syndrome she was in the office not too long ago with severe pain and discomfort with claudication of the left foot along with discoloration and discomfort. She was seen Dr. Sahni for follow-up who agree to bring patient to the medical laboratory scientist for intervention after seen that lower extremity arterial Dopplex study revealed possible occlusion of the left external iliac artery which same area had occlusion in the past post angioplasty and stent placement which patient was on dual therapy with Eliquis originally along with aspirin and Plavix the patient continue to smoke noncompliance with her medic ation well developed to have much worsening symptoms. Patient ended up coming to the hospital today had percutaneous peripheral intervention at found to have thrombus in the left iliac ended up having thrombectomy along with angioplasty without stent placement at this time. She agree to quit smoking and agreed to go on at trio therapy with Xarelto, aspirin and Plavix. REVIEW OF SYSTEMS Constitutional: No fever, no chills, no night sweats. No weight change. No weakness, fatigue or lethargy. No daytime sleepiness. EENT: No headache. No blurred vision or double vision, no loss of vision. No loss of Hearing, no ringing in the ears, no dizziness. No nasal drainage or congestion. No epistaxis. No sore throat. Lungs: Positive slight shortness of breath cough wheezes. Cardiovascular: Positive shortness of breath possibly due to anemia positive edema positive palpitation positive lightheadedness and syncope. Abdominal: No abdominal pain. No nausea, vomiting. No diarrhea. No constipation. No bloody or tarry stools.. No loss of appetite. Genitourinary: No dysuria, increased frequency, urgency. No urinary retention. Musculoskeletal: Generalized muscle and joint pain which and lies arthralgia. Integumentary: No wounds, no lesions. No rash or pruritus. No unusual bruising. No change in hair or nails. Neurologic: No aphasia. No facial droop. No change in mentation. No head injury. No headache. No paralysis. No paresthesia. Psychiatric: No depression. No anxiety. No mood swings. Endocrine: No abnormal blood sugars. No weight change. No excessive sweating or thirst. No cold intolerance. SOCIAL HISTORY Patient is a smoker of 2 packs per day for 45 years and is cutting back to one half pack per day. Patient was drinking 12 pack a day for 20 years and recently cut back to drinks 6 beers per day and and then 3 per day. She's been drinking heavy alcohol for 30-40 years. No marijuana or illicit drug use. Patient is and lives alone. FAMILY HISTORY Mother at age 83 from lung cancer. Father at age 65 from myocardial infarction. Patient has a total of 5 siblings. One has history of heart disease and another with cancer. She does not have contact with her siblings. Patient does not have any children. PHYSICAL EXAMINATION Gen: This is a 66-year-old looks older than her age does not look in any respiratory distress. HEENT: Head is atraumatic, normocephalic. Pupils equal, round. Sclerae is anicteric. NECK: Supple. No JVD. No lymphadenopathy. No thyromegaly. LUNGS: Decreased breath some Rhonchi Positive Mild Expiratory Wheezes. HEART: Regular with moderate ascites 2 possible S3 positive PVCs positive systolic murmur. ABDOMEN: Soft. Bowel sounds are present. No masses. No tenderness. EXTREMITIES: 1+ edema significant pain and discomfort in the left leg compared to the right side with mostly slightly but worsening in the calf area slight discoloration and changing color as well pulse is very light BiPAP all and dorsalis pedis. NEUROLOGICAL: Patient is awake, alert and oriented x3. Cranial nerves 2 through 12 are grossly intact. ASSESSMENT AND PLAN 1. Severe PAD post thrombectomy and angioplasty of the left iliac artery: Patient will be on Xarelto, Plavix and aspirin, continue aggressive management to lower her lipids, blood pressure, and continue aggressive management for smoking cessation. 2. COPD: Continue patient on insulin atrophy, Symbicort, continue O2 and updraft treatment. 3. CAD no chest pain or angina continue current medication. 4. CHF remain on metoprolol can benefit from furosemide 20 mg twice a day. Needed. 5. Hypertension: We'll continue patient on amlodipine 5 mg a day along with metoprolol succinate total of 100 mg daily. 6. Hyperlipidemia: Remain on atorvastatin 40 mg a day. 7. Type 2 diabetes: Has been on metformin 500 mg twice a day, Accu-Chek with sliding scales coverage and be done. 8. History of seizure: Has been on Keppra 500 mg twice a day patient seen urology. 9. Depression: Has been on duloxetine and Wellbutrin continue medication still on alprazolam on as needed for anxiety. 10. GI prophylaxis: Patient will continue on pantoprazole 40 mg a day. 11 DVT prophylaxis: Remain on anticoagulation with Xarelto. 11. COVID-[address] Sahni thank you very much for the consult if I can be any further help to please let me know. Past Medical History Past Medical History: Asthma, Chest Pain / Angina, COPD, CVA/TIA, Diabetes Mellitus, Deep Vein Thrombosis (DVT), GERD/Reflux, Hyperlipidemia, Hypertension, Osteoarthritis (OA), Vascular Disorder Additional Past Medical History / Comment(s): Hx blood clot in left arm and left hand, hx migraines, PVD, left leg pain, TIA-X2 DECEMBER 2020. History of Any Multi-Drug Resistant Organisms: None Reported Past Surgical History: Heart Catheterization, Heart Catheterization With Stent Additional Past Surgical History / Comment(s): Stent to left external iliac, blood clot removed from left arm, surgery to fix "tear in aorta", surgery for "abdominal adhesions", 06-11-16 LT ILIAC PTBA/STENT, PTBA 10/03/2020-Stent X2 Illiac(L). Angiography. Past Anesthesia/Blood Transfusion Reactions: No Reported Reaction Additional Past Anesthesia/Blood Transfusion Reaction / Comm: Claustrophobia. Date of Last Stent Placement:: 10/03/20 Past Psychological History: No Psychological Hx Reported Smoking Status: Current every day smoker Past Alcohol Use History: Daily Additional Past Alcohol Use History / Comment(s): Started smoking at age 16, states trying to quit, little over 1/2 ppd. Drinks 3-4 beers daily. Past Drug Use History: None Reported - Past Family History Father Family Medical History: Cancer, Myocardial Infarction ([place]) Additional Family Medical History / Comment(s): SKIN CANCER. Mother Family Medical History: Cancer, Deep Vein Thrombosis (DVT) Additional Family Medical History / Comment(s): COLON CANCER TWICE, lung ancer. Medications and Allergies Home Medications Medication Instructions Recorded Confirmed Type Cholecalciferol [Vitamin D3 (10 400 unit PO DAILY 02/26/15 03/28/21 History Mcg = 400 Iu)] Metoprolol Succinate [Toprol XL] 100 mg PO DAILY 02/26/15 03/28/21 History Albuterol Sulfate [Ventolin HFA] 2 puff INHALATION Q4H PRN 07/14/19 03/28/21 History Pantoprazole [Protonix] 40 mg PO DAILY 07/14/19 03/28/21 History Ferrous Sulfate [Iron (65 MG 325 mg PO DAILY 10/01/20 03/28/21 History Elemental)] Acetaminophen [Tylenol Extra 1,000 mg PO Q46H PRN 11/02/20 03/28/21 History Strength] Budesonide/Formoterol Fumarate 2 puff INHALATION BID 11/02/20 03/28/21 History [Symbicort 160-4.5 Mcg Inhaler] buPROPion XL [Wellbutrin XL] 150 mg PO BID 11/02/20 03/28/21 History DULoxetine HCL [Cymbalta] 60 mg PO DAILY 12/20/20 03/28/21 History Furosemide [Lasix] 20 mg PO DAILY 12/20/20 03/28/21 History Potassium Chloride [Potassium 10 meq PO DAILY 12/20/20 03/28/21 History Chloride ER] levETIRAcetam [Keppra] 500 mg PO Q12HR #60 tab 12/24/20 03/28/21 Rx metFORMIN HCL [Glucophage] 500 mg PO BID 03/21/21 03/28/21 History Apixaban [Eliquis] 5 mg PO BID 03/26/21 03/28/21 History Atorvastatin [Lipitor] 40 mg PO DAILY 03/26/21 03/28/21 History Nitroglycerin 0.4 mg SUBLINGUAL Q5M PRN 03/26/21 03/28/21 History amLODIPine [Norvasc] 5 mg PO DAILY 03/26/21 03/28/21 History Ipratropium Nebulized [Atrovent 0.5 mg INHALATION RT-Q6H PRN 10/14/21 10/14/21 History Nebulized 0.2 MG/ML] Allergies Allergy/AdvReac Type Severity Reaction Status Date / Time influenza virus vaccine, Allergy Rash/Hives Verified 03/28/21 06:36 specific [influenza virus vacc,specific] lisinopril Allergy Swelling Verified 03/28/21 06:36 Physical Exam Vitals: Vital Signs Temp Pulse Pulse Resp BP BP Pulse Ox 03/28/21 12:25 98 F 76 16 138/71 96 03/28/21 12:05 84 18 143/66 95 03/28/21 11:35 82 18 138/66 95 03/28/21 11:05 86 18 163/69 94 L 03/28/21 10:25 86 18 152/65 94 L 03/28/21 10:05 86 18 158/65 95 03/28/21 09:50 84 18 146/66 94 L 03/28/21 09:35 89 18 173/72 95 03/28/21 09:20 86 18 186/81 91 L 03/28/21 06:33 99.1 F 86 18 157/70 92 L Intake and Output 03/27/21 03/28/21 03/28/21 22:59 06:59 14:59 Intake Total 200 400 Output Total 425 Balance 200 -25 Intake: IV 200 400 Output: Estimated Blood Loss 425 Other: Weight 93.8 kg Results CBC & Chem 7: 03/28/21 06:20 03/28/21 06:20 Labs: Abnormal Lab Results - Last 24 Hours (Table) 03/28/21 03/28/21 03/28/21 Range/Units 06:20 06:20 06:21 MCHC 30.7 L (31.0-37.0) g/dL RDW 21.6 H (11.5-15.5) % Glucose 121 H (74-99) mg/dL POC Glucose (mg/dL) 121 H (75-99) mg/dL
[2021-03-29 06:49] LABS: African American GFR (CKD) 77 (>60 ml/min/1.73 sqM); Anion Gap 1 mmol/L; Blood Urea Nitrogen 17 mg/dL (7-17); Calcium 8.7 mg/dL (8.4-10.2); Carbon Dioxide 26 mmol/L (22-30); Chloride 109 mmol/L (98-107); Glucose 111 mg/dL (74-99); Non-African American GFR(CKD) 66 (>60 ml/min/1.73 sqM); Sodium 136 mmol/L (137-145)
[2021-03-29 06:57] LABS: Anisocytosis Moderate; Basophils % (A) 1 %; Eosinophils # (A) 0.2 k/uL (0-0.7); Eosinophils % (A) 3 %; HCT 31.1 % (34.0-46.0); Hypochromasia Moderate; Lymphocytes # (A) 1.6 k/uL (1.0-4.8); Lymphocytes % (A) 27 %; MCH 28.4 pg (25.0-35.0); MCHC 30.3 g/dL (31.0-37.0); MCV 93.6 fL (80.0-100.0); Macrocytosis Slight; Mean Platelet Volume 7.4; Monocytes # (A) 0.3 k/uL (0-1.0); Monocytes % (A) 6 %; Neutrophils # (A) 3.6 k/uL (1.3-7.7); Neutrophils % (A) 62 %; Platelet Count 341 k/uL (150-450); RBC 3.32 m/uL (3.80-5.40); RDW 21.7 % (11.5-15.5); WBC 5.9 k/uL (3.8-10.6)
[2021-03-29 07:07] LABS: HGB 9.4 gm/dL (11.4-16.0)
[2021-03-29] MEDS: SYMBICORT 160-4.5 MCG INHALER INHALATION SCH (08:15)
[2021-03-29 08:25] VITALS: PULSE 74; TEMP 98.2
[2021-03-29] MEDS: FUROSEMIDE 20 MG TAB PO SCH ×2 (08:29→08:40)
[2021-03-29] MEDS: PANTOPRAZOLE 40 MG TABLET PO SCH (08:29)
[2021-03-29] MEDS: levETIRAcetam 500 MG TAB PO SCH (08:31)
[2021-03-29] MEDS: CHOLECALCIFEROL 10 MCG (400 IU) TABLET PO SCH (08:31)
[2021-03-29] MEDS: FERROUS SULFATE 325 MG TAB PO SCH (08:31)
[2021-03-29] MEDS: POTASSIUM CHLORIDE ER 10 MEQ TAB.ER.PRT PO SCH (08:31)
[2021-03-29] MEDS: DULoxetine HCL 60 MG CAPSULE.DR PO SCH (08:31)
[2021-03-29] MEDS: ATORVASTATIN 40 MG TAB PO SCH (08:32)
[2021-03-29] MEDS: buPROPion XL 150 MG TAB.ER.24H PO SCH (08:32)
[2021-03-29 08:39] VITALS: BP 119/68
[2021-03-29] MEDS: METOPROLOL SUCCINATE (ER) 100 MG TAB.ER.24H PO SCH (08:40)
[2021-03-29] MEDS: amLODIPine 5 MG TAB PO SCH (08:40)
[2021-03-29] MEDS ORDERED: CLOPIDOGREL 75 MG TAB PO SCH ×2 (09:00)
--- NOTE | 2021-03-29 11:57 | DS ---
DISCHARGE SUMMARY DATE OF ADMISSION: 03/28/2021 DATE OF DISCHARGE: 03/29/2021 BRIEF HISTORY: This is a 66-year-old female patient who underwent yesterday successful mechanical aspiration thrombectomy of the left external iliac artery along with successful balloon angioplasty of the left external iliac artery. 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 She underwent multiple stenting in the past. She was seen this morning. The right groin, which is the site of access, is soft and nontender and without any bruises. The left foot was examined. She has a warm foot, but I could not feel any pulse in her dorsalis pedis or posterior tibial artery, but I was able to feel very deep pulse in the left femoral artery. She was walking up and around and she stated that the pain has improved significantly. I am going to discharge the patient on triple therapy consisting of aspirin and clopidogrel as well as Xarelto at 15 mg daily. She is going to be seen in the office in a week. MMODL / IJN: [id number] /
--- NOTE | 2021-03-29 15:33 | P.PN ---
Subjective Progress Note Date: 03/29/21 HISTORY OF PRESENT ILLNESS 66-year-old female one of my office patient is known to have history of CAD, history of PAD with history of aortic dissection post intervention of the lower extremity with peripheral arterial disease with the preauricular iliac stenting on the left side. Patient had long-standing history of smoking, hypertension, hyperlipidemia and chronic pain syndrome she was in the office not too long ago with severe pain and discomfort with claudication of the left foot along with discoloration and discomfort. She was seen Dr. Sahni for follow-up who agree to bring patient to the supervisor labor gang for intervention after seen that lower extremity arterial Dopplex study revealed possible occlusion of the left external iliac artery which same area had occlusion in the past post angioplasty and stent placement which patient was on dual therapy with Eliquis originally along with aspirin and Plavix the patient continue to smoke noncompliance with her medication well developed to have much worsening symptoms. Patient ended up coming to the hospital today had percutaneous peripheral intervention at found to have thrombus in the left iliac ended up having thrombectomy along with angioplasty without stent placement at this time. She agree to quit smoking and agreed to go on at trio therapy with Xarelto, aspirin and Plavix. 03/29: Patient has been afebrile, heart rate 60, blood pressure 91/56, pulse ox 91% on room air. library monitor sinus rhythm. Repeat blood work reveals WBC 5.9, hemoglobin 9.4. Sodium 136, chloride 109, BUN 17 creatinine 0.91. A shunt is found today sitting up in the handley and has been ambulating in the hallway. She states she normally is walking with a cane and also his wheeled walker at home. Dr. Mas is planning for her to switch to Xarelto and also continue aspirin and Plavix. Patient is scheduled for discharge home today. REVIEW OF SYSTEMS Constitutional: No fever, no chills, no night sweats. No weight change. No weakness, fatigue or lethargy. No daytime sleepiness. EENT: No headache. No blurred vision or double vision, no loss of vision. No loss of Hearing, no ringing in the ears, no dizziness. No nasal drainage or congestion. No epistaxis. No sore throat. Lungs: Positive slight shortness of breath cough wheezes. Cardiovascular: Positive shortness of breath possibly due to anemia positive edema positive palpitation positive lightheadedness and syncope. Abdominal: No abdominal pain. No nausea, vomiting. No diarrhea. No constipation. No bloody or tarry stools.. No loss of appetite. Genitourinary: No dysuria, increased frequency, urgency. No urinary retention. Musculoskeletal: Generalized muscle and joint pain which and lies arthralgia. Integumentary: No wounds, no lesions. No rash or pruritus. No unusual bruising. Neurologic: No aphasia. No facial droop. No change in mentation. No head injury. No headache. No paralysis. No paresthesia. Psychiatric: No depression. No anxiety. No mood swings. Endocrine: No abnormal blood sugars. No weight change. PHYSICAL EXAMINATION Gen: This is a 66-year-old looks older than her age does not look in any respiratory distress. HEENT: Head is atraumatic, normocephalic. Pupils equal, round. Sclerae is anicteric. NECK: Supple. No JVD. No lymphadenopathy. No thyromegaly. LUNGS: Decreased breath some Rhonchi Positive Mild Expiratory Wheezes. HEART: Regular with moderate ascites 2 possible S3 positive PVCs positive systolic murmur. ABDOMEN: Soft. Bowel sounds are present. No masses. No tenderness. EXTREMITIES: 1+ edema significant pain and discomfort in the left leg compared to the right side with mostly slightly but worsening in the calf area slight discoloration and changing color as well as decreased pulses +1 dorsalis pedis. NEUROLOGICAL: Patient is awake, alert and oriented x3. Cranial nerves 2 through 12 are grossly intact. ASSESSMENT AND PLAN 1. Severe PAD post thrombectomy and angioplasty of the left iliac artery. Continue Xarelto, Plavix and aspirin, continue aggressive management to lower her lipids, blood pressure, and continue aggressive management for smoking cessation. 2. COPD: Continue patient on insulin atrophy, Symbicort, continue O2 and updraft treatment. 3. CAD no chest pain or angina continue current medication. 4. Chronic diastolic heart failure. Continue metoprolol can benefit from furosemide 20 mg twice a day. 5. Hypertension: We'll continue patient on amlodipine 5 mg a day along with metoprolol succinate total of 100 mg daily. 6. Hyperlipidemia: Remain on atorvastatin 40 mg a day. 7. Type 2 diabetes: Has been on metformin 500 mg twice a day, Accu-Chek with sliding scales coverage and be done. 8. History of seizure: Has been on Keppra 500 mg twice a day patient seen urology. 9. Recurrent Depression: Has been on duloxetine and Wellbutrin continue medication still on alprazolam on as needed for anxiety. 10. GI prophylaxis: Patient will continue on pantoprazole 40 mg a day. 11 DVT prophylaxis: Remain on anticoagulation with Xarelto. 11. COVID-[address] Mas thank you very much for the consult if I can be any further help to please let me know. DISCHARGE PLAN Home Impression and plan of care have been directed as dictated by the signing physician. Rebecca Heart nurse practitioner acting as scribe for signing physician. Objective - Vital Signs Vital signs: Vital Signs Temp 97.9 F 03/29/21 01:44 Pulse 68 03/29/21 01:44 Resp 18 03/29/21 01:44 BP 91/56 03/29/21 01:44 Pulse Ox 91 L 03/29/21 01:44 Intake & Output 03/28/21 03/29/21 03/29/21 18:59 06:59 18:59 Intake Total 600 10 Output Total 425 Balance 175 10 Weight 93.8 kg Intake: IV 400 10 Invasive Line 2 10 Oral 200 Output: Estimated Blood Loss 425 Other: Voiding Method Toilet # Voids 1 1 - Labs CBC & Chem 7: 03/29/21 05:53 03/29/21 05:53 Labs: Abnormal Lab Results - Last 24 Hours (Table) 03/29/21 03/29/21 Range/Units 05:53 05:53 RBC 3.32 L (3.80-5.40) m/uL Hgb 9.4 L D (11.4-16.0) gm/dL Hct 31.1 L (34.0-46.0) % MCHC 30.3 L (31.0-37.0) g/dL RDW 21.7 H (11.5-15.5) % Sodium 136 L (137-145) mmol/L Chloride 109 H (98-107) mmol/L Glucose 111 H (74-99) mg/dL
== END 2021-03-29 12:17 | disposition home or self-care (01) ==
LOC: CATHCVL 05:57 → 6NMEDSUR 08:54 → CATHCVL 03-29 12:17
PROVIDERS: ATTEND Internal Medicine Interventional Cardiology
DX: I73.9 Peripheral vascular disease, unspecified (principal); I70.8 Atherosclerosis of other arteries; J44.9 Chronic obstructive pulmonary disease, unspecified; I25.10 Atherosclerotic heart disease of native coronary artery without angina pectoris; I50.32 Chronic diastolic (congestive) heart failure; I11.0 Hypertensive heart disease with heart failure; E78.5 Hyperlipidemia, unspecified; E11.9 Type 2 diabetes mellitus without complications; Z79.84 Long term (current) use of oral hypoglycemic drugs; Z20.822 Contact with and (suspected) exposure to COVID-19
CPT/HCPCS: 37221; 94640 ×2; 37184; 37220; 37252; 80048 ×2; 85025 ×2; 87635; C1894 ×2; C1769 ×5; C1725; C1753; C1757; J2250; J2405; J2001; J3010; J1644; Q9966

== ENCOUNTER 2021-05-06 12:21 | Inpatient (IN) | payer MEDICARE ==
[2021-05-06] MEDS ORDERED: MORPHINE SULFATE 4 MG/ML SYRINGE IVP STA (13:02)
--- NOTE | 2021-05-06 13:06 | ED ---
General Adult HPI - General Source: patient, EMS Mode of arrival: EMS Limitations: no limitations <PierreemmanueljazminKyle Sonny - Last Filed: 05/06/21 15:26> <May Portillo Cate - Last Filed: 05/09/21 00:36> - General Chief complaint: Extremity Problem,Nontraumatic Stated complaint: lt leg numbness Time Seen by Provider: 05/06/21 12:33 - History of Present Illness Initial comments: Dictation was produced using [employer] dictation software. please excuse any grammatical, word or spelling errors. Chief Complaint: 66-year-old female presents to the emergency department for left foot numbness and pain History of Present Illness: Patient is 66-year-old female she has history of left lower extremity arterial stents placed by naval [employer]. States that starting at 11 AM she started having numbness and pain to her left lower extremity. Patient states she woke up at 9 without any issues. On March 28 of this year patient had aspiration of thrombectomy to the left external iliac artery, balloon angioplasty per she states the pain and numbness is from the knee distally. She does not have any groin pain or abdominal or chest pain. The ROS documented in this emergency department record has been reviewed and confirmed by me. Those systems with pertinent positive or negative responses have been documented in the HPI. All other systems are other negative and/or noncontributory. PHYSICAL EXAM: General Impression: Alert and oriented x3, not in acute distress HEENT: Normocephalic atraumatic, extra-ocular movements intact, pupils equal and reactive to light bilaterally, mucous membranes moist. Cardiovascular: Heart regular rate and rhythm Chest: Able to complete full sentences, no retractions, no tachypnea Musculoskeletal: Pulses present and equal in all extremities, no peripheral edema Left lower extremity: Unable to identify palpable DP or PT pulse. Cap refill is diminished. Foot is cold compared to the right Motor: no focal deficits noted Neurological: CN II-XII grossly intact, no focal motor or sensory deficits noted Skin: Intact with no visualized rashes Psych: Normal affect and mood ED course: 66-year-old female presents emergency Department with symptoms of left lower extremity arterial occlusion. Her symptoms began acutely at 11 AM. Vital signs Upon arrival are within acceptable limits. Laboratory evaluation obtained. CBC shows hemoglobin of 8.1. This is decreased compared to March of 9.4. Coag panel is negative. Metabolic panel shows within acceptable limits. CT of the aorta shows restenosis of iliac stent graft within the external iliac artery. spoke with Jacki, nurse in manager cath lab taking message for Dr. Mitchell. she reports Dr. Mas is not in the country and that we should contact Dr. Davey. case discussed with Dr. Davey who request we contact vascular surgery. EKG interpretation: Ventricular rate 94, normal sinus rhythm,. 150, QRS 86, QTC 477. No CT prolongation, no QTC prolongation, no ST or T-wave changes noted. Overall, this EKG is unremarkable (Kyle Mckeon) - Related Data Home Medications Medication Instructions Recorded Confirmed Cholecalciferol [Vitamin D3 (10 10 mcg PO DAILY 02/26/15 05/06/21 Mcg = 400 Iu)] Metoprolol Succinate [Toprol XL] 100 mg PO DAILY 02/26/15 05/06/21 Albuterol Sulfate [Ventolin HFA] 2 puff INHALATION RT-Q4H PRN 07/14/19 05/06/21 Pantoprazole [Protonix] 40 mg PO DAILY 07/14/19 05/06/21 Ferrous Sulfate [Iron (65 MG 325 mg PO DAILY 10/01/20 05/06/21 Elemental)] Acetaminophen [Tylenol Extra 1,000 mg PO Q4-6H PRN 11/02/20 05/06/21 Strength] Budesonide/Formoterol Fumarate 2 puff INHALATION RT-BID 11/02/20 05/06/21 [Symbicort 160-4.5 Mcg Inhaler] DULoxetine HCL [Cymbalta] 60 mg PO DAILY 12/20/20 05/06/21 Furosemide [Lasix] 20 mg PO DAILY 12/20/20 05/06/21 Potassium Chloride [Potassium 10 meq PO BID 12/20/20 05/06/21 Chloride ER] Atorvastatin [Lipitor] 40 mg PO DAILY 03/26/21 05/06/21 Nitroglycerin 0.4 mg SL Q5M PRN 03/26/21 05/06/21 amLODIPine [Norvasc] 5 mg PO DAILY 03/26/21 05/06/21 levETIRAcetam [Keppra] 500 mg PO Q12H 05/06/21 05/06/21 Previous Rx's Medication Instructions Recorded Aspirin EC [Ecotrin Low Dose] 81 mg PO DAILY #30 tab 03/29/21 Clopidogrel [Plavix] 75 mg PO DAILY #30 tab 03/29/21 Allergies Allergy/AdvReac Type Severity Reaction Status Date / Time influenza virus vaccine, Allergy Rash/Hives Verified 05/06/21 14:46 specific [influenza virus vacc,specific] lisinopril Allergy Swelling Verified 05/06/21 14:46 Review of Systems ROS Other: All systems not noted in ROS Statement are negative. <Kyle Mckeon - Last Filed: 05/06/21 15:26> ROS Other: All systems not noted in ROS Statement are negative. <May Portillo - Last Filed: 05/09/21 00:36> ROS Statement: Those systems with pertinent positive or pertinent negative responses have been documented in the HPI. Past Medical History Past Medical History: Asthma, Chest Pain / Angina, COPD, CVA/TIA, Diabetes Mellitus, Deep Vein Thrombosis (DVT), GERD/Reflux, Hyperlipidemia, Hypertension, Osteoarthritis (OA), Vascular Disorder Additional Past Medical History / Comment(s): Hx blood clot in left arm and left hand, hx migraines, PVD, left leg pain, TIA-X2 DECEMBER 2020. History of Any Multi-Drug Resistant Organisms: None Reported Past Surgical History: Heart Catheterization, Heart Catheterization With Stent Additional Past Surgical History / Comment(s): Stent to left external iliac, blood clot removed from left arm, surgery to fix "tear in aorta", surgery for "abdominal adhesions", 06-11-16 LT ILIAC PTBA/STENT, PTBA 10/03/2020-Stent X2 Illiac(L). Angiography. Past Anesthesia/Blood Transfusion Reactions: No Reported Reaction Additional Past Anesthesia/Blood Transfusion Reaction / Comment(s): Claustrophobia. Date of Last Stent Placement:: 10/03/20 Past Psychological History: No Psychological Hx Reported Smoking Status: Current every day smoker Past Alcohol Use History: Daily Past Drug Use History: None Reported - Past Family History Father Family Medical History: Cancer, Myocardial Infarction ([place]) Additional Family Medical History / Comment(s): SKIN CANCER. Mother Family Medical History: Cancer, Deep Vein Thrombosis (DVT) Additional Family Medical History / Comment(s): COLON CANCER TWICE, lung ancer. <Kyle Mckeon - Last Filed: 05/06/21 15:26> General Exam Limitations: no limitations <Kyle Mckeon - Last Filed: 05/06/21 15:26> Course <May Portillo - Last Filed: 05/09/21 00:36> Vital Signs 05/06/21 05/06/21 05/06/21 12:23 14:28 15:59 Temperature 98.2 F Pulse Rate 99 92 95 Respiratory 18 18 20 Rate Blood Pressure 123/63 123/69 132/64 O2 Sat by Pulse 97 92 L 93 L Oximetry 05/06/21 05/06/21 05/06/21 18:15 19:29 21:36 Temperature 98.3 F Pulse Rate 90 93 86 Respiratory 20 18 18 Rate Blood Pressure 123/66 126/39 126/60 O2 Sat by Pulse 99 95 94 L Oximetry - Reevaluation(s) Reevaluation #1: Called Dr. Garcia - states cardiology should manage the patient. If patient needs emergent treatment, will have to be transferred to [facility] 05/06/21 1532 (May Portillo) Reevaluation #2: Spoke with Dr. Roca - unable to consult on patient - will be out of town tomorrow 05/06/21 1542 (May Portillo) Reevaluation #3: Spoke with Dr. Davey - will come see patient 05/06/21 15:45 (May Portillo) Medical Decision Making - Lab Data Result diagrams: 05/06/21 13:00 05/06/21 13:00 <Kyle Mckeon - Last Filed: 05/06/21 15:26> - Lab Data Result diagrams: 05/08/21 11:29 05/08/21 11:33 <May Portillo - Last Filed: 05/09/21 00:36> - Medical Decision Making Dr. Davey presents to the ED to evaluate patient. Patient will be admitted on heparin with procedure planned by Dr. Davey tomorrow AM. (May Portillo) - Lab Data Lab Results 05/06/21 05/06/21 05/06/21 Range/Units 13:00 13:00 13:00 WBC 8.6 (3.8-10.6) k/uL RBC 3.10 L (3.80-5.40) m/uL Hgb 8.1 L (11.4-16.0) gm/dL Hct 25.9 L (34.0-46.0) % MCV 83.5 D (80.0-100.0) fL MCH 26.1 (25.0-35.0) pg MCHC 31.2 (31.0-37.0) g/dL RDW 19.3 H (11.5-15.5) % Plt Count 428 (150-450) k/uL MPV 8.0 Neutrophils % 77 % Lymphocytes % 15 % Monocytes % 5 % Eosinophils % 1 % Basophils % 1 % Neutrophils # 6.6 (1.3-7.7) k/uL Lymphocytes # 1.3 (1.0-4.8) k/uL Monocytes # 0.4 (0-1.0) k/uL Eosinophils # 0.1 (0-0.7) k/uL Basophils # 0.1 (0-0.2) k/uL Hypochromasia Marked Poikilocytosis Marked Anisocytosis Slight Microcytosis Slight PT 10.2 (9.0-12.0) sec INR 0.9 (<1.2) APTT 19.2 L (22.0-30.0) sec Sodium 134 L (137-145) mmol/L Potassium 3.4 L (3.5-5.1) mmol/L Chloride 94 L (98-107) mmol/L Carbon Dioxide 30 (22-30) mmol/L Anion Gap 10 mmol/L BUN 7 (7-17) mg/dL Creatinine 0.76 (0.52-1.04) mg/dL Est GFR (CKD-EPI)AfAm >90 (>60 ml/min/1.73 sqM) Est GFR (CKD-EPI)NonAf 83 (>60 ml/min/1.73 sqM) Glucose 161 H (74-99) mg/dL Calcium 9.4 (8.4-10.2) mg/dL Blood Type Blood Type Recheck Bld Type Recheck Status Antibody Screen Crossmatch Spec Expiration Date 05/06/21 Range/Units 13:00 WBC (3.8-10.6) k/uL RBC (3.80-5.40) m/uL Hgb (11.4-16.0) gm/dL Hct (34.0-46.0) % MCV (80.0-100.0) fL MCH (25.0-35.0) pg MCHC (31.0-37.0) g/dL RDW (11.5-15.5) % Plt Count (150-450) k/uL MPV Neutrophils % % Lymphocytes % % Monocytes % % Eosinophils % % Basophils % % Neutrophils # (1.3-7.7) k/uL Lymphocytes # (1.0-4.8) k/uL Monocytes # (0-1.0) k/uL Eosinophils # (0-0.7) k/uL Basophils # (0-0.2) k/uL Hypochromasia Poikilocytosis Anisocytosis Microcytosis PT (9.0-12.0) sec INR (<1.2) APTT (22.0-30.0) sec Sodium (137-145) mmol/L Potassium (3.5-5.1) mmol/L Chloride (98-107) mmol/L Carbon Dioxide (22-30) mmol/L Anion Gap mmol/L BUN (7-17) mg/dL Creatinine (0.52-1.04) mg/dL Est GFR (CKD-EPI)AfAm (>60 ml/min/1.73 sqM) Est GFR (CKD-EPI)NonAf (>60 ml/min/1.73 sqM) Glucose (74-99) mg/dL Calcium (8.4-10.2) mg/dL Blood Type A Positive Blood Type Recheck No Previous Record Bld Type Recheck Status CABO Indicated Antibody Screen NEGATIVE Crossmatch See Detail Spec Expiration Date 05/09/2021 - 2299 Disposition <Kyle Mckeon - Last Filed: 05/06/21 15:26> Is patient prescribed a controlled substance at d/c from ED?: No Decision to Admit Reason: Admit from EC Decision Date: 05/06/21 Decision Time: 17:19 <May Portillo - Last Filed: 05/09/21 00:36> Clinical Impression: Leg pain, left, Popliteal artery stenosis, left Disposition: ADMITTED IP TO THIS [facility] Condition: Stable
[2021-05-06 13:12] LABS: Anisocytosis Slight; Basophils # (A) 0.1 k/uL (0-0.2); Basophils % (A) 1 %; Eosinophils # (A) 0.1 k/uL (0-0.7); Eosinophils % (A) 1 %; HCT 25.9 % (34.0-46.0); HGB 8.1 gm/dL (11.4-16.0); Hypochromasia Marked; Lymphocytes # (A) 1.3 k/uL (1.0-4.8); Lymphocytes % (A) 15 %; MCH 26.1 pg (25.0-35.0); MCHC 31.2 g/dL (31.0-37.0); Microcytosis Slight; Monocytes # (A) 0.4 k/uL (0-1.0); Monocytes % (A) 5 %; Neutrophils # (A) 6.6 k/uL (1.3-7.7); Neutrophils % (A) 77 %; Platelet Count 428 k/uL (150-450); Poikilocytosis Marked; RDW 19.3 % (11.5-15.5); WBC 8.6 k/uL (3.8-10.6)
[2021-05-06 13:13] LABS: MCV 83.5 fL (80.0-100.0)
[2021-05-06 13:23] LABS: African American GFR (CKD) >90 (>60 ml/min/1.73 sqM); Anion Gap 10 mmol/L; Blood Urea Nitrogen 7 mg/dL (7-17); Calcium 9.4 mg/dL (8.4-10.2); Carbon Dioxide 30 mmol/L (22-30); Chloride 94 mmol/L (98-107); Glucose 161 mg/dL (74-99); Non-African American GFR(CKD) 83 (>60 ml/min/1.73 sqM); Potassium 3.4 mmol/L (3.5-5.1); Sodium 134 mmol/L (137-145)
[2021-05-06 13:33] LABS: INR 0.9 (<1.2); Prothrombin Time 10.2 sec (9.0-12.0)
[2021-05-06 13:41] LABS: Partial Thromboplastin Time 19.2 sec (22.0-30.0)
--- NOTE | 2021-05-06 15:02 | CT ---
EXAMINATION TYPE: CT angio tho/abd W Run Off DATE OF EXAM: 05/06/2021 HISTORY: Left Leg Numbness, recent left iliac stent angioplasty March 28. CT DLP: 3243.3mGycm Automated Exposure Control for Dose Reduction was Utilized. CONTRAST: CTA scan of the thorax, abdomen and pelvis with lower extremity runoff is performed without oral and without and with IV Contrast, patient injected with 100 ml mL of Isovue 370. 3-D reconstructive image s are created and on independent workstation and reviewed. COMPARISON: None. FINDINGS: VASCULAR: Patency of the central pulmonary arteries. Prominent main pulmonary artery at 2.9 cm axial image 43 suggesting mild underlying pulmonary hypertension. No ascending aortic aneurysm. There are p atent two-vessel from the aortic arch with origin of the left subclavian artery currently from the le ft common carotid artery axial image 10 the level of the thyroid gland presumed surgical anastomosis. No significant stenosis. There is stent graft in the aortic arch extending into the descending aorta appears patent. No signif icant aneurysm. Patent celiac artery and SMA along with bilateral single renal arteries and PHI. Mild to moderate plaque along course of the abdominal aorta without significant stenosis. Common iliac ar teries show mild plaque. There is a stent graft in the left external iliac artery without visualized color-flow suspect complete occlusion along the majority of it. Some reconstitution of left groin reg ion is seen. No significant stenosis in the right iliac arteries. Flow at common femoral arteries into bifurcation and in the superficial femoral arteries bilaterally into the popliteal arteries. No significant plaque or stenosis. Carotid bifurcation trifurcation bila terally. Poor flow or contrast opacification in the Distal leg bilaterally makes evaluation past mid leg level suboptimal. No obvious significant asymmetric stenosis. Lungs: Some dependent atelectasis lower lungs. No pleural effusion or pneumothorax. Mediastinum: No cardiomegaly or pericardial effusion. No greater than 1 cm hilar or mediastinal lymph nodes. Coronary artery calcification is present. LIVER/GB: Liver is diffusely low dense consistent with fatty infiltration on noncontrast CT PANCREAS: No significant abnormality is seen. SPLEEN: No significant abnormality is seen. ADRENALS: No significant abnormality is seen. KIDNEYS: No significant abnormality is seen. BOWEL: Few diverticula in the sigmoid colon. UTERUS/ADNEXA: Anteverted uterus. There is 4.3 x 2.5 cm left ovarian thin-walled cyst or cystic lesio n in the pelvis axial image 106. Occasional tiny pelvic phlebolith. LYMPH NODES: No greater than 1cm abdominal or pelvic lymph nodes are appreciated. OSSEOUS STRUCTURES: Slight underlying scoliotic curvature in the thoracic spine. OTHER: No significant additional abnormality is seen. LOWER EXTREMITIES: Moderate medial tibiofemoral compartment joint space loss in both knees. IMPRESSION: Recurrent Significant stenosis suspected complete occlusion of the long segment stent gra ft within the left external iliac artery.
[2021-05-06] MEDS ORDERED: HEPARIN SODIUM 1,000 UN/ML (10ML VL) IV ONE (15:06)
[2021-05-06] MEDS ORDERED: HEPARIN SODIUM 1,000 UN/ML (10ML VL) IV PRN (15:06)
[2021-05-06] MEDS ORDERED: NALOXONE 0.4 MG/ML 1 ML VIAL IV PRN (15:07)
[2021-05-06] MEDS ORDERED: HEPARIN SOD,PORK IN 0.45% NACL 25,000 UNIT in 0.45% NACL 1 250ML.BAG IV SCH (15:15)
[2021-05-06] MEDS ORDERED: ASPIRIN 81 MG PO STA (15:25)
[2021-05-06] MEDS: SODIUM CHLORIDE 0.9% 1,000 ML IV SCH (15:49)
--- NOTE | 2021-05-06 19:50 | P.CRDCN ---
History of Present Illness History of present illness: HISTORY OF PRESENT ILLNESS: This is a pleasant 66 year old female with history of PAD with numerous stenting of her left external iliac artery, CAD, HTN, HLD, tobacco abuse, COPD, aortic dissection s/p repair approximately 10 years ago, left upper extremity revascularization, carotid artery stenosis, DVT, clotting disorder on anticoagulation. She follows with Dr Mas. She was having increased left foot pain in March and workup showed an occluded left external iliac stent and the refore underwent mechanical thrombectomy and balloon angioplasty from a right femoral approach and had done fairly well. She admits she has been compliant with her medications. She acutely noted increased left pain and parasthesias in her left foot and earlier today and therefore presented for evaluation. She was found to have decreased pulses on the left and therefore a CTA was performed which showed occluded left external iliac. She was placed on heparin drip and I saw her at approximately 5PM and patient states that the pain was almost entirely gone, had some mild numbness of the inside of her left 1st toe and otherwise was doing well. No palpable DP or PT however 1-2+ pulses left common femoral and popliteal artery. EKG shows normal sinus rhythm with nonspecific ST/ T wave abnormalities. Hgb noted to be decreased to 8.1 with previous being in 10-11 range. REVIEW OF SYSTEMS: At the time of my exam: CONSTITUTIONAL: Denies fever or chills. HEENT: Denies blurred vision, vision changes, or eye pain. Denies hemoptysis CARDIOVASCULAR: Denies chest pain. Denies orthopnea. Denies PND. Denies palpitations RESPIRATORY: Denies shortness of breath. GASTROINTESTINAL: Denies abdominal pain. Denies nausea or vomiting. HEMATOLOGIC: Denies bleeding disorders. GENITOURINARY: Denies any blood in urine. SKIN: Denies pruitis. Denies rash. PHYSICAL EXAM: VITAL SIGNS: Reviewed. GENERAL: Well-developed in no acute distress. HEENT: Head is normocephalic. Pupils are equal, round. Sclerae anicteric. Mucous membranes of the mouth are moist. Neck supple. No JVD or thyromegaly LUNGS: Respirations even and unlabored. Lungs essentially clear to auscultation bilaterally. HEART: Regular rate and rhythm. S1 and S2 heard. ABDOMEN: Soft. Nondistended. Nontender. EXTREMITIES: Normal range of motion. No clubbing or cyanosis. No lower extremity edema. Left foot mildly cool however remainder is warm. No palpable left PT or DP, 2/4 left common femoral. Mild numbness of left 1st digit. NEUROLOGIC: Awake and alert. Oriented x 3. ASSESSMENT: Acute limb ischemia PAD with prior peripheral stenting Tobacco abuse HTN HLD DM2 CAD TIA 12/2020 Anemia, rule out iron deficiency PLAN: CT reviewed with findings of occlusion of left external iliac artery. Patient appears to be doing much since initiation of heparin drip and left foot is warm with only minimal numbness to left great toe. We discussed recommendations for angiography with likely intervention likely 05/07 given recent contrast load. Continue with heparin drip and aspirin and Plavix, vascular checks. Discussed with patinet that if clinical status changes may consider more urgent intervention. Monitor for any GIB with Hgb noted to be trending down. Past Medical History Past Medical History: Asthma, Chest Pain / Angina, COPD, CVA/TIA, Diabetes Mellitus, Deep Vein Thrombosis (DVT), GERD/Reflux, Hyperlipidemia, Hypertension, Osteoarthritis (OA), Vascular Disorder Additional Past Medical History / Comment(s): Hx blood clot in left arm and left hand, hx migraines, PVD, left leg pain, TIA-X2 DECEMBER 2020. History of Any Multi-Drug Resistant Organisms: None Reported Past Surgical History: Heart Catheterization, Heart Catheterization With Stent Additional Past Surgical History / Comment(s): Stent to left external iliac, blood clot removed from left arm, surgery to fix "tear in aorta", surgery for "abdominal adhesions", 06-11-16 LT ILIAC PTBA/STENT, PTBA 10/03/2020-Stent X2 Illiac(L). Angiography. Past Anesthesia/Blood Transfusion Reactions: No Reported Reaction Additional Past Anesthesia/Blood Transfusion Reaction / Comment(s): Claustrophobia. Date of Last Stent Placement:: 10/03/20 Past Psychological History: No Psychological Hx Reported Smoking Status: Current every day smoker Past Alcohol Use History: Daily Past Drug Use History: None Reported - Past Family History Father Family Medical History: Cancer, Myocardial Infarction ([place]) Additional Family Medical History / Comment(s): SKIN CANCER. Mother Family Medical History: Cancer, Deep Vein Thrombosis (DVT) Additional Family Medical History / Comment(s): COLON CANCER TWICE, lung ancer. Medications and Allergies Home Medications Medication Instructions Recorded Confirmed Type Cholecalciferol [Vitamin D3 (10 10 mcg PO DAILY 02/26/15 05/06/21 History Mcg = 400 Iu)] Metoprolol Succinate [Toprol XL] 100 mg PO DAILY 02/26/15 05/06/21 History Albuterol Sulfate [Ventolin HFA] 2 puff INHALATION RT-Q4H PRN 07/14/19 05/06/21 History Pantoprazole [Protonix] 40 mg PO DAILY 07/14/19 05/06/21 History Ferrous Sulfate [Iron (65 MG 325 mg PO DAILY 10/01/20 05/06/21 History Elemental)] Acetaminophen [Tylenol Extra 1,000 mg PO Q4-6H PRN 11/02/20 05/06/21 History Strength] Budesonide/Formoterol Fumarate 2 puff INHALATION RT-BID 11/02/20 05/06/21 History [Symbicort 160-4.5 Mcg Inhaler] DULoxetine HCL [Cymbalta] 60 mg PO DAILY 12/20/20 05/06/21 History Furosemide [Lasix] 20 mg PO DAILY 12/20/20 05/06/21 History Potassium Chloride [Potassium 10 meq PO BID 12/20/20 05/06/21 History Chloride ER] Atorvastatin [Lipitor] 40 mg PO DAILY 03/26/21 05/06/21 History Nitroglycerin 0.4 mg SL Q5M PRN 03/26/21 05/06/21 History amLODIPine [Norvasc] 5 mg PO DAILY 03/26/21 05/06/21 History Aspirin EC [Ecotrin Low Dose] 81 mg PO DAILY #30 tab 03/29/21 05/06/21 Rx Clopidogrel [Plavix] 75 mg PO DAILY #30 tab 03/29/21 05/06/21 Rx Rivaroxaban [Xarelto] 15 mg PO DAILY #90 tab 03/29/21 05/06/21 Rx levETIRAcetam [Keppra] 500 mg PO Q12H 05/06/21 05/06/21 History Allergies Allergy/AdvReac Type Severity Reaction Status Date / Time influenza virus vaccine, Allergy Rash/Hives Verified 05/06/21 14:46 specific [influenza virus vacc,specific] lisinopril Allergy Swelling Verified 05/06/21 14:46 Physical Exam Vitals: Vital Signs Temp Pulse Resp BP Pulse Ox 05/06/21 18:15 90 20 123/66 99 05/06/21 15:59 95 20 132/64 93 L 05/06/21 14:28 92 18 123/69 92 L 05/06/21 12:23 98.2 F 99 18 123/63 97 Intake and Output 05/06/21 05/06/21 05/06/21 06:59 14:59 22:59 Other: Weight 93.44 kg Results 05/06/21 13:00 05/06/21 13:00 Coagulation 05/06/21 Range/Units 13:00 PT 10.2 (9.0-12.0) sec APTT 19.2 L (22.0-30.0) sec CBC 05/06/21 Range/Units 13:00 WBC 8.6 (3.8-10.6) k/uL RBC 3.10 L (3.80-5.40) m/uL Hgb 8.1 L (11.4-16.0) gm/dL Hct 25.9 L (34.0-46.0) % Plt Count 428 (150-450) k/uL Comprehensive Metabolic Panel 05/06/21 Range/Units 13:00 Sodium 134 L (137-145) mmol/L Potassium 3.4 L (3.5-5.1) mmol/L Chloride 94 L (98-107) mmol/L Carbon Dioxide 30 (22-30) mmol/L BUN 7 (7-17) mg/dL Creatinine 0.76 (0.52-1.04) mg/dL Glucose 161 H (74-99) mg/dL Calcium 9.4 (8.4-10.2) mg/dL Current Medications Generic Name Dose Route Start Last Admin Trade Name Freq PRN Reason Stop Dose Admin Heparin Sodium (Porcine) 0 unit 05/06/21 15:06 Heparin Sodium 1,000 Un/Ml (10ml Vl) IV PER PROTOCOL PRN Low PTT Protocol Heparin Sodium/Sodium Chloride 250 mls @ 9.998 mls/hr 05/06/21 15:15 05/06/21 15:55 25,000 unit/ Sodium Chloride IV 10.7 units/kg/hr .Q24H RENEE 9.998 mls/hr Administration Protocol 10.7 UNITS/KG/HR Sodium Chloride 1,000 mls @ 120 mls/hr 11/22/21 15:15 05/06/21 15:49 Saline 0.9% IV 120 mls/hr .Q8H20M RENEE Administration Morphine Sulfate 4 mg 05/06/21 15:07 Morphine Sulfate 4 Mg/Ml Syringe IV Q4HR PRN Severe Pain Naloxone HCl 0.2 mg 05/06/21 15:07 Naloxone 0.4 Mg/Ml 1 Ml Vial IV Q2M PRN Opioid Reversal Intake and Output 05/06/21 05/06/21 05/06/21 06:59 14:59 22:59 Other: Weight 93.44 kg Patient Weight 05/07/21 06:59 Weight 93.44 kg 05/06/21 13:00 05/06/21 13:00
[2021-05-06] MEDS: MORPHINE SULFATE 4 MG/ML SYRINGE IV PRN (22:09)
[2021-05-07] MEDS: SODIUM CHLORIDE 0.9% 1,000 ML IV SCH ×2 (00:07→18:39)
[2021-05-07] MEDS: MORPHINE SULFATE 4 MG/ML SYRINGE IV PRN ×4 (04:27→22:09)
[2021-05-07 06:14] LABS: Anisocytosis Slight; Basophils % (A) 1 %; Eosinophils # (A) 0.1 k/uL (0-0.7); Eosinophils % (A) 2 %; HCT 22.8 % (34.0-46.0); HGB 7.1 gm/dL (11.4-16.0); Hypochromasia Marked; Lymphocytes # (A) 1.6 k/uL (1.0-4.8); Lymphocytes % (A) 24 %; MCH 26.4 pg (25.0-35.0); MCHC 31.1 g/dL (31.0-37.0); Mean Platelet Volume 8.4; Microcytosis Slight; Monocytes # (A) 0.4 k/uL (0-1.0); Monocytes % (A) 5 %; Neutrophils # (A) 4.5 k/uL (1.3-7.7); Neutrophils % (A) 67 %; Platelet Count 393 k/uL (150-450); Poikilocytosis Moderate; RBC 2.68 m/uL (3.80-5.40); RDW 19.3 % (11.5-15.5); WBC 6.7 k/uL (3.8-10.6)
[2021-05-07 06:58] LABS: Calcium 8.5 mg/dL (8.4-10.2); Potassium 3.2 mmol/L (3.5-5.1)
[2021-05-07] MEDS: MIDAZOLAM 2 MG/2 ML VIAL IVP ONE ×2 (08:44→10:40)
[2021-05-07] MEDS: fentaNYL (PF) 50 MCG/ML 2 ML AMP IVP ONE ×3 (08:44→11:30)
[2021-05-07] MEDS ORDERED: LIDOCAINE (PF) 10 MG/ML 5ML AMP SQ ONE (08:47)
[2021-05-07] MEDS: HEPARIN SODIUM 1,000 UN/ML (10ML VL) IV ONE ×5 (08:58→11:15)
[2021-05-07] MEDS ORDERED: IV FLUID CONTINUATION 1,000 ML IV ONE (08:59)
[2021-05-07] MEDS ORDERED: IOPAMIDOL-250 100ML BTL INTRAARTER ONE ×3 (09:07→11:55)
[2021-05-07] MEDS ORDERED: NITROGLYCERIN 1000MCG/10ML SYRINGE INTRAARTER ONE ×4 (11:07→11:45)
[2021-05-07] MEDS ORDERED: HEPARIN SODIUM 1,000 UN/ML (10ML VL) IVP ONE (11:28)
[2021-05-07 12:03] LABS: Anisocytosis Slight; Basophils % (A) 0 %; Eosinophils # (A) 0.2 k/uL (0-0.7); Eosinophils % (A) 2 %; Hypochromasia Marked; Lymphocytes # (A) 1.4 k/uL (1.0-4.8); Lymphocytes % (A) 21 %; MCH 25.8 pg (25.0-35.0); MCV 83.3 fL (80.0-100.0); Mean Platelet Volume 8.5; Microcytosis Slight; Monocytes # (A) 0.3 k/uL (0-1.0); Monocytes % (A) 5 %; Neutrophils # (A) 4.4 k/uL (1.3-7.7); Neutrophils % (A) 69 %; Platelet Count 328 k/uL (150-450); Poikilocytosis Marked; RBC 2.22 m/uL (3.80-5.40); RDW 19.3 % (11.5-15.5); WBC 6.3 k/uL (3.8-10.6)
[2021-05-07 12:04] LABS: Glucose,Whole Blood 148 mg/dL (75-99)
[2021-05-07 12:18] LABS: HCT 18.5 % (34.0-46.0); HGB 5.7 gm/dL (11.4-16.0)
--- NOTE | 2021-05-07 12:40 | IR ---
EXAMINATION TYPE: IR well logging mud analysis captain iliac DATE OF EXAM: 05/07/2021 CLINICAL HISTORY: Peripheral vascular disease TECHNIQUE: Fluoroscopy. COMPARISON: CTA from yesterday. FINDINGS: Fluoroscopic guidance was provided during procedure performed by Dr. Davey. A total of 50.6 minutes of fluoroscopic time was utilized during the procedure and 1739 spot images was acquire d. Images confirm complete occlusion of left common iliac arterial stent. Please refer to procedure n ote for further details. IMPRESSION: As Above.
[2021-05-07] MEDS ORDERED: ACETAMINOPHEN TAB 500 MG TAB PO PRN (13:22)
--- NOTE | 2021-05-07 13:59 | P.HPIM ---
History of Present Illness H&P Date: 05/07/21 History of present illness This is a 65-year-old female patient of Dr. Varghese with past medical history of COPD, PAD as well as stents by Dr. Mas, hypertension, hyperlipidemia. Patient has history of severe claudication of the left lower extremity and followed by Dr. Mas status post angiogram and angioplasty of the left external iliac artery followed by clot and on long-term eliquis, alcohol abuse. She had a hospitalization in October which time she presented for syncopal episode 4 of unclear etiology. Patient was last hospitalized in December 2020 for TIA. She was also noted to have bilateral carotid stenosis on ultrasound 50- 69%. CT of the neck was suggested mild stenosis of bilateral internal carotid. Patient does not follow with vascular surgeon. She came in to the emergency room yesterday with increased left foot pain associated with purplish discoloration of her toes and forefoot. Patient had an occluded left external iliac stent and underwent mechanical thrombectomy and balloon angioplasty from the right femoral approach in March. She was doing well until yesterday. Patient denies any baseline numbness or tingling in the left lower extremity. She does not have any residual sensory or motor deficit in the left lower extremity. Patient was taken for percutaneous transluminal balloon angioplasty to the right femoral approach this morning. Pulses by Doppler are palpable. Purplish discolored discoloration of the toes has improved since the patient had the procedure with Dr. Ranjit Ann. Patient does have significant pain involving her lower back since the procedure is performed. She denies any foot pain at this moment. Patient endorses some numbness involving the fourth and fifth toes of the left lower extremity. Vitals reviewed this morning as patient is afebrile pulse 88 respiratory rate 18 blood pressure 109/68 oxygen saturation 92% on 4 L. Labs revealed, patient's hemoglobin has dropped from 8 to 5.7 this morning and is noted to have a continuous downtrend since March. CMP today. Sodium 136 potassium 3.2 bicarb 31 glucose 122 calcium 8.5, no S4 detected. ROS Constitutional: Denies chills, Denies fever, endorses lethargy, , Denies poor appetite, Denies weakness, Denies weight loss Eyes: denies decreased vision, denies diplopia, denies discharge, denies pain Ears: deny: decreased hearing Ears, nose, mouth and throat: Denies dental pain, Denies headache, Denies nasal discharge, Denies nose pain Cardiovascular: Denies chest pain, Denies decreased exercise tolerance, Denies edema, Denies high blood pressure, Denies irregular heart beat, Denies palpitations, Denies paroxysmal nocturnal dyspnea, Denies rapid heart beat, De nies shortness of breath Respiratory: Denies congestion, Denies cough, Denies cough with sputum, Denies dyspnea, Denies home oxygen, Denies wheezing Gastrointestinal: Denies abdominal pain, Denies change in bowel habits, Denies coffee ground emesis, Denies early satiety, Denies excessive gas, Denies heartburn, Denies hematemesis, Denies hematochezia, Denies loss of appetite, Denies nausea, Denies vomiting Genitourinary: Denies dysuria, Denies flank pain, Denies kidney stones, Denies menorrhagia, Denies urgency, Denies urinary frequency Musculoskeletal: Endorses gait dysfunction, endorses limitation of motion, Denies morning stiffness, Denies muscle cramps endorses back pain Integumentary: Denies rash, Denies wounds, Denies brittle nails, Denies change in hair/nails, Denies darkening of skin Neurological: Denies balance difficulties, Denies change in speech, Denies double vision, Denies gait dysfunction, Denies loss of vision, Denies motor disturbance, Denies numbness, Denies paralysis, Denies paresthesias, Denies seizures Psychiatric: Denies anxiety, Denies depression Endocrine: Denies excessive sweating, Denies excessive thirst, Denies high blood sugars, Denies palpitations Hematologic/Lymphatic: Denies easy bruising, Denies lymphadenopathy Social history Patient is a smoker of 2 packs per day for 45 years and is cutting back to one half pack per day. Patient was drinking 12 pack a day for 20 years and recently cut back to drinks 6 beers per day and and then 3 per day. She's been drinking heavy alcohol for 30-40 years. No marijuana or illicit drug use. Patient is and lives alone. Family history Mother at age 83 from lung cancer. Father at age 65 from myocardial infarction. Patient has a total of 5 siblings. One has history of heart disease and another with cancer. She does not have contact with her siblings. Patient does not have any children. Physical exam - Constitutional General appearance: cooperative, no acute distress, obese - EENT Eyes: anicteric sclerae, PERRLA, normal appearance ENT: hearing grossly normal - Neck Neck: no lymphadenopathy, normal ROM, no other, no rigidity, no stridor, no thyromegaly - Respiratory Respiratory: bilateral: CTA, negative: diminished, dullness, rales, rhonchi - Cardiovascular Rhythm: regular Heart sounds: normal: S1, S2 Abnormal Heart Sounds: no systolic murmur, no diastolic murmur, no rub, no S3 Gallop, no S4 Gallop, no click, no other - Gastrointestinal General gastrointestinal: normal bowel sounds, soft nontender - Integumentary Integumentary: no rash, purplish discoloration of forefoot and all the digits involving left foot. - Neurologic Neurologic: CNII-XII intact no sensory or motor deficit except mild numbness involving fourth and fifth digit of the left foot - Musculoskeletal Musculoskeletal: gait not assessed, strength equal bilaterally - Psychiatric Psychiatric: A&O x's 3, appropriate affect - Extremities Peripheral pulses are palpable, left lower extremity dorsalis pedis palpable by Doppler Assessment and plan 1.acute limb ischemia on heparin drip since morning. Complete occlusion of the left common iliac arterial stent noted. Status post PTBA. With Dr. Ranjit Ann 2.peripheral artery disease status post stenting to the left external iliac, l ast performed in March by Dr. Sahni. On aspirin, Plavix and Eliquis. Aspirin was discontinued in the last admission. 3.acute blood loss anemia rule out GI bleed. Occult blood ordered. Status post 1 unit PRBC on 05/07. General surgery consulted and studies ordered. Protonix initiated 40 mg IV twice a day. Hold Eliquis, Plavix and heparin drip. 4. CVA/TIA last episode in December 2020 on Plavix and Eliquis. On hold at this moment due to possible GI bleed. 5 diet-controlled type 2 diabetes continue diabetic diet 6.acute hypoxic respiratory failure rule out. Chest x-ray ordered volume overload history of asthma/COPD, not in exacerbation continue DuoNeb as needed for shortness of breath. Symbicort twice john 7.hypertension continue Norvasc 5 mg daily. Continue metoprolol 100 by mouth daily 8.hyperlipidemia continue atorvastatin 40 mg by mouth daily 9.history of tobacco use and dependence patient guided on nicotine cessation 10.history of alcohol abuse in remission 11.recurrent depression and generalized anxiety disorder continue Cymbalta 60 mg by mouth daily 12.GERD and GI prophylaxis continue Protonix IV twice a day 13.DVT prophylaxis on Eliquis currently on hold. Past Medical History Past Medical History: Asthma, Chest Pain / Angina, COPD, CVA/TIA, Diabetes Mellitus, Deep Vein Thrombosis (DVT), GERD/Reflux, Hyperlipidemia, Hypertension, Osteoarthritis (OA), Vascular Disorder Additional Past Medical History / Comment(s): Hx blood clot in left arm and left hand, hx migraines, PVD, left leg pain, TIA-X2 DECEMBER 2020. History of Any Multi-Drug Resistant Organisms: None Reported Past Surgical History: Heart Catheterization, Heart Catheterization With Stent Additional Past Surgical History / Comment(s): Stent to left external iliac, blood clot removed from left arm, surgery to fix "tear in aorta", surgery for "abdominal adhesions", 06-11-16 LT ILIAC PTBA/STENT, PTBA 10/03/2020-Stent X2 Illiac(L). Angiography. Past Anesthesia/Blood Transfusion Reactions: No Reported Reaction Additional Past Anesthesia/Blood Transfusion Reaction / Comment(s): Claustrophobia. Date of Last Stent Placement:: 10/03/20 Past Psychological History: No Psychological Hx Reported Smoking Status: Current every day smoker Past Alcohol Use History: Occasional Additional Past Alcohol Use History / Comment(s): Started smoking at age 16, states trying to quit, smokes 3 cigarettes per day. Drinks occasionally Past Drug Use History: None Reported - Past Family History Father Family Medical History: Cancer, Myocardial Infarction ([place]) Additional Family Medical History / Comment(s): SKIN CANCER. Mother Family Medical History: Cancer, Deep Vein Thrombosis (DVT) Additional Family Medical History / Comment(s): COLON CANCER TWICE, lung ancer. Medications and Allergies Home Medications Medication Instructions Recorded Confirmed Type Cholecalciferol [Vitamin D3 (10 10 mcg PO DAILY 02/26/15 05/06/21 History Mcg = 400 Iu)] Metoprolol Succinate [Toprol XL] 100 mg PO DAILY 02/26/15 05/06/21 History Albuterol Sulfate [Ventolin HFA] 2 puff INHALATION RT-Q4H PRN 07/14/19 05/06/21 History Pantoprazole [Protonix] 40 mg PO DAILY 07/14/19 05/06/21 History Ferrous Sulfate [Iron (65 MG 325 mg PO DAILY 10/01/20 05/06/21 History Elemental)] Acetaminophen [Tylenol Extra 1,000 mg PO Q4-6H PRN 11/02/20 05/06/21 History Strength] Budesonide/Formoterol Fumarate 2 puff INHALATION RT-BID 11/02/20 05/06/21 History [Symbicort 160-4.5 Mcg Inhaler] DULoxetine HCL [Cymbalta] 60 mg PO DAILY 12/20/20 05/06/21 History Furosemide [Lasix] 20 mg PO DAILY 12/20/20 05/06/21 History Potassium Chloride [Potassium 10 meq PO BID 12/20/20 05/06/21 History Chloride ER] Atorvastatin [Lipitor] 40 mg PO DAILY 03/26/21 05/06/21 History Nitroglycerin 0.4 mg SL Q5M PRN 03/26/21 05/06/21 History amLODIPine [Norvasc] 5 mg PO DAILY 03/26/21 05/06/21 History Aspirin EC [Ecotrin Low Dose] 81 mg PO DAILY #30 tab 03/29/21 05/06/21 Rx Clopidogrel [Plavix] 75 mg PO DAILY #30 tab 03/29/21 05/06/21 Rx Rivaroxaban [Xarelto] 15 mg PO DAILY #90 tab 03/29/21 05/06/21 Rx levETIRAcetam [Keppra] 500 mg PO Q12H 05/06/21 05/06/21 History Allergies Allergy/AdvReac Type Severity Reaction Status Date / Time influenza virus vaccine, Allergy Rash/Hives Verified 05/06/21 14:46 specific [influenza virus vacc,specific] lisinopril Allergy Swelling Verified 05/06/21 14:46 Physical Exam Vitals: Vital Signs Temp Pulse Pulse Resp BP BP Pulse Ox 05/07/21 04:15 98.6 F 82 18 125/62 94 L 05/06/21 23:12 96 05/06/21 23:11 94 18 112/60 89 L 05/06/21 21:47 98.6 F 100 20 166/64 96 05/06/21 21:36 98.3 F 86 18 126/60 94 L 05/06/21 19:29 93 18 126/39 95 05/06/21 18:15 90 20 123/66 99 05/06/21 15:59 95 20 132/64 93 L 05/06/21 14:28 92 18 123/69 92 L 05/06/21 12:23 98.2 F 99 18 123/63 97 Intake and Output 05/06/21 05/07/21 05/07/21 22:59 06:59 14:59 Intake Total 540 162.520 Output Total 350 Balance 540 -187.480 Intake: Intake, IV Titration 162.520 Amount Heparin Sod,Pork in 0.45% 162.520 NaCl 25,000 unit In 0.45 % NaCl 1 250ml.bag @ 10.7 UNITS/KG/HR 9.998 mls/hr IV .Q24H [facility] Rx#: [id number] Oral 540 Output: Urine 350 Other: Voiding Method Toilet Toilet # Voids 1 # Bowel Movements 1 Weight 93.44 kg Results CBC & Chem 7: 05/07/21 11:52 05/07/21 05:18 Labs: Abnormal Lab Results - Last 24 Hours (Table) 05/06/21 05/06/21 05/06/21 Range/Units 13:00 13:00 13:00 RBC 3.10 L (3.80-5.40) m/uL Hgb 8.1 L (11.4-16.0) gm/dL Hct 25.9 L (34.0-46.0) % RDW 19.3 H (11.5-15.5) % APTT 19.2 L (22.0-30.0) sec Sodium 134 L (137-145) mmol/L Potassium 3.4 L (3.5-5.1) mmol/L Chloride 94 L (98-107) mmol/L Carbon Dioxide (22-30) mmol/L Glucose 161 H (74-99) mg/dL 05/06/21 05/07/21 05/07/21 Range/Units 22:14 05:18 05:18 RBC (3.80-5.40) m/uL Hgb (11.4-16.0) gm/dL Hct (34.0-46.0) % RDW (11.5-15.5) % APTT 34.7 H 71.3 H (22.0-30.0) sec Sodium 136 L (137-145) mmol/L Potassium 3.2 L (3.5-5.1) mmol/L Chloride (98-107) mmol/L Carbon Dioxide 31 H (22-30) mmol/L Glucose 122 H (74-99) mg/dL 05/07/21 Range/Units 05:18 RBC 2.68 L (3.80-5.40) m/uL Hgb 7.1 L (11.4-16.0) gm/dL Hct 22.8 L (34.0-46.0) % RDW 19.3 H (11.5-15.5) % APTT (22.0-30.0) sec Sodium (137-145) mmol/L Potassium (3.5-5.1) mmol/L Chloride (98-107) mmol/L Carbon Dioxide (22-30) mmol/L Glucose (74-99) mg/dL Thrombosis Risk Factor Assmnt - Choose All That Apply Each Risk Factor Represents 2 Points: Age 61-74 years Each Risk Factor Represents 3 Points: History of DVT/PE Thrombosis Risk Factor Assessment Total Risk Factor Score: 5 Thrombosis Risk Factor Assessment Level: High Risk
[2021-05-07] MEDS ORDERED: CLOPIDOGREL 75 MG TAB PO SCH (14:00)
[2021-05-07] MEDS ORDERED: ASPIRIN 81 MG PO SCH (14:00)
--- NOTE | 2021-05-07 14:37 | XR ---
EXAMINATION TYPE: XR chest 1V DATE OF EXAM: 05/07/2021 CLINICAL HISTORY: Hypoxia. TECHNIQUE: Single portable frontal supine view of the chest is obtained. COMPARISON: Chest x-ray December 20, 2020 FINDINGS: The osseous structures are demineralized. Chronic parenchymal changes bilaterally with new patchy lateral right basilar opacity. Stable mild cardiomegaly with stent graft in the aortic arch ex tending into the ascending thoracic aorta. Surgical clips left neck redemonstrated. Left lung remains clear. IMPRESSION: Mild cardiomegaly and chronic parenchymal changes with new lateral right basilar opacity could reflect developing acute infiltrate and/or atelectasis.
[2021-05-07] MEDS: amLODIPine 5 MG TAB PO SCH (14:40)
[2021-05-07] MEDS: ASPIRIN 325 MG TAB PO SCH ×2 (14:41→14:50)
[2021-05-07] MEDS: CLOPIDOGREL 75 MG TAB PO SCH ×2 (14:41→14:50)
[2021-05-07] MEDS: POTASSIUM CHLORIDE ER 20 MEQ TAB.ER PO STA ×2 (14:41→14:50)
[2021-05-07] MEDS: levETIRAcetam 500 MG TAB PO SCH (14:50)
[2021-05-07] MEDS: SYMBICORT 160-4.5 MCG INHALER INHALATION SCH (19:39)
[2021-05-07 20:15] LABS: % Iron Saturation 2.63 (12.00-45.00)
[2021-05-07] MEDS: PANTOPRAZOLE 40 MG/10 ML VIAL IVP SCH (20:58)
--- NOTE | 2021-05-07 21:10 | P.PCN ---
Description of Procedure: PROCEDURES PERFORMED: Left lower extremity angiography, placement of Spider 5.0 filter device, IVUS left external iliac stent, aspiration thombectomy left external iliac artery and left popliteal artery with Penumbra Cat 6, PROVIDER [employer]ING CONSULTANT of left external iliac artery with 6.0 x 80mm balloon, DCB angioplasty of left external iliac artery instent stenosis with a 7.0 x 80mm In.PACT DCB, PROVID[employer]ANT left popliteal into PT with a 2.5 x 60mm balloon. INDICATION: Acute limb ischemia HISTORY: This is a pleasant 66 year old female with history of PAD with numerous stenting of her left external iliac artery, CAD, HTN, HLD, tobacco abuse, COPD, aortic dissection s/p repair approximately 10 years ago, left upper extremity revascularization, carotid artery stenosis, DVT, clotting disorder on anticoagulation. She follows with Dr Mas. She was having increased left foot pain in March and workup showed an occluded left external iliac stent and therefore underwent mechanical thrombectomy and balloon angioplasty from a right femoral approach one month ago and had done fairly well. She acutely noted increased left pain and parasthesias in her left foot 05/06 and therefore a CTA was performed which showed occluded left external iliac with poor pulses and therefore decision was made to perform angiography with likely intervention. She had a recent TIA in December 2020 and had decreasing Hgb levels down to 7.1 this morning and was not felt to be a good lysis catheter candidate or EKOS catheter candidate however denied any specific melena or hematochezia and drop in hemoglobin was felt to be somewhat hemodilutional and more chronic as patient had been on triple therapy since intervention in March. CONSENT:I have discussed the risks, benefits and alternative therapies for the above-mentioned procedure and for both sedation/analgesia as well as necessary blood product administration, if indicated, as they pertain to this patient. The patient has indicated understanding and acceptance of the risks and procedures discussed. PROCEDURE: After the risks, benefits and alternatives of the above mentioned procedure explained in detail with the patient, informed consent was obtained. Patient was taken to the catheterization lab and prepped and draped in usual fashion. 1% lidocaine was used to anesthetize the right femoral area. A 6- Monegasque sheath was placed in the right common femoral artery using modified Seldinger technique, ultrasound guidance and micropuncture technique. A 5- Monegasque rim catheter was inserted to the ostial left common iliac and left lower extremity DSA imaging was obtained. Next, the decision was made to perform intervention of the occluded left external iliac stent. IV heparin was given. A 0.035 stiff angled glide wire wire was used to cross the lesion and was placed into the distal left SFA. Over the wire, the short sheath was replaced with a 6Fr 65cm destination sheath. The 0.035 wire was exchanged with the help of a microcatheter for a 0.014 [employer] wire. Given likely fresh thrombus with ALI, a Spider 5.0mm filter was advanced and deployed in the left popliteal area. Over the 0.014 wire, IVUS was performed which showed diffuse instent stenosis as well as likely fresh thrombus and a stent size of approximately 7.0 with reference vessel 7.0 - 8.0 and no dissection. Therefore 3 passes were performed with a Penumbra Cat 6 aspiration thrombectomy catheter. Twice there was somewhat organized thrombus that was noted when pulling the Penumbra catheter out of the sheath and therefore the sheath was extensively flushed with backbleeding. Next Balloon angioplasty was performed with a 6.0 x 80mm balloon. Next a 7.0 x 80mm In.PACT DCB was advanced and deployed for 3 minutes. Estephania ograms showed <10% residual stenosis of the stent with brisk unimpeded flow of the left iliac stent. There was more distal 40-50% stenosis at the level of the distal external iliac into common femoral area however this did not appear to be significant and felt best treated medically. Therefore the Spider filter was retrieved and the wire was pulled. Final angiograms including runoff were performed, however there was distal embolization despite the filter to the area around the filter device in the popliteal artery. Therefore a 0.014 BMW wire was advanced into the PT. Next aspiration thombectomy was performed with some removal of organized thombus however majority appeared to be at the distal end of the catheter and was not being aspirated into the Penumbra catheter. This required negative pressure on catheter while removing the catheter from the sheath and on the 3 run, there was inability to flush or draw back on the sheath requiring exchange of the destination sheath. Balloon angioplasty was performed of the popliteal artery into the PT with a 2.5 x 60mm balloon which did show some improvement however there was still a large thrombus noted at the popliteal artery. Therefore another pass of the Penumbra was performed which did improve flow with only 20% residual stenosis. Due to contrast and radiation use the procedure was therefore aborted. Patient was still having some pain of the toes felt to be related to microvascular emboli however had a Dopplerable DP and PT at the end of the case. A right femoral angiogram was performed and anatomoy was suitable for closure. A 6Fr Angioseal was placed with hemostasis achieved. The patient tolerated the procedure well however did have borderline BP's at times, improved with IVF boluses. Patient was transported back to the post catheterization holding area in stable condition. Conscious Sedation: Patient was monitored under the direct supervision of vision of myself for conscious sedation using Versed and fentanyl for a total duration of 192 minutes Estimated blood loss: 200cc HEMODYNAMICS: Ao: 98/65 Left lower extremity: Left common iliac artery: There is no significant stenosis. Left external iliac artery: There is a long proximal to distal external iliac stent with 100% stenosis. There is more distal 40-50% stenosis from the stent into the left common femoral artery. Left internal iliac artery: There is proximal 90% stenosis then a mid 100% stenosis. Left common femoral artery: There is no significant stenosis. Left profunda: There is no significant stenosis. Left SFA: There is no significant stenosis. Left popliteal artery: There is no significant stenosis. Left tibioperoneal trunk: There is no significant stenosis. Left anterior tibial artery: There is no significant stenosis. Left porterior tibial artery: There is no significant stenosis. Left peroneal artery: There is no significant stenosis. FINAL IMPRESSION: 1. Peripheral arterial disease as described with recurrent 100% stenosis of left external iliac stent 2. S/p Penumbra aspiration thrombectomy and 7.0 x 80mm In.PACT DCB placement of left external iliac artery stenosis 3. Periprocedural embolization of thrombus to popliteal area despite use of Spider filter. S/p aspiration thrombectomy with Penumbra and balloon angioplasty with 20% residual stenosis 4. Residual pain felt likely related to microembolization with adequate DP and PT pulses by Doppler 5. Preprocedure anemia with approximately 200cc EBL secondary to multiple exchanges, aspiration thrombectomies. PLAN: 1. Continue dual antiplatelets for at least 3 months. Patient had previously been on triple therapy with Xarelto, aspirin and Plavix secondary to multiple thrombosis of left external iliac stents and has had steady decline in Hgb. Will have to assess risks vs benefits of antiplatelets/ anticoagulation however patient denying and hematochezia or melena. 2. If pain persists she may need repeat angiography to assess for any other possible targets, however will monitor closely. If patient has recurrent failure of external iliac stent, bypass may always be an option however we will continue to reassess.
[2021-05-08] MEDS: levETIRAcetam 500 MG TAB PO SCH ×2 (02:27→12:35)
[2021-05-08] MEDS: MORPHINE SULFATE 4 MG/ML SYRINGE IV PRN ×2 (03:00→08:35)
[2021-05-08 06:44] LABS: Anisocytosis Slight; Basophils % (A) 0 %; Eosinophils # (A) 0.2 k/uL (0-0.7); Eosinophils % (A) 2 %; HCT 25.9 % (34.0-46.0); Hypochromasia Marked; Lymphocytes # (A) 1.2 k/uL (1.0-4.8); Lymphocytes % (A) 12 %; MCH 27.9 pg (25.0-35.0); MCV 87.2 fL (80.0-100.0); Mean Platelet Volume 8.3; Monocytes # (A) 0.6 k/uL (0-1.0); Monocytes % (A) 6 %; Neutrophils # (A) 7.7 k/uL (1.3-7.7); Neutrophils % (A) 79 %; Platelet Count 324 k/uL (150-450); Poikilocytosis Marked; RBC 2.97 m/uL (3.80-5.40); RDW 17.9 % (11.5-15.5); WBC 9.7 k/uL (3.8-10.6)
[2021-05-08 06:58] LABS: HGB 8.3 gm/dL (11.4-16.0)
[2021-05-08 07:19] LABS: Albumin 2.9 g/dL (3.5-5.0); Calcium 8.2 mg/dL (8.4-10.2); Potassium 4.1 mmol/L (3.5-5.1); Total Bilirubin 1.4 mg/dL (0.2-1.3); Total Protein 5.5 g/dL (6.3-8.2)
[2021-05-08] MEDS ORDERED: PANTOPRAZOLE 40 MG TABLET PO SCH (07:30)
[2021-05-08] MEDS: SYMBICORT 160-4.5 MCG INHALER INHALATION SCH ×2 (08:12→20:53)
--- NOTE | 2021-05-08 08:12 | P.GSCN ---
History of Present Illness Consult date: 05/08/21 History of present illness: 66-year-old female is admitted secondary to concern for vascular disease. She does have a history of peripheral artery disease with numerous stenting of her left external iliac artery, coronary artery disease, hypertension, hyperlipidemia, tobacco and alcohol abuse, COPD, aortic dissection. She is on chronic anticoagulation. Most recently, she did have an occluded left external iliac stent and underwent mechanical thrombectomy in March. She was found to have decreased pulses on her left lower extremity and CTA of the left lower ex tremity revealed an occluded left external iliac. She was complaining of some paresthesias of the left first toe. She did undergo a left lower extremity angiography with left external iliac stent placement along with aspiration thrombectomy of the left external iliac artery and left popliteal artery yesterday. On presentation, patient did have a hemoglobin of 8.1. This, apparently is below baseline for the patient. After the procedure, hemoglobin was noted to be 5.7. Patient did receive packed red blood cells and currently, hemoglobin is 8.3. The patient denies any blood in her stool. She denies any hematemesis. She states her last colonoscopy was 10 years ago. She has no additional complaints at this time. Denies any abdominal pain. Review of Systems All systems: negative Past Medical History Past Medical History: Asthma, Chest Pain / Angina, COPD, CVA/TIA, Diabetes Mellitus, Deep Vein Thrombosis (DVT), GERD/Reflux, Hyperlipidemia, Hypertension, Osteoarthritis (OA), Vascular Disorder Additional Past Medical History / Comment(s): Hx blood clot in left arm and left hand, hx migraines, PVD, left leg pain, TIA-X2 DECEMBER 2020. History of Any Multi-Drug Resistant Organisms: None Reported Past Surgical History: Heart Catheterization, Heart Catheterization With Stent Additional Past Surgical History / Comment(s): Stent to left external iliac, blood clot removed from left arm, surgery to fix "tear in aorta", surgery for "abdominal adhesions", 06-11-16 LT ILIAC PTBA/STENT, PTBA 10/03/2020-Stent X2 Illiac(L). Angiography. Past Anesthesia/Blood Transfusion Reactions: No Reported Reaction Additional Past Anesthesia/Blood Transfusion Reaction / Comm: Claustrophobia. Date of Last Stent Placement:: 10/03/20 Past Psychological History: No Psychological Hx Reported Smoking Status: Current every day smoker Past Alcohol Use History: Occasional Additional Past Alcohol Use History / Comment(s): Started smoking at age 16, [address] at[facility] trying to quit, smokes 3 cigarettes per day. Drinks occasionally Past Drug Use History: None Reported - Past Family History Father Family Medical History: Cancer, Myocardial Infarction ([place]) Additional Family Medical History / Comment(s): SKIN CANCER. Mother Family Medical History: Cancer, Deep Vein Thrombosis (DVT) Additional Family Medical History / Comment(s): COLON CANCER TWICE, lung ancer. Medications and Allergies Home Medications Medication Instructions Recorded Confirmed Type Cholecalciferol [Vitamin D3 (10 10 mcg PO DAILY 02/26/15 05/06/21 History Mcg = 400 Iu)] Metoprolol Succinate [Toprol XL] 100 mg PO DAILY 02/26/15 05/06/21 History Albuterol Sulfate [Ventolin HFA] 2 puff INHALATION RT-Q4H PRN 07/14/19 05/06/21 History Pantoprazole [Protonix] 40 mg PO DAILY 07/14/19 05/06/21 History Ferrous Sulfate [Iron (65 MG 325 mg PO DAILY 10/01/20 05/06/21 History Elemental)] Acetaminophen [Tylenol Extra 1,000 mg PO Q4-6H PRN 11/02/20 05/06/21 History Strength] Budesonide/Formoterol Fumarate 2 puff INHALATION RT-BID 11/02/20 05/06/21 Histo ry [Symbicort 160-4.5 Mcg Inhaler] DULoxetine HCL [Cymbalta] 60 mg PO DAILY 12/20/20 05/06/21 History Furosemide [Lasix] 20 mg PO DAILY 12/20/20 05/06/21 History Potassium Chloride [Potassium 10 meq PO BID 12/20/20 05/06/21 History Chloride ER] Atorvastatin [Lipitor] 40 mg PO DAILY 03/26/21 05/06/21 History Nitroglycerin 0.4 mg SL Q5M PRN 03/26/21 05/06/21 History amLODIPine [Norvasc] 5 mg PO DAILY 03/26/21 05/06/21 History Aspirin EC [Ecotrin Low Dose] 81 mg PO DAILY #30 tab 03/29/21 05/06/21 Rx Clopidogrel [Plavix] 75 mg PO DAILY #30 tab 03/29/21 05/06/21 Rx Rivaroxaban [Xarelto] 15 mg PO DAILY #90 tab 03/29/21 05/06/21 Rx levETIRAcetam [Keppra] 500 mg PO Q12H 05/06/21 05/06/21 History Allergies Allergy/AdvReac Type Severity Reaction Status Date / Time influenza virus vaccine, Allergy Rash/Hives Verified 05/06/21 14:46 specific [influenza virus vacc,specific] lisinopril Allergy Swelling Verified 05/06/21 14:46 Surgical - Exam Osteopathic Statement: *. No significant issues noted on an osteopathic structural exam other than those noted in the History and Physical/Consult. Vital Signs Temp Pulse Resp BP Pulse Ox 98.2 F 99 18 123/63 97 05/06/21 12:23 05/06/21 12:23 05/06/21 12:23 05/06/21 12:23 05/06/21 12:23 - General well nourished, no distress - Eyes normal ocular movement - ENT no hearing loss - Neck trachea midline - Respiratory normal respiratory effort - Abdomen Abdomen: soft, non tender Appropriate capillary refill of left lower extremity Results - Labs 05/08/21 05:55 05/08/21 05:55 Abnormal Lab Results - Last 24 Hours (Table) 05/06/21 05/07/21 05/07/21 Range/Units 13:00 05:18 11:52 RBC 2.22 L (3.80-5.40) m/uL Hgb 5.7 L* (11.4-16.0) gm/dL Hct 18.5 L* (34.0-46.0) % RDW 19.3 H (11.5-15.5) % Sodium (137-145) mmol/L Glucose (74-99) mg/dL POC Glucose (mg/dL) (75-99) mg/dL Calcium (8.4-10.2) mg/dL Iron 12 L (50-170) ug/dL % Saturation 2.63 L (12.00-45.00) Total Bilirubin (0.2-1.3) mg/dL Total Protein (6.3-8.2) g/dL Albumin (3.5-5.0) g/dL Crossmatch See Detail 05/07/21 05/08/21 05/08/21 Range/Units 12:02 05:55 05:55 RBC 2.97 L (3.80-5.40) m/uL Hgb 8.3 L D (11.4-16.0) gm/dL Hct 25.9 L (34.0-46.0) % RDW 17.9 H (11.5-15.5) % Sodium 134 L (137-145) mmol/L Glucose 124 H (74-99) mg/dL POC Glucose (mg/dL) 148 H (75-99) mg/dL Calcium 8.2 L (8.4-10.2) mg/dL Iron (50-170) ug/dL % Saturation (12.00-45.00) Total Bilirubin 1.4 H (0.2-1.3) mg/dL Total Protein 5.5 L (6.3-8.2) g/dL Albumin 2.9 L (3.5-5.0) g/dL Crossmatch Diabetes panel 05/08/21 Range/Units 05:55 Sodium 134 L (137-145) mmol/L Potassium 4.1 (3.5-5.1) mmol/L Chloride 101 (98-107) mmol/L Carbon Dioxide 28 (22-30) mmol/L BUN 9 (7-17) mg/dL Creatinine 0.99 (0.52-1.04) mg/dL Glucose 124 H (74-99) mg/dL Calcium 8.2 L (8.4-10.2) mg/dL AST 27 (14-36) U/L ALT 9 (4-34) U/L Alkaline Phosphatase 95 (38-126) U/L Total Protein 5.5 L (6.3-8.2) g/dL Albumin 2.9 L (3.5-5.0) g/dL Calcium panel 05/08/21 Range/Units 05:55 Calcium 8.2 L (8.4-10.2) mg/dL Albumin 2.9 L (3.5-5.0) g/dL Pituitary panel 05/08/21 Range/Units 05:55 Sodium 134 L (137-145) mmol/L Potassium 4.1 (3.5-5.1) mmol/L Chloride 101 (98-107) mmol/L Carbon Dioxide 28 (22-30) mmol/L BUN 9 (7-17) mg/dL Creatinine 0.99 (0.52-1.04) mg/dL Glucose 124 H (74-99) mg/dL Calcium 8.2 L (8.4-10.2) mg/dL Adrenal panel 05/08/21 Range/Units 05:55 Sodium 134 L (137-145) mmol/L Potassium 4.1 (3.5-5.1) mmol/L Chloride 101 (98-107) mmol/L Carbon Dioxide 28 (22-30) mmol/L BUN 9 (7-17) mg/dL Creatinine 0.99 (0.52-1.04) mg/dL Glucose 124 H (74-99) mg/dL Calcium 8.2 L (8.4-10.2) mg/dL Total Bilirubin 1.4 H (0.2-1.3) mg/dL AST 27 (14-36) U/L ALT 9 (4-34) U/L Alkaline Phosphatase 95 (38-126) U/L Total Protein 5.5 L (6.3-8.2) g/dL Albumin 2.9 L (3.5-5.0) g/dL Assessment and Plan Plan: 66-year-old female with anemia. Patient did undergo vascular procedure yesterday. She has responded well to packed red blood cell transfusion. Ihsan ntly, there is no evidence of any active GI bleed with the patient denying any blood in her stool or any hematemesis. Patient would benefit from colonoscopy as an outpatient as her last colonoscopy was 10 years ago. No plan for any acute surgical intervention in relation to GI bleed as there does not appear to be an active bleed.
[2021-05-08] MEDS: amLODIPine 5 MG TAB PO SCH (08:23)
[2021-05-08] MEDS: PANTOPRAZOLE 40 MG/10 ML VIAL IVP SCH ×2 (08:23→20:48)
[2021-05-08] MEDS: DULoxetine HCL 60 MG CAPSULE.DR PO SCH (08:23)
[2021-05-08] MEDS: ATORVASTATIN 40 MG TAB PO SCH (08:23)
[2021-05-08] MEDS: CLOPIDOGREL 75 MG TAB PO SCH (08:23)
[2021-05-08] MEDS: METOPROLOL SUCCINATE (ER) 100 MG TAB.ER.24H PO SCH (08:23)
[2021-05-08] MEDS: ASPIRIN 81 MG PO SCH (08:23)
[2021-05-08] MEDS ORDERED: HEPARIN SODIUM 1,000 UN/ML (10ML VL) IV ONE (11:13)
[2021-05-08] MEDS ORDERED: HEPARIN SODIUM 1,000 UN/ML (10ML VL) IV PRN (11:13)
[2021-05-08 12:11] LABS: Anisocytosis Slight; Basophils % (A) 0 %; Eosinophils # (A) 0.2 k/uL (0-0.7); Eosinophils % (A) 2 %; HGB 8.8 gm/dL (11.4-16.0); Hypochromasia Marked; Lymphocytes # (A) 1.6 k/uL (1.0-4.8); Lymphocytes % (A) 14 %; MCH 27.9 pg (25.0-35.0); MCHC 32.6 g/dL (31.0-37.0); MCV 85.8 fL (80.0-100.0); Mean Platelet Volume 8.1; Monocytes # (A) 0.6 k/uL (0-1.0); Monocytes % (A) 5 %; Neutrophils # (A) 8.6 k/uL (1.3-7.7); Neutrophils % (A) 76 %; Platelet Count 365 k/uL (150-450); Poikilocytosis Marked; RBC 3.15 m/uL (3.80-5.40); RDW 18.3 % (11.5-15.5); WBC 11.3 k/uL (3.8-10.6)
[2021-05-08 12:28] LABS: Albumin 3.2 g/dL (3.5-5.0); Calcium 8.5 mg/dL (8.4-10.2); Total Bilirubin 0.9 mg/dL (0.2-1.3); Total Protein 5.9 g/dL (6.3-8.2)
[2021-05-08] MEDS: HEPARIN SOD,PORK IN 0.45% NACL 25,000 UNIT in 0.45% NACL 1 250ML.BAG IV SCH (12:31)
[2021-05-08 12:45] LABS: INR 0.9 (<1.2); Prothrombin Time 10.2 sec (9.0-12.0)
[2021-05-08 12:54] LABS: Partial Thromboplastin Time 20.8 sec (22.0-30.0)
--- NOTE | 2021-05-08 13:00 | P.PN ---
Subjective This is a pleasant 66 year old female with history of PAD with numerous stenting of her left external iliac artery, CAD, HTN, HLD, tobacco abuse, COPD, aortic dissection s/p repair approximately 10 years ago, left upper extremity revascularization, carotid artery stenosis, DVT, clotting disorder on anticoagulation. She follows with Dr Mas. She was having increased left foot pain in March and workup showed an occluded left external iliac stent and therefore underwent mechanical thrombectomy and balloon angioplasty from a right femoral approach and had done fairly well. She admits she has been compliant with her medications. She acutely noted increased left pain and parasthesias in her left foot and therefore presented for evaluation. She was found to have decreased pulses on the left and therefore a CTA was performed which showed occluded left external iliac. She was placed on heparin drip. 05/07/21 Patient underwent Left lower extremity angiography, status penumbra aspiration thrombectomy and 7.0 x 80mm In.PACT DCB placement of left external iliac artery stenosis and balloon angioplasty with 20% residual stenosis by Dr. Davey. Patient seen and examined at bedside, she continues to have pain in her left toes states "it feels as if someone is ripping off the nails". She denies any chest pain, shortness of breath, lightheadedness, dizziness. She is currently maintained on aspirin 81 mg daily, amlodipine 5 mg daily, atorvastatin 40 mg daily, Plavix 75 mg daily, metoprolol succinate 100 mg daily. Labs reviewed, patient had a hemoglobin dropped to 5.7 on 05/07 afternoon she recieved 2units of PRBCs Labs today revealed WBC 11.3, hemoglobin 8.8, platelets 365, sodium 133, potassium 4.0, BUN 9, serum creatinine 0.9, magnesium 2.0 PHYSICAL EXAM: VITAL SIGNS: Reviewed. GENERAL: Well-developed in no acute distress. HEENT: Neck supple. No JVD LUNGS: Respirations even and unlabored. Lungs essentially clear to auscultation bilaterally. HEART: Regular rate and rhythm. S1 and S2 heard. ABDOMEN: Soft. Nondistended. Nontender. EXTREMITIES: Normal range of motion. No lower extremity edema. Left lower extremity and right lower extremity warm, difficult to feel DP pulse. Some pain in left toes. NEUROLOGIC: Awake and alert. Oriented x 3. ASSESSMENT: Acute Limb Ischemia Peripheral artery disease with prior peripheral stenting Tobacco abuse History of hypertension Hyperlipidemia Type 2 diabetes Carotid artery disease TIA 12/2020 Anemia PLAN: -Start patient back on IV heparin drip for 24-48 hours -Continue aspirin and Plavix, vascular checks -Continue home metoprolol succinate and statin -Monitor CBC and BMP -Further recommendations based on clinical course Objective - Vital Signs Vital signs: Vital Signs Temp 98.2 F 05/08/21 12:00 Pulse 78 05/08/21 12:00 Resp 16 05/08/21 12:00 BP 114/64 05/08/21 12:00 Pulse Ox 92 L 05/08/21 12:00 Intake & Output 05/07/21 05/08/21 05/08/21 18:59 06:59 18:59 Intake Total 1090 310 Output Total 350 Balance 1090 -40 Intake: IV 780 Blood Product 310 310 Rc As-1 Unit 0 310 [id number] Rc As-1 Unit 310 [id number] Output: Urine 350 Other: Voiding Method Toilet Toilet # Voids 1 1 - Labs CBC & Chem 7: 05/08/21 11:29 05/08/21 11:33 Labs: Abnormal Lab Results - Last 24 Hours (Table) 05/06/21 05/07/21 05/08/21 Range/Units 13:00 05:18 05:55 WBC (3.8-10.6) k/uL RBC (3.80-5.40) m/uL Hgb (11.4-16.0) gm/dL Hct (34.0-46.0) % RDW (11.5-15.5) % Neutrophils # (1.3-7.7) k/uL Sodium 134 L (137-145) mmol/L Glucose 124 H (74-99) mg/dL Calcium 8.2 L (8.4-10.2) mg/dL Iron 12 L (50-170) ug/dL % Saturation 2.63 L (12.00-45.00) Total Bilirubin 1.4 H (0.2-1.3) mg/dL Total Protein 5.5 L (6.3-8.2) g/dL Albumin 2.9 L (3.5-5.0) g/dL Procalcitonin (0.02-0.09) ng/mL Crossmatch See Detail 05/08/21 05/08/21 05/08/21 Range/Units 05:55 05:55 11:29 WBC 11.3 H (3.8-10.6) k/uL RBC 2.97 L 3.15 L (3.80-5.40) m/uL Hgb 8.3 L D 8.8 L (11.4-16.0) gm/dL Hct 25.9 L 27.0 L (34.0-46.0) % RDW 17.9 H 18.3 H (11.5-15.5) % Neutrophils # 8.6 H (1.3-7.7) k/uL Sodium (137-145) mmol/L Glucose (74-99) mg/dL Calcium (8.4-10.2) mg/dL Iron (50-170) ug/dL % Saturation (12.00-45.00) Total Bilirubin (0.2-1.3) mg/dL Total Protein (6.3-8.2) g/dL Albumin (3.5-5.0) g/dL Procalcitonin 0.15 H (0.02-0.09) ng/mL Crossmatch 05/08/21 Range/Units 11:33 WBC (3.8-10.6) k/uL RBC (3.80-5.40) m/uL Hgb (11.4-16.0) gm/dL Hct (34.0-46.0) % RDW (11.5-15.5) % Neutrophils # (1.3-7.7) k/uL Sodium 133 L (137-145) mmol/L Glucose 116 H (74-99) mg/dL Calcium (8.4-10.2) mg/dL Iron (50-170) ug/dL % Saturation (12.00-45.00) Total Bilirubin (0.2-1.3) mg/dL Total Protein 5.9 L (6.3-8.2) g/dL Albumin 3.2 L (3.5-5.0) g/dL Procalcitonin (0.02-0.09) ng/mL Crossmatch
--- NOTE | 2021-05-08 15:04 | P.PN ---
Subjective Progress Note Date: 05/08/21 History of present illness This is a 65-year-old female patient of Dr. Varghese with past medical h istory of COPD, PAD as well as stents by Dr. Mas, hypertension, hyperlipidemia. Patient has history of severe claudication of the left lower extremity and followed by Dr. Mas status post angiogram and angioplasty of the left external iliac artery followed by clot and on long-term eliquis, alcohol abuse. She had a hospitalization in October which time she presented for syncopal episode 4 of unclear etiology. Patient was last hospitalized in December 2020 for TIA. She was also noted to have bilateral carotid stenosis on ultrasound 50-69%. CT of the neck was suggested mild stenosis of bilateral internal carotid. Patient does not follow with vascular surgeon. She came in to the emergency room yesterday with increased left foot pain associated with purplish discoloration of her toes and forefoot. Patient had an occluded left external iliac stent and underwent mechanical thrombectomy and balloon angioplasty from the right femoral approach in March. She was doing well until yesterday. Patient denies any baseline numbness or tingling in the left lower extremity. She does not have any residual sensory or motor deficit in the left lower extremity. Patient was taken for percutaneous transluminal balloon angioplasty to the right femoral approach this morning. Pulses by Doppler are palpable. Purplish discolored discoloration of the toes has improved since the patient had the procedure with Dr. Ranjit Ann. Patient does have significant pain involving her lower back since the procedure is performed. She denies any foot pain at this moment. Patient endorses some numbness involving the fourth and fifth toes of the left lower extremity. Vitals reviewed this morning as patient is afebrile pulse 88 respiratory rate 18 blood pressure 109/68 oxygen saturation 92% on 4 L. Labs revealed, patient's hemoglobin has dropped from 8 to 5.7 this morning and is noted to have a continuous downtrend since March. CMP today. Sodium 136 potassium 3.2 bicarb 31 glucose 122 calcium 8.5, no S4 detected. 05/08 patient examined today. She does have significant sensation involving the left forward. Patient feels like somebody is twisting her nails and her skin. She is currently getting pain control with morphine. No episodes of melena or dark stool overnight. Hemoglobin has improved with transfusion to 8.1 on repeat check this morning. Aspirin and Plavix to be restarted this morning. Chest x- ray negative for fluid overload. Right basilar opacity reflecting acute infiltrate or atelectasis. Oxygen need likely atelectasis. Patient currently on room air. Pro-calcitonin ordered low likelihood of bacterial pneumonia. Patient denies any abdominal pain nausea or vomiting. Pending cardiology evaluation. Heparin drip for 24-48 hours per cardiology evaluation. Continue aspirin and Plavix. ROS Constitutional: Denies chills, Denies fever, endorses lethargy, , Denies poor appetite, Denies weakness, Denies weight loss Eyes: denies decreased vision, denies diplopia, denies discharge, denies pain Ears: deny: decreased hearing Ears, nose, mouth and throat: Denies dental pain, Denies headache, Denies nasal discharge, Denies nose pain Cardiovascular: Denies chest pain, Denies decreased exercise tolerance, Denies edema, Denies high blood pressure, Denies irregular heart beat, Denies palpitations, Denies paroxysmal nocturnal dyspnea, Denies rapid heart beat, Denies shortness of breath Respiratory: Denies congestion, Denies cough, Denies cough with sputum, Denies dyspnea, Denies home oxygen, Denies wheezing Gastrointestinal: Denies abdominal pain, Denies change in bowel habits, Denies coffee ground emesis, Denies early satiety, Denies excessive gas, Denies hea rtburn, Denies hematemesis, Denies hematochezia, Denies loss of appetite, Denies nausea, Denies vomiting Genitourinary: Denies dysuria, Denies flank pain, Denies kidney stones, Denies menorrhagia, Denies urgency, Denies urinary frequency Musculoskeletal: Endorses gait dysfunction, endorses limitation of motion, Denies morning stiffness, Denies muscle cramps endorses back pain, burning involving the toes of the left foot Integumentary: Denies rash, Denies wounds, Denies brittle nails, Denies change in hair/nails, Denies darkening of skin Neurological: Denies balance difficulties, Denies change in speech, Denies double vision, Denies gait dysfunction, Denies loss of vision, Denies motor disturbance, Denies numbness, Denies paralysis, Denies paresthesias, Denies seizures Psychiatric: Denies anxiety, Denies depression Endocrine: Denies excessive sweating, Denies excessive thirst, Denies high blood sugars, Denies palpitations Hematologic/Lymphatic: Denies easy bruising, Denies lymphadenopathy Physical exam - Constitutional General appearance: cooperative, no acute distress, obese - EENT Eyes: anicteric sclerae, PERRLA, normal appearance ENT: hearing grossly normal - Neck Neck: no lymphadenopathy, normal ROM, no other, no rigidity, no stridor, no thyromegaly - Respiratory Respiratory: bilateral: CTA, negative: diminished, dullness, rales, rhonchi - Cardiovascular Rhythm: regular Heart sounds: normal: S1, S2 Abnormal Heart Sounds: no systolic murmur, no diastolic murmur, no rub, no S3 Gallop, no S4 Gallop, no click, no other - Gastrointestinal General gastrointestinal: normal bowel sounds, soft nontender - Integumentary Integumentary: no rash, improvement in the vasculature involving the left foot. The symptoms seconds. - Neurologic Neurologic: CNII-XII intact no sensory or motor deficit except for paresthesias involving digits of left foot - Musculoskeletal Musculoskeletal: gait not assessed, strength equal bilaterally - Psychiatric Psychiatric: A&O x's 3, appropriate affect - Extremities Peripheral pulses are palpable, left lower extremity dorsalis pedis palpable by Doppler Assessment and plan 1.acute limb ischemia on heparin drip since morning for 24-48 hours. Complete occlusion of the left common iliac arterial stent noted. Status post PTBA with left external iliac stent, aspiration thrombectomy left external iliac artery with left popliteal artery on 05/[address] Ranjit Ann. 2.peripheral artery disease status post stenting to the left external iliac, last performed in March by Dr. Sahni. On aspirin, Plavix . 3.acute on chronic blood loss anemia rule out GI bleed. Likely dilutional No melena noted Occult blood ordered. Status post 2 unit PRBC on 05/07. General surgery consulted and studies ordered. Protonix initiated 40 mg IV twice a day. On aspirin, Plavix. Repeat hemoglobin in the evening 4. CVA/TIA last episode in December 2020 on Plavix and xarelto. Plavix restarted with repeat hemoglobin in the evening 5 diet-controlled type 2 diabetes continue diabetic diet 6.acute hypoxic respiratory failure rule out. Chest x-ray ordered volume overload history of asthma/COPD, not in exacerbation continue DuoNeb as needed for shortness of breath. Symbicort twice john 7.hypertension continue Norvasc 5 mg daily. Continue metoprolol 100 by mouth daily 8.hyperlipidemia continue atorvastatin 40 mg by mouth daily 9.history of tobacco use and dependence patient guided on nicotine cessation 10.history of alcohol abuse in remission 11.recurrent depression and generalized anxiety disorder continue Cymbalta 60 mg by mouth daily 12.GERD and GI prophylaxis continue Protonix IV twice a day 13.DVT prophylaxis xarelto on hold Objective - Vital Signs Vital signs: Vital Signs Temp 98.1 F 05/08/21 04:00 Pulse 99 05/08/21 04:00 Resp 18 05/08/21 04:00 BP 115/63 05/08/21 04:00 Pulse Ox 90 L 05/08/21 04:00 Intake & Output 05/07/21 05/07/21 05/08/21 06:59 18:59 06:59 Intake Total 590.632 8876 0 Output Total 350 350 Balance 212.715 1097 -350 Weight 93.44 kg Intake: IV 780 Intake, IV Titration 162.520 Amount Heparin Sod,Pork in 0.45% 162.520 NaCl 25,000 unit In 0.45 % NaCl 1 250ml.bag @ 10.7 UNITS/KG/HR 9.998 mls/hr IV .Q24H [facility] Rx#: [id number] Oral 540 Blood Product 310 0 Rc As-1 Unit 0 0 [id number] Rc As-1 Unit 310 [id number] Output: Urine 350 350 Other: Voiding Method Toilet Toilet Toilet # Voids 1 1 # Bowel Movements 1 - Labs CBC & Chem 7: 05/08/21 11:29 05/08/21 11:33 Labs: Abnormal Lab Results - Last 24 Hours (Table) 05/06/21 05/07/21 05/07/21 Range/Units 13:00 05:18 05:18 RBC (3.80-5.40) m/uL Hgb (11.4-16.0) gm/dL Hct (34.0-46.0) % RDW (11.5-15.5) % Sodium 136 L (137-145) mmol/L Potassium 3.2 L (3.5-5.1) mmol/L Carbon Dioxide 31 H (22-30) mmol/L Glucose 122 H (74-99) mg/dL POC Glucose (mg/dL) (75-99) mg/dL Iron 12 L (50-170) ug/dL % Saturation 2.63 L (12.00-45.00) Crossmatch See Detail 05/07/21 05/07/21 Range/Units 11:52 12:02 RBC 2.22 L (3.80-5.40) m/uL Hgb 5.7 L* (11.4-16.0) gm/dL Hct 18.5 L* (34.0-46.0) % RDW 19.3 H (11.5-15.5) % Sodium (137-145) mmol/L Potassium (3.5-5.1) mmol/L Carbon Dioxide (22-30) mmol/L Glucose (74-99) mg/dL POC Glucose (mg/dL) 148 H (75-99) mg/dL Iron (50-170) ug/dL % Saturation (12.00-45.00) Crossmatch
[2021-05-09] MEDS: levETIRAcetam 500 MG TAB PO SCH ×2 (00:59→11:25)
[2021-05-09] MEDS: HEPARIN SOD,PORK IN 0.45% NACL 25,000 UNIT in 0.45% NACL 1 250ML.BAG IV SCH ×2 (01:24→17:29)
[2021-05-09 02:40] LABS: Anisocytosis Slight; HCT 24.7 % (34.0-46.0); HGB 7.9 gm/dL (11.4-16.0); Hypochromasia Marked; MCH 27.5 pg (25.0-35.0); MCHC 31.9 g/dL (31.0-37.0); MCV 86.3 fL (80.0-100.0); Mean Platelet Volume 8.7; Platelet Count 331 k/uL (150-450); Poikilocytosis Marked; RBC 2.87 m/uL (3.80-5.40); RDW 18.7 % (11.5-15.5); WBC 10.7 k/uL (3.8-10.6)
[2021-05-09 03:02] LABS: Calcium 8.4 mg/dL (8.4-10.2); Potassium 3.5 mmol/L (3.5-5.1)
[2021-05-09] MEDS: PANTOPRAZOLE 40 MG TABLET PO SCH ×2 (06:47→17:29)
[2021-05-09] MEDS ORDERED: SODIUM FERRIC GLUCONAT-SUCROSE 125 MG in SODIUM CHLORIDE 0.9% 100 ML IVPB ONE (08:00)
[2021-05-09] MEDS: DULoxetine HCL 60 MG CAPSULE.DR PO SCH (08:18)
[2021-05-09] MEDS: ASPIRIN 81 MG PO SCH (08:18)
[2021-05-09] MEDS: CLOPIDOGREL 75 MG TAB PO SCH (08:18)
[2021-05-09] MEDS: METOPROLOL SUCCINATE (ER) 100 MG TAB.ER.24H PO SCH (08:18)
[2021-05-09] MEDS: ATORVASTATIN 40 MG TAB PO SCH (08:18)
[2021-05-09] MEDS: amLODIPine 5 MG TAB PO SCH (08:38)
[2021-05-09] MEDS: SYMBICORT 160-4.5 MCG INHALER INHALATION SCH ×2 (09:37→20:46)
--- NOTE | 2021-05-09 10:36 | P.PN ---
Subjective Principal diagnosis: Patient is doing better than yesterday. She feels that the symptoms that she had in her toes on the left foot have improved on IV heparin The foot is warm Dorsalis pedis pulses not palpable She is resting comfortably in bed no respiratory distress No chest discomfort Afebrile 98.9F pulse rate in the 80s Blood pressure 96/57 mmHg Labs are reviewed White count 10.7, hemoglobin 7.9, platelet count 331,000 Potassium 3.5 sodium 133 Renal function normal Impression Acute limb ischemia peripheral artery disease status post stenting Status post repeat intervention by Dr. Davey I spoke to Dr. Davey yesterday and would like to continue IV heparin for 24- 48 hours for management of likely micro-embolism resulting in symptoms in her toes Today she feels better in her toes than yesterday I would stop heparin tomorrow Continue amlodipine Continue aspirin and Plavix Continue atorvastatin Continue metoprolol succinate Objective - Vital Signs Vital signs: Vital Signs Temp 98.9 F 05/09/21 08:00 Pulse 82 05/09/21 08:00 Resp 18 05/09/21 08:00 BP 95/50 05/09/21 08:00 Pulse Ox 94 L 05/09/21 08:00 Intake & Output 05/08/21 05/09/21 05/09/21 18:59 06:59 18:59 Intake Total 546.131 480 Output Total 300 Balance 246.131 480 Intake: Intake, IV Titration 186.131 Amount Heparin Sod,Pork in 0.45% 186.131 NaCl 25,000 unit In 0.45 % NaCl 1 250ml.bag @ 18 UNITS/KG/HR 16.819 mls/hr IV .[id number] [facility] Rx#: [id number] Oral 360 480 Output: Urine 300 Other: Voiding Method Toilet # Voids 1 1 1 # Bowel Movements 1 - Labs CBC & Chem 7: 05/09/21 02:03 05/09/21 02:03 Labs: Abnormal Lab Results - Last 24 Hours (Table) 05/08/21 05/08/21 05/08/21 Range/Units 05:55 11:29 11:29 WBC 11.3 H (3.8-10.6) k/uL RBC 3.15 L (3.80-5.40) m/uL Hgb 8.8 L (11.4-16.0) gm/dL Hct 27.0 L (34.0-46.0) % RDW 18.3 H (11.5-15.5) % Neutrophils # 8.6 H (1.3-7.7) k/uL APTT 20.8 L (22.0-30.0) sec Sodium (137-145) mmol/L Glucose (74-99) mg/dL Total Protein (6.3-8.2) g/dL Albumin (3.5-5.0) g/dL Procalcitonin 0.15 H (0.02-0.09) ng/mL 05/08/21 05/08/21 05/09/21 Range/Units 11:33 18:20 02:03 WBC 10.7 H (3.8-10.6) k/uL RBC 2.87 L (3.80-5.40) m/uL Hgb 7.9 L (11.4-16.0) gm/dL Hct 24.7 L (34.0-46.0) % RDW 18.7 H (11.5-15.5) % Neutrophils # (1.3-7.7) k/uL APTT 105.2 H* (22.0-30.0) sec Sodium 133 L (137-145) mmol/L Glucose 116 H (74-99) mg/dL Total Protein 5.9 L (6.3-8.2) g/dL Albumin 3.2 L (3.5-5.0) g/dL Procalcitonin (0.02-0.09) ng/mL 05/09/21 05/09/21 Range/Units 02:03 02:03 WBC (3.8-10.6) k/uL RBC (3.80-5.40) m/uL Hgb (11.4-16.0) gm/dL Hct (34.0-46.0) % RDW (11.5-15.5) % Neutrophils # (1.3-7.7) k/uL APTT 43.3 H (22.0-30.0) sec Sodium 133 L (137-145) mmol/L Glucose 110 H (74-99) mg/dL Total Protein (6.3-8.2) g/dL Albumin (3.5-5.0) g/dL Procalcitonin (0.02-0.09) ng/mL
[2021-05-09 19:42] LABS: Anisocytosis Slight; Basophils % (A) 0 %; Eosinophils # (A) 0.2 k/uL (0-0.7); Eosinophils % (A) 2 %; HGB 7.6 gm/dL (11.4-16.0); Hypochromasia Marked; Lymphocytes # (A) 1.7 k/uL (1.0-4.8); Lymphocytes % (A) 18 %; MCH 27.4 pg (25.0-35.0); MCHC 31.6 g/dL (31.0-37.0); MCV 86.6 fL (80.0-100.0); Mean Platelet Volume 8.7; Monocytes # (A) 0.6 k/uL (0-1.0); Monocytes % (A) 6 %; Neutrophils # (A) 6.7 k/uL (1.3-7.7); Neutrophils % (A) 72 %; Platelet Count 332 k/uL (150-450); Poikilocytosis Marked; RBC 2.77 m/uL (3.80-5.40); RDW 18.7 % (11.5-15.5); WBC 9.4 k/uL (3.8-10.6)
--- NOTE | 2021-05-09 20:27 | P.PN ---
Subjective Progress Note Date: 05/09/21 History of present illness This is a 65-year-old female patient of Dr. Varghese with past medical h istory of COPD, PAD as well as stents by Dr. Mas, hypertension, hyperlipidemia. Patient has history of severe claudication of the left lower extremity and followed by Dr. Mas status post angiogram and angioplasty of the left external iliac artery followed by clot and on long-term eliquis, alcohol abuse. She had a hospitalization in October which time she presented for syncopal episode 4 of unclear etiology. Patient was last hospitalized in December 2020 for TIA. She was also noted to have bilateral carotid stenosis on ultrasound 50-69%. CT of the neck was suggested mild stenosis of bilateral internal carotid. Patient does not follow with vascular surgeon. She came in to the emergency room yesterday with increased left foot pain associated with purplish discoloration of her toes and forefoot. Patient had an occluded left external iliac stent and underwent mechanical thrombectomy and balloon angioplasty from the right femoral approach in March. She was doing well until yesterday. Patient denies any baseline numbness or tingling in the left lower extremity. She does not have any residual sensory or motor deficit in the left lower extremity. Patient was taken for percutaneous transluminal balloon angioplasty to the right femoral approach this morning. Pulses by Doppler are palpable. Purplish discolored discoloration of the toes has improved since the patient had the procedure with Dr. Ranjit Ann. Patient does have significant pain involving her lower back since the procedure is performed. She denies any foot pain at this moment. Patient endorses some numbness involving the fourth and fifth toes of the left lower extremity. Vitals reviewed this morning as patient is afebrile pulse 88 respiratory rate 18 blood pressure 109/68 oxygen saturation 92% on 4 L. Labs revealed, patient's hemoglobin has dropped from 8 to 5.7 this morning and is noted to have a continuous downtrend since March. CMP today. Sodium 136 potassium 3.2 bicarb 31 glucose 122 calcium 8.5, no S4 detected. 05/08 patient examined today. She does have significant sensation involving the left forward. Patient feels like somebody is twisting her nails and her skin. She is currently getting pain control with morphine. No episodes of melena or dark stool overnight. Hemoglobin has improved with transfusion to 8.1 on repeat check this morning. Aspirin and Plavix to be restarted this morning. Chest x- ray negative for fluid overload. Right basilar opacity reflecting acute infiltrate or atelectasis. Oxygen need likely atelectasis. Patient currently on room air. Pro-calcitonin ordered low likelihood of bacterial pneumonia. Patient denies any abdominal pain nausea or vomiting. Pending cardiology evaluation. Heparin drip for 24-48 hours per cardiology evaluation. Continue aspirin and Plavix. Patient examined , is laying comfortably in bed. Patient has been ambul ating the room without oxygen nd denies any cought or SOB. vitals are reviewed, , saaturating at 93 % on 3 litres. Labs were reviewed, hb dropped to 7.5 this evening. Patient denies any melena or dark sstool. She continues to remain on heparin drip with aspirin and plavix. Iron studies does document iron def, will dose patient with ferrlicit 125 mg po once. Continue aspirin, plavix and heparin drip per cardiology recommendation ROS Constitutional: Denies chills, Denies fever, improved lethargy, , Denies poor appetite, Denies weakness, Denies weight loss Eyes: denies decreased vision, denies diplopia, denies discharge, denies pain Ears: deny: decreased hearing Ears, nose, mouth and throat: Denies dental pain, Denies headache, Denies nasal discharge, Denies nose pain Cardiovascular: Denies chest pain, Denies decreased exercise tolerance, Denies edema, Denies high blood pressure, Denies irregular heart beat, Denies palpitations, Denies paroxysmal nocturnal dyspnea, Denies rapid heart beat, Denies shortness of breath Respiratory: Denies congestion, Denies cough, Denies cough with sputum, Denies dyspnea, Denies home oxygen, Denies wheezing Gastrointestinal: Denies abdominal pain, Denies change in bowel habits, Denies coffee ground emesis, Denies early satiety, Denies excessive gas, Denies heartburn, Denies hematemesis, Denies hematochezia, Denies loss of appetite, Denies nausea, Denies vomiting Genitourinary: Denies dysuria, Denies flank pain, Denies kidney stones, Denies menorrhagia, Denies urgency, Denies urinary frequency Musculoskeletal: Endorses gait dysfunction, endorses limitation of motion, Denies morning stiffness, Denies muscle cramps endorses back pain, burning involving the toes of the left foot Integumentary: Denies rash, Denies wounds, Denies brittle nails, Denies change in hair/nails, Denies darkening of skin Neurological: Denies balance difficulties, Denies change in speech, Denies double vision, Denies gait dysfunction, Denies loss of vision, Denies motor disturbance, Denies numbness, Denies paralysis, Denies paresthesias, Denies seizures Psychiatric: Denies anxiety, Denies depression Endocrine: Denies excessive sweating, Denies excessive thirst, Denies high blood sugars, Denies palpitations Hematologic/Lymphatic: Denies easy bruising, Denies lymphadenopathy Physical exam - Constitutional General appearance: cooperative, no acute distress, obese - EENT Eyes: anicteric sclerae, PERRLA, normal appearance ENT: hearing grossly normal - Neck Neck: no lymphadenopathy, normal ROM, no other, no rigidity, no stridor, no thyromegaly - Respiratory Respiratory: bilateral: CTA, negative: diminished, dullness, rales, rhonchi - Cardiovascular Rhythm: regular Heart sounds: normal: S1, S2 Abnormal Heart Sounds: no systolic murmur, no diastolic murmur, no rub, no S3 Gallop, no S4 Gallop, no click, no other - Gastrointestinal General gastrointestinal: normal bowel sounds, soft nontender - Integumentary Integumentary: no rash, improvement in the vasculature involving the left foot. The symptoms seconds. - Neurologic Neurologic: CNII-XII intact no sensory or motor deficit except for paresthesias involving digits of left foot - Musculoskeletal Musculoskeletal: gait not assessed, strength equal bilaterally - Psychiatric Psychiatric: A&O x's 3, appropriate affect - Extremities Peripheral pulses are palpable, left lower extremity dorsalis pedis palpable by Doppler Assessment and plan 1.acute limb ischemia on heparin drip since morning for another 24 hours. Complete occlusion of the left common iliac arterial stent noted. Status post PTBA with left external iliac stent, aspiration thrombectomy left external iliac artery with left popliteal artery on 05/[address] Ranjit Ann. 2.peripheral artery disease status post stenting to the left external iliac, last performed in March by Dr. Sahni. On aspirin, Plavix . 3.acute on chronic blood loss anemia rule out GI bleed. Likely dilutional No melena noted Occult blood ordered, no stool since admission . Status post 2 unit PRBC on 05/07. General surgery consulted and iron studies ordered. Protonix initiated 40 mg IV twice a day. On aspirin, Plavix. ferrlicit given today on . repeat cbc int he morning 4. CVA/TIA last episode in December 2020 on Plavix and xarelto. Plavix restarted 5 diet-controlled type 2 diabetes continue diabetic diet 6.acute hypoxic respiratory failure rule out. Chest x-ray ordered volume overload history of asthma/COPD, not in exacerbation continue DuoNeb as needed for shortness of breath. Symbicort twice john 7.hypertension continue Norvasc 5 mg daily. Continue metoprolol 100 by mouth daily 8.hyperlipidemia continue atorvastatin 40 mg by mouth daily 9.history of tobacco use and dependence patient guided on nicotine cessation 10.history of alcohol abuse in remission 11.recurrent depression and generalized anxiety disorder continue Cymbalta 60 mg by mouth daily 12.GERD and GI prophylaxis continue Protonix IV twice a day 13.DVT prophylaxis xarelto on hold Objective - Vital Signs Vital signs: Vital Signs Temp 98.3 F 05/09/21 04:00 Pulse 81 05/09/21 04:00 Resp 20 05/09/21 04:00 BP 96/57 05/09/21 04:00 Pulse Ox 97 05/09/21 04:00 Intake & Output 05/08/21 05/08/21 05/09/21 06:59 18:59 06:59 Intake Total 310 546.131 Output Total 350 300 Balance -40 246.131 Intake: Intake, IV Titration 186.131 Amount Heparin Sod,Pork in 0.45% 186.131 NaCl 25,000 unit In 0.45 % NaCl 1 250ml.bag @ 18 UNITS/KG/HR 16.819 mls/hr IV .[id number] [facility] Rx#: [id number] Oral 360 Blood Product 310 Rc As-1 Unit 310 [id number] Output: Urine 350 300 Other: Voiding Method Toilet Toilet # Voids 1 1 1 # Bowel Movements 1 - Labs CBC & Chem 7: 05/09/21 18:47 05/09/21 02:03 Labs: Abnormal Lab Results - Last 24 Hours (Table) 05/06/21 05/08/21 05/08/21 Range/Units 13:00 05:55 05:55 WBC (3.8-10.6) k/uL RBC 2.97 L (3.80-5.40) m/uL Hgb 8.3 L D (11.4-16.0) gm/dL Hct 25.9 L (34.0-46.0) % RDW 17.9 H (11.5-15.5) % Neutrophils # (1.3-7.7) k/uL APTT (22.0-30.0) sec Sodium 134 L (137-145) mmol/L Glucose 124 H (74-99) mg/dL Calcium 8.2 L (8.4-10.2) mg/dL Total Bilirubin 1.4 H (0.2-1.3) mg/dL Total Protein 5.5 L (6.3-8.2) g/dL Albumin 2.9 L (3.5-5.0) g/dL Procalcitonin (0.02-0.09) ng/mL Crossmatch See Detail 05/08/21 05/08/21 05/08/21 Range/Units 05:55 11:29 11:29 WBC 11.3 H (3.8-10.6) k/uL RBC 3.15 L (3.80-5.40) m/uL Hgb 8.8 L (11.4-16.0) gm/dL Hct 27.0 L (34.0-46.0) % RDW 18.3 H (11.5-15.5) % Neutrophils # 8.6 H (1.3-7.7) k/uL APTT 20.8 L (22.0-30.0) sec Sodium (137-145) mmol/L Glucose (74-99) mg/dL Calcium (8.4-10.2) mg/dL Total Bilirubin (0.2-1.3) mg/dL Total Protein (6.3-8.2) g/dL Albumin (3.5-5.0) g/dL Procalcitonin 0.15 H (0.02-0.09) ng/mL Crossmatch 05/08/21 05/08/21 05/09/21 Range/Units 11:33 18:20 02:03 WBC 10.7 H (3.8-10.6) k/uL RBC 2.87 L (3.80-5.40) m/uL Hgb 7.9 L (11.4-16.0) gm/dL Hct 24.7 L (34.0-46.0) % RDW 18.7 H (11.5-15.5) % Neutrophils # (1.3-7.7) k/uL APTT 105.2 H* (22.0-30.0) sec Sodium 133 L (137-145) mmol/L Glucose 116 H (74-99) mg/dL Calcium (8.4-10.2) mg/dL Total Bilirubin (0.2-1.3) mg/dL Total Protein 5.9 L (6.3-8.2) g/dL Albumin 3.2 L (3.5-5.0) g/dL Procalcitonin (0.02-0.09) ng/mL Crossmatch 05/09/21 05/09/21 Range/Units 02:03 02:03 WBC (3.8-10.6) k/uL RBC (3.80-5.40) m/uL Hgb (11.4-16.0) gm/dL Hct (34.0-46.0) % RDW (11.5-15.5) % Neutrophils # (1.3-7.7) k/uL APTT 43.3 H (22.0-30.0) sec Sodium 133 L (137-145) mmol/L Glucose 110 H (74-99) mg/dL Calcium (8.4-10.2) mg/dL Total Bilirubin (0.2-1.3) mg/dL Total Protein (6.3-8.2) g/dL Albumin (3.5-5.0) g/dL Procalcitonin (0.02-0.09) ng/mL Crossmatch
[2021-05-10] MEDS: levETIRAcetam 500 MG TAB PO SCH ×2 (00:46→11:04)
[2021-05-10] MEDS: HEPARIN SOD,PORK IN 0.45% NACL 25,000 UNIT in 0.45% NACL 1 250ML.BAG IV SCH (05:08)
[2021-05-10] MEDS: PANTOPRAZOLE 40 MG TABLET PO SCH (06:17)
[2021-05-10] MEDS: SYMBICORT 160-4.5 MCG INHALER INHALATION SCH (07:13)
[2021-05-10 08:19] VITALS: BP 97/55; PULSE 81; RESP 18; TEMP 98
[2021-05-10] MEDS: METOPROLOL SUCCINATE (ER) 100 MG TAB.ER.24H PO SCH (08:19)
[2021-05-10] MEDS: ATORVASTATIN 40 MG TAB PO SCH (08:19)
[2021-05-10] MEDS: ASPIRIN 81 MG PO SCH (08:19)
[2021-05-10] MEDS: DULoxetine HCL 60 MG CAPSULE.DR PO SCH (08:19)
[2021-05-10] MEDS: CLOPIDOGREL 75 MG TAB PO SCH (08:19)
[2021-05-10] MEDS: amLODIPine 5 MG TAB PO SCH (08:19)
--- NOTE | 2021-05-10 10:13 | P.PN ---
Subjective Patient is resting comfortably in bed No chest discomfort no shortness of breath She denies any dizziness or lightheadedness when she Hambley's in the room although blood pressure is low normal Her foot looks a lot better. There is no discoloration of her little toe either today We stop IV heparin this morning Heart sounds are normal Breath sounds are clear Extremities are warm Dorsalis pedis is not palpable on the left foot Blood pressure 97/55, respirations normal Afebrile, pulse rate in the 70s and 80s Impression Severe peripheral vascular disease status post [employer] On dual antiplatelet therapy Anemia Were treated with IV heparin for 48 hours Visit clear improvement in her distal circulation She should be able to go home today and follow-up with Dr. Sahni in about a week Her blood pressure is 97/55 mmHg of and therefore last the patient to hold amlodipine until next week or when she sees Dr. Sahni Objective - Vital Signs Vital signs: Vital Signs Temp 98 F 05/10/21 08:00 Pulse 81 05/10/21 08:00 Resp 18 05/10/21 08:00 BP 97/55 05/10/21 08:00 Pulse Ox 98 05/10/21 08:00 Intake & Output 05/09/21 05/10/21 05/10/21 18:59 06:59 18:59 Intake Total 480 250 Balance 480 250 Weight 94.8 kg Intake: Intake, IV Titration 250 Amount Heparin Sod,Pork in 0.45% 250 NaCl 25,000 unit In 0.45 % NaCl 1 250ml.bag @ 18 UNITS/KG/HR 16.819 mls/hr IV .[id number] [facility] Rx#: [id number] Oral 480 Other: Voiding Method Toilet # Voids 1 1 - Labs CBC & Chem 7: 05/09/21 18:47 05/09/21 02:03 Labs: Abnormal Lab Results - Last 24 Hours (Table) 05/09/21 05/09/21 05/09/21 Range/Units 09:55 18:47 18:47 RBC 2.77 L (3.80-5.40) m/uL Hgb 7.6 L (11.4-16.0) gm/dL Hct 24.0 L (34.0-46.0) % RDW 18.7 H (11.5-15.5) % APTT 37.2 H 62.1 H (22.0-30.0) sec
--- NOTE | 2021-05-10 11:31 | P.DS ---
Providers Date of admission: 05/06/21 15:07 Attending physician: Glynn Brooks MD Consults: 05/06/21 15:06 Consult Physician Routine Consulting Provider: Matt Davey Consult Reason/Comments: peripheral stent graft reocclusion Do you want consulting provider notified?: Yes 05/07/21 13:59 Consult Physician Routine Consulting Provider: Lolis Oneill Consult Reason/Comments: possible GI bleed Do you want consulting provider notified?: Yes Primary care physician: [facility] Course: History of present illness This is a 65-year-old female patient of Dr. Varghese with past medical history of COPD, PAD as well as stents by Dr. Mas, hypertension, hyperlipidemia. Patient has history of severe claudication of the left lower extremity and followed by Dr. Mas status post angiogram and angioplasty of the left external iliac artery followed by clot and on long-term eliquis, alcohol abuse. She had a hospitalization in October which time she presented for syncopal episode 4 of unclear etiology. Patient was last hospitalized in December 2020 for TIA. She was also noted to have bilateral carotid stenosis on ultrasound 50- 69%. CT of the neck was suggested mild stenosis of bilateral internal carotid. Patient does not follow with vascular surgeon. She came in to the emergency room yesterday with increased left foot pain associated with purplish discoloration of her toes and forefoot. Patient had an occluded left external iliac stent and underwent mechanical thrombectomy and balloon angioplasty from the right femoral approach in March. She was doing well until yesterday. Patient denies any baseline numbness or tingling in the left lower extremity. She does not have any residual sensory or motor deficit in the left lower extremity. Patient was taken for percutaneous transluminal balloon angioplasty to the right femoral approach this morning. Pulses by Doppler are palpable. Purplish discolored discoloration of the toes has improved since the patient had the procedure with Dr. Ranjit Ann. Patient does have significant pain involving her lower back since the procedure is performed. She denies any foot pain at this moment. Patient endorses some numbness involving the fourth and fifth toes of the left lower extremity. Vitals reviewed this morning as patient is afebrile pulse 88 respiratory rate 18 blood pressure 109/68 oxygen saturation 92% on 4 L. Labs revealed, patient's hemoglobin has dropped from 8 to 5.7 this morning and is noted to have a continuous downtrend since March. CMP today. Sodium 136 potassium 3.2 bicarb 31 glucose 122 calcium 8.5, no S4 detected. 05/08 patient examined today. She does have significant sensation involving the left forward. Patient feels like somebody is twisting her nails and her skin. She is currently getting pain control with morphine. No episodes of melena or dark stool overnight. Hemoglobin has improved with transfusion to 8.1 on repeat check this morning. Aspirin and Plavix to be restarted this morning. Chest x- ray negative for fluid overload. Right basilar opacity reflecting acute infiltrate or atelectasis. Oxygen need likely atelectasis. Patient currently on room air. Pro-calcitonin ordered low likelihood of bacterial pneumonia. Patient denies any abdominal pain nausea or vomiting. Pending cardiology evaluation. Heparin drip for 24-48 hours per cardiology evaluation. Continue aspirin and Plavix. Patient examined , is laying comfortably in bed. Patient has been ambulating the room without oxygen nd denies any cought or SOB. vitals are reviewed, , saaturating at 93 % on 3 litres. Labs were reviewed, hb dropped to 7.5 this evening. Patient denies any melena or dark sstool. She continues to remain on heparin drip with aspirin and plavix. Iron studies does document iron def, will dose patient with ferrlicit 125 mg po once. Continue aspirin, plavix and heparin drip per cardiology recommendation patient examined bedside. Perfusion stroke to the left lower extremity. Patient being left leg has improved. Patient's currently on room air and denies any shortness of breath or cough production. Patient is reported to be 98% on 3 L. We will check with the nurse to evaluate patient's oxygen need. Blood pressure is 97/55 and hold Norvasc on discharge. Patient will continue on aspirin and Plavix per cardiology recommendation. Heparin drip was discontinued. Hemoglobin stable at 7.5. Patient needs to follow-up with primary care physician with repeat CBC in few days. Physical exam - Constitutional General appearance: cooperative, no acute distress, obese - Respiratory Respiratory: bilateral: CTA, negative: diminished, dullness, rales, rhonchi - Cardiovascular Rhythm: regular Heart sounds: normal: S1, S2 Abnormal Heart Sounds: no systolic murmur, no diastolic murmur, no rub, no S3 Gallop, no S4 Gallop, no click, no other - Gastrointestinal General gastrointestinal: normal bowel sounds, soft nontender - Integumentary Integumentary: no rash, improvement in the vasculature involving the left foot. The symptoms seconds. - Extremities Peripheral pulses are palpable, left lower extremity dorsalis pedis palpable by Doppler Assessment and plan 1.acute limb ischemia Status post PTBA with left external iliac stent, aspiration thrombectomy left external iliac artery with left popliteal artery on 05/07 2.peripheral artery disease status post stenting to the left external iliac, last performed in March by Dr. Sahni. 3.acute on chronic blood loss anemia ruled out GI bleed. Status post 2 unit PRBC on 05/07. General surgery consulted and iron studies ordered. reganit . repeat cbc int he morning 4. CVA/TIA last episode in December 2020 5 diet-controlled type 2 diabetes 6.acute hypoxic respiratory failure rule out. Chest x-ray ordered volume overload history of asthma/COPD 7.hypertension 8.hyperlipidemia 9.history of tobacco use and dependence patient guided on nicotine cessation 10.history of alcohol abuse in remission 11.recurrent depression and generalized anxiety disorder Disposition home Patient Condition at Discharge: Stable Plan - Discharge Summary Discharge Rx Participant: No New Discharge Prescriptions: Continue Cholecalciferol [Vitamin D3 (10 Mcg = 400 Iu)] 10 mcg PO DAILY Metoprolol Succinate [Toprol XL] 100 mg PO DAILY Albuterol Sulfate [Ventolin HFA] 2 puff INHALATION RT-Q4H PRN PRN Reason: Shortness Of Breath Pantoprazole [Protonix] 40 mg PO DAILY Furosemide [Lasix] 20 mg PO DAILY Potassium Chloride [Potassium Chloride ER] 10 meq PO BID levETIRAcetam [Keppra] 500 mg PO Q12H Ferrous Sulfate [Iron (65 MG Elemental)] 325 mg PO DAILY Acetaminophen [Tylenol Extra Strength] 1,000 mg PO Q4-6H PRN PRN Reason: Fever And/ Or Pain Budesonide/Formoterol Fumarate [Symbicort 160-4.5 Mcg Inhaler] 2 puff INHALATION RT-BID DULoxetine HCL [Cymbalta] 60 mg PO DAILY Atorvastatin [Lipitor] 40 mg PO DAILY Nitroglycerin 0.4 mg SL Q5M PRN PRN Reason: Chest Pain Aspirin EC [Ecotrin Low Dose] 81 mg PO DAILY #30 tab Clopidogrel [Plavix] 75 mg PO DAILY #30 tab Discontinued amLODIPine [Norvasc] 5 mg PO DAILY Rivaroxaban [Xarelto] 15 mg PO DAILY #90 tab Discharge Medication List Cholecalciferol [Vitamin D3 (10 Mcg = 400 Iu)] 10 mcg PO DAILY 02/26/15 [History] Metoprolol Succinate [Toprol XL] 100 mg PO DAILY 02/26/15 [History] Albuterol Sulfate [Ventolin HFA] 2 puff INHALATION RT-Q4H PRN 07/14/19 [History] Pantoprazole [Protonix] 40 mg PO DAILY 07/14/19 [History] Ferrous Sulfate [Iron (65 MG Elemental)] 325 mg PO DAILY 10/01/20 [History] Acetaminophen [Tylenol Extra Strength] 1,000 mg PO Q4-6H PRN 11/02/20 [History] Budesonide/Formoterol Fumarate [Symbicort 160-4.5 Mcg Inhaler] 2 puff INHALATION RT-BID 11/02/20 [History] DULoxetine HCL [Cymbalta] 60 mg PO DAILY 12/20/20 [History] Furosemide [Lasix] 20 mg PO DAILY 12/20/20 [History] Potassium Chloride [Potassium Chloride ER] 10 meq PO BID 12/20/20 [History] Atorvastatin [Lipitor] 40 mg PO DAILY 03/26/21 [History] Nitroglycerin 0.4 mg SL Q5M PRN 03/26/21 [History] Aspirin EC [Ecotrin Low Dose] 81 mg PO DAILY #30 tab 03/29/21 [Rx] Clopidogrel [Plavix] 75 mg PO DAILY #30 tab 03/29/21 [Rx] levETIRAcetam [Keppra] 500 mg PO Q12H 05/06/21 [History] Follow up Appointment(s)/Referral(s): Saurabh Mas MD [Family Provider] - 1 Week David Varghese MD [Primary Care Provider] - 1-2 days Discharge Disposition: HOME WITH HOME HEALTH SERVICES
== END 2021-05-10 12:55 | disposition home or self-care (01) | DRG 271 ==
LOC: EC 12:21 → 3SCARD 15:07
PROVIDERS: ADMIT Internal Medicine; ATTEND Internal Medicine
PROC: 047J3Z1 Dilation of Left External Iliac Artery using Drug-Coated Balloon, Percutaneous Approach (ICD-10-PCS; principal; 2021-05-07 07:30)
PROC: X2CT3T7 Extirpation of Matter from Left Lower Extremity Artery using Computer-aided Mechanical Aspiration, Percutaneous Approach, New Technology Group 7 (ICD-10-PCS; principal; 2021-05-07 07:30)
PROC: 30233N1 Transfusion of Nonautologous Red Blood Cells into Peripheral Vein, Percutaneous Approach (ICD-10-PCS; principal; 2021-05-07 07:30)
PROC: B41G1ZZ Fluoroscopy of Left Lower Extremity Arteries using Low Osmolar Contrast (ICD-10-PCS; principal; 2021-05-07 07:30)
PROC: B41F1ZZ Fluoroscopy of Right Lower Extremity Arteries using Low Osmolar Contrast (ICD-10-PCS; principal; 2021-05-07 07:30)
PROC: 047N3Z1 Dilation of Left Popliteal Artery using Drug-Coated Balloon, Percutaneous Approach (ICD-10-PCS; principal; 2021-05-07 07:30)
DX: T82.856A Stenosis of peripheral vascular stent, initial encounter (principal); D62 Acute posthemorrhagic anemia; D68.9 Coagulation defect, unspecified; I74.3 Embolism and thrombosis of arteries of the lower extremities; F33.9 Major depressive disorder, recurrent, unspecified; J98.11 Atelectasis; E11.51 Type 2 diabetes mellitus with diabetic peripheral angiopathy without gangrene; J44.9 Chronic obstructive pulmonary disease, unspecified; I73.9 Peripheral vascular disease, unspecified; Z20.822 Contact with and (suspected) exposure to COVID-19; I65.23 Occlusion and stenosis of bilateral carotid arteries; E78.5 Hyperlipidemia, unspecified; I10 Essential (primary) hypertension; E61.1 Iron deficiency; K21.9 Gastro-esophageal reflux disease without esophagitis; I25.10 Atherosclerotic heart disease of native coronary artery without angina pectoris; M19.90 Unspecified osteoarthritis, unspecified site; F41.1 Generalized anxiety disorder; F40.240 Claustrophobia; G43.909 Migraine, unspecified, not intractable, without status migrainosus; E66.9 Obesity, unspecified; Z68.35 Body mass index [BMI] 35.0-35.9, adult; F10.10 Alcohol abuse, uncomplicated; F17.210 Nicotine dependence, cigarettes, uncomplicated; Z71.6 Tobacco abuse counseling; Z79.82 Long term (current) use of aspirin; Z79.51 Long term (current) use of inhaled steroids; Z79.02 Long term (current) use of antithrombotics/antiplatelets; Z79.01 Long term (current) use of anticoagulants; Z79.899 Other long term (current) drug therapy; Z86.73 Personal history of transient ischemic attack (TIA), and cerebral infarction without residual deficits; Z86.718 Personal history of other venous thrombosis and embolism; Z95.5 Presence of coronary angioplasty implant and graft; Z87.19 Personal history of other diseases of the digestive system; Z60.2 Problems related to living alone; Z86.79 Personal history of other diseases of the circulatory system; Z98.890 Other specified postprocedural states; Y83.8 Other surgical procedures as the cause of abnormal reaction of the patient, or of later complication, without mention of misadventure at the time of the procedure; Z88.7 Allergy status to serum and vaccine; Z88.8 Allergy status to other drugs, medicaments and biological substances; Z82.49 Family history of ischemic heart disease and other diseases of the circulatory system; Z80.8 Family history of malignant neoplasm of other organs or systems; Z80.0 Family history of malignant neoplasm of digestive organs; Z80.1 Family history of malignant neoplasm of trachea, bronchus and lung; Z83.2 Family history of diseases of the blood and blood-forming organs and certain disorders involving the immune mechanism
CPT/HCPCS: 36415; 37184; 37185; 37220; 37224; 37252; 71045; 71275; 75635; 80048; 80053; 83540; 83550; 83735; 84145; 85025; 85027; 85045; 85610; 85730; 86850; 86900; 86901; 86920; 87635; 93005; 94640; 94760; 96374; 96375; 99285

== ENCOUNTER 2021-10-10 22:08 | Observation (INO) | payer MEDICARE ==
--- NOTE | 2021-10-10 22:17 | ED ---
Fall HPI - General Stated Complaint: Fall, Head Lac Time Seen by Provider: 10/10/21 22:15 Source: EMS Mode of arrival: EMS - History of Present Illness Initial Comments: This is a pleasant 66-year-old female who presents rash department stating that she lost her balance at home.Patient states she has been drinking alcohol. She admits to 10 beers. Patient states she lost her balance and struck the back of her head on sliding glass door. Patient believes she struck it on the frame of the door. Patient denies any loss of consciousness. She is complaining of a headache. Patient also stated that the light is bothering her eyes. She denied any shortness of breath or chest pain. No abdominal pain. Patient really denied any presyncopal symptoms. Patient not on blood thinners. No other injuries noted. no fever or chills, no changes in vision or hearing, no sore throat or difficulty with speech, SOME neck pain, no chest pain or shortness of breath, no abdominal pain, no nausea or vomiting, no changes in urination or bowel movements, no numbness or tingling, no extremity pain, no skin rashes or lesions. MD Complaint: fall - Related Data Home Medications Medication Instructions Recorded Confirmed Cholecalciferol [Vitamin D3 (10 10 mcg PO DAILY 02/26/15 05/06/21 Mcg = 400 Iu)] Metoprolol Succinate [Toprol XL] 100 mg PO DAILY 02/26/15 05/06/21 Albuterol Sulfate [Ventolin HFA] 2 puff INHALATION RT-Q4H PRN 07/14/19 05/06/21 Pantoprazole [Protonix] 40 mg PO DAILY 07/14/19 05/06/21 Ferrous Sulfate [Iron (65 MG 325 mg PO DAILY 10/01/20 05/06/21 Elemental)] Acetaminophen [Tylenol Extra 1,000 mg PO Q4-6H PRN 11/02/20 05/06/21 Strength] Budesonide/Formoterol Fumarate 2 puff INHALATION RT-BID 11/02/20 05/06/21 [Symbicort 160-4.5 Mcg Inhaler] DULoxetine HCL [Cymbalta] 60 mg PO DAILY 12/20/20 05/06/21 Furosemide [Lasix] 20 mg PO DAILY 12/20/20 05/06/21 Potassium Chloride [Potassium 10 meq PO BID 12/20/20 05/06/21 Chloride ER] Atorvastatin [Lipitor] 40 mg PO DAILY 03/26/21 05/06/21 Nitroglycerin 0.4 mg SL Q5M PRN 03/26/21 05/06/21 levETIRAcetam [Keppra] 500 mg PO Q12H 05/06/21 05/06/21 Previous Rx's Medication Instructions Recorded Aspirin EC [Ecotrin Low Dose] 81 mg PO DAILY #30 tab 03/29/21 Clopidogrel [Plavix] 75 mg PO DAILY #30 tab 03/29/21 Allergies Allergy/AdvReac Type Severity Reaction Status Date / Time influenza virus vaccine, Allergy Rash/Hives Verified 10/10/21 22:16 specific [influenza virus vacc,specific] lisinopril Allergy Swelling Verified 10/10/21 22:16 Review of Systems ROS Statement: Those systems with pertinent positive or pertinent negative responses have been documented in the HPI. ROS Other: All systems not noted in ROS Statement are negative. Past Medical History Past Medical History: Asthma, Chest Pain / Angina, COPD, CVA/TIA, Diabetes Mellitus, Deep Vein Thrombosis (DVT), GERD/Reflux, Hyperlipidemia, Hypertension, Osteoarthritis (OA), Vascular Disorder Additional Past Medical History / Comment(s): Hx blood clot in left arm and left hand, hx migraines, PVD, left leg pain, TIA-X2 DECEMBER 2020. History of Any Multi-Drug Resistant Organisms: None Reported Past Surgical History: Heart Catheterization, Heart Catheterization With Stent Additional Past Surgical History / Comment(s): Stent to left external iliac, bl ood clot removed from left arm, surgery to fix "tear in aorta", surgery for "abdominal adhesions", 06-11-16 LT ILIAC PTBA/STENT, PTBA 10/03/2020-Stent X2 Illiac(L). Angiography. Past Anesthesia/Blood Transfusion Reactions: No Reported Reaction Additional Past Anesthesia/Blood Transfusion Reaction / Comment(s): Claustrophobia. Date of Last Stent Placement:: 10/03/20 Past Psychological History: No Psychological Hx Reported Smoking Status: Current every day smoker Past Alcohol Use History: Occasional Past Drug Use History: None Reported - Past Family History Father Family Medical History: Cancer, Myocardial Infarction ([place]) Additional Family Medical History / Comment(s): SKIN CANCER. Mother Family Medical History: Cancer, Deep Vein Thrombosis (DVT) Additional Family Medical History / Comment(s): COLON CANCER TWICE, lung ancer. General Exam - General Exam Comments Initial Comments: 66-year-old female in mild distress. 2 through 12 appear to be grossly intact. Patient is alert and oriented 4. Appears to be mildly intoxicated. Limitations: no limitations General appearance: alert, in no apparent distress Head exam: Present: other (Occipital hematoma with overlying laceration noted.) Eye exam: Present: normal appearance, PERRL, EOMI. Absent: scleral icterus, conjunctival injection, periorbital swelling ENT exam: Present: normal exam, mucous membranes moist Neck exam: Present: normal inspection, tenderness, full ROM. Absent: meningismus, lymphadenopathy Respiratory exam: Present: normal lung sounds bilaterally. Absent: respiratory distress, wheezes, rales, rhonchi, stridor Cardiovascular Exam: Present: regular rate, normal rhythm, normal heart sounds. Absent: systolic murmur, diastolic murmur, rubs, gallop, clicks GI/Abdominal exam: Present: soft, normal bowel sounds. Absent: distended, tenderness, guarding, rebound, rigid Extremities exam: Present: normal inspection, full ROM, normal capillary refill. Absent: tenderness, pedal edema, joint swelling, calf tenderness Back exam: Present: normal inspection Neurological exam: Present: alert, oriented X3, CN II-XII intact, reflexes normal. Absent: altered, motor sensory deficit Psychiatric exam: Present: normal affect, normal mood Skin exam: Present: warm, dry, intact, normal color. Absent: rash Course Vital Signs 10/10/21 22:14 Temperature 98 F Pulse Rate 92 Respiratory 18 Rate Blood Pressure 153/65 O2 Sat by Pulse 97 Oximetry - Reevaluation(s) Reevaluation #1: 10/11/21 00:33 Cranial nerves II through XII are intact. No focal neurologic deficits. Computed tomography scan did not show any acute findings. As always repairing the patient's laceration she started complaining about floaters which she ascertains are in both eyes. Visual field loss. Patient is informed of results and questions answered Patient in no distress - Consultations Consultation #1: Discussed in detail Dr. Varghese. He agrees to admit the patient for observation. Consultation for neurology will be made. Procedures - Laceration Laceration #1 Consent Obtained: verbal consent Indication: laceration Size (cm): 5 Description: linear Depth: simple, single layer Anesthetic Used: lidocaine 1%, with epi Anesthesia Technique: local infiltration Pre-repair: wound explored, irrigated extensively Type of Sutures: other (Lulu) Complications: pain, bleeding Patient Tolerated Procedure: well, no complications Medical Decision Making - Medical Decision Making Fall, head injury, age greater than [address], CT indicated Alcohol intoxication Cranial nerves II through XII are intact. It appears the patient had a mechanical fall. However she cannot ruled out. - Lab Data Result diagrams: 10/10/21 23:30 10/10/21 23:30 Lab Results 10/10/21 10/10/21 10/10/21 Range/Units 23:07 23:30 23:30 WBC 8.5 (3.8-10.6) k/uL RBC 4.33 (3.80-5.40) m/uL Hgb 11.1 L (11.4-16.0) gm/dL Hct 37.8 (34.0-46.0) % MCV 87.3 (80.0-100.0) fL MCH 25.7 (25.0-35.0) pg MCHC 29.5 L (31.0-37.0) g/dL RDW 19.0 H (11.5-15.5) % Plt Count 336 (150-450) k/uL MPV 7.4 Neutrophils % 73 % Lymphocytes % 20 % Monocytes % 3 % Eosinophils % 2 % Basophils % 0 % Neutrophils # 6.3 (1.3-7.7) k/uL Lymphocytes # 1.7 (1.0-4.8) k/uL Monocytes # 0.3 (0-1.0) k/uL Eosinophils # 0.1 (0-0.7) k/uL Basophils # 0.0 (0-0.2) k/uL Hypochromasia Marked Anisocytosis Slight PT 16.7 H (9.0-12.0) sec INR 1.6 H (<1.2) APTT 26.6 (22.0-30.0) sec Sodium (137-145) mmol/L Potassium (3.5-5.1) mmol/L Chloride (98-107) mmol/L Carbon Dioxide (22-30) mmol/L Anion Gap mmol/L BUN (7-17) mg/dL Creatinine (0.52-1.04) mg/dL Est GFR (CKD-EPI)AfAm (>60 ml/min/1.73 sqM) Est GFR (CKD-EPI)NonAf (>60 ml/min/1.73 sqM) Glucose (74-99) mg/dL Calcium (8.4-10.2) mg/dL Magnesium (1.6-2.3) mg/dL Total Bilirubin (0.2-1.3) mg/dL AST (14-36) U/L ALT (4-34) U/L Alkaline Phosphatase (38-126) U/L Troponin I (0.000-0.034) ng/mL Total Protein (6.3-8.2) g/dL Albumin (3.5-5.0) g/dL Urine Color Colorless Urine Appearance Clear (Clear) Urine pH 6.0 (5.0-8.0) Ur Specific [place] 1.002 (1.001-1.035) Urine Protein Negative (Negative) Urine Glucose (UA) Negative (Negative) Urine Ketones Negative (Negative) Urine Blood Negative (Negative) Urine Nitrite Negative (Negative) Urine Bilirubin Negative (Negative) Urine Urobilinogen <2.0 (<2.0) mg/dL Ur Leukocyte Esterase Negative (Negative) Serum Alcohol mg/dL 10/10/21 10/10/21 Range/Units 23:30 23:30 WBC (3.8-10.6) k/uL RBC (3.80-5.40) m/uL Hgb (11.4-16.0) gm/dL Hct (34.0-46.0) % MCV (80.0-100.0) fL MCH (25.0-35.0) pg MCHC (31.0-37.0) g/dL RDW (11.5-15.5) % Plt Count (150-450) k/uL MPV Neutrophils % % Lymphocytes % % Monocytes % % Eosinophils % % Basophils % % Neutrophils # (1.3-7.7) k/uL Lymphocytes # (1.0-4.8) k/uL Monocytes # (0-1.0) k/uL Eosinophils # (0-0.7) k/uL Basophils # (0-0.2) k/uL Hypochromasia Anisocytosis PT (9.0-12.0) sec INR (<1.2) APTT (22.0-30.0) sec Sodium 140 (137-145) mmol/L Potassium 4.1 (3.5-5.1) mmol/L Chloride 107 (98-107) mmol/L Carbon Dioxide 25 (22-30) mmol/L Anion Gap 8 mmol/L BUN 10 (7-17) mg/dL Creatinine 0.93 (0.52-1.04) mg/dL Est GFR (CKD-EPI)AfAm 75 (>60 ml/min/1.73 sqM) Est GFR (CKD-EPI)NonAf 65 (>60 ml/min/1.73 sqM) Glucose 105 H (74-99) mg/dL Calcium 9.1 (8.4-10.2) mg/dL Magnesium 1.9 (1.6-2.3) mg/dL Total Bilirubin 0.3 (0.2-1.3) mg/dL AST 20 (14-36) U/L ALT 10 (4-34) U/L Alkaline Phosphatase 120 (38-126) U/L Troponin I <0.012 (0.000-0.034) ng/mL Total Protein 7.1 (6.3-8.2) g/dL Albumin 4.0 (3.5-5.0) g/dL Urine Color Urine Appearance (Clear) Urine pH (5.0-8.0) Ur Specific [place] (1.001-1.035) Urine Protein (Negative) Urine Glucose (UA) (Negative) Urine Ketones (Negative) Urine Blood (Negative) Urine Nitrite (Negative) Urine Bilirubin (Negative) Urine Urobilinogen (<2.0) mg/dL Ur Leukocyte Esterase (Negative) Serum Alcohol 164 mg/dL - EKG Data EKG Comments: EKG shows sinus rhythm with a rate of 84. Nonspecific T-wave abnormality, no evidence of ST elevation or ST depression. Baseline artifact seen in lead V5. Normal axis. There is a flipped T-wave in lead 1. Normal intervals.When compared to the previous study from April 2021 there is no significant change aside from the normalization of the QTC. - Radiology Data Radiology results: report reviewed, image reviewed Disposition Clinical Impression: Closed head injury, Scalp laceration, Visual disturbance, Alcohol intoxication Disposition: ADMITTED IP TO THIS HOSP Condition: Fair Referrals: David Varghese MD [Primary Care Provider] - 1-2 days Time of Disposition: 00:57 Decision to Admit Reason: Admit from EC Decision Time: 00:57
[2021-10-10] MEDS ORDERED: LIDOCAINE 1%-EPI 1:100,000 20 ML VIAL SQ STA (22:24)
[2021-10-10] MEDS ORDERED: ACETAMINOPHEN TAB 500 MG TAB PO STA (22:25)
[2021-10-10] MEDS ORDERED: SODIUM CHLORIDE 0.9% 500 ML 500 ML IV STA (22:26)
--- NOTE | 2021-10-10 23:11 | CT ---
EXAMINATION TYPE: CT brain ericine wo con DATE OF EXAM: 10/10/2021 COMPARISON: 12/07/2018 HISTORY: Fall CT DLP: 1352.10 mGycm Automated exposure control for dose reduction was used. Images obtained of the brain and cervical spine without contrast. There is mild cerebral atrophy. There is no mass effect or midline shift. There is no sign of intracr anial hemorrhage. Calvarium is intact. There is normal aeration of the mastoid sinuses. Calvarium is intact. The cervical vertebra show mild straightening. There is degenerative disc space narrowing at C5-6 and C6-7 with spur formation. No compression fracture. There is multilevel hypertrophic facet arthropath y. There is normal aeration of the mastoid sinuses. IMPRESSION: Cervical spondylotic changes. Mild degenerative subluxation at C4-5. No significant change compared t o the old exam. Cerebral atrophy. No acute intracranial abnormality. No significant change.
--- NOTE | 2021-10-10 23:13 | XR ---
EXAMINATION TYPE: XR chest 1V portable DATE OF EXAM: 10/10/2021 COMPARISON: 05/07/2021 HISTORY: Syncope TECHNIQUE: Single view FINDINGS: There is no heart failure nor confluent pneumonic infiltrate. Costophrenic angles are clear . There is a stent at the aortic arch. IMPRESSION: No active cardiopulmonary disease. There is clearing of atelectasis right lower lobe comp ared to the old exam.
[2021-10-10 23:23] LABS: Appearance,Urine Clear (Clear); Bilirubin,Urine Negative (Negative); Blood,Urine Negative (Negative); Color,Urine Colorless; Glucose,Urine (UA) Negative (Negative); Ketones,Urine Negative (Negative); Leukocyte Esterase,Urine Negative (Negative); Nitrite,Urine Negative (Negative); Protein,Urine Negative (Negative); Specific Gravity,Urine 1.002 (1.001-1.035); Urobilinogen,Urine <2.0 mg/dL (<2.0)
[2021-10-10 23:47] LABS: Anisocytosis Slight; Basophils % (A) 0 %; Eosinophils # (A) 0.1 k/uL (0-0.7); Eosinophils % (A) 2 %; HCT 37.8 % (34.0-46.0); HGB 11.1 gm/dL (11.4-16.0); Hypochromasia Marked; Lymphocytes # (A) 1.7 k/uL (1.0-4.8); Lymphocytes % (A) 20 %; MCH 25.7 pg (25.0-35.0); MCHC 29.5 g/dL (31.0-37.0); MCV 87.3 fL (80.0-100.0); Mean Platelet Volume 7.4; Monocytes # (A) 0.3 k/uL (0-1.0); Monocytes % (A) 3 %; Neutrophils # (A) 6.3 k/uL (1.3-7.7); Neutrophils % (A) 73 %; Platelet Count 336 k/uL (150-450); RBC 4.33 m/uL (3.80-5.40); WBC 8.5 k/uL (3.8-10.6)
[2021-10-10 23:57] LABS: Calcium 9.1 mg/dL (8.4-10.2); Magnesium 1.9 mg/dL (1.6-2.3); Potassium 4.1 mmol/L (3.5-5.1); Total Bilirubin 0.3 mg/dL (0.2-1.3); Total Protein 7.1 g/dL (6.3-8.2)
[2021-10-10 23:58] LABS: INR 1.6 (<1.2); Partial Thromboplastin Time 26.6 sec (22.0-30.0); Prothrombin Time 16.7 sec (9.0-12.0)
[2021-10-11] MEDS ORDERED: ONDANSETRON 4 MG/2 ML VIAL IVP PRN (00:57)
[2021-10-11] MEDS ORDERED: ACETAMINOPHEN TAB 325 MG TAB PO PRN (00:57)
[2021-10-11] MEDS ORDERED: NALOXONE 0.4 MG/ML 1 ML VIAL IV PRN (00:57)
[2021-10-11 02:30] VITALS: PULSE 96
[2021-10-11 07:25] LABS: INR 1.8 (<1.2); Prothrombin Time 18.3 sec (9.0-12.0)
[2021-10-11 08:12] VITALS: BP 149/74; RESP 19; TEMP 98.1
[2021-10-11] MEDS ORDERED: ALBUTEROL HFA INHALER INHALATION PRN (08:19)
[2021-10-11] MEDS ORDERED: IPRATROPIUM-ALBUTEROL 3 ML NEB INHALATION PRN (08:19)
[2021-10-11] MEDS ORDERED: DULoxetine HCL 60 MG CAPSULE.DR PO SCH (09:00)
[2021-10-11] MEDS ORDERED: FUROSEMIDE 40 MG TAB PO SCH (09:00)
[2021-10-11] MEDS ORDERED: ATORVASTATIN 40 MG TAB PO SCH (09:00)
[2021-10-11] MEDS ORDERED: METOPROLOL SUCCINATE (ER) 100 MG TAB.ER.24H PO SCH (09:00)
[2021-10-11] MEDS ORDERED: THIAMINE 100 MG TAB PO SCH (09:00)
[2021-10-11] MEDS ORDERED: FERROUS SULFATE 325 MG TAB PO SCH (09:00)
[2021-10-11] MEDS ORDERED: levETIRAcetam 500 MG TAB PO SCH (09:00)
[2021-10-11] MEDS ORDERED: buPROPion XL 150 MG TAB.ER.24H PO SCH (09:00)
[2021-10-11] MEDS ORDERED: PANTOPRAZOLE 40 MG TABLET PO SCH (09:00)
[2021-10-11] MEDS ORDERED: metFORMIN 500 MG TAB PO SCH (09:00)
[2021-10-11] MEDS ORDERED: POTASSIUM CHLORIDE ER 10 MEQ TAB.ER.PRT PO SCH (09:00)
[2021-10-11] MEDS ORDERED: CLOPIDOGREL 75 MG TAB PO SCH (09:00)
[2021-10-11] MEDS ORDERED: ASPIRIN 81 MG PO SCH (09:00)
--- NOTE | 2021-10-11 10:37 | P.CNNES ---
History of Present Illness Consult date: 10/11/21 Requesting physician: Salvador Samaniego Reason for Consult: head injury, visual disturbance History of Present Illness: This is a 66-year-old woman with history of stroke over the right frontal on 2020, diabetes mellitus, syncopal episodes, DVT, on Coumadin, coronary artery disease status post stent alcohol abuse who presented emergency department on 10/10/2021 since the patient has been drinking alcohol heavily and then that as a result she lost her balance and struck the back of her head. She stated that the she drank about 10 beers and I stated above she lost her balance. She struck her head on the frame over the door but the patient denies any loss of consciousness, she denies any focal weakness, she denies of any presyncopal episode prior to episode. She complained to the ED that she was having sensitivity to light with her eyes and had some headache. Her headache is over back of head near in middle of posterior mid region tor right. She stated her headache is improving today compared to yesterday. She could not describe it but felt pressure. Denies nausea, vomiting. Denies any photophobia, imelda nophobia and no focal deficits. She stated she is on Coumadin because of repeated blood clots she is on. Some of the patient on medication consist of aspirin 81 mg, Plavix 75 mg daily, Lipitor 40 mg daily, she is on Keppra 500 mg 1 tablet twice a day, Wellbutrin 150 metabolic tablet twice a day, Coumadin. Patient is known to our neurology team and I seen her last facility on 12/23/2020 and the patient had a stroke over the right frontal and she presented with left-sided weakness numbness and difficulty getting her words out shooting get TPA since the her NIH was low and symptoms were improving her carotid or moderate stenosis of 60-69% per carotid duplex while on the CT angiography it's reported that moderate on the left mild on the right and per vascular surgery they felt was mild bilaterally less than 50%. Patient was notified to continue Keppra for seizure prophylaxis since she was having recurrent episode and I recommended laboratory EEG.. Patient had an ambulatory 2-1/2 hour EEG as an outpatient on 01/07/2021 it's reported as normal. No clinical or electrographic seizures were recorded. No upper for activity was present. Was referred to my notes for further details. Some other workup in the hospital consisted of: Serum alcohol was 164 which is toxic level. CT of the head is reported as cerebral atrophy. No acute abnormality. No significant change. CT cervical spine is reported as cervical spondylitic changes. Mild degenerative subluxation at C4-C5. No significant change compared to old exam. I personally reviewed the CT of the head and there is no acute subacute ischemia and there is no 4, hemorrhage. Patient on R on presentation is 1.6 and the most repeated one is 1.8. Review of Systems Review of system: The 12 point system was reviewed and apparent positive and negative per HPI. Past Medical History Past Medical History: Asthma, Chest Pain / Angina, COPD, CVA/TIA, Diabetes Mellitus, Deep Vein Thrombosis (DVT), GERD/Reflux, Hyperlipidemia, Hypertension, Osteoarthritis (OA), Vascular Disorder Additional Past Medical History / Comment(s): Hx blood clot in left arm and left hand, hx migraines, PVD, left leg pain, TIA-X2 DECEMBER 2020. History of Any Multi-Drug Resistant Organisms: None Reported Past Surgical History: Heart Catheterization, Heart Catheterization With Stent Additional Past Surgical History / Comment(s): Stent to left external iliac, blood clot removed from left arm, surgery to fix "tear in aorta", surgery for "abdominal adhesions", 06-11-16 LT ILIAC PTBA/STENT, PTBA 10/03/2020-Stent X2 Illiac(L). Angiography. Past Anesthesia/Blood Transfusion Reactions: No Reported Reaction Additional Past Anesthesia/Blood Transfusion Reaction / Comment(s): Claustrophobia. Date of Last Stent Placement:: 10/03/20 Past Psychological History: No Psychological Hx Reported Smoking Status: Current every day smoker Past Alcohol Use History: Occasional Additional Past Alcohol Use History / Comment(s): Started smoking at age 16, states trying to quit, smokes 3 cigarettes per day. Drinks a six pack 2-3xweek Past Drug Use History: None Reported - Past Family History Father Family Medical History: Cancer, Myocardial Infarction ([place]) Additional Family Medical History / Comment(s): SKIN CANCER. Mother Family Medical History: Cancer, Deep Vein Thrombosis (DVT) Additional Family Medical History / Comment(s): COLON CANCER TWICE, lung ancer. Medications and Allergies Home Medications Medication Instructions Recorded Confirmed Type Metoprolol Succinate [Toprol XL] 100 mg PO DAILY 02/26/15 10/11/21 History Albuterol Sulfate [Ventolin HFA] 2 puff INHALATION RT-Q4H PRN 07/14/19 10/11/21 History Pantoprazole [Protonix] 40 mg PO DAILY 07/14/19 10/11/21 History Ferrous Sulfate [Iron (65 MG 325 mg PO DAILY 10/01/20 10/11/21 History Elemental)] Budesonide/Formoterol Fumarate 2 puff INHALATION RT-BID 11/02/20 10/11/21 History [Symbicort 160-4.5 Mcg Inhaler] DULoxetine HCL [Cymbalta] 60 mg PO DAILY 12/20/20 10/11/21 History Potassium Chloride [Potassium 10 meq PO BID 12/20/20 10/11/21 History Chloride ER] Nitroglycerin 0.4 mg SL Q5M PRN 03/26/21 10/11/21 History Aspirin EC [Ecotrin Low Dose] 81 mg PO DAILY #30 tab 03/29/21 10/11/21 Rx Clopidogrel [Plavix] 75 mg PO DAILY #30 tab 03/29/21 10/11/21 Rx levETIRAcetam [Keppra] 500 mg PO Q12H 05/06/21 10/11/21 History Atorvastatin [Lipitor] 40 mg PO DAILY 10/11/21 10/11/21 History Furosemide [Lasix] 40 mg PO DAILY 10/11/21 10/11/21 History Ipratropium-Albuterol Nebulize 3 ml INHALATION RT-QID PRN 10/11/21 10/11/21 History [Duoneb 0.5 mg-3 mg/3 ml Soln] Thiamine [Vitamin B-1] 100 mg PO DAILY tab 10/11/21 Rx Warfarin Sodium 4 mg PO Q48H 10/11/21 10/11/21 History Warfarin Sodium 6 mg PO Q48H 10/11/21 10/11/21 History buPROPion XL [Wellbutrin XL] 150 mg PO BID 10/11/21 10/11/21 History metFORMIN HCL [Glucophage] 500 mg PO BID 10/11/21 10/11/21 History traZODone HCL [Desyrel] 25 mg PO HS 10/11/21 10/11/21 History Allergies Allergy/AdvReac Type Severity Reaction Status Date / Time influenza virus vaccine, Allergy Rash/Hives Verified 10/10/21 22:16 specific [influenza virus vacc,specific] lisinopril Allergy Swelling Verified 10/10/21 22:16 Physical Examination - Vital Signs Vital Signs: Vital Signs Temp Pulse Pulse Resp BP BP Pulse Ox 10/11/21 08:00 98.1 F 96 19 149/74 90 L 10/11/21 02:18 98.4 F 96 17 136/70 96 10/11/21 02:08 89 19 130/59 95 10/10/21 22:14 98 F 92 18 153/65 97 Intake and Output 10/10/21 10/11/21 10/11/21 22:59 06:59 14:59 Intake Total 600 Balance 600 Intake: Intake, IV Titration 500 Amount Sodium Chloride 0.9% 500 500 ml 500 ml @ 999 mls/hr IV .Q31M STA Rx#:[id number] Oral 100 Other: # Voids 2 Weight 93.44 kg 93.44 kg GENERAL: The patient is lying in bed and is not in acute distress. CHEST: The heart rate is regular rate rhythm. No murmurs to auscultation. LUNG: Clear to auscultation bilaterally no wheezing noted throughout. Not labored breathing. ABDOMEN/GI: Bowel sounds present in all 4 quadrants. No tenderness to palpation throughout. NEUROLOGICAL: Higher mental function: The patient is awake, alert, oriented to self, place and time. Patient is following commands. No aphasia and no neglect. Cranial nerves: The pupils are round, equal and reactive to light and accommodation. Visual holcomb are full to confrontation throughout. Extraocular movement is intact no nystagmus is noted. Facial sensation is normal to touch throughout. The facial strength is normal throughout. Hearing is normal bilaterally to hand rub. Tongue is midline and moved [id number] without any difficulty. No dysarthria is noted. Shoulder shrug is normal bilaterally. Motor: The strength is 5 over 5 throughout. Normal tone and bulk. Cerebellum: Normal finger to nose heel to meredith bilaterally. Sensation: Sensation is normal to touch throughout. Reflexes (right/left): 2+ throughout. Plantars are downgoing bilaterally. Results - Laboratory Findings CBC and BMP: 10/10/21 23:30 10/10/21 23:30 Abnormal Lab Findings: Abnormal Labs 10/10/21 10/10/21 10/10/21 23:30 23:30 23:30 Hgb 11.1 L MCHC 29.5 L RDW 19.0 H PT 16.7 H INR 1.6 H Glucose 105 H 10/11/21 06:41 Hgb MCHC RDW PT 18.3 H INR 1.8 H Glucose Assessment and Plan Assessment: Concussion due to loss of balance secondary due to alcohol intoxication Alcohol abuse and her serum alcohol was 164 Bilateral internal carotid artery stenosis and per the vascular surgery less than 50% History of stroke on 2020 over the right frontal Diabetes mellitus History of syncopal episode DVT on Coumadin History of coronary artery disease status post stent Plan: From neurologic perspective she has no focal deficits and denies of any visual disturbance. No further imaging needed as inpatient. Recommend the patient follow up with a neurologist as an outpatient if she continues to have symptoms recommend MRI Brain as an outpatient. Regarding on dual antiplatelet of aspirin, Plavix as well as Coumadin and from a neurologic perspective she does not need to be on dual antiplatelet she can that be discontinued off of Plavix but will defer that to her neurology and cardiology team. Continue Lipitor 40 mg daily Patient had an ambulatory EEG 2 1/2 hour as an outpatient and no seizure or epileptiform discharges. She can follow-up with a neurologist in outpatient but she does not need to be on Keppra Every 4 hours neuro checks Started the patient on thiamine 100 mg daily Patient was counseled on the alcohol cessation We'll defer the rest of the medical management to the primary team Recommend patient to follow-up with a neurologist within 2-3 weeks or sooner if needed. The plan is discussed with the patient and her nurse. Thank you for consultation. Scooby Dyson M.D. Neuro-hospitalist Time with Patient: Greater than 30
[2021-10-11 12:20] LABS: Glucose,Whole Blood 147 mg/dL (75-99)
[2021-10-11] MEDS ORDERED: INSULIN ASPART (NovoLOG) 100 UNIT/ML VIAL SQ SCH (12:30)
--- NOTE | 2021-10-11 12:30 | P.HPIM ---
History of Present Illness H&P Date: 10/11/21 HISTORY AND PHYSICAL AND DISCHARGE SUMMARY: HISTORY OF PRESENT ILLNESS 66-year-old female one of my office patient is known to have history of CAD, history of PAD with history of aortic dissection post intervention of the lower extremity with peripheral arterial disease with the preauricular iliac stenting on the left side, status post thrombectomy and angioplasty of the left iliac artery as well. Patient follows closely with Dr. Mas. Patient states that he drank about 9 beers stating that she was depressed. She states she had not drank for 5 days and is trying to quit. She was sleeping in a chair and she got up and was weak and fell over and hit her head on the sliding glass door. Patient was brought into [facility] emergency center for evaluation. She was found to be afebrile, heart rate 92, blood pressure 153/65, pulse ox 97% on room air. EKG was a sinus rhythm at 84 bpm, no acute ST changes. Hemoglobin 11.1, WBC 8.5, platelet count 336. INR is 1.6 with repeat this morning 1.8. Electrolytes and renal function normal. Glucose 105. Liver function tests were normal. Magnesium 1.9. Troponin negative. Albumin 4.0. Urinalysis negative for infection. Serum alcohol level 164. Chest x-ray showed no active cardio pulmonary disease. CAT scan of the brain and cervical spine revealed cervical spondylotic changes. Mild degenerative subluxation at C4-5. No significant change. Cerebral atrophy. No acute intracranial abnormality. Patient was found to have an occipital region laceration which was repaired in [facility] with tanya. Patient was having visual floaters and emergency center request the patient be observed overnight. She has been seen by neurology and cleared for discharge home. REVIEW OF SYSTEMS Constitutional: No fever, no chills, no night sweats. No weight change. No weakness, fatigue or lethargy. No daytime sleepiness. EENT: No headache. No blurred vision or double vision, no loss of vision. No loss of Hearing, no ringing in the ears, no dizziness. No nasal drainage or congestion. No epistaxis. No sore throat. Lungs: Positive slight shortness of breath cough wheezes. Cardiovascular: Denies shortness of breath, no cough, no lower extremity edema, no palpitation, denies lightheadedness possible syncope. Abdominal: No abdominal pain. No nausea, vomiting. No diarrhea. No constipation. No bloody or tarry stools.. No loss of appetite. Genitourinary: No dysuria, increased frequency, urgency. No urinary retention. Musculoskeletal: Generalized muscle and joint pain which and lies arthralgia. Integumentary: Reports scalp wounds, no lesions. No rash or pruritus. No unusual bruising. No change in hair or nails. Neurologic: No aphasia. No facial droop. No change in mentation. No head injury. No headache. No paralysis. No paresthesia. Psychiatric: No depression. No anxiety. No mood swings. Endocrine: No abnormal blood sugars. No weight change. No excessive sweating or thirst. No cold intolerance. SOCIAL HISTORY Patient is a smoker of 2 packs per day for 45 years and is cutting back to one half pack per day. Patient was drinking 12 pack a day for 20 years and recently cut back to drinks 6 beers per day and and then 3 per day. She's been drinking heavy alcohol for 30-40 years. No marijuana or illicit drug use. Patient is and lives alone. FAMILY HISTORY Mother at age 83 from lung cancer. Father at age 65 from myocardial infarction. Patient has a total of 5 siblings. One has history of heart disease and another with cancer. She does not have contact with her siblings. Patient does not have any children. PHYSICAL EXAMINATION Gen: This is a 66-year-old looks older than her age does not look in any r espiratory distress. HEENT: Head is atraumatic, normocephalic. Pupils equal, round. Sclerae is anict benoit. Laceration with tanya in place to the posterior occipital region. Positive hematoma. No active bleeding. NECK: Supple. No JVD. No lymphadenopathy. No thyromegaly. LUNGS: Decreased breath some Rhonchi Positive Mild Expiratory Wheezes. HEART: Regular with moderate ascites 2 possible S3 positive PVCs positive systolic murmur. ABDOMEN: Soft. Bowel sounds are present. No masses. No tenderness. EXTREMITIES: Trace edema decreased dorsalis pedis. NEUROLOGICAL: Patient is awake, alert and oriented x3. Cranial nerves 2 through 12 are grossly intact. ASSESSMENT AND PLAN 1. Closed head injury and concussion due to loss of balance secondary to alcohol intoxication. 2. Scalp laceration status post repair secondary to mechanical fall. 3. Alcohol intoxication with history of alcohol abuse. 4. Severe PAD post thrombectomy and angioplasty of the left iliac artery. 5. COPD without exacerbation. 6. CAD. 7. Chronic diastolic heart failure 8. Hypertension. 9. Hyperlipidemia. 10. Type 2 diabetes. 11. History of seizure. 12. Depression Observation status DISCHARGE MEDICATIONS Metoprolol Succinate [Toprol XL] 100 mg PO DAILY 02/26/15 [History] Albuterol Sulfate [Ventolin HFA] 2 puff INHALATION RT-Q4H PRN 07/14/19 [History] Pantoprazole [Protonix] 40 mg PO DAILY 07/14/19 [History] Ferrous Sulfate [Iron (65 MG Elemental)] 325 mg PO DAILY 10/01/20 [History] Budesonide/Formoterol Fumarate [Symbicort 160-4.5 Mcg Inhaler] 2 puff INHALATION RT-BID 11/02/20 [History] DULoxetine HCL [Cymbalta] 60 mg PO DAILY 12/20/20 [History] Potassium Chloride [Potassium Chloride ER] 10 meq PO BID 12/20/20 [History] Nitroglycerin 0.4 mg SL Q5M PRN 03/26/21 [History] Aspirin EC [Ecotrin Low Dose] 81 mg PO DAILY #30 tab 03/29/21 [Rx] Clopidogrel [Plavix] 75 mg PO DAILY #30 tab 03/29/21 [Rx] levETIRAcetam [Keppra] 500 mg PO Q12H 05/06/21 [History] Atorvastatin [Lipitor] 40 mg PO DAILY 10/11/21 [History] Furosemide [Lasix] 40 mg PO DAILY 10/11/21 [History] Ipratropium-Albuterol Nebulize [Duoneb 0.5 mg-3 mg/3 ml Soln] 3 ml INHALATION RT-QID PRN 10/11/21 [History] Thiamine [Vitamin B-1] 100 mg PO DAILY tab 10/11/21 [Rx] Warfarin Sodium 4 mg PO Q48H 10/11/21 [History] Warfarin Sodium 6 mg PO Q48H 10/11/21 [History] buPROPion XL [Wellbutrin XL] 150 mg PO BID 10/11/21 [History] metFORMIN HCL [Glucophage] 500 mg PO BID 10/11/21 [History] traZODone HCL [Desyrel] 25 mg PO HS 10/11/21 [History] DISCHARGE PLAN HOME Impression and plan of care have been directed as dictated by the signing physic ian. Rebecca Heart nurse practitioner acting as scribe for signing physician. Past Medical History Past Medical History: Asthma, Chest Pain / Angina, COPD, CVA/TIA, Diabetes Mellitus, Deep Vein Thrombosis (DVT), GERD/Reflux, Hyperlipidemia, Hypertension, Osteoarthritis (OA), Vascular Disorder Additional Past Medical History / Comment(s): Hx blood clot in left arm and left hand, hx migraines, PVD, left leg pain, TIA-X2 DECEMBER 2020. History of Any Multi-Drug Resistant Organisms: None Reported Past Surgical History: Heart Catheterization, Heart Catheterization With Stent Additional Past Surgical History / Comment(s): Stent to left external iliac, blood clot removed from left arm, surgery to fix "tear in aorta", surgery for "abdominal adhesions", 06-11-16 LT ILIAC PTBA/STENT, PTBA 10/03/2020-Stent X2 Illiac(L). Angiography. Past Anesthesia/Blood Transfusion Reactions: No Reported Reaction Additional Past Anesthesia/Blood Transfusion Reaction / Comment(s): Claustrophobia. Date of Last Stent Placement:: 10/03/20 Past Psychological History: No Psychological Hx Reported Smoking Status: Current every day smoker Past Alcohol Use History: Occasional Additional Past Alcohol Use History / Comment(s): Started smoking at age 16, states trying to quit, smokes 3 cigarettes per day. Drinks a six pack 2-3xweek Past Drug Use History: None Reported - Past Family History Father Family Medical History: Cancer, Myocardial Infarction (NH) Additional Family Medical History / Comment(s): SKIN CANCER. Mother Family Medical History: Cancer, Deep Vein Thrombosis (DVT) Additional Family Medical History / Comment(s): COLON CANCER TWICE, lung ancer. Medications and Allergies Home Medications Medication Instructions Recorded Confirmed Type Metoprolol Succinate [Toprol XL] 100 mg PO DAILY 02/26/15 10/11/21 History Albuterol Sulfate [Ventolin HFA] 2 puff INHALATION RT-Q4H PRN 07/14/19 10/11/21 History Pantoprazole [Protonix] 40 mg PO DAILY 07/14/19 10/11/21 History Ferrous Sulfate [Iron (65 MG 325 mg PO DAILY 10/01/20 10/11/21 History Elemental)] Budesonide/Formoterol Fumarate 2 puff INHALATION RT-BID 11/02/20 10/11/21 History [Symbicort 160-4.5 Mcg Inhaler] DULoxetine HCL [Cymbalta] 60 mg PO DAILY 12/20/20 10/11/21 History Potassium Chloride [Potassium 10 meq PO BID 12/20/20 10/11/21 History Chloride ER] Nitroglycerin 0.4 mg SL Q5M PRN 03/26/21 10/11/21 History Aspirin EC [Ecotrin Low Dose] 81 mg PO DAILY #30 tab 03/29/21 10/11/21 Rx Clopidogrel [Plavix] 75 mg PO DAILY #30 tab 03/29/21 10/11/21 Rx levETIRAcetam [Keppra] 500 mg PO Q12H 05/06/21 10/11/21 History Atorvastatin [Lipitor] 40 mg PO DAILY 10/11/21 10/11/21 History Furosemide [Lasix] 40 mg PO DAILY 10/11/21 10/11/21 History Ipratropium-Albuterol Nebulize 3 ml INHALATION RT-QID PRN 10/11/21 10/11/21 History [Duoneb 0.5 mg-3 mg/3 ml Soln] Thiamine [Vitamin B-1] 100 mg PO DAILY tab 10/11/21 Rx Warfarin Sodium 4 mg PO Q48H 10/11/21 10/11/21 History Warfarin Sodium 6 mg PO Q48H 10/11/21 10/11/21 History buPROPion XL [Wellbutrin XL] 150 mg PO BID 10/11/21 10/11/21 History metFORMIN HCL [Glucophage] 500 mg PO BID 10/11/21 10/11/21 History traZODone HCL [Desyrel] 25 mg PO HS 10/11/21 10/11/21 History Allergies Allergy/AdvReac Type Severity Reaction Status Date / Time influenza virus vaccine, Allergy Rash/Hives Verified 10/10/21 22:16 specific [influenza virus vacc,specific] lisinopril Allergy Swelling Verified 10/10/21 22:16 Physical Exam Vitals: Vital Signs Temp Pulse Pulse Resp BP BP Pulse Ox 10/11/21 08:00 98.1 F 96 19 149/74 90 L 10/11/21 02:18 98.4 F 96 17 136/70 96 10/11/21 02:08 89 19 130/59 95 10/10/21 22:14 98 F 92 18 153/65 97 Intake and Output 10/10/21 10/11/21 10/11/21 22:59 06:59 14:59 Intake Total 600 Balance 600 Intake: Intake, IV Titration 500 Amount Sodium Chloride 0.9% 500 500 ml 500 ml @ 999 mls/hr IV .Q31M STA Rx#:[id number] Oral 100 Other: # Voids 2 Weight 93.44 kg 93.44 kg Results CBC & Chem 7: 10/10/21 23:30 10/10/21 23:30 Labs: Abnormal Lab Results - Last 24 Hours (Table) 10/10/21 10/10/21 10/10/21 Range/Units 23:30 23:30 23:30 Hgb 11.1 L (11.4-16.0) gm/dL MCHC 29.5 L (31.0-37.0) g/dL RDW 19.0 H (11.5-15.5) % PT 16.7 H (9.0-12.0) sec INR 1.6 H (<1.2) Glucose 105 H (74-99) mg/dL 10/11/21 Range/Units 06:41 Hgb (11.4-16.0) gm/dL MCHC (31.0-37.0) g/dL RDW (11.5-15.5) % PT 18.3 H (9.0-12.0) sec INR 1.8 H (<1.2) Glucose (74-99) mg/dL Thrombosis Risk Factor Assmnt - Choose All That Apply Any of the Below Risk Factors Present?: Yes Each Risk Factor Represents 2 Points: Age 61-74 years Each Risk Factor Represents 3 Points: History of DVT/PE Thrombosis Risk Factor Assessment Total Risk Factor Score: 5 Thrombosis Risk Factor Assessment Level: High Risk
[2021-10-11] MEDS ORDERED: WARFARIN 2 MG TAB PO SCH (18:00)
[2021-10-11] MEDS ORDERED: SYMBICORT 160-4.5 MCG INHALER INHALATION SCH (20:00)
[2021-10-11] MEDS ORDERED: traZODone HCL 50 MG TAB PO SCH (21:00)
[2021-10-12] MEDS ORDERED: WARFARIN 3 MG TAB PO SCH (18:00)
== END 2021-10-11 13:04 | disposition home or self-care (01) ==
LOC: EC 22:08 → 4SSUR 10-11 01:08
PROVIDERS: ADMIT Internal Medicine Geriatric Medicine; ATTEND Internal Medicine Geriatric Medicine
DX: S06.0X0A Concussion without loss of consciousness, initial encounter (principal); S01.01XA Laceration without foreign body of scalp, initial encounter; F10.129 Alcohol abuse with intoxication, unspecified; Y90.6 Blood alcohol level of 120-199 mg/100 ml; H43.393 Other vitreous opacities, bilateral; S13.150A Subluxation of C4/C5 cervical vertebrae, initial encounter; I11.0 Hypertensive heart disease with heart failure; I50.32 Chronic diastolic (congestive) heart failure; J44.9 Chronic obstructive pulmonary disease, unspecified; E78.5 Hyperlipidemia, unspecified; K21.9 Gastro-esophageal reflux disease without esophagitis; M19.90 Unspecified osteoarthritis, unspecified site; G43.909 Migraine, unspecified, not intractable, without status migrainosus; E11.51 Type 2 diabetes mellitus with diabetic peripheral angiopathy without gangrene; F40.240 Claustrophobia; F17.210 Nicotine dependence, cigarettes, uncomplicated; I25.10 Atherosclerotic heart disease of native coronary artery without angina pectoris; F32.A Depression, unspecified; M47.812 Spondylosis without myelopathy or radiculopathy, cervical region; R56.9 Unspecified convulsions; W01.198A Fall on same level from slipping, tripping and stumbling with subsequent striking against other object, initial encounter; Y92.009 Unspecified place in unspecified non-institutional (private) residence as the place of occurrence of the external cause; Z79.84 Long term (current) use of oral hypoglycemic drugs; Z79.01 Long term (current) use of anticoagulants; Z79.02 Long term (current) use of antithrombotics/antiplatelets; Z79.82 Long term (current) use of aspirin; Z79.51 Long term (current) use of inhaled steroids; Z79.899 Other long term (current) drug therapy; Z88.7 Allergy status to serum and vaccine; Z88.8 Allergy status to other drugs, medicaments and biological substances; Z86.73 Personal history of transient ischemic attack (TIA), and cerebral infarction without residual deficits; Z86.718 Personal history of other venous thrombosis and embolism; Z95.5 Presence of coronary angioplasty implant and graft; Z95.820 Peripheral vascular angioplasty status with implants and grafts; Z98.890 Other specified postprocedural states; Z82.49 Family history of ischemic heart disease and other diseases of the circulatory system; Z80.8 Family history of malignant neoplasm of other organs or systems; Z80.0 Family history of malignant neoplasm of digestive organs; Z80.1 Family history of malignant neoplasm of trachea, bronchus and lung
CPT/HCPCS: 12002; 99285; 36415; 93005; 80053; 80177; 83735; 84484; 85025; 85610 ×2; 85730; 81003; 71045; 72125; 70450; G0378; G0480; 80320

== ENCOUNTER → 2024-05-03 | Outpatient (CLI) | payer MEDICARE ==
--- NOTE | 2024-05-03 10:46 | XR ---
EXAMINATION TYPE: XR knee limited RT DATE OF EXAM: 05/03/2024 10:39 AM INDICATION: Patient age:Female; 69 years old; Reason for study: M25.561 pain R knee; PH[facility]. COMPARISON: None. TECHNIQUE: The Right knee(s) was examined in frontal and lateral projections. 2 view. FINDINGS: No evidence of any acute osseous pathology, soft tissue swelling, or joint effusion is no mario. Mild medial tibiofemoral joint space narrowing. No sclerosis or osteophytosis. Vascular sclerosi s. IMPRESSION: 1. No acute osseous pathology. 2. Mild medial tibiofemoral joint space narrowing without overt osteoarthritis. [facility], , 05/03/2024 10:44 AM
== END | disposition home or self-care (01) ==
LOC: RADXRMAIN 10:25
PROVIDERS: ATTEND Internal Medicine Geriatric Medicine
DX: M17.11 Unilateral primary osteoarthritis, right knee (principal); M25.561 Pain in right knee

== ENCOUNTER 2024-07-08 10:43 | Inpatient (IN) | payer MEDICARE ==
--- NOTE | 2024-07-08 11:25 | ED ---
General Adult HPI - General Chief complaint: Shortness of Breath Stated complaint: KRISTINA Time Seen by Provider: 07/08/24 11:03 Source: patient Mode of arrival: ambulatory Limitations: no limitations - History of Present Illness Initial comments: Dictation was produced using [employer] dictation software. please excuse any grammatical, word or spelling errors. Chief Complaint: 69-year-old female from primary care physician's office for dyspnea History of Present Illness: Patient 69-year-old female presents emergency department directly from primary care physician's office she was instructed to come here for shortness of breath and suspicion of carbon monoxide poisoning. Patient has history of COPD continues to use tobacco. Denies any fever chills o r night sweats states that she does have a productive cough. Denies any pain complaints. Patient reports that her neighbor had a crack in the furnace which was leaking carbon monoxide into her apartment The ROS documented in this emergency department record has been reviewed and confirmed by me. Those systems with pertinent positive or negative responses have been documented in the HPI. All other systems are other negative and/or noncontributory. - Related Data Home Medications Medication Instructions Recorded Confirmed Metoprolol Succinate [Toprol XL] 100 mg PO DAILY 02/26/15 07/08/24 Albuterol Sulfate [Ventolin HFA] 2 puff INHALATION RT-Q4H PRN 07/14/19 07/08/24 Pantoprazole [Protonix] 40 mg PO DAILY 07/14/19 07/08/24 Ferrous Sulfate [Iron (65 MG 325 mg PO DAILY 10/01/20 07/08/24 Elemental)] Budesonide/Formoterol Fumarate 2 puff INHALATION RT-BID 11/02/20 07/08/24 [Symbicort 160-4.5 Mcg Inhaler] Nitroglycerin 0.4 mg SL Q5M PRN 03/26/21 07/08/24 Ipratropium-Albuterol Nebulize 3 ml INHALATION RT-QID PRN 10/11/21 07/08/24 [Duoneb 0.5 mg-3 mg/3 ml Soln] Warfarin Sodium 2 mg PO SUTUTH 10/11/21 07/08/24 Warfarin Sodium 4 mg PO MOWEFRSA 10/11/21 07/08/24 metFORMIN HCL [Glucophage] 500 mg PO BID 10/11/21 07/08/24 Atorvastatin [Lipitor] 80 mg PO DAILY 07/08/24 07/08/24 Ipratropium/Albuter 20-100Mcg 1 puff INHALATION RT-QID 07/08/24 07/08/24 [Combivent Respimat 20-100Mcg Inhaler] Losartan-Hctz 50-12.5 mg [Hyzaar 1 tab PO DAILY 07/08/24 07/08/24 50-12.5] Nystatin 100,000Unit/gm Cream 1 applic TOPICAL BID PRN 07/08/24 07/08/24 [Mycostatin Cream] Triamcinolone Acetonide 0.5% 1 applic TOPICAL BID PRN 07/08/24 07/08/24 Ointment Previous Rx's Medication Instructions Recorded Clopidogrel [Plavix] 75 mg PO DAILY #30 tab 03/29/21 Allergies Allergy/AdvReac Type Severity Reaction Status Date / Time influenza virus vaccine, Allergy Rash/Hives Verified 07/08/24 11:46 specific [influenza virus vacc,specific] lisinopril Allergy Swelling Verified 07/08/24 11:46 Review of Systems ROS Statement: Those systems with pertinent positive or pertinent negative responses have been documented in the HPI. ROS Other: All systems not noted in ROS Statement are negative. Past Medical History Past Medical History: Asthma, Chest Pain / Angina, COPD, CVA/TIA, Diabetes Mellitus, Deep Vein Thrombosis (DVT), GERD/Reflux, Hyperlipidemia, Hypertension, Osteoarthritis (OA), Vascular Disorder Additional Past Medical History / Comment(s): Hx blood clot in left arm and left hand, hx migraines, PVD, left leg pain, TIA-X2 DECEMBER 2020. History of Any Multi-Drug Resistant Organisms: None Reported Past Surgical History: Heart Catheterization, Heart Catheterization With Stent Additional Past Surgical History / Comment(s): Stent to left external iliac, blood clot removed from left arm, surgery to fix "tear in aorta", surgery for "abdominal adhesions", 06-11-16 LT ILIAC PTBA/STENT, PTBA 10/03/2020-Stent X2 Illia(L). Angiography. Past Anesthesia/Blood Transfusion Reactions: No Reported Reaction Additional Past Anesthesia/Blood Transfusion Reaction / Comment(s): Claustrophobia. Date of Last Stent Placement:: 10/03/20 Past Psychological History: No Psychological Hx Reported Smoking Status: Current every day smoker Past Alcohol Use History: Daily Past Drug Use History: None Reported - Past Family History Father Family Medical History: Cancer, Myocardial Infarction ([place]) Additional Family Medical History / Comment(s): SKIN CANCER. Mother Family Medical History: Cancer, Deep Vein Thrombosis (DVT) Additional Family Medical History / Comment(s): COLON CANCER TWICE, lung ancer. General Exam - General Exam Comments Initial Comments: PHYSICAL EXAM: General Impression: Alert and oriented x3, not in acute distress HEENT: Normocephalic atraumatic, extra-ocular movements intact, pupils equal and reactive to light bilaterally, mucous membranes moist. Cardiovascular: Heart regular rate and rhythm Chest: Able to complete full sentences, no retractions, no tachypnea, coughing, and expiratory wheezing Abdomen: abdomen soft, non-tender, non-distended, no organomegaly Musculoskeletal: Pulses present and equal in all extremities, no peripheral edema Motor: no focal deficits noted Neurological: CN II-XII grossly intact, no focal motor or sensory deficits noted Skin: Intact with no visualized rashes Psych: Normal affect and mood Limitations: no limitations Course Vital Signs 07/08/24 07/08/24 07/08/24 10:50 11:48 13:17 Temperature 98.2 F Pulse Rate 110 H 106 H Respiratory 24 20 Rate Blood Pressure 153/76 144/64 O2 Sat by Pulse 96 94 L 94 L Oximetry EKG Findings - EKG Comments: EKG Findings:: My EKG interpretation: Ventricular rate 107, sinus tachycardia,. 145, QRS 102, QTc 359. No DE prolongation, no QTC prolongation, no ST or T-wave changes noted. Overall, this EKG is unremarkable Medical Decision Making - Medical Decision Making Was pt. sent in by a medical professional or institution (, PA, BOILER ASSISTANT OPERATOR, urgent care, hospital, or shelter...) When possible be specific @ -No Did you speak to anyone other than the patient for history (EMS, parent, family, police, friend...)? What history was obtained from this source @ -No Did you review nursing and triage notes (agree or disagree)? Why? @ -I reviewed and agree with nursing and triage notes Were old charts reviewed (outside hosp., previous admission, EMS record, old EKG, old radiological studies, urgent care reports/EKG's, shelter records)? Report findings @ -No old charts were reviewed Differential Diagnosis (chest pain, altered mental status, abdominal pain women, abdominal pain men, vaginal bleeding, musculoskeletal, weakness, fever, dyspnea, syncope, headache, dizziness, GI bleed, back pain, seizure, CVA, palpatations, mental health)? @ -Differential Dyspnea: Coronary syndrome, arrhythmia, tamponade, asthma, COPD, pulmonary embolism, pneumonia, pneumothorax, pulmonary effusion, anaphylaxis, diabetic ketoacidosis, flailed chest, pulmonary contusion, diaphragmatic rupture, anemia, neuromuscular, this is not meant to be an all-inclusive list. EKG interpreted by me (3pts min.). @ -See above X-rays interpreted by me (1pt min.). @ -Chest x-ray shows no acute processes CT interpreted by me (1pt min.). @ -None done U/S interpreted by me (1pt. min.). @ -None done What testing was considered but not performed or refused? (CT, X-rays, U/S, labs)? Why? @ -None What meds were considered but not given or refused? Why? @ -None Was smoking cessation discussed for >3mins.? @ -Yes Were there social determinants of health that impacted care today? How? (Homelessness, low income, unemployed, alcoholism, drug addiction, transportation, low edu. Level, literacy, decrease access to med. care, long-term, rehab)? @ -Tobacco abuse, history of COPD Was there de-escalation of care discussed even if they declined (Discuss DNR or withdrawal of care, Hospice)? DNR status @ -No What co-morbidities impacted this encounter? (DM, HTN, Smoking, COPD, CAD, Cancer, CVA, ARF, Chemo, Hep., AIDS, mental health diagnosis, sleep apnea, morbid obesity)? @ -COPD Was patient admitted / discharged? Hospital course, mention meds given and route, prescriptions, significant lab abnormalities, going to OR and other pertinent info. @ -69 year-old female presents to the emergency department COPD exacerbation. Vital signs upon arrival shows mild tachycardia 110. Patient has an expiratory wheezinglaboratory evaluation obtained. Labs are within acceptable limits. Patient given breathing treatment. Patient still has increased work of breathing will be admitted with pulmonary consultation Case discussed with hospitalist for admission. Did you discuss the management of the patient with other professionals (professionals i.e. , PA, BOILER ASSISTANT OPERATOR, lab, RT, psych nurse, social economist, silverware buffer, teacher, booking police officer, bottle caser)? Give summary @ -Case discussed with hospitalist for admission Was critical care preformed (if so, how long)? @ -No Undiagnosed new problem with uncertain prognosis? @ -No Drug Therapy requiring intensive monitoring for toxicity (Heparin, Nitro, Insulin, Cardizem)? @ -No Were any procedures done? @ -No Diagnosis/symptom? Acute, or Chronic, or Acute on Chronic? Uncomplicated (without systemic symptoms) or Complicated (systemic symptoms)? @ -COPD exacerbation Side effects of treatment? @ -No Exacerbation, Progression, or Severe Exacerbation? @ -No Poses a threat to life or bodily function? How? (Chest pain, [place], [place], pneumonia, PE, COPD, DKA, ARF, appy, cholecystitis, CVA, Diverticulitis, Homicidal, Suicidal, threat to staff... and all critical care pts) @ -yes - Lab Data Result diagrams: 07/08/24 11:40 07/08/24 11:40 Lab Results 07/08/24 07/08/24 07/08/24 Range/Units 11:36 11:40 11:40 WBC 8.0 (3.8-10.6) k/uL RBC 4.95 (3.80-5.40) m/uL Hgb 16.4 H (11.4-16.0) gm/dL Hct 50.0 H (34.0-46.0) % MCV 101.0 H (80.0-100.0) fL MCH 33.1 (25.0-35.0) pg MCHC 32.8 (31.0-37.0) g/dL RDW 14.0 (11.5-15.5) % Plt Count 179 (150-450) k/uL MPV 7.7 Neutrophils % 80 % Lymphocytes % 14 % Monocytes % 4 % Eosinophils % 1 % Basophils % 0 % Neutrophils # 6.4 (1.3-7.7) k/uL Lymphocytes # 1.1 (1.0-4.8) k/uL Monocytes # 0.3 (0-1.0) k/uL Eosinophils # 0.1 (0-0.7) k/uL Basophils # 0.0 (0-0.2) k/uL Macrocytosis Slight Sample Site LBrach ABG pH 7.37 (7.35-7.45) ABG pCO2 42 (35-45) mmHg ABG pO2 61 L (83-108) mmHg ABG HCO3 24 (21-25) mmol/L ABG Total CO2 26 H (19-24) mmol/L ABG O2 Saturation 92.1 L (94-97) % ABG Base Excess -1.1 mmol/L Hemoglobin 16.2 H (11.4-16.0) gm/dL Carbon Monoxide, Quant 5.6 (<10.0) % FiO2 21 % Sodium (137-145) mmol/L Potassium (3.5-5.1) mmol/L Chloride (98-107) mmol/L Carbon Dioxide (22-30) mmol/L Anion Gap mmol/L BUN (7-17) mg/dL Creatinine (0.52-1.04) mg/dL Est GFR (CKD-EPI)AfAm (>60 ml/min/1.73 sqM) Est GFR (CKD-EPI)NonAf (>60 ml/min/1.73 sqM) Glucose (74-99) mg/dL Plasma Lactic Acid Kameron (0.7-2.0) mmol/L Calcium (8.4-10.2) mg/dL Magnesium (1.6-2.3) mg/dL Total Bilirubin (0.2-1.3) mg/dL AST (14-36) U/L ALT (4-34) U/L Alkaline Phosphatase (38-126) U/L Troponin I (0.000-0.034) ng/mL NT-Pro-B Natriuret Pep pg/mL Total Protein (6.3-8.2) g/dL Albumin (3.5-5.0) g/dL Influenza Type A (PCR) (Not Detectd) Influenza Type B (PCR) (Not Detectd) RSV (PCR) (Not Detectd) SARS-CoV-2 (PCR) (Not Detectd) 07/08/24 07/08/24 07/08/24 Range/Units 11:40 11:40 11:40 WBC (3.8-10.6) k/uL RBC (3.80-5.40) m/uL Hgb (11.4-16.0) gm/dL Hct (34.0-46.0) % MCV (80.0-100.0) fL MCH (25.0-35.0) pg MCHC (31.0-37.0) g/dL RDW (11.5-15.5) % Plt Count (150-450) k/uL MPV Neutrophils % % Lymphocytes % % Monocytes % % Eosinophils % % Basophils % % Neutrophils # (1.3-7.7) k/uL Lymphocytes # (1.0-4.8) k/uL Monocytes # (0-1.0) k/uL Eosinophils # (0-0.7) k/uL Basophils # (0-0.2) k/uL Macrocytosis Sample Site ABG pH (7.35-7.45) ABG pCO2 (35-45) mmHg ABG pO2 (83-108) mmHg ABG HCO3 (21-25) mmol/L ABG Total CO2 (19-24) mmol/L ABG O2 Saturation (94-97) % ABG Base Excess mmol/L Hemoglobin (11.4-16.0) gm/dL Carbon Monoxide, Quant (<10.0) % FiO2 % Sodium 132 L (137-145) mmol/L Potassium 3.4 L (3.5-5.1) mmol/L Chloride 99 (98-107) mmol/L Carbon Dioxide 23 (22-30) mmol/L Anion Gap 10 mmol/L BUN 20 H (7-17) mg/dL Creatinine 1.01 (0.52-1.04) mg/dL Est GFR (CKD-EPI)AfAm 66 (>60 ml/min/1.73 sqM) Est GFR (CKD-EPI)NonAf 57 (>60 ml/min/1.73 sqM) Glucose 105 H (74-99) mg/dL Plasma Lactic Acid K[place]on 1.5 (0.7-2.0) mmol/L Calcium 9.1 (8.4-10.2) mg/dL Magnesium 1.8 (1.6-2.3) mg/dL Total Bilirubin 0.6 (0.2-1.3) mg/dL AST 27 (14-36) U/L ALT 16 (4-34) U/L Alkaline Phosphatase 131 H (38-126) U/L Troponin I <0.012 (0.000-0.034) ng/mL NT-Pro-B Natriuret Pep 46 pg/mL Total Protein 7.5 (6.3-8.2) g/dL Albumin 4.4 (3.5-5.0) g/dL Influenza Type A (PCR) (Not Detectd) Influenza Type B (PCR) (Not Detectd) RSV (PCR) (Not Detectd) SARS-CoV-2 (PCR) (Not Detectd) 07/08/24 Range/Units 11:40 WBC (3.8-10.6) k/uL RBC (3.80-5.40) m/uL Hgb (11.4-16.0) gm/dL Hct (34.0-46.0) % MCV (80.0-100.0) fL MCH (25.0-35.0) pg MCHC (31.0-37.0) g/dL RDW (11.5-15.5) % Plt Count (150-450) k/uL MPV Neutrophils % % Lymphocytes % % Monocytes % % Eosinophils % % Basophils % % Neutrophils # (1.3-7.7) k/uL Lymphocytes # (1.0-4.8) k/uL Monocytes # (0-1.0) k/uL Eosinophils # (0-0.7) k/uL Basophils # (0-0.2) k/uL Macrocytosis Sample Site ABG pH (7.35-7.45) ABG pCO2 (35-45) mmHg ABG pO2 (83-108) mmHg ABG HCO3 (21-25) mmol/L ABG Total CO2 (19-24) mmol/L ABG O2 Saturation (94-97) % ABG Base Excess mmol/L Hemoglobin (11.4-16.0) gm/dL Carbon Monoxide, Quant (<10.0) % FiO2 % Sodium (137-145) mmol/L Potassium (3.5-5.1) mmol/L Chloride (98-107) mmol/L Carbon Dioxide (22-30) mmol/L Anion Gap mmol/L BUN (7-17) mg/dL Creatinine (0.52-1.04) mg/dL Est GFR (CKD-EPI)AfAm (>60 ml/min/1.73 sqM) Est GFR (CKD-EPI)NonAf (>60 ml/min/1.73 sqM) Glucose (74-99) mg/dL Plasma Lactic Acid K[place]on (0.7-2.0) mmol/L Calcium (8.4-10.2) mg/dL Magnesium (1.6-2.3) mg/dL Total Bilirubin (0.2-1.3) mg/dL AST (14-36) U/L ALT (4-34) U/L Alkaline Phosphatase (38-126) U/L Troponin I (0.000-0.034) ng/mL NT-Pro-B Natriuret Pep pg/mL Total Protein (6.3-8.2) g/dL Albumin (3.5-5.0) g/dL Influenza Type A (PCR) Not Detected (Not Detectd) Influenza Type B (PCR) Not Detected (Not Detectd) RSV (PCR) Not Detected (Not Detectd) SARS-CoV-2 (PCR) Detected A (Not Detectd) Disposition Clinical Impression: COPD exacerbation Disposition: ADMITTED IP TO THIS HOSP Condition: Fair Referrals: David Varghese MD [Primary Care Provider] - 1-2 days Decision Time: 13:36
[2024-07-08 11:40] LABS: ABG Base Excess -1.1 mmol/L; ABG HCO3 24 mmol/L (21-25); ABG Oxygen Saturation 92.1 % (94-97); ABG PCO2 42 mmHg (35-45); ABG PH 7.37 (7.35-7.45); ABG PO2 61 mmHg (83-108); ABG TCO2 26 mmol/L (19-24)
[2024-07-08] MEDS: DEXAMETHASONE SOD PHOSPHATE 10 MG/ML 1 ML VIAL IV STA (11:45)
[2024-07-08 12:04] LABS: Basophils % (A) 0 %; Eosinophils # (A) 0.1 k/uL (0-0.7); Eosinophils % (A) 1 %; HGB 16.4 gm/dL (11.4-16.0); Lymphocytes # (A) 1.1 k/uL (1.0-4.8); Lymphocytes % (A) 14 %; MCH 33.1 pg (25.0-35.0); MCHC 32.8 g/dL (31.0-37.0); Macrocytosis Slight; Mean Platelet Volume 7.7; Monocytes # (A) 0.3 k/uL (0-1.0); Monocytes % (A) 4 %; Neutrophils # (A) 6.4 k/uL (1.3-7.7); Neutrophils % (A) 80 %; Platelet Count 179 k/uL (150-450); RBC 4.95 m/uL (3.80-5.40)
[2024-07-08 12:22] LABS: ALT 16 U/L (4-34); AST 27 U/L (14-36); African American GFR (CKD) 66 (>60 ml/min/1.73 sqM); Albumin 4.4 g/dL (3.5-5.0); Alkaline Phosphatase 131 U/L (38-126); Anion Gap 10 mmol/L; Blood Urea Nitrogen 20 mg/dL (7-17); Calcium 9.1 mg/dL (8.4-10.2); Carbon Dioxide 23 mmol/L (22-30); Chloride 99 mmol/L (98-107); Glucose 105 mg/dL (74-99); Magnesium 1.8 mg/dL (1.6-2.3); Non-African American GFR(CKD) 57 (>60 ml/min/1.73 sqM); Potassium 3.4 mmol/L (3.5-5.1); Sodium 132 mmol/L (137-145); Total Bilirubin 0.6 mg/dL (0.2-1.3); Total Protein 7.5 g/dL (6.3-8.2)
[2024-07-08 12:30] LABS: NT-Pro-B-Type Natriuretic Pept 46 pg/mL
--- NOTE | 2024-07-08 12:30 | XR ---
EXAMINATION TYPE: XR chest 2V DATE OF EXAM: 07/08/2024 11:57 AM COMPARISON: 10/02/2021 CLINICAL INDICATION: Female, 69 years old with history of dyspnea, TECHNIQUE: XR chest 2V view(s) obtained. FINDINGS: The heart size is normal. The pulmonary vasculature is normal. There is prior stenting of the aorta from the posterior aortic a rch to the proximal descending thoracic aorta. The lungs are clear. IMPRESSION: 1. No acute pulmonary process. [facility], , 07/08/2024 12:27 PM
[2024-07-08 12:40] LABS: Influenza A Not Detected (Not Detectd); Influenza B Not Detected (Not Detectd); RSV Not Detected (Not Detectd)
[2024-07-08] MEDS: ALBUTEROL NEBULIZED 2.5 MG/3 ML INHALATION STA (12:54)
[2024-07-08] MEDS: IPRATROPIUM 0.5 MG/2.5 ML NEBU INHALATION STA (12:54)
[2024-07-08] MEDS: ALBUTEROL HFA INHALER INHALATION STA (12:58)
[2024-07-08] MEDS: TIOTROPIUM 2.5 MCG INHALER INHALATION STA (12:59)
[2024-07-08] MEDS ORDERED: NALOXONE 0.4 MG/ML 1 ML VIAL IVP PRN (13:24)
[2024-07-08] MEDS: SODIUM CHLORIDE 0.45% 1,000 ML IV SCH (14:08)
[2024-07-08] MEDS: ALBUTEROL HFA INHALER INHALATION SCH (15:14)
[2024-07-08] MEDS ORDERED: TRIAMCINOLONE ACET 0.5% CREAM 15 GM TUBE TOPICAL PRN (15:38)
[2024-07-08] MEDS ORDERED: DEXTROSE 50% SYRINGE 50 ML IVP PRN ×2 (15:42)
[2024-07-08] MEDS ORDERED: NON FORMULARY DRUG (Warfarin Sodium [Warfarin Sodium] 4 MG Tablet) PO SCH (15:45)
--- NOTE | 2024-07-08 15:55 | P.CNPUL ---
History of Present Illness Consult date: 07/08/24 Requesting physician: Rik E Frantz Reason for consult: dyspnea, COPD Chief complaint: Shortness of breath History of present illness: This is a pleasant 69-year-old female patient with a known history of chronic obstructive pulmonary disease, chronic and ongoing tobacco dependence, diabetes mellitus, DVT anticoagulated with warfarin, hypertension, hyperlipidemia, coronary disease with previous stent placement, severe peripheral vascular disease with previous AFTERNOON NANNY. She presented here to the emergency room earlier today with a 1 week history of increasing shortness of breath, cough and co ngestion. She also had been complaining of a headache and was concerned about carbon monoxide poisoning due to a neighbors heater having a crack in it. Chest x-ray shows no acute pulmonary process. EKG reveals sinus tachycardia with nonspecific ST and T wave abnormalities. White count 8.0. Hemoglobin 16.4. Platelets 179. Sodium 132. Potassium 3.4. Bicarb 23. BUN 20. Creatinine 1.0. Troponin negative x 1. proBNP 46. Arterial blood gases revealed a PaO2 of 61, pCO2 42 and a pH of 7.37 on 21% FiO2. Viral screen positive for COVID- 19. She is seen today in consultation in the emergency department. She is currently sitting up on a stretcher. Awake and alert in no acute distress. She is maintaining good O2 saturations in the 90s on 2 L/min per nasal cannula. She is receiving 0.5% normal saline at 75 mL/h. Review of Systems REVIEW OF SYSTEMS: CONSTITUTIONAL: Denies any recent significant weight loss or weight gain. EYES: Denies change in vision. EARS, NOSE, MOUTH, THROAT: Positive for headaches, denies sore throat. CARDIOVASCULAR: Denies chest pain, palpitations or syncopal episodes. RESPIRATORY: Positive for shortness of breath, cough, congestion no hemoptysis. GASTROINTESTINAL: Denies change in appetite, denies abdominal pain GENITOURINARY: Denies hematuria, denies infections. MUSKULOSKELETAL: Denies pain, denies swelling. INTEGUMENTARY: Denies rash, denies eczema. NEUROLOGICAL: Denies recent memory loss, no recent seizure activity. PSYCHIATRIC: Denies anxiety, denies depression. HEMATOLOGIC/LYMPHATIC: Denies anemia, denies enlarged lymph nodes. Past Medical History Past Medical History: Asthma, Chest Pain / Angina, COPD, CVA/TIA, Diabetes Mellitus, Deep Vein Thrombosis (DVT), GERD/Reflux, Hyperlipidemia, Hypertension, Osteoarthritis (OA), Vascular Disorder Additional Past Medical History / Comment(s): Hx blood clot in left arm and left hand, hx migraines, PVD, left leg pain, TIA-X2 DECEMBER 2020. History of Any Multi-Drug Resistant Organisms: None Reported Past Surgical History: Heart Catheterization, Heart Catheterization With Stent Additional Past Surgical History / Comment(s): Stent to left external iliac, blood clot removed from left arm, surgery to fix "tear in aorta", surgery for "abdominal adhesions", 06-11-16 LT ILIAC PTBA/STENT, PTBA 10/03/2020-Stent X2 Illiac(L). Angiography. Past Anesthesia/Blood Transfusion Reactions: No Reported Reaction Additional Past Anesthesia/Blood Transfusion Reaction / Comment(s): Claustro phobia. Date of Last Stent Placement:: 10/03/20 Past Psychological History: No Psychological Hx Reported Smoking Status: Current every day smoker Past Alcohol Use History: Daily Past Drug Use History: None Reported - Past Family History Father Family Medical History: Cancer, Myocardial Infarction ([place]) Additional Family Medical History / Comment(s): SKIN CANCER. Mother Family Medical History: Cancer, Deep Vein Thrombosis (DVT) Additional Family Medical History / Comment(s): COLON CANCER TWICE, lung ancer. Medications and Allergies Home Medications Medication Instructions Recorded Confirmed Type Metoprolol Succinate [Toprol XL] 100 mg PO DAILY 02/26/15 07/08/24 History Albuterol Sulfate [Ventolin HFA] 2 puff INHALATION RT-Q4H PRN 07/14/19 07/08/24 History Pantoprazole [Protonix] 40 mg PO DAILY 07/14/19 07/08/24 History Ferrous Sulfate [Iron (65 MG 325 mg PO DAILY 10/01/20 07/08/24 History Elemental)] Budesonide/Formoterol Fumarate 2 puff INHALATION RT-BID 11/02/20 07/08/24 History [Symbicort 160-4.5 Mcg Inhaler] Nitroglycerin 0.4 mg SL Q5M PRN 03/26/21 07/08/24 History Clopidogrel [Plavix] 75 mg PO DAILY #30 tab 03/29/21 07/08/24 Rx Ipratropium-Albuterol Nebulize 3 ml INHALATION RT-QID PRN 10/11/21 07/08/24 History [Duoneb 0.5 mg-3 mg/3 ml Soln] Warfarin Sodium 2 mg PO SUTUTH 10/11/21 07/08/24 History Warfarin Sodium 4 mg PO MOWEFRSA 10/11/21 07/08/24 History metFORMIN HCL [Glucophage] 500 mg PO BID 10/11/21 07/08/24 History Atorvastatin [Lipitor] 80 mg PO DAILY 07/08/24 07/08/24 History Ipratropium/Albuter 20-100Mcg 1 puff INHALATION RT-QID 07/08/24 07/08/24 History [Combivent Respimat 20-100Mcg Inhaler] Losartan-Hctz 50-12.5 mg [Hyzaar 1 tab PO DAILY 07/08/24 07/08/24 History 50-12.5] Nystatin 100,000Unit/gm Cream 1 applic TOPICAL BID PRN 07/08/24 07/08/24 History [Mycostatin Cream] Triamcinolone Acetonide 0.5% 1 applic TOPICAL BID PRN 07/08/24 07/08/24 History Ointment Allergies Allergy/AdvReac Type Severity Reaction Status Date / Time influenza virus vaccine, Allergy Rash/Hives Verified 07/08/24 11:46 specific [influenza virus vacc,specific] lisinopril Allergy Swelling Verified 07/08/24 11:46 Physical Exam Osteopathic Statement: *. No significant issues noted on an osteopathic s tructural exam other than those noted in the History and Physical/Consult. Vitals: Vital Signs Temp Pulse Resp BP Pulse Ox 07/08/24 13:17 106 H 20 144/64 94 L 07/08/24 11:48 94 L 07/08/24 10:50 98.2 F 110 H 24 153/76 96 Intake and Output 07/08/24 07/08/24 07/08/24 06:59 14:59 22:59 Other: Weight 89.358 kg GENERAL EXAM: Alert, pleasant 69-year-old female, on 2 L nasal cannula, fairly comfortable in no apparent distress. HEAD: Normocephalic. EYES: Normal reaction of pupils, equal size. NOSE: Clear with pink turbinates. THROAT: No erythema or exudates. NECK: No masses, no JVD. CHEST: No chest wall deformity. LUNGS: Equal air entry with bilateral end expiratory wheeze, diminished. CVS: S1 and S2 normal with no audible murmur, regular rhythm. ABDOMEN: No hepatosplenomegaly, normal bowel sounds, no guarding or rigidity. SPINE: No scoliosis or deformity SKIN: No rashes CENTRAL NERVOUS SYSTEM: No focal deficits, tone is normal in all 4 extremities. EXTREMITIES: There is no peripheral edema. No clubbing, no cyanosis. Peripheral pulses are intact. Results - Laboratory Findings CBC and BMP: 07/08/24 11:40 07/08/24 11:40 ABG ABG pH 7.37 (7.35-7.45) 07/08/24 11:36 ABG pCO2 42 mmHg (35-45) 07/08/24 11:36 ABG pO2 61 mmHg (83-108) L 07/08/24 11:36 ABG O2 Saturation 92.1 % (94-97) L 07/08/24 11:36 Abnormal lab findings: Abnormal Labs 07/08/24 07/08/24 07/08/24 11:36 11:40 11:40 Hgb 16.4 H Hct 50.0 H MCV 101.0 H ABG pO2 61 L ABG Total CO2 26 H ABG O2 Saturation 92.1 L Hemoglobin 16.2 H Sodium 132 L Potassium 3.4 L BUN 20 H Glucose 105 H Alkaline Phosphatase 131 H SARS-CoV-2 (PCR) 07/08/24 11:40 Hgb Hct MCV ABG pO2 ABG Total CO2 ABG O2 Saturation Hemoglobin Sodium Potassium BUN Glucose Alkaline Phosphatase SARS-CoV-2 (PCR) Detected A - Diagnostic Findings Chest x-ray: image reviewed Assessment and Plan Assessment: Acute hypoxemic respiratory failure secondary to an acute exacerbation of chronic obstructive pulmonary disease complicated by COVID-19 infection Acute COVID infection without evidence of COVID pneumonia Chronic and ongoing tobacco dependence History of atrial fibrillation, anticoagulated with warfarin. Currently in sinus rhythm Hyperlipidemia Hypertension Peripheral vascular disease Coronary artery disease with previous stent placement Diabetes mellitus, type II History of CVA/TIA History of DVT in the left upper extremity Plan: The patient was seen and evaluated Chest x-ray, labs and medications reviewed Currently stable and on 2 L nasal cannula Continue Symbicort, albuterol HFA Continue IV Solu-Medrol Discontinue Lovenox Continue warfarin, check an INR Educated regarding the importance of smoking cessation NicoDerm patch will be offered Titrate down the FiO2 as tolerated Increase her activity as tolerated We will continue to follow and make further recommendations based on her clinical status I have personally seen and examined the patient, performed the documentation and the assessment and plan as written. Number of minutes spent on the visit: 20 Dictation was produced using [employer] dictation software. Please excuse any grammatical, word or spelling errors.
[2024-07-08] MEDS ORDERED: IPRATROPIUM-ALBUTEROL 3 ML NEB INHALATION SCH (16:00)
[2024-07-08 16:31] LABS: INR 4.8 (<1.2)
[2024-07-08] MEDS: metFORMIN 500 MG TAB PO SCH (16:50)
[2024-07-08] MEDS: ZINC SULFATE 220 MG CAP PO SCH (16:50)
[2024-07-08] MEDS: methylPREDNISolone SOD SUCCI 125 MG/2 ML VIAL IV SCH (16:50)
[2024-07-08] MEDS: CHOLECALCIFEROL 10 MCG (400 IU) TABLET PO SCH (16:50)
[2024-07-08] MEDS: ENOXAPARIN 40 MG/0.4 ML SYRINGE SQ SCH (16:56)
[2024-07-08] MEDS: NON FORMULARY DRUG (Ipratropium/Albuter 20-100mcg 120 PUFF Each) INHALATION SCH (16:56)
[2024-07-08 17:29] LABS: Glucose,Whole Blood 144 mg/dL (70-110)
[2024-07-08] MEDS: INSULIN ASPART (NovoLOG) 100 UNIT/ML VIAL SQ SCH (17:37)
[2024-07-08] MEDS: WARFARIN 0.5 MG TAB PO ONE (18:43)
[2024-07-08] MEDS: SYMBICORT 160-4.5 MCG INHALER INHALATION SCH (21:11)
[2024-07-08 21:47] LABS: Glucose,Whole Blood 195 mg/dL (70-110)
--- NOTE | 2024-07-08 22:18 | HP ---
HISTORY AND PHYSICAL CHIEF COMPLAINT: Shortness of breath. HISTORY OF PRESENT ILLNESS: This is a 69-year-old woman with a past medical history of multiple medical problems including COPD, was admitted with suspicion of carbon monoxide poisoning. The patient had increased shortness of breath. The patient was found to have COVID-19 positive. The chest x-ray which I reviewed personally showed only some increased bronchovascular markings. There is no history of any fever, rigors, or chills. PAST MEDICAL HISTORY: History of asthma, COPD, CVA, TIA, diabetes mellitus type 2. Rest of the history and rest of the chart is also reviewed. HOME MEDICATIONS: Reviewed include warfarin, dose and rest of medications reviewed. ALLERGIES: Influenza . FAMILY HISTORY: History of myocardial infarction in the family. SOCIAL HISTORY: History of smoking. REVIEW OF SYSTEMS: Fourteen-point review is negative except as mentioned earlier. PHYSICAL EXAMINATION: VITAL SIGNS: Pulse 106, blood pressure 144/64, respirations 20. HEENT: Conjunctivae normal. NECK: No JVD. CARDIOVASCULAR: S1, S2. RESPIRATIONS: Breath sounds diminished at the bases. Bilateral scattered rhonchi and crackles. ABDOMEN: Soft. NERVOUS SYSTEM: Nonfocal. LABORATORY DATA: Reviewed. ASSESSMENT: 1. Chronic obstructive pulmonary disease acute exacerbation. 2. Acute COVID-19 infection. 3. History of asthma. 4. Cerebrovascular accident, transient ischemic attack. 5. Diabetes mellitus, type 2. 6. Deep venous thrombosis. 7. Hypertension. 8. Hyperlipidemia. 9. History of coronary artery disease stent. RECOMMENDATIONS AND DISCUSSION: This is a 69-year-old woman, who presented with multiple complex medical issues, we will monitor the patient closely. Continue current management and continue symptomatic treatment. Otherwise, we will initiate intravenous steroids, bronchodilators. Continue to monitor. Vitamin supplements. COVID. Guarded prognosis. Further recommendations to follow. See orders for further details. MMODL / IJN: [id number] /
[2024-07-09] MEDS: ACETAMINOPHEN TAB 325 MG TAB PO PRN (02:19)
[2024-07-09 03:39] LABS: INR 3.7 (<1.2); Prothrombin Time 36.2 sec (10.0-12.5)
[2024-07-09 06:36] LABS: Glucose,Whole Blood 176 mg/dL (70-110)
[2024-07-09] MEDS ORDERED: predniSONE 20 MG TAB PO SCH (09:00)
[2024-07-09] MEDS: PANTOPRAZOLE 40 MG TABLET PO SCH (09:24)
[2024-07-09] MEDS: MULTIVITAMINS, THERA 1 EACH TAB PO SCH (09:24)
[2024-07-09] MEDS: ATORVASTATIN 80 MG TAB PO SCH (09:24)
[2024-07-09] MEDS: FERROUS SULFATE 325 MG TAB PO SCH (09:25)
[2024-07-09] MEDS: CLOPIDOGREL 75 MG TAB PO SCH (09:26)
[2024-07-09] MEDS: LOSARTAN-HCTZ 50-12.5 MG 1 EACH TAB PO SCH (09:26)
[2024-07-09] MEDS: METOPROLOL SUCCINATE (ER) 100 MG TAB.ER.24H PO SCH (09:26)
[2024-07-09 09:46] LABS: Basophils # (A) 0.01 X 10*3/uL (0.00-0.10); Basophils % (A) 0.2 %; Eosinophils # (A) 0 X 10*3/uL (0.04-0.35); Eosinophils % (A) 0 %; HCT 43.9 % (37.2-46.3); HGB 14.9 g/dL (12.0-15.0); Lymphocytes # (A) 0.39 X 10*3/uL (0.90-5.00); Lymphocytes % (A) 8.5 %; MCH 33.5 pg (27.0-32.0); MCHC 33.9 g/dL (32.0-37.0); MCV 98.7 FL (80.0-97.0); Mean Platelet Volume 10.9 FL (9.5-12.2); Monocytes # (A) 0.06 X 10*3/uL (0.20-1.00); Monocytes % (A) 1.3 %; NRBC Per 100 WBC 0 X 10*3/uL (0.00-0.01); Neutrophils # (A) 4.09 X 10*3/uL (1.80-7.70); Neutrophils % (A) 89.6 %; Platelet Count 163 X 10*3/uL (140-440); RBC 4.45 X 10*6/uL (4.10-5.20); WBC 4.57 X 10*3/uL (4.50-10.00)
[2024-07-09] MEDS: TIOTROPIUM 2.5 MCG INHALER INHALATION SCH (10:04)
[2024-07-09 10:22] LABS: BUN/Creat Ratio 18.11 Ratio (12.00-20.00); Blood Urea Nitrogen 16.3 mg/dL (9.0-27.0); Calcium 8.3 mg/dL (8.7-10.3); Carbon Dioxide 21.4 mmol/L (21.6-31.8); Chloride 102 mmol/L (96-109); Glucose 179 mg/dL (70-110); Potassium 3.5 mmol/L (3.5-5.5); Sodium 135 mmol/L (135-145)
[2024-07-09 11:14] LABS: Glucose,Whole Blood 261 mg/dL (70-110)
--- NOTE | 2024-07-09 11:52 | P.PN ---
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 She presented here to the emergency room earlier today with a 1 week history of increasing shortness of breath, cough and congestion. She also had been complaining of a headache and was concerned about carbon monoxide poisoning due to a neighbors heater having a crack in it. Chest x-ray shows no acute pulmonary process. EKG reveals sinus tachycardia with nonspecific ST and T wave abnormalities. White count 8.0. Hemoglobin 16.4. Platelets 179. Sodium 132. Potassium 3.4. Bicarb 23. BUN 20. Creatinine 1.0. Troponin negative x 1. proBNP 46. Arterial blood gases revealed a PaO2 of 61, pCO2 42 and a pH of 7.37 on 21% FiO2. Viral screen positive for COVID- 19. She is seen today in consultation in the emergency department. She is currently sitting up on a stretcher. Awake and alert in no acute distress. She is maintaining good O2 saturations in the 90s on 2 L/min per nasal cannula. She is receiving 0.5% normal saline at 75 mL/h. The patient is seen today July 09, 2024. She is awake and alert in no acute distress. Resting comfortably in bed. She is maintaining O2 saturations in the 90s on 3 L/min per nasal cannula. She still have some congestion and coughing. White count 4.5. Hemoglobin 14.9. Platelets 163. INR 3.7. Sodium 135. Potassium 3.5. Bicarb 21. BUN 16. Creatinine 0.9. Glucose 179. She remains on albuterol, Symbicort, Solu-Medrol. Half-normal saline at 75 mL/h. Anticoagulated with warfarin. Objective - Vital Signs Vital signs: Vital Signs Temp 98.2 F 07/09/24 07:24 Pulse 81 07/09/24 07:24 Resp 18 07/09/24 07:24 BP 125/75 07/09/24 07:24 Pulse Ox 94 L 07/09/24 07:24 FiO2 Intake & Output 07/08/24 07/09/24 07/09/24 18:59 06:59 18:59 Intake Total 900 Balance 900 Weight 89.358 kg Intake: Intake, IV Titration 900 Amount Sodium Chloride 0.45% 1, 900 000 ml @ 75 mls/hr IV . [id number] [facility] Rx#:[id number] Other: Voiding Method Toilet # Voids 1 2 - Exam GENERAL EXAM: Alert, 69-year-old female, on 3 L nasal cannula, comfortable in no apparent distress. HEAD: Normocephalic. EYES: Normal reaction of pupils, equal size. NOSE: Clear with pink turbinates. THROAT: No erythema or exudates. NECK: No masses, no JVD. CHEST: No chest wall deformity. LUNGS: Equal air entry with bilateral end expiratory wheeze, diminished. CVS: S1 and S2 normal with no audible murmur, regular rhythm. ABDOMEN: No hepatosplenomegaly, normal bowel sounds, no guarding or rigidity. SPINE: No scoliosis or deformity SKIN: No rashes CENTRAL NERVOUS SYSTEM: No focal deficits, tone is normal in all 4 extremities. EXTREMITIES: There is no peripheral edema. No clubbing, no cyanosis. Peripheral pulses are intact. - Labs CBC & Chem 7: 07/09/24 02:49 07/09/24 02:49 Labs: Abnormal Lab Results - Last 24 Hours (Table) 07/08/24 07/08/24 07/08/24 Range/Units 11:40 11:40 11:40 Hgb 16.4 H (11.4-16.0) gm/dL Hct 50.0 H (34.0-46.0) % MCV 101.0 H (80.0-100.0) fL MCH (27.0-32.0) pg Lymphocytes # (0.90-5.00) X 10*3/uL Monocytes # (0.20-1.00) X 10*3/uL Eosinophils # (0.04-0.35) X 10*3/uL PT (10.0-12.5) sec INR (<1.2) Sodium 132 L (137-145) mmol/L Potassium 3.4 L (3.5-5.1) mmol/L Carbon Dioxide (21.6-31.8) mmol/L BUN 20 H (7-17) mg/dL Glucose 105 H (74-99) mg/dL POC Glucose (mg/dL) (70-110) mg/dL Calcium (8.7-10.3) mg/dL Alkaline Phosphatase 131 H (38-126) U/L C-Reactive Protein (<1.0) mg/dL SARS-CoV-2 (PCR) Detected A (Not Detectd) 07/08/24 07/08/24 07/08/24 Range/Units 15:58 15:58 17:28 Hgb (11.4-16.0) gm/dL Hct (34.0-46.0) % MCV (80.0-100.0) fL MCH (27.0-32.0) pg Lymphocytes # (0.90-5.00) X 10*3/uL Monocytes # (0.20-1.00) X 10*3/uL Eosinophils # (0.04-0.35) X 10*3/uL PT 47.0 H (10.0-12.5) sec INR 4.8 H (<1.2) Sodium (137-145) mmol/L Potassium (3.5-5.1) mmol/L Carbon Dioxide (21.6-31.8) mmol/L BUN (7-17) mg/dL Glucose (74-99) mg/dL POC Glucose (mg/dL) 144 H (70-110) mg/dL Calcium (8.7-10.3) mg/dL Alkaline Phosphatase (38-126) U/L C-Reactive Protein 2.6 H (<1.0) mg/dL SARS-CoV-2 (PCR) (Not Detectd) 07/08/24 07/09/24 07/09/24 Range/Units 21:46 02:49 02:49 Hgb (11.4-16.0) gm/dL Hct (34.0-46.0) % MCV 98.7 H (80.0-100.0) fL MCH 33.5 H (27.0-32.0) pg Lymphocytes # 0.39 L (0.90-5.00) X 10*3/uL Monocytes # 0.06 L (0.20-1.00) X 10*3/uL Eosinophils # 0 L (0.04-0.35) X 10*3/uL PT (10.0-12.5) sec INR (<1.2) Sodium (137-145) mmol/L Potassium (3.5-5.1) mmol/L Carbon Dioxide 21.4 L (21.6-31.8) mmol/L BUN (7-17) mg/dL Glucose 179 H (74-99) mg/dL POC Glucose (mg/dL) 195 H (70-110) mg/dL Calcium 8.3 L (8.7-10.3) mg/dL Alkaline Phosphatase (38-126) U/L C-Reactive Protein (<1.0) mg/dL SARS-CoV-2 (PCR) (Not Detectd) 07/09/24 07/09/24 07/09/24 Range/Units 02:49 06:35 11:10 Hgb (11.4-16.0) gm/dL Hct (34.0-46.0) % MCV (80.0-100.0) fL MCH (27.0-32.0) pg Lymphocytes # (0.90-5.00) X 10*3/uL Monocytes # (0.20-1.00) X 10*3/uL Eosinophils # (0.04-0.35) X 10*3/uL PT 36.2 H (10.0-12.5) sec INR 3.7 H (<1.2) Sodium (137-145) mmol/L Potassium (3.5-5.1) mmol/L Carbon Dioxide (21.6-31.8) mmol/L BUN (7-17) mg/dL Glucose (74-99) mg/dL POC Glucose (mg/dL) 176 H 261 H (70-110) mg/dL Calcium (8.7-10.3) mg/dL Alkaline Phosphatase (38-126) U/L C-Reactive Protein (<1.0) mg/dL SARS-CoV-2 (PCR) (Not Detectd) Assessment and Plan Assessment: Acute hypoxemic respiratory failure secondary to an acute exacerbation of chronic obstructive pulmonary disease complicated by COVID-19 infection Acute COVID infection without evidence of COVID pneumonia Chronic and ongoing tobacco dependence History of atrial fibrillation, anticoagulated with warfarin. Currently in sinus rhythm Hyperlipidemia Hypertension Peripheral vascular disease Coronary artery disease with previous stent placement Diabetes mellitus, type II History of CVA/TIA History of DVT in the left upper extremity Plan: The patient was seen and evaluated Labs and medications reviewed Currently stable and on 3 L nasal cannula Continue Symbicort, albuterol HFA Continue IV Solu-Medrol Continue warfarin NicoDerm patch ordered Titrate down the FiO2 as tolerated Increase her activity as tolerated We will continue to follow I have personally seen and examined the patient, performed the documentation and the assessment and plan as written. Number of minutes spent on the visit: 10 Dictation was produced using [employer] dictation software. Please excuse any grammatical, word or spelling errors.
[2024-07-09] MEDS ORDERED: HYDROcodone/APAP 5-325MG 1 EACH TAB PO PRN (12:11)
[2024-07-09 15:52] LABS: INR 3.3 (<1.2); Prothrombin Time 32.8 sec (10.0-12.5)
[2024-07-09 16:35] LABS: Glucose,Whole Blood 163 mg/dL (70-110)
[2024-07-09] MEDS: WARFARIN 0.5 MG TAB PO ONE (17:00)
[2024-07-09 20:07] LABS: Glucose,Whole Blood 156 mg/dL (70-110)
[2024-07-10 04:27] LABS: INR 3.1 (<1.2); Prothrombin Time 30.5 sec (10.0-12.5)
[2024-07-10 06:27] LABS: Glucose,Whole Blood 166 mg/dL (70-110)
[2024-07-10] MEDS: NICOTINE 21MG/24HR PATCH TRANSDERM SCH (08:05)
[2024-07-10 09:33] LABS: Basophils # (A) 0.01 X 10*3/uL (0.00-0.10); Basophils % (A) 0.1 %; Eosinophils # (A) 0 X 10*3/uL (0.04-0.35); Eosinophils % (A) 0 %; HCT 45.7 % (37.2-46.3); HGB 14.7 g/dL (12.0-15.0); Lymphocytes # (A) 0.57 X 10*3/uL (0.90-5.00); MCH 32.7 pg (27.0-32.0); MCHC 32.2 g/dL (32.0-37.0); MCV 101.6 FL (80.0-97.0); Mean Platelet Volume 11.3 FL (9.5-12.2); Monocytes # (A) 0.38 X 10*3/uL (0.20-1.00); Monocytes % (A) 3.3 %; NRBC Per 100 WBC 0 X 10*3/uL (0.00-0.01); Neutrophils # (A) 10.47 X 10*3/uL (1.80-7.70); Platelet Count 176 X 10*3/uL (140-440)
[2024-07-10 09:47] LABS: ALT 11 U/L (8-44); AST 16 U/L (13-35); Albumin 3.5 g/dL (3.8-4.9); Albumin/Globulin Ratio 1.67 Ratio (1.60-3.17); Alkaline Phosphatase 92 U/L (41-126); BUN/Creat Ratio 22.33 Ratio (12.00-20.00); Blood Urea Nitrogen 20.1 mg/dL (9.0-27.0); Calcium 8.4 mg/dL (8.7-10.3); Carbon Dioxide 21.5 mmol/L (21.6-31.8); Chloride 104 mmol/L (96-109); Globulin 2.1 g/dL (1.6-3.3); Glucose 170 mg/dL (70-110); Potassium 3.4 mmol/L (3.5-5.5); Sodium 137 mmol/L (135-145); Total Bilirubin 0.2 mg/dL (0.3-1.2); Total Protein 5.6 g/dL (6.2-8.2)
--- NOTE | 2024-07-10 11:15 | PN ---
PROGRESS NOTE DATE OF SERVICE: 07/09/2024 SUBJECTIVE: This is a 69-year-old woman, who was admitted after COVID pneumonia, is improving significantly. No chest pain. No palpitation. The patient is on steroids. OBJECTIVE: VITAL SIGNS: Pulse is 68, blood pressure 178/70, respirations 16. CHEST: A few scattered rhonchi. ABDOMEN: Soft. NERVOUS SYSTEM: Nonfocal. LABORATORY DATA: Reviewed. D-dimer is negative. ASSESSMENT: 1. Chronic obstructive pulmonary disease acute exacerbation. 2. Acute COVID-19 infection. 3. History of asthma. 4. Cerebrovascular accident, transient ischemic attack. 5. Diabetes mellitus, type 2. 6. History of deep venous thrombosis. 7. Hypertension. 8. Hyperlipidemia. 9. History of coronary artery disease stent. RECOMMENDATIONS AND DISCUSSION: Recommend to continue current management and continue symptomatic treatment. Continue steroids, bronchodilators, rest of medications. Repeat labs tomorrow. Closely follow. Further recommendations to follow. MMODL / IJN: [id number] /
--- NOTE | 2024-07-10 11:41 | P.PN ---
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 She presented here to the emergency room earlier today with a 1 week history of increasing shortness of breath, cough and congestion. She also had been complaining of a headache and was concerned about carbon monoxide poisoning due to a neighbors heater having a crack in it. Chest x-ray shows no acute pulmonary process. EKG reveals sinus tachycardia with nonspecific ST and T wave abnormalities. White count 8.0. Hemoglobin 16.4. Platelets 179. Sodium 132. Potassium 3.4. Bicarb 23. BUN 20. Creatinine 1.0. Troponin negative x 1. proBNP 46. Arterial blood gases revealed a PaO2 of 61, pCO2 42 and a pH of 7.37 on 21% FiO2. Viral screen positive for COVID- 19. She is seen today in consultation in the emergency department. She is currently sitting up on a stretcher. Awake and alert in no acute distress. She is maintaining good O2 saturations in the 90s on 2 L/min per nasal cannula. She is receiving 0.5% normal saline at 75 mL/h. The patient is seen today July 09, 2024. She is awake and alert in no acute distress. Resting comfortably in bed. She is maintaining O2 saturations in the 90s on 3 L/min per nasal cannula. She still have some congestion and coughing. White count 4.5. Hemoglobin 14.9. Platelets 163. INR 3.7. Sodium 135. Potassium 3.5. Bicarb 21. BUN 16. Creatinine 0.9. Glucose 179. She remains on albuterol, Symbicort, Solu-Medrol. Half-normal saline at 75 mL/h. Anticoagulated with warfarin. The patient is seen today July 10, 2024 in follow-up on the regular medical floor. She is currently sitting up at the bedside. Awake and alert in no acute distress. Maintaining good O2 saturations in the 90s on 3 L/min per nasal cannula. Working with the incentive spirometer. No IV fluids. White count 11.5. Hemoglobin 14.7. Platelets 176. INR 3.1. Sodium 137. Potassium 3.4. Bicarb 22. BUN 20. Creatinine 0.9. Glucose 170. She remains on Symbicort, Spiriva and albuterol. Continued on IV Solu-Medrol. Anticoagulated with warfarin. NicoDerm patch in place. Continued on vitamin supplements. Objective - Vital Signs Vital signs: Vital Signs Temp 97.8 F 07/10/24 07:48 Pulse 77 07/10/24 07:48 Resp 18 07/10/24 07:48 BP 157/70 07/10/24 07:48 Pulse Ox 95 07/10/24 07:48 FiO2 Intake & Output 07/09/24 07/10/24 07/10/24 18:59 06:59 18:59 Intake Total 2470 Balance 2470 Intake: Oral 2470 Other: Voiding Method Toilet # Voids 3 3 1 # Bowel Movements 1 1 - Exam GENERAL EXAM: Alert, pleasant 69-year-old female, sitting up at the bedside, on 3 L nasal cannula, comfortable in no apparent distress. HEAD: Normocephalic. EYES: Normal reaction of pupils, equal size. NOSE: Clear with pink turbinates. THROAT: No erythema or exudates. NECK: No masses, no JVD. CHEST: No chest wall deformity. LUNGS: Equal air entry with bilateral end expiratory wheeze, diminished. CVS: S1 and S2 normal with no audible murmur, regular rhythm. ABDOMEN: No hepatosplenomegaly, normal bowel sounds, no guarding or rigidity. SPINE: No scoliosis or deformity SKIN: No rashes CENTRAL NERVOUS SYSTEM: No focal deficits, tone is normal in all 4 extremities. EXTREMITIES: There is no peripheral edema. No clubbing, no cyanosis. Peripheral pulses are intact. - Labs CBC & Chem 7: 07/10/24 03:44 07/10/24 03:44 Labs: Abnormal Lab Results - Last 24 Hours (Table) 07/09/24 07/09/24 07/09/24 Range/Units 15:05 16:34 20:06 WBC (4.50-10.00) X 10*3/uL MCV (80.0-97.0) FL MCH (27.0-32.0) pg Immature Gran # (0.00-0.04) X 10*3/uL Neutrophils # (1.80-7.70) X 10*3/uL Lymphocytes # (0.90-5.00) X 10*3/uL Eosinophils # (0.04-0.35) X 10*3/uL PT 32.8 H (10.0-12.5) sec INR 3.3 H (<1.2) Potassium (3.5-5.5) mmol/L Carbon Dioxide (21.6-31.8) mmol/L BUN/Creatinine Ratio (12.00-20.00) Ratio Glucose (70-110) mg/dL POC Glucose (mg/dL) 163 H 156 H (70-110) mg/dL Calcium (8.7-10.3) mg/dL Total Bilirubin (0.3-1.2) mg/dL Total Protein (6.2-8.2) g/dL Albumin (3.8-4.9) g/dL 07/10/24 07/10/24 07/10/24 Range/Units 03:44 03:44 03:44 WBC 11.50 H (4.50-10.00) X 10*3/uL MCV 101.6 H (80.0-97.0) FL MCH 32.7 H (27.0-32.0) pg Immature Gran # 0.07 H (0.00-0.04) X 10*3/uL Neutrophils # 10.47 H (1.80-7.70) X 10*3/uL Lymphocytes # 0.57 L (0.90-5.00) X 10*3/uL Eosinophils # 0 L (0.04-0.35) X 10*3/uL PT 30.5 H (10.0-12.5) sec INR 3.1 H (<1.2) Potassium 3.4 L (3.5-5.5) mmol/L Carbon Dioxide 21.5 L (21.6-31.8) mmol/L BUN/Creatinine Ratio 22.33 H (12.00-20.00) Ratio Glucose 170 H (70-110) mg/dL POC Glucose (mg/dL) (70-110) mg/dL Calcium 8.4 L (8.7-10.3) mg/dL Total Bilirubin 0.2 L (0.3-1.2) mg/dL Total Protein 5.6 L (6.2-8.2) g/dL Albumin 3.5 L (3.8-4.9) g/dL 07/10/24 Range/Units 06:25 WBC (4.50-10.00) X 10*3/uL MCV (80.0-97.0) FL MCH (27.0-32.0) pg Immature Gran # (0.00-0.04) X 10*3/uL Neutrophils # (1.80-7.70) X 10*3/uL Lymphocytes # (0.90-5.00) X 10*3/uL Eosinophils # (0.04-0.35) X 10*3/uL PT (10.0-12.5) sec INR (<1.2) Potassium (3.5-5.5) mmol/L Carbon Dioxide (21.6-31.8) mmol/L BUN/Creatinine Ratio (12.00-20.00) Ratio Glucose (70-110) mg/dL POC Glucose (mg/dL) 166 H (70-110) mg/dL Calcium (8.7-10.3) mg/dL Total Bilirubin (0.3-1.2) mg/dL Total Protein (6.2-8.2) g/dL Albumin (3.8-4.9) g/dL Assessment and Plan Assessment: Acute hypoxemic respiratory failure secondary to an acute exacerbation of chronic obstructive pulmonary disease complicated by COVID-19 infection Acute COVID infection without evidence of COVID pneumonia Chronic and ongoing tobacco dependence History of atrial fibrillation, anticoagulated with warfarin. Currently in sinus rhythm Hyperlipidemia Hypertension Peripheral vascular disease Coronary artery disease with previous stent placement Diabetes mellitus, type II History of CVA/TIA History of DVT in the left upper extremity Plan: The patient was seen and evaluated Labs and medications reviewed Currently stable and on 3 L nasal cannula Continue the current treatment plan Titrate down the FiO2 as tolerated Increase her activity as tolerated We will continue to follow I have personally seen and examined the patient, performed the documentation and the assessment and plan as written. Number of minutes spent on the visit: 10 Dictation was produced using [employer] dictation software. Please excuse any grammatical, word or spelling errors.
[2024-07-10 12:08] LABS: Glucose,Whole Blood 120 mg/dL (70-110)
--- NOTE | 2024-07-10 12:34 | P.CRDCN ---
History of Present Illness Consult date: 07/10/24 Reason for Consult (text): EKG abnormal, 18 beat run on telemetry History of present illness: This is a 69-year-old female patient of Dr. Mas with past medical history of lower extremity peripheral artery disease with prior angioplasty multiple times to the left external iliac artery, coronary artery disease, hypertension, hyperlipidemia, aortic dissection s/p repair approximately 13 years ago, left upper extremity revascularization, carotid artery stenosis, DVT, clotting disorder on anticoagulation with Coumadin, history of smoking. We have been asked to evaluate the patient for abnormal EKG and 18 beat run on telemetry. Patient states that had a cough that been going on for a while and also back pain. She states she was coughing unable to bring up any sputum. She has some difficulty in breathing. She saw her PCP and was given some medications outpatient but decided on Thursday come into the hospital for further evaluation. She continues to have a noted cough. Patient tested positive for COVID and is currently in isolation. Review of telemetry reveals nonsustained ventricular tachycardia. Blood pressure 157/70, heart rate 77, pulse ox 95% on 2 L nasal cannula. Patient has been afebrile -EKG: Sinus rhythm with nonspecific ST changes -Chest x-ray: No acute process -Laboratory studies: WBC 11.5, hemoglobin 14.7. INR 3.1. Potassium 3.4, creatinine 0.9. Troponin negative x 2. -Home cardiac medications: Atorvastatin 80 mg at bedtime, Plavix 75 mg daily, losartan/hydrochlorothiazide 50-12.5 mg 1 daily, metoprolol succinate 100 mg daily, Nitrostat as needed, warfarin. -Echocardiogram performed 12/2020 revealed EF 55%. -Cardiac catheterization performed 07/2019: Intermediate disease involving the mid LAD 40 to 50% unchanged from prior catheterization. Review Of Systems: At the time of my exam: CONSTITUTIONAL: Denies fever or chills. HEENT: Denies blurred vision, vision changes, or eye pain. Denies hemoptysis CARDIOVASCULAR: Denies chest pain. Denies orthopnea. Denies PND. Denies pa lpitations RESPIRATORY: Reports cough, reports shortness of breath. GASTROINTESTINAL: Denies abdominal pain. Denies nausea or vomiting. HEMATOLOGIC: Denies bleeding disorders. GENITOURINARY: Denies any blood in urine. SKIN: Denies puritis. Denies rash. Physical examination: Gen: This is a 69-year-old female in no acute distress VS: reviewed HEENT: Head is atraumatic, normocephalic. Pupils equal, round. Sclerae is anicteric. NECK: Supple. No JVD. LUNGS: Diminished breath sounds. No intercostal retractions. HEART: Regular rate and rhythm. No murmur. ABDOMEN: Soft No tenderness. EXTREMITIES: No pedal edema. No calf tenderness. NEUROLOGICAL: Patient is awake, alert and oriented x3. Assessment: Acute hypoxic respiratory failure secondary to COVID-19 pneumonia and COPD exacerbation Nonsustained ventricular tachycardia Abnormal EKG with nonspecific ST changes probably due to COVID PAD with numerous stenting done to the left external iliac artery Coronary artery disease with known 40 to 50% blockage in the LAD Hypertension Hyperlipidemia COPD History of aortic dissection status postrepair Left upper extremity revascularization Carotid artery stenosis DVT Clotting disorder on warfarin Chronic tobacco use and dependence Plan: Resume patient's home cardiac medications Continue COVID/pneumonia COPD exacerbation treatment Obtain 2-D echocardiogram and Doppler study to assess cardiac structure and function At the time of discharge, patient will follow-up in the office with Dr. Mas for possible outpatient stress testing Further recommendations to follow based upon clinical course Thank you kindly for this consultation. Nurse practitioner note has been reviewed, I agree with documented findings and plan of care. Patient was seen and examined. Past Medical History Past Medical History: Asthma, Chest Pain / Angina, COPD, CVA/TIA, Diabetes Mellitus, Deep Vein Thrombosis (DVT), GERD/Reflux, Hyperlipidemia, Hypertension, Osteoarthritis (OA), Vascular Disorder Additional Past Medical History / Comment(s): Hx blood clot in left arm and left hand, hx migraines, PVD, left leg pain, TIA-X2 DECEMBER 2020. History of Any Multi-Drug Resistant Organisms: None Reported Past Surgical History: Heart Catheterization, Heart Catheterization With Stent Additional Past Surgical History / Comment(s): Stent to left external iliac, blood clot removed from left arm, surgery to fix "tear in aorta", surgery for "abdominal adhesions", 06-11-16 LT ILIAC PTBA/STENT, PTBA 10/03/2020-Stent X2 Illiac(L). Angiography. Past Anesthesia/Blood Transfusion Reactions: No Reported Reaction Additional Past Anesthesia/Blood Transfusion Reaction / Comment(s): Claustrophobia. Date of Last Stent Placement:: 10/03/20 Past Psychological History: No Psychological Hx Reported Smoking Status: Current every day smoker Past Alcohol Use History: Daily Past Drug Use History: None Reported - Past Family History Father Family Medical History: Cancer, Myocardial Infarction ([place]) Additional Family Medical History / Comment(s): SKIN CANCER. Mother Family Medical History: Cancer, Deep Vein Thrombosis (DVT) Additional Family Medical History / Comment(s): COLON CANCER TWICE, lung ancer. Medications and Allergies Home Medications Medication Instructions Recorded Confirmed Type Metoprolol Succinate [Toprol XL] 100 mg PO DAILY 02/26/15 07/08/24 History Albuterol Sulfate [Ventolin HFA] 2 puff INHALATION RT-Q4H PRN 07/14/19 07/08/24 History Pantoprazole [Protonix] 40 mg PO DAILY 07/14/19 07/08/24 History Ferrous Sulfate [Iron (65 MG 325 mg PO DAILY 10/01/20 07/08/24 History Elemental)] Budesonide/Formoterol Fumarate 2 puff INHALATION RT-BID 11/02/20 07/08/24 History [Symbicort 160-4.5 Mcg Inhaler] Nitroglycerin 0.4 mg SL Q5M PRN 03/26/21 07/08/24 History Clopidogrel [Plavix] 75 mg PO DAILY #30 tab 03/29/21 07/08/24 Rx Ipratropium-Albuterol Nebulize 3 ml INHALATION RT-QID PRN 10/11/21 07/08/24 History [Duoneb 0.5 mg-3 mg/3 ml Soln] Warfarin Sodium 2 mg PO SUTUTH 10/11/21 07/08/24 History Warfarin Sodium 4 mg PO MOWEFRSA 10/11/21 07/08/24 History metFORMIN HCL [Glucophage] 500 mg PO BID 10/11/21 07/08/24 History Atorvastatin [Lipitor] 80 mg PO DAILY 07/08/24 07/08/24 History Ipratropium/Albuter 20-100Mcg 1 puff INHALATION RT-QID 07/08/24 07/08/24 History [Combivent Respimat 20-100Mcg Inhaler] Losartan-Hctz 50-12.5 mg [Hyzaar 1 tab PO DAILY 07/08/24 07/08/24 History 50-12.5] Nystatin 100,000Unit/gm Cream 1 applic TOPICAL BID PRN 07/08/24 07/08/24 History [Mycostatin Cream] Triamcinolone Acetonide 0.5% 1 applic TOPICAL BID PRN 07/08/24 07/08/24 History Ointment Allergies Allergy/AdvReac Type Severity Reaction Status Date / Time influenza virus vaccine, Allergy Rash/Hives Verified 07/08/24 11:46 specific [influenza virus vacc,specific] lisinopril Allergy Swelling Verified 07/08/24 11:46 Physical Exam Vitals: Vital Signs Temp Pulse Resp BP Pulse Ox 07/10/24 07:48 97.8 F 77 18 157/70 95 07/10/24 02:34 97.8 F 77 16 125/69 93 L 07/09/24 20:00 97.9 F 68 17 113/56 95 07/09/24 13:58 98.0 F 68 16 117/70 95 Intake and Output 07/09/24 07/10/24 07/10/24 22:59 06:59 14:59 Intake Total 850 1620 Balance 850 1620 Intake: Oral 850 1620 Other: # Voids 2 3 1 # Bowel Movements 1 1 Results 07/10/24 03:44 07/10/24 03:44 Cardiac Enzymes 07/10/24 Range/Units 03:44 AST 16 (13-35) U/L Coagulation 07/09/24 07/10/24 Range/Units 15:05 03:44 PT 32.8 H 30.5 H (10.0-12.5) sec CBC 07/10/24 Range/Units 03:44 WBC 11.50 H (4.50-10.00) X 10*3/uL RBC 4.50 (4.10-5.20) X 10*6/uL Hgb 14.7 (12.0-15.0) g/dL Hct 45.7 (37.2-46.3) % Plt Count 176 (140-440) X 10*3/uL Comprehensive Metabolic Panel 07/10/24 Range/Units 03:44 Sodium 137 (135-145) mmol/L Potassium 3.4 L (3.5-5.5) mmol/L Chloride 104 (96-109) mmol/L Carbon Dioxide 21.5 L (21.6-31.8) mmol/L BUN 20.1 (9.0-27.0) mg/dL Creatinine 0.9 (0.6-1.5) mg/dL Glucose 170 H (70-110) mg/dL Calcium 8.4 L (8.7-10.3) mg/dL AST 16 (13-35) U/L ALT 11 (8-44) U/L Alkaline Phosphatase 92 (41-126) U/L Total Protein 5.6 L (6.2-8.2) g/dL Albumin 3.5 L (3.8-4.9) g/dL Current Medications Generic Name Dose Route Start Last Admin Trade Name Freq PRN Reason Stop Dose Admin Acetaminophen 650 mg 07/08/24 13:24 07/09/24 02:19 Acetaminophen Tab 325 Mg Tab PO 650 mg Q6HR PRN Administration Mild Pain (Scale 1 to 3) Hydrocodone Bitart/Acetaminophen 1 each 07/09/24 12:11 Hydrocodone/Apap 5-325mg 1 Each Tab PO Q6HR PRN Pain Albuterol Sulfate 2 puff 07/08/24 16:00 07/10/24 10:12 Albuterol Hfa Inhaler INHALATION Not Given RT-QID RENEE Atorvastatin Calcium 80 mg 07/09/24 09:00 07/10/24 08:03 Atorvastatin 80 Mg Tab PO 80 mg DAILY RENEE Administration Budesonide/Formoterol Fumarate 2 puff 07/08/24 20:00 07/10/24 10:12 Symbicort 160-4.5 Mcg Inhaler INHALATION Not Given RT-BID RENEE Cholecalciferol 10 mcg 07/08/24 15:45 07/10/24 08:04 Cholecalciferol 10 Mcg (400 Iu) Tablet PO 10 mcg DAILY RENEE Administration Clopidogrel Bisulfate 75 mg 07/09/24 09:00 07/10/24 08:03 Clopidogrel 75 Mg Tab PO 75 mg DAILY RENEE Administration Dextrose/Water 25 ml 07/08/24 15:42 Dextrose 50% Syringe 50 Ml IVP PER PROTOCOL PRN Hypoglycemia Protocol Dextrose/Water 50 ml 07/08/24 15:42 Dextrose 50% Syringe 50 Ml IVP PER PROTOCOL PRN Hypoglycemia Protocol Ferrous Sulfate 325 mg 07/09/24 09:00 07/10/24 08:03 Ferrous Sulfate 325 Mg Tab PO 325 mg DAILY RENEE Administration HCTZ/Losartan Potassium 1 each 07/09/24 09:00 07/10/24 08:03 Losartan-Hctz 50-12.5 Mg 1 Each Tab PO 1 each DAILY RENEE Administration Sodium Chloride 1,000 mls @ 75 mls/hr 07/08/24 13:30 07/10/24 06:29 Saline 0.45% IV 75 mls/hr .[id number] RENEE Administration Insulin Aspart 0 unit 07/08/24 17:30 07/10/24 06:31 Insulin Aspart (Novolog) 100 Unit/Ml Vial SQ Not Given ACHS [facility] Protocol Metformin HCl 500 mg 07/08/24 17:30 07/10/24 06:30 Metformin 500 Mg Tab PO 500 mg BID-W/MEALS RENEE Administration Methylprednisolone Sodium Succinate 60 mg 07/08/24 16:00 07/10/24 06:28 Methylprednisolone Sod Succi 125 Mg/2 Ml Vial IV 60 mg Q6HR RENEE Administration Metoprolol Succinate 100 mg 07/09/24 09:00 07/10/24 08:03 Metoprolol Succinate (Er) 100 Mg Tab.Er.24h PO 100 mg DAILY RENEE Administration Miscellaneous Information 0 each 07/08/24 16:12 Warfarin Per Pharmacy MISCELLANE DIRECTED PRN PHARMACY DOSING PROTOCOL Multivitamins 1 each 07/09/24 12:00 07/10/24 08:03 Multivitamins, Thera 1 Each Tab PO 1 each DAILY@1200 RENEE Administration Naloxone HCl 0.2 mg 07/08/24 13:24 Naloxone 0.4 Mg/Ml 1 Ml Vial IVP Q2M PRN Opioid Reversal Nicotine 1 patch 07/10/24 09:00 07/10/24 08:05 Nicotine 21mg/24hr Patch TRANSDERM Not Given DAILY RENEE Pantoprazole Sodium 40 mg 07/09/24 07:30 07/10/24 06:30 Pantoprazole 40 Mg Tablet PO 40 mg [id number]-[id number] RENEE Administration Tiotropium [place] 2 puff 07/09/24 08:00 07/10/24 10:13 Tiotropium 2.5 Mcg Inhaler INHALATION Not Given RT-DAILY [facility] Triamcinolone Acetonide 1 applic 07/08/24 15:38 Triamcinolone Acet 0.5% Cream 15 Gm Tube TOPICAL BID PRN Rash Warfarin Sodium 0.5 mg 07/10/24 18:00 Warfarin 0.5 Mg Tab PO 07/10/24 18:01 ONCE@1800 ONE Zinc Sulfate 220 mg 07/08/24 15:45 07/10/24 08:03 Zinc Sulfate 220 Mg Cap PO 220 mg DAILY RENEE Administration Intake and Output 07/09/24 07/10/24 07/10/24 22:59 06:59 14:59 Intake Total 850 1620 Balance 850 1620 Intake: Oral 850 1620 Other: # Voids 2 3 1 # Bowel Movements 1 1 07/10/24 03:44 07/10/24 03:44
--- NOTE | 2024-07-10 13:31 | XR ---
EXAMINATION TYPE: XR chest 1V portable DATE OF EXAM: 07/10/2024 COMPARISON: 07/08/2024 CLINICAL INDICATION: Female, 69 years old with history of chf; TECHNIQUE: Single frontal view of the chest is obtained. FINDINGS: There is no focal air space opacity, pleural effusion, or pneumothorax seen. The cardiac silhouette size is within normal limits. The osseous structures are intact. There is a stent in the thoracic aortic arch. IMPRESSION: No acute process. No overt CHF. [facility], , 07/10/2024 1:29 PM
[2024-07-10] MEDS ORDERED: NON FORMULARY DRUG (Warfarin Sodium [Warfarin Sodium] 4 MG Tablet) PO SCH (15:38)
[2024-07-10 16:58] LABS: Glucose,Whole Blood 153 mg/dL (70-110)
[2024-07-10] MEDS: WARFARIN 0.5 MG TAB PO ONE (17:13)
[2024-07-10 20:54] LABS: Glucose,Whole Blood 178 mg/dL (70-110)
--- NOTE | 2024-07-11 00:51 | PN ---
PROGRESS NOTE DATE OF SERVICE: 07/10/2024 SUBJECTIVE: This is a 69-year-old woman, who was admitted with COVID infection, is being closely monitored. The patient also had ventricular tachycardia, nonsustained. No chest pain. No palpitation. OBJECTIVE: VITAL SIGNS: Pulse is 77, blood pressure 157/70, respirations 17. HEENT: Conjunctivae normal. CARDIOVASCULAR: S1, S2. ABDOMEN: Soft. NERVOUS SYSTEM: Nonfocal. LABORATORY DATA: WBC 11.5. Rest of the labs are noted. ASSESSMENT: 1. Chronic obstructive pulmonary disease acute exacerbation. 2. Acute COVID-19 infection. 3. Nonsustained ventricular tachycardia. 4. History of asthma. 5. Cerebrovascular accident, transient ischemic attack. 6. Diabetes mellitus, type 2. 7. Multiple medical issues. RECOMMENDATIONS: Recommend to continue current management and continue symptomatic treatment. Otherwise, 2D echo has been ordered. Continue to monitor. Repeat labs. Check magnesium. Closely follow with Cardiology. Further recommendations to follow. MMODL / IJN: [id number] /
[2024-07-11 04:52] LABS: INR 1.5 (<1.2); Prothrombin Time 15.6 sec (10.0-12.5)
[2024-07-11 06:45] LABS: Glucose,Whole Blood 151 mg/dL (70-110)
[2024-07-11 07:54] VITALS: RESP 20
[2024-07-11 08:48] LABS: Calcium 9.1 mg/dL (8.7-10.3); Carbon Dioxide 21.2 mmol/L (21.6-31.8); Chloride 102 mmol/L (96-109); Glucose 157 mg/dL (70-110); Magnesium 1.9 mg/dL (1.5-2.4); Potassium 3.7 mmol/L (3.5-5.5); Sodium 137 mmol/L (135-145)
[2024-07-11 09:58] LABS: Basophils # (A) 0.03 X 10*3/uL (0.00-0.10); Basophils % (A) 0.3 %; Eosinophils # (A) 0 X 10*3/uL (0.04-0.35); Eosinophils % (A) 0 %; HCT 49.7 % (37.2-46.3); HGB 16.3 g/dL (12.0-15.0); Lymphocytes % (A) 4.3 %; MCH 33.2 pg (27.0-32.0); MCHC 32.8 g/dL (32.0-37.0); MCV 101.2 FL (80.0-97.0); Mean Platelet Volume 11.5 FL (9.5-12.2); Monocytes # (A) 0.17 X 10*3/uL (0.20-1.00); Monocytes % (A) 1.5 %; NRBC Per 100 WBC 0 X 10*3/uL (0.00-0.01); Neutrophils # (A) 10.77 X 10*3/uL (1.80-7.70); Neutrophils % (A) 93.4 %; Platelet Count 207 X 10*3/uL (140-440); RBC 4.91 X 10*6/uL (4.10-5.20); RDW 13.9 % (11.5-14.5); WBC 11.53 X 10*3/uL (4.50-10.00)
[2024-07-11 11:32] LABS: Glucose,Whole Blood 191 mg/dL (70-110)
--- NOTE | 2024-07-11 13:00 | P.PN ---
Subjective This is a 69-year-old female patient of Dr. Mas with past medical history of lower extremity peripheral artery disease with prior angioplasty multiple times to the left external iliac artery, coronary artery disease, hypertension, hyperlipidemia, aortic dissection s/p repair approximately 13 years ago, left upper extremity revascularization, carotid artery stenosis, DVT, clotting disorder on anticoagulation with Coumadin, history of smoking. We have been asked to evaluate the patient for abnormal EKG and 18 beat run on telemetry. Patient states that had a cough that been going on for a while and also back pain. She states she was coughing unable to bring up any sputum. She has some difficulty in breathing. She saw her PCP and was given some medications outpatient but decided on Thursday come into the hospital for further evaluation. She continues to have a noted cough. Patient tested positive for COVID and is currently in isolation. Review of telemetry reveals nonsustained ventricular tachycardia. Blood pressure 157/70, heart rate 77, pulse ox 95% on 2 L nasal cannula. Patient has been afebrile -EKG: Sinus rhythm with nonspecific ST changes -Chest x-ray: No acute process -Laboratory studies: WBC 11.5, hemoglobin 14.7. INR 3.1. Potassium 3.4, creatinine 0.9. Troponin negative x 2. -Home cardiac medications: Atorvastatin 80 mg at bedtime, Plavix 75 mg daily, losartan/hydrochlorothiazide 50-12.5 mg 1 daily, metoprolol succinate 100 mg daily, Nitrostat as needed, warfarin. -Echocardiogram performed 12/2020 revealed EF 55%. -Cardiac catheterization performed 07/2019: Intermediate disease involving the mid LAD 40 to 50% unchanged from prior catheterization. 07/11/2024 Patient seen and examined resting comfortably in bed in no acute distress. She is maintained on nasal cannula. Telemetry tracings reviewed she has had no further ventricular tachycardia. She has no significant chest pain or pressure. Breathing is stable. Echo is pending. Laboratory data reviewed, WBC 11.5, hemoglobin 16.3, platelets 207, sodium 137, potassium 3.7, creatinine 1.0. She is planning to go home today per the nurse. Physical examination: Gen: This is a 69-year-old female in no acute distress HEENT: Head is atraumatic, normocephalic. Pupils equal, round. Sclerae is anicteric. NECK: Supple. No JVD. LUNGS: Diminished breath sounds. No intercostal retractions. HEART: Regular rate and rhythm. No murmur. ABDOMEN: Soft No tenderness. EXTREMITIES: No pedal edema. No calf tenderness. NEUROLOGICAL: Patient is awake, alert and oriented x3. Assessment: Acute hypoxic respiratory failure secondary to COVID-19 pneumonia and COPD exacerbation Nonsustained ventricular tachycardia Abnormal EKG with nonspecific ST changes probably due to COVID PAD with numerous stenting done to the left external iliac artery Coronary artery disease with known 40 to 50% blockage in the LAD Hypertension Hyperlipidemia COPD History of aortic dissection status postrepair Left upper extremity revascularization Carotid artery stenosis DVT Clotting disorder on warfarin Chronic tobacco use and dependence Plan: Echo pending. Check thyroid function. No further VT seen on telemetry. If echo is normal she can be discharged to follow up with Dr. Mas for outpatient stress testing. Nurse practitioner note has been reviewed, I agree with documented findings and plan of care. Patient was seen and examined. Objective - Vital Signs Vital signs: Vital Signs Temp 98 F 07/11/24 07:20 Pulse 67 07/11/24 07:20 Resp 20 07/11/24 07:20 BP 172/77 07/11/24 07:20 Pulse Ox 93 L 07/11/24 07:20 FiO2 Intake & Output 07/10/24 07/11/24 07/11/24 18:59 06:59 18:59 Intake Total 360 Balance 360 Intake: Oral 360 Other: Voiding Method Toilet Toilet # Voids 2 3 # Bowel Movements 1 0 - Labs CBC & Chem 7: 07/11/24 03:45 07/11/24 03:45 Labs: Abnormal Lab Results - Last 24 Hours (Table) 07/10/24 07/10/24 07/10/24 Range/Units 12:06 16:57 20:53 WBC (4.50-10.00) X 10*3/uL Hgb (12.0-15.0) g/dL Hct (37.2-46.3) % MCV (80.0-97.0) FL MCH (27.0-32.0) pg Immature Gran # (0.00-0.04) X 10*3/uL Neutrophils # (1.80-7.70) X 10*3/uL Lymphocytes # (0.90-5.00) X 10*3/uL Monocytes # (0.20-1.00) X 10*3/uL Eosinophils # (0.04-0.35) X 10*3/uL PT (10.0-12.5) sec INR (<1.2) Carbon Dioxide (21.6-31.8) mmol/L Anion Gap (4.00-12.00) mmol/L BUN/Creatinine Ratio (12.00-20.00) Ratio Glucose (70-110) mg/dL POC Glucose (mg/dL) 120 H 153 H 178 H (70-110) mg/dL 07/11/24 07/11/24 07/11/24 Range/Units 03:45 03:45 03:45 WBC 11.53 H (4.50-10.00) X 10*3/uL Hgb 16.3 H (12.0-15.0) g/dL Hct 49.7 H (37.2-46.3) % MCV 101.2 H (80.0-97.0) FL MCH 33.2 H (27.0-32.0) pg Immature Gran # 0.06 H (0.00-0.04) X 10*3/uL Neutrophils # 10.77 H (1.80-7.70) X 10*3/uL Lymphocytes # 0.50 L (0.90-5.00) X 10*3/uL Monocytes # 0.17 L (0.20-1.00) X 10*3/uL Eosinophils # 0 L (0.04-0.35) X 10*3/uL PT 15.6 H (10.0-12.5) sec INR 1.5 H (<1.2) Carbon Dioxide 21.2 L (21.6-31.8) mmol/L Anion Gap 13.80 H (4.00-12.00) mmol/L BUN/Creatinine Ratio 23.00 H (12.00-20.00) Ratio Glucose 157 H (70-110) mg/dL POC Glucose (mg/dL) (70-110) mg/dL 07/11/24 Range/Units 06:44 WBC (4.50-10.00) X 10*3/uL Hgb (12.0-15.0) g/dL Hct (37.2-46.3) % MCV (80.0-97.0) FL MCH (27.0-32.0) pg Immature Gran # (0.00-0.04) X 10*3/uL Neutrophils # (1.80-7.70) X 10*3/uL Lymphocytes # (0.90-5.00) X 10*3/uL Monocytes # (0.20-1.00) X 10*3/uL Eosinophils # (0.04-0.35) X 10*3/uL PT (10.0-12.5) sec INR (<1.2) Carbon Dioxide (21.6-31.8) mmol/L Anion Gap (4.00-12.00) mmol/L BUN/Creatinine Ratio (12.00-20.00) Ratio Glucose (70-110) mg/dL POC Glucose (mg/dL) 151 H (70-110) mg/dL
--- NOTE | 2024-07-11 13:04 | CA ---
Transthoracic Echo Report Name: Radha Cardozo Age: 69 Gender: F : 1955 Exam Date: 07/11/2024 09:40 Exam Location: [facility] Ht (in): 65 Wt (lb): 197 Ordering Physician: Rebecca Heart Attending/Referring Phys: [id number], [employer] Irina Parrish, FATOU Procedure CPT: Indications: LVF Cardiac Hx: Chest pain, COPD, Asthma, Stent, HTN, Angina, DVT, hyperlipidemia Technical Quality: Good Contrast 1: Total Dose (mL): Contrast 2: Total Dose (mL): MEASUREMENTS (Male / Female) Normal Values 2D ECHO LV Diastolic Diameter PLAX 5.0 cm 4.2 - 5.9 / 3.9 - 5.3 cm LV Systolic Diameter PLAX 3.3 cm IVS Diastolic Thickness 0.8 cm 0.6 - 1.0 / 0.6 - 0.9 cm LVPW Diastolic Thickness 0.8 cm 0.6 - 1.0 / 0.6 - 0.9 cm LV Relative Wall Thickness 0.3 RV Internal Dim ED PLAX 2.4 cm LVOT Diameter 2.2 cm Aortic Root Diameter 3.3 cm LA Systolic Diameter LX 3.7 cm 3.0 - 4.0 / 2.7 - 3.8 cm LV Diastolic Volume MOD 4C 103.4 cm??? LV Systolic Volume MOD 4C 29.3 cm??? LV Ejection Fraction MOD 4C 71.7 % LV Cardiac Index MOD 4C 2736.3 cm???/min???m??? LV Diastolic Length 4C 8.3 cm LV Systolic Length 4C 6.2 cm DOPPLER Mitral E Point Velocity 71.9 cm/s Mitral A Point Velocity 73.9 cm/s Mitral E to A Ratio 1.0 MV Deceleration Time 170.7 ms MV E' Velocity 6.1 cm/s Mitral E to MV E' Ratio 11.8 FINDINGS Left Ventricle Left ventricular ejection fraction is estimated at 60-65 %. Normal Left ventricular size, wall thickness, systolic function with no obvious regional wall motion abnormalities. Right Ventricle Normal right ventricular size and function. Unable to estimate the right ventricular systolic pressure. Right Atrium Normal right atrial size. Left Atrium Normal left atrial size. Mitral Valve Structurally normal mitral valve. Trace mitral regurgitation. Aortic Valve Trileaflet aortic valve. No aortic valve stenosis or regurgitation. Tricuspid Valve Structurally normal tricuspid valve. No tricuspid regurgitation. Pulmonic Valve Pulmonic valve not well visualized. No pulmonic regurgitation. Pericardium No pericardial effusion Aorta Normal size aortic root and proximal ascending aorta. CONCLUSIONS Normal LV size and systolic function. Minimal mitral and tricuspid regurgitation. No pericardial effusion. Right-sided pressures were not well quantified Previewed by: Dr. Loli Kulkarni MD (Electronically Signed) Final Date: 11 July 2024 13:03
[2024-07-11 14:11] VITALS: BP 145/70; PULSE 73; TEMP 98.7
--- NOTE | 2024-07-11 15:29 | P.PN ---
Subjective Progress Note Date: 07/11/24 This is a pleasant 69-year-old female patient with a known history of chronic obstructive pulmonary disease, chronic and ongoing tobacco dependence, diabetes mellitus, DVT anticoagulated with warfarin, hypertension, hyperlipidemia, coronary disease with previous stent placement, severe peripheral vascular disease with previous [employer]. She presented here to the emergency room earlier today with a 1 week history of increasing shortness of breath, cough and congestion. She also had been complaining of a headache and was concerned about carbon monoxide poisoning due to a neighbors heater having a crack in it. Chest x-ray shows no acute pulmonary process. EKG reveals sinus tachycardia with nonspecific ST and T wave abnormalities. White count 8.0. Hemoglobin 16.4. Platelets 179. Sodium 132. Potassium 3.4. Bicarb 23. BUN 20. Creatinine 1.0. Troponin negative x 1. proBNP 46. Arterial blood gases revealed a PaO2 of 61, pCO2 42 and a pH of 7.37 on 21% FiO2. Viral screen positive for COVID- 19. She is seen today in consultation in the emergency department. She is currently sitting up on a stretcher. Awake and alert in no acute distress. She is maintaining good O2 saturations in the 90s on 2 L/min per nasal cannula. She is receiving 0.5% normal saline at 75 mL/h. The patient is seen today July 09, 2024. She is awake and alert in no acute distress. Resting comfortably in bed. She is maintaining O2 saturations in the 90s on 3 L/min per nasal cannula. She still have some congestion and coughing. White count 4.5. Hemoglobin 14.9. Platelets 163. INR 3.7. Sodium 135. Potassium 3.5. Bicarb 21. BUN 16. Creatinine 0.9. Glucose 179. She remains on albuterol, Symbicort, Solu-Medrol. Half-normal saline at 75 mL/h. Anticoagulated with warfarin. The patient is seen today July 10, 2024 in follow-up on the regular medical floor. She is currently sitting up at the bedside. Awake and alert in no acute distress. Maintaining good O2 saturations in the 90s on 3 L/min per nasal cannula. Working with the incentive spirometer. No IV fluids. White count 11. 5. Hemoglobin 14.7. Platelets 176. INR 3.1. Sodium 137. Potassium 3.4. Bicarb 22. BUN 20. Creatinine 0.9. Glucose 170. She remains on Symbicort, Spiriva and albuterol. Continued on IV Solu-Medrol. Anticoagulated with warfarin. NicoDerm patch in place. Continued on vitamin supplements. On 07/11/2024, the patient is being seen for a follow-up. Patient is doing well. No specific complaints. She is currently on room air oxygen. No significant respiratory distress. No fever or chills. No nausea vomiting or diarrhea. No that she was hospitalized for an acute COVID-19 infection. The patient has had no previous COVID-19 infection in the past. She also encountered atrial fibri llation and current cardiac rhythm is sinus. Echocardiogram results are noted from today and the patient has a normal ejection fraction of 60 to 65%, no significant valvular abnormalities. Mild or minimal mitral regurgitation. No pericardial effusion. No significant pulmonary hypertension. Labs from today shows a white cell count of 11.5 with a heme of 16.3 and a platelet count of 207. Sodium is at 137, BUN 23 with a creatinine of 1.0. Potassium level is at 3.7. TSH is at 0.1. The patient remains on IV Solu-Medrol 60 mg every 6 hours. Remains on Ventolin HFA 4 times a day [id number] and Symbicort 2 puffs twice a day. Rest of the medications remain unchanged. Also on Spiriva 2 puffs once a day. Remains on anticoagulation with warfarin 3 mg p.o. on a daily basis. INR today is at 1.5. Objective - Vital Signs Vital signs: Vital Signs Temp 98 F 07/11/24 07:20 Pulse 67 07/11/24 07:20 Resp 20 07/11/24 07:20 BP 172/77 07/11/24 07:20 Pulse Ox 92 L 07/11/24 11:42 FiO2 Intake & Output 07/10/24 07/11/24 07/11/24 18:59 06:59 18:59 Intake Total 360 Balance 360 Intake: Oral 360 Other: Voiding Method Toilet Toilet # Voids 2 3 # Bowel Movements 1 0 - Exam GENERAL EXAM: Alert, pleasant 69-year-old female, sitting up at the bedside, on room air oxygen, no signs of any significant respiratory distress HEAD: Normocephalic. EYES: Normal reaction of pupils, equal size. NOSE: Clear with pink turbinates. THROAT: No erythema or exudates. NECK: No masses, no JVD. CHEST: No chest wall deformity. LUNGS: Equal air entry with bilateral end expiratory wheeze, diminished. CVS: S1 and S2 normal with no audible murmur, regular rhythm. ABDOMEN: No hepatosplenomegaly, normal bowel sounds, no guarding or rigidity. SPINE: No scoliosis or deformity SKIN: No rashes CENTRAL NERVOUS SYSTEM: No focal deficits, tone is normal in all 4 extremities. EXTREMITIES: There is no peripheral edema. No clubbing, no cyanosis. Peripheral pulses are intact. - Labs CBC & Chem 7: 07/11/24 03:45 07/11/24 03:45 Labs: Abnormal Lab Results - Last 24 Hours (Table) 07/10/24 07/10/24 07/11/24 Range/Units 16:57 20:53 03:45 WBC 11.53 H (4.50-10.00) X 10*3/uL Hgb 16.3 H (12.0-15.0) g/dL Hct 49.7 H (37.2-46.3) % MCV 101.2 H (80.0-97.0) FL MCH 33.2 H (27.0-32.0) pg Immature Gran # 0.06 H (0.00-0.04) X 10*3/uL Neutrophils # 10.77 H (1.80-7.70) X 10*3/uL Lymphocytes # 0.50 L (0.90-5.00) X 10*3/uL Monocytes # 0.17 L (0.20-1.00) X 10*3/uL Eosinophils # 0 L (0.04-0.35) X 10*3/uL PT (10.0-12.5) sec INR (<1.2) Carbon Dioxide (21.6-31.8) mmol/L Anion Gap (4.00-12.00) mmol/L BUN/Creatinine Ratio (12.00-20.00) Ratio Glucose (70-110) mg/dL POC Glucose (mg/dL) 153 H 178 H (70-110) mg/dL 07/11/24 07/11/24 07/11/24 Range/Units 03:45 03:45 06:44 WBC (4.50-10.00) X 10*3/uL Hgb (12.0-15.0) g/dL Hct (37.2-46.3) % MCV (80.0-97.0) FL MCH (27.0-32.0) pg Immature Gran # (0.00-0.04) X 10*3/uL Neutrophils # (1.80-7.70) X 10*3/uL Lymphocytes # (0.90-5.00) X 10*3/uL Monocytes # (0.20-1.00) X 10*3/uL Eosinophils # (0.04-0.35) X 10*3/uL PT 15.6 H (10.0-12.5) sec INR 1.5 H (<1.2) Carbon Dioxide 21.2 L (21.6-31.8) mmol/L Anion Gap 13.80 H (4.00-12.00) mmol/L BUN/Creatinine Ratio 23.00 H (12.00-20.00) Ratio Glucose 157 H (70-110) mg/dL POC Glucose (mg/dL) 151 H (70-110) mg/dL 07/11/24 Range/Units 11:31 WBC (4.50-10.00) X 10*3/uL Hgb (12.0-15.0) g/dL Hct (37.2-46.3) % MCV (80.0-97.0) FL MCH (27.0-32.0) pg Immature Gran # (0.00-0.04) X 10*3/uL Neutrophils # (1.80-7.70) X 10*3/uL Lymphocytes # (0.90-5.00) X 10*3/uL Monocytes # (0.20-1.00) X 10*3/uL Eosinophils # (0.04-0.35) X 10*3/uL PT (10.0-12.5) sec INR (<1.2) Carbon Dioxide (21.6-31.8) mmol/L Anion Gap (4.00-12.00) mmol/L BUN/Creatinine Ratio (12.00-20.00) Ratio Glucose (70-110) mg/dL POC Glucose (mg/dL) 191 H (70-110) mg/dL Assessment and Plan Plan: Acute hypoxemic respiratory failure secondary to an acute exacerbation of chronic obstructive pulmonary disease complicated by COVID-19 infection, improved and the patient is currently on room air oxygen Acute COVID infection without evidence of COVID pneumonia, stable Chronic and ongoing tobacco dependence History of atrial fibrillation, anticoagulated with warfarin. Currently in sinus rhythm, echocardiogram is not showing any acute abnormalities Hyperlipidemia Hypertension Peripheral vascular disease Coronary artery disease with previous stent placement Diabetes mellitus, type II History of CVA/TIA History of DVT in the left upper extremity, maintained on warfarin with a subtherapeutic PT/INR Plan: Clinically stable Oxygenation is currently stable and on room air oxygen Discontinue IV Solu-Medrol start the patient on prednisone burst taper Echo was noted Adjust PT/INR and pharmacy to dose warfarin Continue the current treatment plan Increase her activity as tolerated We will continue to follow
[2024-07-11] MEDS ORDERED: predniSONE 20 MG TAB PO SCH (15:30)
[2024-07-11] MEDS ORDERED: WARFARIN 3 MG TAB PO SCH (18:00)
--- NOTE | 2024-07-12 16:52 | CDI ---
Documentation Clarification Form Date: 07/12/2024 04:34:03 PM From: Liberty Self Phone: Admit Date: 07/08/2024 01:25:00 PM Patient Name: Radha Cardozo Visit Number: [id number] Discharge Date: 07/11/2024 03:41:00 PM ATTENTION: The Clinical Documentation Specialists (CDI) and [facility] Coding Staff appreciate your assistance in clarifying documentation. Please respond to the clarification below the line at the bottom and electronically sign. The CDI & [facility] Coding staff will review the response and follow-up if needed. Please note: Queries are made part of the Legal Health Record. If you have any questions, please contact the author of this message via ITS. Doctor/Provider: Andi Dyson Conflicting documentation has been found in the medical record. As attending physician, please provide clarification. [AcuteCOVID infectionwithout evidence ofCOVIDpneumonia in pulmonology consult on 07/08] [Acute hypoxic respiratory failuresecondary toCOVID-19 pneumoniaandCOPD exacerbation on in cardiology consult on 07/10 ] History/Risk Factors: This is a 69-year-old woman with a past medical history of multiple medical problems includingCOPD, was admitted with suspicion ofcarbon monoxide poisoning. The patient had increasedshortness of breath. The patient was found to haveCOVID-19 positive. Thechest x-raywhich I reviewed personally showed only some increased Broncho vascular markings. There isno history ofanyfever,rigors, orchills. Clinical Indicators: Pulmonology consult on 07/08 -urrent labs include a white count 8, hemoglobin 16. 4, and a platelet count of 179,000. Sodium 132, potassium 3. 4, bicarbonate 23, BUN 20, and creatinine 1. Troponin was negative. proBNP was 46. Blood gases show pO2 of 61, pCO2 of 42, the pH is 7. 37 on room air. Herviralscreen was positive for coronavirusinfection. Chest x-rayshowed nothing acute. We will treat her for aCOPD exacerbation, with the usual medications. Labs,x-rays, and medications are reviewed. Pulmonology consult on 07/10 -ContinueCOVID/pneumoniaCOPD exacerbationtreatment Obtain 2-DechocardiogramandDopplerstudyto assess cardiac structure and function At the time of discharge, patient willfollow-upin the office withDr. Manjula choudhuryoutpatientstresstesting Pn on 07/11Patient seen and examined resting comfortably in bed inno acutedistress. She is maintained on nasal cannula. Telemetrytracings reviewed she hashad no furtherventricular tachycardia. Shehas nosignificantchest painorpressure. Breathing is stable. Echo is pending. Laboratory data reviewed, WBC 11. 5, hemoglobin 16. 3, platelets 207, sodium 137, potassium 3. 7, creatinine 1. 0. Treatment: on 3 L nasal cannula Continue Symbicort, albuterol HFA Continue IV Solu-Medrol Continue warfarin Please clarify which diagnosis is most appropriate: [ ] [Covid 19 Pneumonia is not present ] [ ] [Covid 19 Pneumonia is present] [ X ] Other (please specify) [ ] Unable to determine (Template Last Revised: August 2020) COVID pneumonia not present, but COPD triggered by COVID infection MTDD
== END 2024-07-11 15:41 | disposition home or self-care (01) | DRG 177 ==
LOC: EC 10:43 → 4SSUR 13:25
PROVIDERS: ADMIT Hospitalist; ATTEND Hospitalist
PROC: 8E0ZXY6 Isolation (ICD-10-PCS; principal; 2024-07-10)
DX: U07.1 COVID-19 (principal); J96.01 Acute respiratory failure with hypoxia; D68.9 Coagulation defect, unspecified; I47.20 Ventricular tachycardia, unspecified; J44.1 Chronic obstructive pulmonary disease with (acute) exacerbation; I10 Essential (primary) hypertension; E11.51 Type 2 diabetes mellitus with diabetic peripheral angiopathy without gangrene; I65.29 Occlusion and stenosis of unspecified carotid artery; I48.91 Unspecified atrial fibrillation; M54.9 Dorsalgia, unspecified; E78.5 Hyperlipidemia, unspecified; F17.210 Nicotine dependence, cigarettes, uncomplicated; Z79.899 Other long term (current) drug therapy; Z79.84 Long term (current) use of oral hypoglycemic drugs; Z88.7 Allergy status to serum and vaccine; Z88.8 Allergy status to other drugs, medicaments and biological substances; Z79.01 Long term (current) use of anticoagulants; I25.10 Atherosclerotic heart disease of native coronary artery without angina pectoris; Z95.5 Presence of coronary angioplasty implant and graft; Z86.73 Personal history of transient ischemic attack (TIA), and cerebral infarction without residual deficits; Z86.718 Personal history of other venous thrombosis and embolism; Z79.51 Long term (current) use of inhaled steroids
CPT/HCPCS: 36415; 36600; 71045; 71046; 80048; 80053; 82375; 82805; 83036; 83605; 83735; 83880; 84439; 84443; 84484; 85025; 85379; 85610; 86140; 87636; 93005; 93306; 94640; 96361; 96374; 99285

== ENCOUNTER → 2024-12-14 | Outpatient (CLI) | payer MEDICARE ==
--- NOTE | 2024-12-14 14:37 | US ---
EXAMINATION TYPE: US venous doppler duplex LE LT DATE OF EXAM: 12/14/2024 2:15 PM COMPARISON: NONE CLINICAL INDICATION: Female, 69 years old with history of R22.42 LOCALIZED SWELLING, MASS AND LUMP, L EFT LOW; TECHNIQUE: The lower extremity deep venous system is examined utilizing real time linear array sonog tatiana with graded compression, color doppler sonography, and spectral doppler. SIDE PERFORMED: Left FINDINGS: VESSELS IMAGED: Common Femoral Vein Deep Femoral Vein Greater Saphenous Vein * Femoral Vein Popliteal Vein Small Saphenous Vein * Proximal Calf Veins (* superficial vessels) Left Leg: Appears negative for DVT IMPRESSION: No evidence of deep vein thrombosis of the left lower extremity. [facility], , 12/14/2024 2:35 PM
== END | disposition home or self-care (01) ==
LOC: RADUSWWP 14:13
PROVIDERS: ATTEND Internal Medicine Geriatric Medicine
DX: R22.42 Localized swelling, mass and lump, left lower limb (principal)